=== PATIENT | female | born 1935 | race African-American/Black ===

== ENCOUNTER 2016-08-01 13:03 | Inpatient (IN) | payer OTHER, MEDICARE ==
[2016-08-01 13:21] VITALS: BMI 28.0
[2016-08-01 14:04] LABS: BASOPHIL 0.9 % (0-2.0); EOSINOPHIL 2.6 % (0-4.5); MCH 29.6 pg (25.7-33.7); MCHC 33.2 g/dl (32.0-36.0); MEAN CELL VOLUME 89.1 fl (80-96); MEAN PLT VOLUME 10.4 fl (7.5-11.1); NEUTROPHILS 59.6 % (42.8-82.8); PLATELET COUNT 161 K/MM3 (134-434); RDW 16.2 % (11.6-15.6); WHITE BLOOD COUNT 4.5 K/mm3 (4.0-10.0)
[2016-08-01 14:08] LABS: URINE APPEARANCE CLOUDY; URINE BILIRUBIN NEGATIVE (NEGATIVE); URINE COLOR AMBER; URINE GLUCOSE (UA) NEGATIVE (NEGATIVE); URINE KETONE NEGATIVE (NEGATIVE); URINE NITRITE NEGATIVE (NEGATIVE); URINE UROBILINOGEN NEGATIVE E.U./dl (0.2-1.0)
[2016-08-01 14:13] LABS: URINE BLOOD 3+ (NEGATIVE); URINE LEUK ESTERASE 2+ (NEGATIVE); URINE PROTEIN 1+ (NEGATIVE)
[2016-08-01 14:15] LABS: INR 2.46 (0.82-1.09); PROTHROMBIN TIME (PATIENT) 27.6 SEC (9.98-11.88)
[2016-08-01 14:22] LABS: URINE BACTERIA FEW /hpf (NONE SEEN); URINE MUCUS FEW; URINE RBC 14 /hpf (0-3); URINE WBC 277 /hpf (3-5); YEAST MANY
[2016-08-01 14:24] LABS: ALBUMIN 3.9 g/dl (3.4-5.0); BILIRUBIN,TOTAL 0.5 mg/dL (0.2-1.0); CALCIUM 9.4 mg/dL (8.5-10.1); CREATININE 1.2 mg/dL (0.55-1.02); TOT PROT 7.6 g/dl (6.4-8.2)
--- NOTE | 2016-08-01 14:25 | EKG ---
Test Reason : Blood Pressure : / mmHG Vent. Rate : 080 BPM Atrial Rate : 080 BPM P-R Int : 184 ms QRS Dur : 072 ms QT Int : 368 ms P-R-T Axes : 029 -40 004 degrees QTc Int : 424 ms SINUS RHYTHM WITH PREMATURE ATRIAL COMPLEXES LEFT AXIS DEVIATION MINIMAL VOLTAGE CRITERIA FOR LVH, MAY BE NORMAL VARIANT INFERIOR INFARCT (CITED ON OR BEFORE 22-MAY-2011) ANTERIOR INFARCT (CITED ON OR BEFORE 22-MAY-2011) ABNORMAL ECG WHEN COMPARED WITH ECG OF 09-JUN-2016 18:53, NO SIGNIFICANT CHANGE WAS FOUND Confirmed by JOE NEFF MD ([id number]) on 08/01/2016 2:24:34 PM Referred By: Confirmed By:JOE NEFF MD
--- NOTE | 2016-08-01 15:16 | PDOC ---
History of Present Illness <Bon Brennan - Last Filed: 08/01/16 16:29> - General History Source: Patient Exam Limitations: No Limitations - History of Present Illness Initial Comments: 08/01/16 15:28 Patient is an 80 year old female with significant medical hx of HTN, HLD, CVA, anemia, left lower extremity DVT (lifelong Coumadin), gait instability (chronic lower extremity weakness), osteoarthritis, colorectal CA s/p colectomy with subsequent reversal, and chemotherapy who presents to the ED with son from home with generalized weakness. [facility] s/p recent fall in 06/2016 for balance and was discharged 2 weeks ago. As per patients health aid she noticed that the patient was dragging her right foot while ambulating with a walker. As per son the patient has had increased urinary output/frequency. Pt has no acute complaints beside mild weakness. She denies chest pain, SOB, nausea, vomiting, diarrhea, abdominal pain or constipation. No vision changes or blurry vision. PCP - Dr. Sosa Vera <Nita Chavez - Last Filed: 08/01/16 16:44> - General Chief Complaint: Weakness Stated Complaint: Weakness Time Seen by Provider: 08/01/16 13:11 Past History - Past Medical History Anemia: Yes Asthma: No Cancer: Yes (COLON) Cardiac Disorders: Yes CVA: No COPD: No CHF: No Dementia: No Diabetes: No GI Disorders: Yes Disorders: No HTN: Yes Hypercholesterolemia: Yes Liver Disease: No Suicide Attempt (Hx): No Seizures: No Thyroid Disease: Yes (HYPERTHYROID DISEASE) - Surgical History Abdominal Surgery: Yes (COLON RESECTION/COLOSTOMY; S/O AAA REPAIR) Appendectomy: No Cardiac Surgery: No Cholecystectomy: No Lung Surgery: No Neurologic Surgery: No Orthopedic Surgery: No - Immunization History Immunization Up to Date: Yes - Psycho/Social/Smoking Cessation Hx Anxiety: No Suicidal Ideation: No Smoking Status: No Smoking History: Never smoked Have you smoked in the past 12 months: No Number of Cigarettes Smoked Daily: 0 If you are a former smoker, when did you quit?: over 10 years Information on smoking cessation initiated: No Hx Alcohol Use: No Drug/Substance Use Hx: No Substance Use Type: None Hx Substance Use Treatment: No <Bon Brennan - Last Filed: 08/01/16 16:29> <Nita Chavez - Last Filed: 08/01/16 16:44> - Past Medical History Allergies/Adverse Reactions: Allergies Allergy/AdvReac Type Severity Reaction Status Date / Time iodine [Iodine] Allergy Mild Hives Verified 08/01/16 13:10 SHELLFISH Allergy Uncoded 08/01/16 13:10 Home Medications: Ambulatory Orders Docusate Sodium [Colace -] 100 mg PO DAILY 11/10/13 Atorvastatin Calcium 20 mg PO DAILY #30 01/31/15 Calcium Carbonate/Vitamin D3 [Calcium 600-Vit D3 800 Tablet] 1 each PO DAILY 07/21 Cyanocobalamin [Vitamin B12 -] 1,000 mcg PO DAILY 04/06/15 Methimazole [Tapazole -] 5 mg PO DAILY 04/06/15 Metoprolol Succinate [Toprol XL -] 50 mg PO DAILY 04/06/15 Apixaban [Eliquis -] 2.5 mg PO BID #0 tablet 06/12/16 Ascorbic Acid [Vitamin C -] 500 mg PO DAILY 08/01/16 Ferrous Sulfate [Feosol] 325 mg PO DAILY 08/01/16 Folic Acid 1 mg PO DAILY 08/01/16 Megestrol Acetate Oral Susp [Megace Liquid -] 400 mg PO DAILY 08/01/16 Multivitamins [Tab-A-Vit -] 1 tab PO DAILY 08/01/16 Review of Systems - Review of Systems Able to Perform ROS?: Yes Comments:: 08/01/16 15:29 CONSTITUTIONAL: Reported: generalized weakness No reported: Fever, Chills, Diaphoresis, Malaise, Loss of Appetite HEENT: No reported: Rhinorrhea, Nasal Congestion, Throat Pain, Throat Swelling, Difficulty Swallowing, Mouth Swelling, Ear Pain, Eye Pain, Visual Changes CARDIOVASCULAR: No reported: Chest Pain, Syncope, Palpitations, Irregular Heart Rate, Lightheadedness, Peripheral Edema RESPIRATORY: No reported: Cough, Shortness of Breath, SOB with Exertion, Orthopnea, Wheezing , Stridor, Hemoptysis GASTROINTESTINAL: No reported: Abdominal pain, Abdominal Distension, Nausea, Vomiting, Diarrhea, Constipation, Melena, Hematochezia GENITOURINARY: No reported: Dysuria, Frequency, Urgency, Hesitancy, Flank Pain, Genital Pain MUSCULOSKELETAL: Reported: lower extremity weakness No reported: Myalgia, Arthralgia, Joint Swelling, Back pain, Neck Pain SKIN: No reported: Rash, Itching, Pallor HEMATOLOGIC/IMMUNOLOGIC: No reported: Easy Bleeding, Easy Bruising, Lymphadenopathy, Frequent infections ENDOCRINE: No reported: Unexplained Weight Gain, Unexplained Weight Loss, Heat Intolerance , Cold Intolerance NEUROLOGIC: No reported: Headache, Focal Weakness, Paresthesias, Vertigo, Lightheadedness, Unsteady Gait, Seizure, Mental Status Changes, Incontinence PSYCHIATRIC: No reported: Anxiety, Depression <Nita Chavez - Last Filed: 08/01/16 16:44> *Physical Exam - Vital Signs Last Vital Signs Temp Pulse Resp BP Pulse Ox 98.8 F 76 18 138/98 100 08/01/16 13:03 08/01/16 13:55 08/01/16 13:03 08/01/16 13:03 08/01/16 13:55 <Bon Brennan - Last Filed: 08/01/16 16:29> - Vital Signs Last Vital Signs Temp Pulse Resp BP Pulse Ox 98.8 F 76 18 138/98 100 08/01/16 13:03 08/01/16 13:55 08/01/16 13:03 08/01/16 13:03 08/01/16 13:55 - Physical Exam Comments: 08/01/16 15:29 GENERAL: The patient is awake, alert, oriented x 1, Nontoxic - in no acute distress. HEAD: Normocephalic, atraumatic. EYES: extraocular movements intact, sclera anicteric, conjunctiva clear. ENT: Normal voice, Moist mucous membranes. NECK: Normal range of motion, supple LUNGS: Breath sounds equal, clear to auscultation bilaterally. No wheezes, no rhonchi, no rales. HEART: Regular rate and rhythm, normal S1 and S2 without murmur, rub or gallop. ABDOMEN: Soft, nontender, normoactive bowel sounds. No guarding, no rebound. . No CVA tenderness EXTREMITIES: Normal range of motion, no edema. No clubbing or cyanosis. No cords, erythema, or tenderness. PSYCH: Normal mood, normal affect. SKIN: Warm, Dry, normal turgor, NEURO: Mental status: The patient is oriented x1. Cranial nerves: Cranial nerves II through XII are intact Motor: The upper extremities are 5 over 5 in all muscle groups. mild drift of RLE, dorsi/plantar function 5/5. Sensation: Sensation is intact to light touch throughout. Cerebellar: Ikdalh-awezty-ihsj is normal in both upper extremities. Gait: deferred <BelkysenzoNita - Last Filed: 08/01/16 16:44> ED Treatment Course - LABORATORY CBC & Chemistry Diagram: 08/01/16 13:48 08/01/16 13:48 - ADDITIONAL ORDERS Additional order review: Laboratory Results 08/01/16 08/01/16 08/01/16 13:48 13:48 13:48 INR 2.46 H D Sodium 142 Potassium 3.7 Chloride 106 Carbon Dioxide 27 D Anion Gap 9 BUN 25 H D Creatinine 1.2 H Creat Clearance w eGFR 43.01 Random Glucose 84 D Calcium 9.4 Total Bilirubin 0.5 D AST 10 L D ALT 13 Alkaline Phosphatase 44 L Total Protein 7.6 Albumin 3.9 Urine Color Tess Urine Appearance Cloudy Urine pH 5.0 Ur Specific [place] 1.020 Urine Protein 1+ H Urine Glucose (UA) Negative Urine Ketones Negative Urine Blood 3+ H Urine Nitrite Negative Urine Bilirubin Negative Urine Urobilinogen Negative Ur Leukocyte Esterase 2+ H Urine RBC 14 Urine WBC 277 Ur Epithelial Cells Moderate Urine Bacteria Few Urine Mucus Few Urine Yeast Many 08/01/16 13:48 RBC 3.83 MCV 89.1 MCHC 33.2 RDW 16.2 H MPV 10.4 D Neutrophils % 59.6 D Lymphocytes % 28.0 D Monocytes % 8.9 Eosinophils % 2.6 D Basophils % 0.9 - RADIOLOGY Radiology Studies Ordered: Category Date Time Status HEAD CT WITHOUT CONTRAST [CT] Stat CT Scan 08/01/16 14:08 Ordered CHEST X-RAY PORTABLE* [RAD] Stat Radiology 08/01/16 13:21 Taken <Bon Brennan - Last Filed: 08/01/16 16:29> - LABORATORY CBC & Chemistry Diagram: 08/01/16 13:48 08/01/16 13:48 - ADDITIONAL ORDERS Additional order review: Laboratory Results 08/01/16 08/01/16 08/01/16 13:48 13:48 13:48 INR 2.46 H D Sodium 142 Potassium 3.7 Chloride 106 Carbon Dioxide 27 D Anion Gap 9 BUN 25 H D Creatinine 1.2 H Creat Clearance w eGFR 43.01 Random Glucose 84 D Calcium 9.4 Total Bilirubin 0.5 D AST 10 L D ALT 13 Alkaline Phosphatase 44 L Total Protein 7.6 Albumin 3.9 Urine Color Tess Urine Appearance Cloudy Urine pH 5.0 Ur Specific [place] 1.020 Urine Protein 1+ H Urine Glucose (UA) Negative Urine Ketones Negative Urine Blood 3+ H Urine Nitrite Negative Urine Bilirubin Negative Urine Urobilinogen Negative Ur Leukocyte Esterase 2+ H Urine RBC 14 Urine WBC 277 Ur Epithelial Cells Moderate Urine Bacteria Few Urine Mucus Few Urine Yeast Many 08/01/16 13:48 RBC 3.83 MCV 89.1 MCHC 33.2 RDW 16.2 H MPV 10.4 D Neutrophils % 59.6 D Lymphocytes % 28.0 D Monocytes % 8.9 Eosinophils % 2.6 D Basophils % 0.9 <Nita Chavez - Last Filed: 08/01/16 16:44> Medical Decision Making - Medical Decision Making 08/01/16 15:15 suspect possible UTI but will r/o cva with ct head likely admission vs obs 08/01/16 16:29 labs notable for mild deydration ct head negative ua c/w uti will treat with abx case d/w dr. vera will admit to observation stable for med/surg Case discussed in detail with admitting physician including history, physical exam and ancillary studies. Admitting physician has assumed care for the patient, will follow all pending diagnostics and will complete the evaluation and treatment. <Bon Brennan - Last Filed: 08/01/16 16:29> - Medical Decision Making 08/01/16 16:30 A call was placed to Dr. Vera at her office and case was discussed. <Nita Chavez - Last Filed: 08/01/16 16:44> *DC/Admit/Observation/Transfer - Discharge Dispostion Admit: Yes <Bon Brennan - Last Filed: 08/01/16 16:29> - Attestations Scribe Attestion: 08/01/16 15:29 Documentation prepared by GUILLERMO Vasquez, acting as emergency medical technician for Bon Brennan MD. <Nita Chavez - Last Filed: 08/01/16 16:44> Diagnosis at time of Disposition: Weakness, Dehydration UTI (urinary tract infection) Qualifiers: Urinary tract infection type: site unspecified Hematuria presence: without hematuria Qualified Code(s): N39.0 - Urinary tract infection, site not specified - Discharge Dispostion Condition at time of disposition: Stable - Referrals Referrals: Sosa Vera MD [Primary Care Provider] -
[2016-08-01 15:30] LABS: THYROID STIMULATING HORMONE 2.59 uIU/ml (0.358-3.74)
[2016-08-01] MEDS ORDERED: SODIUM CHLORIDE 500 ML IV STA (16:29)
[2016-08-01] MEDS ORDERED: CEFTRIAXONE 1 GM in DEXTROSE 5%-WATER - 50 ML IVPB ONE (16:34)
[2016-08-01] MEDS ORDERED: CEFTRIAXONE 50 ML ONE (16:37)
[2016-08-01] MEDS ORDERED: PT OWN MED DRAWER 7, Y5N ONE ×2 (21:09)
[2016-08-01] MEDS: POTASSIUM CHLORIDE 10 MEQ in SODIUM CHLORIDE 0.45% 1,000 ML IVPB SCH (21:42)
[2016-08-01] MEDS: APIXABAN 2.5 MG TABLET PO SCH (21:42)
--- NOTE | 2016-08-02 09:56 | HP ---
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 No: Parkinson's (parkinsonian sx but hx of Basal ganglia infarcts, her neurologist is evaluating her for PD) Cardiovascular: Yes: HTN, Hyperlipdemia Gastrointestinal: Yes: Cancer (colono CA s/p colectomy, chemotherapy, s/p colostomy with subsequent reversal.) Renal/: Yes: Other (Urethral diverticuli) ...: No Heme/Onc: Yes: Anemia, Other (h/o left leg DVT on lifelong Coumadin) Endocrine: Yes: Hyperthyroidism - Past Surgical History Past Surgical History: Yes: AAA Repair, Colectomy, Colostomy - Smoking History Smoking history: Former smoker Have you smoked in the past 12 months: No Aproximately how many cigarettes per day: 0 If you are a former smoker, when did you quit?: over 10 years - Alcohol/Substance Use Hx Alcohol Use: No - Social History ADL: Independent History of Recent Travel: No <Yue Ayala - Last Filed: 08/02/16 09:56> - Primary Care Physician PCP: Yue Ayala - Admission History of Present Illness: Patient is an 80 year old female with significant medical hx of HTN, HLD, CVA, anemia, left lower extremity DVT (lifelong Coumadin), gait instability (chronic lower extremity weakness), osteoarthritis, colorectal CA s/p colectomy with subsequent reversal, and chemotherapy who presents to the ED with son from home with generalized weakness. [facility] s/p recent fall in 06/2016 for balance and was discharged 2 weeks ago. As per patients health aid she noticed that the patient was dragging her right foot while ambulating with a walker. As per son the patient has had increased urinary output/frequency. Pt has no acute complaints beside mild weakness. She denies chest pain, SOB, nausea, vomiting, diarrhea, abdominal pain or constipation. No vision changes or blurry vision. Patient admitted to hospital for UTI ct of head was unremarkable as well as cxr pt seen today by me feels weak but no distress denies chest pain or SOB denies urinary burning no headache or dizziness denies abdominal pain History Source: Patient Limitations to Obtaining History: No Limitations <Nita Chavez - Last Filed: 08/02/16 10:16> Home Medications <Yue Ayala - Last Filed: 08/02/16 09:56> <Nita Chavez - Last Filed: 08/02/16 10:16> - Allergies Allergies/Adverse Reactions: Allergies Allergy/AdvReac Type Severity Reaction Status Date / Time iodine [Iodine] Allergy Mild Hives Verified 08/01/16 13:10 SHELLFISH Allergy Uncoded 08/01/16 13:10 - Home Medications Home Medications: Ambulatory Orders Docusate Sodium [Colace -] 100 mg PO DAILY 11/10/13 Atorvastatin Calcium 20 mg PO DAILY #30 01/31/15 Calcium Carbonate/Vitamin D3 [Calcium 600-Vit D3 800 Tablet] 1 each PO DAILY 07/21 Cyanocobalamin [Vitamin B12 -] 1,000 mcg PO DAILY 04/06/15 Methimazole [Tapazole -] 5 mg PO DAILY 04/06/15 Metoprolol Succinate [Toprol XL -] 50 mg PO DAILY 04/06/15 Apixaban [Eliquis -] 2.5 mg PO BID #0 tablet 06/12/16 Ascorbic Acid [Vitamin C -] 500 mg PO DAILY 08/01/16 Ferrous Sulfate [Feosol] 325 mg PO DAILY 08/01/16 Folic Acid 1 mg PO DAILY 08/01/16 Megestrol Acetate Oral Susp [Megace Liquid -] 400 mg PO DAILY 08/01/16 Multivitamins [Tab-A-Vit -] 1 tab PO DAILY 08/01/16 Review of Systems Unable to obtain ROS, reason: see HPI <Nita Chavez - Last Filed: 08/02/16 10:16> Physical Examination Vital Signs: Vital Signs Temperature 98.1 F 08/02/16 08:00 Pulse Rate 77 08/02/16 08:00 Respiratory Rate 18 08/02/16 08:00 Blood Pressure 158/87 08/02/16 08:00 O2 Sat by Pulse Oximetry (%) 100 08/01/16 21:00 <Yue Ayala - Last Filed: 08/02/16 09:56> Vital Signs: Vital Signs Temperature 98.1 F 08/02/16 08:00 Pulse Rate 77 08/02/16 08:00 Respiratory Rate 18 08/02/16 08:00 Blood Pressure 158/87 08/02/16 08:00 O2 Sat by Pulse Oximetry (%) 100 08/01/16 21:00 Constitutional: Yes: No Distress, Calm, Other (looks weak) Eyes: Yes: Conjunctiva Clear HENT: Yes: WNL Neck: Yes: Supple Cardiovascular: Yes: Regular Rate and Rhythm Respiratory: Yes: CTA Bilaterally Gastrointestinal: Yes: Soft Edema: No Neurological: Yes: Alert, Oriented <Nita Chavez - Last Filed: 08/02/16 10:16> Imaging - Results Chest X-ray: Image Reviewed Cat Scan: Image Reviewed <Nita Chavez - Last Filed: 08/02/16 10:16> Problem List - Problems (1) UTI (urinary tract infection) Code(s): N39.0 - URINARY TRACT INFECTION, SITE NOT SPECIFIED Qualifiers: Urinary tract infection type: site unspecified Hematuria presence: without hematuria Qualified Code(s): N39.0 - Urinary tract infection, site not specified (2) Dehydration Code(s): E86.0 - DEHYDRATION (3) Weakness Code(s): R53.1 - WEAKNESS (4) DVT (deep venous thrombosis) Code(s): I82.409 - ACUTE EMBOLISM AND THOMBOS UNSP DEEP VN UNSP LOWER EXTREMITY <Nita Chavez - Last Filed: 08/02/16 10:16> Assessment/Plan Mild hydration Abx Follow up urine cultures Medications reviewed PT Will follow Documentation prepared by Nita Chavez, acting as a medical instrument cable fabricator for Yue Ayala MD. <Nita Chavez - Last Filed: 08/02/16 10:16>
[2016-08-02] MEDS ORDERED: PT OWN MED DRAWER 7, Y5N ONE ×2 (10:49→22:40)
[2016-08-02] MEDS: POTASSIUM CHLORIDE 10 MEQ in SODIUM CHLORIDE 0.45% 1,000 ML IVPB SCH (10:51)
[2016-08-02] MEDS: METOPROLOL SUCCINATE 50 MG TAB.SR.24H (FP) PO SCH (10:52)
[2016-08-02] MEDS: DOCUSATE SODIUM 100 MG CAPSULE (FP) PO SCH (10:52)
[2016-08-02] MEDS: METHIMAZOLE 5 MG TABLET (FP) PO SCH (10:52)
[2016-08-02] MEDS: CEFTRIAXONE 50 ML IVPB SCH (10:52)
[2016-08-02] MEDS: APIXABAN 2.5 MG TABLET PO SCH ×2 (10:52→22:55)
[2016-08-02] MEDS: CALCIUM 500MG/VIT-D 200 UNITS COMBO TABLET (FP) PO SCH (10:52)
[2016-08-02] MEDS: MULTIVITAMINS (DAILY MVI) TABLET (FP) PO SCH (10:52)
[2016-08-02] MEDS: ATORVASTATIN CA 20 MG TABLET (FP) PO SCH (10:52)
[2016-08-02] MEDS ORDERED: ACETAMINOPHEN 325 MG TABLET (FP) PO PRN (17:08)
[2016-08-03] MEDS ORDERED: PT OWN MED DRAWER 7, Y5N ONE ×2 (11:04→18:50)
[2016-08-03] MEDS: METHIMAZOLE 5 MG TABLET (FP) PO SCH (11:08)
[2016-08-03] MEDS: APIXABAN 2.5 MG TABLET PO SCH ×2 (11:08→21:13)
[2016-08-03] MEDS: CALCIUM 500MG/VIT-D 200 UNITS COMBO TABLET (FP) PO SCH (11:09)
[2016-08-03] MEDS: METOPROLOL SUCCINATE 50 MG TAB.SR.24H (FP) PO SCH (11:09)
[2016-08-03] MEDS: MULTIVITAMINS (DAILY MVI) TABLET (FP) PO SCH (11:09)
[2016-08-03] MEDS: DOCUSATE SODIUM 100 MG CAPSULE (FP) PO SCH (11:09)
[2016-08-03] MEDS: ATORVASTATIN CA 20 MG TABLET (FP) PO SCH (11:09)
[2016-08-03] MEDS: POTASSIUM CHLORIDE 10 MEQ in SODIUM CHLORIDE 0.45% 1,000 ML IVPB SCH ×2 (11:42→21:16)
--- NOTE | 2016-08-03 12:10 | PN ---
Progress Note, Physician Chief Complaint: daughter at bedside pt has staring spells Daughter concerned about weakness which is progressing - Current Medication List Current Medications: Active Medications Acetaminophen (Tylenol -) 650 mg PO Q4H PRN PRN Reason: FEVER OR PAIN Apixaban (Eliquis -) 2.5 mg PO BID [facility] Last Admin: 08/03/16 11:08 Dose: 2.5 mg Atorvastatin Calcium (Lipitor -) 20 mg PO DAILY [facility] Last Admin: 08/03/16 11:09 Dose: 20 mg Calcium Carbonate/Cholecalciferol (Os-Vladislav 500+D -) 1 tab PO DAILY [facility] Last Admin: 08/03/16 11:09 Dose: 1 tab Docusate Sodium (Colace -) 100 mg PO DAILY [facility] Last Admin: 08/03/16 11:09 Dose: 100 mg Ceftriaxone Sodium (Rocephin 1gm Ivpb (Pre-Docked)) 50 mls @ 100 mls/hr IVPB DAILY [facility] Last Admin: 08/02/16 10:52 Dose: 100 mls/hr Potassium Chloride 10 meq/ (Sodium Chloride) 1,005 mls @ 83 mls/hr IVPB Q12H [facility] Last Admin: 08/03/16 11:42 Dose: 83 mls/hr Methimazole (Tapazole -) 5 mg PO DAILY [facility] Last Admin: 08/03/16 11:08 Dose: 5 mg Metoprolol Succinate (Toprol Xl -) 50 mg PO DAILY [facility] Last Admin: 08/03/16 11:09 Dose: 50 mg Multivitamins/Minerals/Vitamin C (Tab-A-Vit -) 1 tab PO DAILY [facility] Last Admin: 08/03/16 11:09 Dose: 1 tab - Objective Vital Signs: Vital Signs Temperature 98.1 F 08/03/16 08:01 Pulse Rate 68 08/03/16 08:01 Respiratory Rate 18 08/03/16 08:01 Blood Pressure 151/89 08/03/16 08:01 O2 Sat by Pulse Oximetry (%) 97 08/03/16 02:00 Constitutional: Yes: No Distress Cardiovascular: Yes: Regular Rate and Rhythm Respiratory: Yes: CTA Bilaterally Gastrointestinal: Yes: Normal Bowel Sounds, Soft. No: Distention, Tenderness Edema: No Neurological: Yes: Lethargy, Weakness Labs: INR, PTT INR 2.46 (0.82-1.09) H D 08/01/16 13:48 Problem List - Problems (1) Dehydration Code(s): E86.0 - DEHYDRATION (2) UTI (urinary tract infection) Code(s): N39.0 - URINARY TRACT INFECTION, SITE NOT SPECIFIED Qualifiers: Urinary tract infection type: site unspecified Hematuria presence: without hematuria Qualified Code(s): N39.0 - Urinary tract infection, site not specified (3) Weakness Code(s): R53.1 - WEAKNESS (4) Altered mental status Code(s): R41.82 - ALTERED MENTAL STATUS, UNSPECIFIED Qualifiers: Altered mental status type: disorientation Qualified Code(s): R41.0 - Disorientation, unspecified Assessment/Plan PLAN --Neurology evaluation -- IV antibiotics -- PT eval -- Physiatry evaluation -- may need EEG as pt's daughter notices she has staring spells -- continue with meds -- DVT prophylaxis-- Sudheer
[2016-08-03] MEDS: CEFTRIAXONE 50 ML IVPB SCH (12:16)
--- NOTE | 2016-08-03 12:39 | CONSULT ---
Consult Consult Specialty:: Neurology Reason for Consultation:: Weakness, right foot drag - History of Present Illness History of Present Illness: 80 year old woman with history of stroke, left leg DVT on anticoagulation, chronic gait instability, arthritis, colorectal cancer status post chemotherapy , presents with generalized weakness. [facility] into [facility] status post recent fall in 06/2016 for balance and was discharged two weeks ago. Health aid she noticed that the patient was dragging her right foot while ambulating with a walker. As per son the patient has had increased urinary output and frequency. 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 No: Parkinson's (parkinsonian sx but hx of Basal ganglia infarcts, her neurologist is evaluating her for PD) Cardio/Vascular: Yes: HTN, Hyperlipdemia Gastrointestinal: Yes: Cancer (colono CA s/p colectomy, chemotherapy, s/p colostomy with subsequent reversal.) Renal/: Yes: Other (Urethral diverticuli) ...: No Endocrine: Yes: Hyperthyroidism - Past Surgical History Past Surgical History: Yes: AAA Repair, Colectomy, Colostomy - Alcohol/Substance Use Hx Alcohol Use: No - Smoking History Smoking history: Former smoker Have you smoked in the past 12 months: No Aproximately how many cigarettes per day: 0 If you are a former smoker, when did you quit?: over 10 years - Social History ADL: Independent History of Recent Travel: No Home Medications - Allergies Allergies/Adverse Reactions: Allergies Allergy/AdvReac Type Severity Reaction Status Date / Time iodine [Iodine] Allergy Mild Hives Verified 08/01/16 13:10 SHELLFISH Allergy Uncoded 08/01/16 13:10 - Home Medications Home Medications: Ambulatory Orders Docusate Sodium [Colace -] 100 mg PO DAILY 11/10/13 Atorvastatin Calcium 20 mg PO DAILY #30 01/31/15 Calcium Carbonate/Vitamin D3 [Calcium 600-Vit D3 800 Tablet] 1 each PO DAILY 07/21 Cyanocobalamin [Vitamin B12 -] 1,000 mcg PO DAILY 04/06/15 Methimazole [Tapazole -] 5 mg PO DAILY 04/06/15 Metoprolol Succinate [Toprol XL -] 50 mg PO DAILY 04/06/15 Apixaban [Eliquis -] 2.5 mg PO BID #0 tablet 12/07/16 Ascorbic Acid [Vitamin C -] 500 mg PO DAILY 08/01/16 Ferrous Sulfate [Feosol] 325 mg PO DAILY 08/01/16 Folic Acid 1 mg PO DAILY 08/01/16 Megestrol Acetate Oral Susp [Megace Liquid -] 400 mg PO DAILY 08/01/16 Multivitamins [Tab-A-Vit -] 1 tab PO DAILY 08/01/16 Physical Exam Vital Signs: Vital Signs Temperature 98.1 F 08/03/16 08:01 Pulse Rate 68 08/03/16 08:01 Respiratory Rate 18 08/03/16 08:01 Blood Pressure 151/89 08/03/16 08:01 O2 Sat by Pulse Oximetry (%) 97 08/03/16 02:00 Constitutional: Yes: No Distress Eyes: Yes: Conjunctiva Clear, EOM Intact HENT: Yes: Atraumatic, Normocephalic Cardiovascular: Yes: S1, S2 Respiratory: Yes: Regular Neurological: Yes: Alert, Cran Nerves II-XII Intact (knows name, does not state age or month Motor moves all extremities spontanously, when asking to lift up right leg, lifts up left leg instead) Problem List - Problems (1) Dehydration Code(s): E86.0 - DEHYDRATION (2) UTI (urinary tract infection) Code(s): N39.0 - URINARY TRACT INFECTION, SITE NOT SPECIFIED Qualifiers: Urinary tract infection type: site unspecified Hematuria presence: without hematuria Qualified Code(s): N39.0 - Urinary tract infection, site not specified (3) Altered mental status Code(s): R41.82 - ALTERED MENTAL STATUS, UNSPECIFIED Qualifiers: Altered mental status type: disorientation Qualified Code(s): R41.0 - Disorientation, unspecified Assessment/Plan 80 year old woman with history of stroke, left leg DVT on anticoagulation, chronic gait instability, arthritis, colorectal cancer status post chemotherapy , presents with generalized weakness. Health aid she noticed that the patient was dragging her right foot while ambulating with a walker. As per son the patient has had increased urinary output and frequency. CT head no acute changes Exam is limited but patient appears to prefer moving left leg over right leg Recommend MRI brain without contrast to rule out stroke Infectious workup Physical therapy
--- NOTE | 2016-08-03 16:39 | RAPID ---
Physical Examination Vital Signs: Vital Signs Temperature 98.6 F 08/03/16 14:33 Pulse Rate 71 08/03/16 14:33 Respiratory Rate 18 08/03/16 08:01 Blood Pressure 133/86 08/03/16 14:33 O2 Sat by Pulse Oximetry (%) 96 08/03/16 10:00 Findings/Remarks: rapid response was called as pt was found unresponsive . staring in the space not responding to commands at the time of arrival to the room, pt was awake, minimally responsive to commands, but quickly she became responsive , answered questions and followed commands. PE : BP 130 /70 , HR 70s , SAt O2 90s finger stick 114 . Awake , knows her age , location and knows she fell at home . CV: RRR, no MRG ' Lungs : CTAB Neuro: limited exam : no facial droop, no gaze preference , round equal pupils , reactive to light. Tongue at mid line. shoulder shrug NL , strength 5/5 in upper extremities biceps , triceps , 4/5 final cigar and box examiner b/l . strength at hip 4/5 b/l , knee flexion and extention 4/5 . not able to assess strength at ankles . reflexes 2 + biceps b/l ... 1+ kn ee jerk . unable to assess sensation A/P 80 y/o lady with h/o stroke , DVT , being admitted with UTI and possible R LE weakness. Rapid response called due to unresponsiveness. Now improved , awake , but still not at her base line . no evidence of hypotension or hypoglycemia . There is suspicion for a stroke in her case. Code lloyd called. Obtain stat Ct scan of head. I see an order of MRI brain as well . will transfer pt to tele obtain EKG Dr. Sosa Rubio was paged will inform Neuro who saw her this am . Spoke to family at bed side , they are aware of situation Primary team to resume care . will try to reach Dr. Rubio again
[2016-08-03 18:00] LABS: TROPONIN I < 0.02 ng/ml (0.00-0.05)
[2016-08-04] MEDS: POTASSIUM CHLORIDE 10 MEQ in SODIUM CHLORIDE 0.45% 1,000 ML IVPB SCH ×3 (02:12→12:48)
[2016-08-04] MEDS ORDERED: PT OWN MED DRAWER 7, Y5N ONE (03:07)
[2016-08-04 07:07] LABS: BASOPHIL 0.7 % (0-2.0); EOSINOPHIL 3.5 % (0-4.5); MCH 29.9 pg (25.7-33.7); MCHC 33.4 g/dl (32.0-36.0); MEAN CELL VOLUME 89.3 fl (80-96); MEAN PLT VOLUME 9.5 fl (7.5-11.1); NEUTROPHILS 56.2 % (42.8-82.8); PLATELET COUNT 126 K/MM3 (134-434); RDW 15.6 % (11.6-15.6); WHITE BLOOD COUNT 4.6 K/mm3 (4.0-10.0)
[2016-08-04 07:40] LABS: ALBUMIN 3.1 g/dl (3.4-5.0); ANION GAP 10 (8-16); BILIRUBIN,TOTAL 0.5 mg/dL (0.2-1.0); CALCIUM 8.3 mg/dL (8.5-10.1); CO2 23 mmol/L (21-32); CREATININE 0.8 mg/dL (0.55-1.02); GLUCOSE,RANDOM 76 mg/dL (74-106); SGOT/AST 12 U/L (15-37); SGPT/ALT 10 U/L (12-78); TOT PROT 6.3 g/dl (6.4-8.2)
[2016-08-04 08:04] LABS: ALK PHOS 38 U/L (45-117)
--- NOTE | 2016-08-04 09:27 | PN ---
Progress Note, Physician Chief Complaint: s/p rapid response- pt was unresponsive and her mouth was "twisted" when I asked pt if she remembered the events- she said " i was not responding" She is more awake and alert today Denies any discomfort - Current Medication List Current Medications: Active Medications Acetaminophen (Tylenol -) 650 mg PO Q4H PRN PRN Reason: FEVER OR PAIN Apixaban (Eliquis -) 2.5 mg PO BID [facility] Last Admin: 08/03/16 21:13 Dose: 2.5 mg Atorvastatin Calcium (Lipitor -) 20 mg PO DAILY [facility] Last Admin: 08/03/16 11:09 Dose: 20 mg Calcium Carbonate/Cholecalciferol (Os-Vladislav 500+D -) 1 tab PO DAILY [facility] Last Admin: 08/03/16 11:09 Dose: 1 tab Docusate Sodium (Colace -) 100 mg PO DAILY [facility] Last Admin: 08/03/16 11:09 Dose: 100 mg Ceftriaxone Sodium (Rocephin 1gm Ivpb (Pre-Docked)) 50 mls @ 100 mls/hr IVPB DAILY [facility] Last Admin: 08/03/16 12:16 Dose: 100 mls/hr Potassium Chloride 10 meq/ (Sodium Chloride) 1,005 mls @ 83 mls/hr IVPB Q12H [facility] Last Admin: 08/04/16 07:01 Dose: Not Given Methimazole (Tapazole -) 5 mg PO DAILY [facility] Last Admin: 08/03/16 11:08 Dose: 5 mg Metoprolol Succinate (Toprol Xl -) 50 mg PO DAILY [facility] Last Admin: 08/03/16 11:09 Dose: 50 mg Multivitamins/Minerals/Vitamin C (Tab-A-Vit -) 1 tab PO DAILY [facility] Last Admin: 08/03/16 11:09 Dose: 1 tab - Objective Vital Signs: Vital Signs Temperature 98 F 08/04/16 07:02 Pulse Rate 69 08/04/16 07:02 Respiratory Rate 20 08/04/16 07:02 Blood Pressure 113/65 08/04/16 07:02 O2 Sat by Pulse Oximetry (%) 100 08/04/16 05:58 Constitutional: Yes: No Distress, Calm Cardiovascular: Yes: Pulse Irregular, Murmur Respiratory: Yes: CTA Bilaterally Gastrointestinal: Yes: Normal Bowel Sounds, Soft. No: Distention, Tenderness Edema: No Neurological: Yes: Alert, Oriented, Other (generalized weakness both sides upper and lower extremities) Labs: CBC, BMP 08/04/16 06:00 08/04/16 06:00 INR, PTT INR 2.46 (0.82-1.09) H D 08/01/16 13:48 Problem List - Problems (1) Dehydration Code(s): E86.0 - DEHYDRATION (2) UTI (urinary tract infection) Code(s): N39.0 - URINARY TRACT INFECTION, SITE NOT SPECIFIED Qualifiers: Urinary tract infection type: site unspecified Hematuria presence: without hematuria Qualified Code(s): N39.0 - Urinary tract infection, site not specified (3) Weakness Code(s): R53.1 - WEAKNESS (4) Altered mental status Code(s): R41.82 - ALTERED MENTAL STATUS, UNSPECIFIED Qualifiers: Altered mental status type: disorientation Qualified Code(s): R41.0 - Disorientation, unspecified Assessment/Plan PLAN -- MRI brain and repeat CT head noted -- no evidence of acute CVA -- ? TIA vs toxic metabolic due to UTI -- blood cultures not done yet to complete septic work up -- she has h/o Rt ICA stenosis- but no interventions per Vascular surgeon ( last admission) -- order EEG -- cardiology eval-- pt in tele, she has multiple PVC -- check Magnesium levels -- labs look unremarkable -- PT eval -- continue with Sudheer
[2016-08-04 10:10] LABS: MAGNESIUM 2.2 mg/dL (1.8-2.4)
--- NOTE | 2016-08-04 10:15 | CON.CARD ---
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 Past few days at home as felt weak/fatigue. No cp, sob, palps, dizzy, loc, pnd, orthopnea, le edema. No hx hrt dz. Admitted here with uti and dehydration. Then last night had episode of unresponsiveness and abdiel barraza called. Pt returned to baseline MS on her own, bp/glucose were stable. She does not recall event, aside from "feeling off". Stat imaging revealed no acute cva. This AM feeling better. Main complaint is weakness/fatigue. pmh: per hpi psh: per hpi social: no tob fam: no premature cad, scd ros: per hpi; no nvd, fever, sandra, vision changes, muscle pain, gib, hematuria, rash meds: Medication Instructions Recorded Docusate Sodium [Colace -] 100 mg PO DAILY 11/10/13 Atorvastatin Calcium 20 mg PO DAILY #30 01/31/15 Calcium Carbonate/Vitamin D3 1 each PO DAILY 04/06/15 [Calcium 600-Vit D3 800 Tablet] Cyanocobalamin [Vitamin B12 -] 1,000 mcg PO DAILY 04/06/15 Methimazole [Tapazole -] 5 mg PO DAILY 04/06/15 Metoprolol Succinate [Toprol XL -] 50 mg PO DAILY 04/06/15 Apixaban [Eliquis -] 2.5 mg PO BID #0 tablet 06/12/16 Ascorbic Acid [Vitamin C -] 500 mg PO DAILY 08/01/16 Ferrous Sulfate [Feosol] 325 mg PO DAILY 08/01/16 Folic Acid 1 mg PO DAILY 08/01/16 Megestrol Acetate Oral Susp 400 mg PO DAILY 08/01/16 [Megace Liquid -] Multivitamins [Tab-A-Vit -] 1 tab PO DAILY 08/01/16 pe: Vital Signs Period Temp Pulse Resp BP Sys/Francis Pulse Ox Last 24 Hr 97.9 F-98.6 F 66-74 16-20 113-157/65-101 100-100 nad, no jvd rrr s1s2 no mrg cta bl nl eff aaox3 no le e/c/c abd nt nd pos bs no jaundice diaphoresis pos dp pt no carotid bruit Laboratory Last Values WBC 4.6 K/mm3 (4.0-10.0) 08/04/16 06:00 RBC 3.65 M/mm3 (3.60-5.2) 08/04/16 06:00 Hgb 10.9 GM/dL (10.7-15.3) 08/04/16 06:00 Hct 32.6 % (32.4-45.2) 08/04/16 06:00 MCV 89.3 fl (80-96) 08/04/16 06:00 MCHC 33.4 g/dl (32.0-36.0) 08/04/16 06:00 RDW 15.6 % (11.6-15.6) 08/04/16 06:00 Plt Count 126 K/MM3 (134-434) L D 08/04/16 06:00 MPV 9.5 fl (7.5-11.1) 08/04/16 06:00 Neutrophils % 56.2 % (42.8-82.8) 08/04/16 06:00 Lymphocytes % 31.1 % (8-40) 08/04/16 06:00 Monocytes % 8.5 % (3.8-10.2) 08/04/16 06:00 Eosinophils % 3.5 % (0-4.5) 08/04/16 06:00 Basophils % 0.7 % (0-2.0) 08/04/16 06:00 INR 2.46 (0.82-1.09) H D 08/01/16 13:48 Sodium 141 mmol/L (136-145) 08/04/16 06:00 Potassium 3.6 mmol/L (3.5-5.1) 08/04/16 06:00 Chloride 108 mmol/L (98-107) H 08/04/16 06:00 Carbon Dioxide 23 mmol/L (21-32) 08/04/16 06:00 Anion Gap 10 (8-16) 08/04/16 06:00 BUN 10 mg/dL (7-18) D 08/04/16 06:00 Creatinine 0.8 mg/dL (0.55-1.02) D 08/04/16 06:00 Creat Clearance w eGFR > 60 (>60) 08/04/16 06:00 POC Glucometer 114 UNITS (()) 08/03/16 15:59 Random Glucose 76 mg/dL (74-106) 08/04/16 06:00 Calcium 8.3 mg/dL (8.5-10.1) L 08/04/16 06:00 Magnesium Cancelled 08/04/16 09:45 Total Bilirubin 0.5 mg/dL (0.2-1.0) 08/04/16 06:00 AST 12 U/L (15-37) L 08/04/16 06:00 ALT 10 U/L (12-78) L D 08/04/16 06:00 Alkaline Phosphatase 38 U/L (45-117) L 08/04/16 06:00 Creatine Kinase 45 IU/L (26-192) 08/03/16 17:11 Troponin I < 0.02 ng/ml (0.00-0.05) 08/03/16 17:11 Total Protein 6.3 g/dl (6.4-8.2) L 08/04/16 06:00 Albumin 3.1 g/dl (3.4-5.0) L D 08/04/16 06:00 Vitamin B12 1484 pg/ml (180-914) H 08/04/16 06:00 TSH 2.59 uIU/ml (0.358-3.74) D 08/01/16 13:48 Urine Color Tess 08/01/16 13:48 Urine Appearance Cloudy 08/01/16 13:48 Urine pH 5.0 (5.0-8.0) 08/01/16 13:48 Ur Specific [place] 1.020 (1.001-1.035) 08/01/16 13:48 Urine Protein 1+ (NEGATIVE) H 08/01/16 13:48 Urine Glucose (UA) Negative (NEGATIVE) 08/01/16 13:48 Urine Ketones Negative (NEGATIVE) 08/01/16 13:48 Urine Blood 3+ (NEGATIVE) H 08/01/16 13:48 Urine Nitrite Negative (NEGATIVE) 08/01/16 13:48 Urine Bilirubin Negative (NEGATIVE) 08/01/16 13:48 Urine Urobilinogen Negative E.U./dl (0.2-1.0) 08/01/16 13:48 Ur Leukocyte Esterase 2+ (NEGATIVE) H 08/01/16 13:48 Urine RBC 14 /hpf (0-3) 08/01/16 13:48 Urine WBC 277 /hpf (3-5) 08/01/16 13:48 Ur Epithelial Cells Moderate /hpf (FEW) 08/01/16 13:48 Urine Bacteria Few /hpf (NONE SEEN) 08/01/16 13:48 Urine Mucus Few 08/01/16 13:48 Urine Yeast Many 08/01/16 13:48 ecg 08/01/16: sr, pacs, nl intervals, LVH, no ischemic changes cxr: clear lungs carotid us 06/2016: 50-70% davy, left w/o sig stenosis tele: sr, occ pvcs, one pvc triplet a/p: 80 f hx htn, hld, cva, 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 abnormal ecg/pvcs: -tele with occasional pvcs, no significant runs -check mg (pending) -pt has hx hyperthyroid but tsh wnl here -cont bb for now -monitor on tele -check echo tomorrow to evaluate lvef ams, weakness, hx cva: -no obvious cardiac etiology at present -continue tele -check echo -recent carotid US with 50-70% DAVY stenosis, seen by Vascular then, no further work up needed per consult -ct's, mri brain unremarkable so far -possibly related to UTI -neuro following as well luis: -prerenal, ?from uti -cr improved after ivfs, monitor cr uti: -on abx htn: -stable, cont bb hld: -cont statin hx of dvt: -on eliquis s/p AAA repair: -cont bb, bp control, statin -pt follows with dr erazo, reports having recent abd us that was stable per pt
[2016-08-04] MEDS: METHIMAZOLE 5 MG TABLET (FP) PO SCH (10:23)
[2016-08-04] MEDS: ATORVASTATIN CA 20 MG TABLET (FP) PO SCH (10:23)
[2016-08-04] MEDS: CALCIUM 500MG/VIT-D 200 UNITS COMBO TABLET (FP) PO SCH (10:23)
[2016-08-04] MEDS: CEFTRIAXONE 50 ML IVPB SCH (10:23)
[2016-08-04] MEDS: DOCUSATE SODIUM 100 MG CAPSULE (FP) PO SCH (10:23)
[2016-08-04] MEDS: METOPROLOL SUCCINATE 50 MG TAB.SR.24H (FP) PO SCH ×2 (10:23→10:31)
[2016-08-04] MEDS: MULTIVITAMINS (DAILY MVI) TABLET (FP) PO SCH (10:23)
[2016-08-04] MEDS: APIXABAN 2.5 MG TABLET PO SCH ×2 (10:23→21:31)
[2016-08-04] MEDS ORDERED: METOPROLOL SUCCINATE 25 MG TAB.SR.24H (FP) PO SCH (11:00)
--- NOTE | 2016-08-04 12:02 | PN ---
Progress Note (short form) - Note Progress Note: History of Present Illness: 08/04 Overnight called for episode of unresponsiveness. Patient spontaneously regained consciousness. CT head no acute findings. Vitals were stable at the time. Patient appears improved today, no focal weakness on exam. Alert and knows name MRI brain reviewed- no acute stroke, poss opthalmic lca aneurysm 80 year old woman with history of stroke, left leg DVT on anticoagulation, chronic gait instability, arthritis, colorectal cancer status post chemotherapy , presents with generalized weakness. Patient was placed into a long term for rehab status post recent fall in 06/2016 for balance and was discharged two weeks ago. Health aid she noticed that the patient was dragging her right foot while ambulating with a walker. As per son the patient has had increased urinary output and frequency. CT head no acute changes - Past Medical History [employer]: Yes: Dementia. No: Parkinson's (parkinsonian sx but hx of Basal ganglia infarcts, her neurologist is evaluating her for PD) Cardio/Vascular: Yes: HTN, Hyperlipdemia Gastrointestinal: Yes: Cancer (colono CA s/p colectomy, chemotherapy, s/p colostomy with subsequent reversal.) Renal/: Yes: Other (Urethral diverticuli) ...: No Endocrine: Yes: Hyperthyroidism - Past Surgical History Past Surgical History: Yes: AAA Repair, Colectomy, Colostomy - Alcohol/Substance Use Hx Alcohol Use: No - Smoking History Smoking history: Former smoker Have you smoked in the past 12 months: No Aproximately how many cigarettes per day: 0 If you are a former smoker, when did you quit?: over 10 years - Social History ADL: Independent History of Recent Travel: No Home Medications - Allergies Allergies/Adverse Reactions: Allergies Allergy/AdvReac Type Severity Reaction Status Date / Time iodine [Iodine] Allergy Mild Hives Verified 08/01/16 13:10 SHELLFISH Allergy Uncoded 08/01/16 13:10 - Home Medications Home Medications: Ambulatory Orders Docusate Sodium [Colace -] 100 mg PO DAILY 11/10/13 Atorvastatin Calcium 20 mg PO DAILY #30 01/31/15 Calcium Carbonate/Vitamin D3 [Calcium 600-Vit D3 800 Tablet] 1 each PO DAILY 07/21 Cyanocobalamin [Vitamin B12 -] 1,000 mcg PO DAILY 04/06/15 Methimazole [Tapazole -] 5 mg PO DAILY 04/06/15 Metoprolol Succinate [Toprol XL -] 50 mg PO DAILY 04/06/15 Apixaban [Eliquis -] 2.5 mg PO BID #0 tablet 06/12/16 Ascorbic Acid [Vitamin C -] 500 mg PO DAILY 08/01/16 Ferrous Sulfate [Feosol] 325 mg PO DAILY 08/01/16 Folic Acid 1 mg PO DAILY 08/01/16 Megestrol Acetate Oral Susp [Megace Liquid -] 400 mg PO DAILY 08/01/16 Multivitamins [Tab-A-Vit -] 1 tab PO DAILY 08/01/16 Physical Exam Constitutional: Yes: No Distress Eyes: Yes: Conjunctiva Clear, EOM Intact HENT: Yes: Atraumatic, Normocephalic Cardiovascular: Yes: S1, S2 Respiratory: Yes: Regular Neurological: Yes: Alert, Cran Nerves II-XII Intact (knows name, does not state age or month Motor moves all extremities spontanously, strength appears equal and symmetric) Problem List - Problems (1) Dehydration Code(s): E86.0 - DEHYDRATION (2) UTI (urinary tract infection) Code(s): N39.0 - URINARY TRACT INFECTION, SITE NOT SPECIFIED Qualifiers: Urinary tract infection type: site unspecified Hematuria presence: without hematuria Qualified Code(s): N39.0 - Urinary tract infection, site not specified (3) Altered mental status Code(s): R41.82 - ALTERED MENTAL STATUS, UNSPECIFIED Qualifiers: Altered mental status type: disorientation Qualified Code(s): R41.0 - Disorientation, unspecified Assessment/Plan 80 year old woman with history of stroke, left leg DVT on anticoagulation, chronic gait instability, arthritis, colorectal cancer status post chemotherapy , presents with generalized weakness. Health aid she noticed that the patient was dragging her right foot while ambulating with a walker. As per son the patient has had increased urinary output and frequency. CT head no acute changes Awake, alert, moving all ext without focal weakness, right lower ext improved MRI brain reviewed- no acute stroke, poss opthalmic lca aneurysm Recommend MRA brain without contrast to assess aneurysm Previously seen by vascular for R ICA stenosis as per note, no intervention EEG for unresponsiveness Continue supportive care Problem List - Problems (1) Dehydration Code(s): E86.0 - DEHYDRATION (2) UTI (urinary tract infection) Code(s): N39.0 - URINARY TRACT INFECTION, SITE NOT SPECIFIED Qualifiers: Urinary tract infection type: site unspecified Hematuria presence: without hematuria Qualified Code(s): N39.0 - Urinary tract infection, site not specified (3) Altered mental status Code(s): R41.82 - ALTERED MENTAL STATUS, UNSPECIFIED Qualifiers: Altered mental status type: disorientation Qualified Code(s): R41.0 - Disorientation, unspecified
[2016-08-04] MEDS: POTASSIUM CHLORIDE 10 MEQ in SODIUM CHLORIDE 1,000 ML IVPB SCH (13:18)
[2016-08-05] MEDS: POTASSIUM CHLORIDE 10 MEQ in SODIUM CHLORIDE 1,000 ML IVPB SCH ×3 (00:08→12:04)
--- NOTE | 2016-08-05 08:21 | PN ---
Progress Note, Physician Chief Complaint: syncope History of Present Illness: awake/alert; denies palpitations, cp, sob, dizzy - Current Medication List Current Medications: Active Medications Acetaminophen (Tylenol -) 650 mg PO Q4H PRN PRN Reason: FEVER OR PAIN Apixaban (Eliquis -) 2.5 mg PO BID [facility] Last Admin: 08/04/16 21:31 Dose: 2.5 mg Atorvastatin Calcium (Lipitor -) 20 mg PO DAILY [facility] Last Admin: 08/04/16 10:23 Dose: 20 mg Calcium Carbonate/Cholecalciferol (Os-Vladislav 500+D -) 1 tab PO DAILY [facility] Last Admin: 08/04/16 10:23 Dose: 1 tab Docusate Sodium (Colace -) 100 mg PO DAILY [facility] Last Admin: 08/04/16 10:23 Dose: 100 mg Ceftriaxone Sodium (Rocephin 1gm Ivpb (Pre-Docked)) 50 mls @ 100 mls/hr IVPB DAILY [facility] Last Admin: 08/04/16 10:23 Dose: 100 mls/hr Potassium Chloride 10 meq/ (Sodium Chloride) 1,005 mls @ 83 mls/hr IVPB Q12H [facility] Last Admin: 08/05/16 01:06 Dose: 83 mls/hr Methimazole (Tapazole -) 5 mg PO DAILY [facility] Last Admin: 08/04/16 10:23 Dose: 5 mg Metoprolol Succinate (Toprol Xl -) 25 mg PO DAILY [facility] Multivitamins/Minerals/Vitamin C (Tab-A-Vit -) 1 tab PO DAILY [facility] Last Admin: 08/04/16 10:23 Dose: 1 tab - Objective Vital Signs: Vital Signs Temperature 97.0 F L 08/05/16 06:00 Pulse Rate 70 08/05/16 06:00 Respiratory Rate 18 08/05/16 06:00 Blood Pressure 150/90 08/05/16 06:00 O2 Sat by Pulse Oximetry (%) 100 08/04/16 22:00 Constitutional: Yes: Well Nourished, No Distress, Calm Cardiovascular: Yes: Regular Rate and Rhythm, S1, S2. No: Gallop, Murmur Respiratory: Yes: Regular, CTA Bilaterally. No: Accessory Muscle Use Extremities: No: Cold Edema: No Neurological: Yes: Alert. 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 abnormal ecg/pvcs: -tele with occasional pvcs, no significant runs -K and Mg ok -cont bb for now -check echo ams, weakness, hx cva, transient unresponsiveness in hospital: -no obvious cardiac etiology -recent carotid US with 50-70% CHEL[place] stenosis, seen by Vascular then, no further work up needed per consult -ct's, mri brain unremarkable so far--neuro following -possibly related to UTI -cont tele (monitor for bradyarrhythmia)--thus far unremarkable (? d/c tele tomorrow if remains benign) uti, ? urosepsis: -on abx htn, hypotension: -sbp to 70s on 08/04 -? sepsis -now stable -hold BB while observe bp trend hld: -cont statin hx of dvt: -on eliquis s/p AAA repair: -cont bb, bp control, statin -pt follows with dr erazo, reports having recent abd us that was stable per pt
--- NOTE | 2016-08-05 10:39 | PN ---
Progress Note (short form) - Note Progress Note: SUBJECTIVE: Patient seen and examined. Feels better. Denies chest pain, shortness of breath or abdominal pain. All follow ups noted. Looks weak but better than before. OBJECTIVE: Vital Signs 08/05/16 06:00 Temperature 97.0 F L Pulse Rate 70 Respiratory 18 Rate Blood Pressure 150/90 Intake & Output 08/04/16 08/05/16 08/05/16 23:59 07:59 15:59 Intake Total 1063 996 Balance 1063 996 Intake: IV 913 996 #22 08/04/16 RFA 913 996 Oral 150 Other: Voiding Method Diaper Bowel Movement Yes Yes: diarrhea Active Medications Acetaminophen (Tylenol -) 650 mg PO Q4H PRN PRN Reason: FEVER OR PAIN Apixaban (Eliquis -) 2.5 mg PO BID [facility] Last Admin: 08/04/16 21:31 Dose: 2.5 mg Atorvastatin Calcium (Lipitor -) 20 mg PO DAILY [facility] Last Admin: 08/04/16 10:23 Dose: 20 mg Calcium Carbonate/Cholecalciferol (Os-Vladislav 500+D -) 1 tab PO DAILY [facility] Last Admin: 08/04/16 10:23 Dose: 1 tab Docusate Sodium (Colace -) 100 mg PO DAILY [facility] Last Admin: 08/04/16 10:23 Dose: 100 mg Ceftriaxone Sodium (Rocephin 1gm Ivpb (Pre-Docked)) 50 mls @ 100 mls/hr IVPB DAILY [facility] Last Admin: 08/04/16 10:23 Dose: 100 mls/hr Potassium Chloride 10 meq/ (Sodium Chloride) 1,005 mls @ 83 mls/hr IVPB Q12H [facility] Last Admin: 08/05/16 01:06 Dose: 83 mls/hr Methimazole (Tapazole -) 5 mg PO DAILY [facility] Last Admin: 08/04/16 10:23 Dose: 5 mg Multivitamins/Minerals/Vitamin C (Tab-A-Vit -) 1 tab PO DAILY [facility] Last Admin: 08/04/16 10:23 Dose: 1 tab CBC, BMP 08/04/16 06:00 08/04/16 06:00 PHYSICAL EXAMINATION: Constitutional: Yes: No Distress, Calm Cardiovascular: Yes: Pulse Irregular, Murmur Respiratory: Yes: CTA Bilaterally Gastrointestinal: Yes: Normal Bowel Sounds, Soft. No: Distention, Tenderness Edema: No Neurological: Yes: Alert, Oriented, Other (generalized weakness both sides upper and lower extremities) ASSESSMENT & PLAN: - Clinically better. - Medications reviewed. - Continue present care. - Daily out of bed to chair. - Cardiology follow up noted. - Echocardiogram ordered. - Will follow. - May need short term rehabilitation. - Anticipate discharge tomorrow, if she is stable. - Physical Therapy. Problem List - Problems (1) Dehydration Code(s): E86.0 - DEHYDRATION (2) UTI (urinary tract infection) Code(s): N39.0 - URINARY TRACT INFECTION, SITE NOT SPECIFIED Qualifiers: Urinary tract infection type: site unspecified Hematuria presence: without hematuria Qualified Code(s): N39.0 - Urinary tract infection, site not specified (3) Weakness Code(s): R53.1 - WEAKNESS (4) Altered mental status Code(s): R41.82 - ALTERED MENTAL STATUS, UNSPECIFIED Qualifiers: Altered mental status type: disorientation Qualified Code(s): R41.0 - Disorientation, unspecified Documentation prepared by Casie Dorado, acting as a medical assistant cardiology for Yue Ayala MD.
[2016-08-05] MEDS: DOCUSATE SODIUM 100 MG CAPSULE (FP) PO SCH (11:17)
[2016-08-05] MEDS: ATORVASTATIN CA 20 MG TABLET (FP) PO SCH (11:18)
[2016-08-05] MEDS: CALCIUM 500MG/VIT-D 200 UNITS COMBO TABLET (FP) PO SCH (11:18)
[2016-08-05] MEDS: APIXABAN 2.5 MG TABLET PO SCH ×2 (11:18→21:06)
[2016-08-05] MEDS: CEFTRIAXONE 50 ML IVPB SCH (11:19)
[2016-08-05] MEDS: MULTIVITAMINS (DAILY MVI) TABLET (FP) PO SCH (11:29)
[2016-08-05] MEDS: METHIMAZOLE 5 MG TABLET (FP) PO SCH (12:05)
[2016-08-05] MEDS ORDERED: hydrALAZINE HCL 10 MG TABLET PO PRN (12:18)
[2016-08-05] MEDS: METOPROLOL TARTRATE 25 MG TABLET (FP) PO SCH ×2 (13:26→21:06)
--- NOTE | 2016-08-05 15:48 | EKG ---
Test Reason : Blood Pressure : / mmHG Vent. Rate : 067 BPM Atrial Rate : 067 BPM P-R Int : 176 ms QRS Dur : 074 ms QT Int : 410 ms P-R-T Axes : 012 -34 013 degrees QTc Int : 433 ms SINUS RHYTHM WITH PREMATURE ATRIAL COMPLEXES LEFT AXIS DEVIATION INFERIOR INFARCT (CITED ON OR BEFORE 22-MAY-2011) ANTERIOR INFARCT (CITED ON OR BEFORE 22-MAY-2011) ABNORMAL ECG WHEN COMPARED WITH ECG OF 01-AUG-2016 13:34, NO SIGNIFICANT CHANGE WAS FOUND Confirmed by CAPRI BAKER MD ([id number]) on 08/05/2016 3:47:49 PM Referred By: Confirmed By:CAPRI BAKER MD
[2016-08-06] MEDS ORDERED: PT OWN MED DRAWER 7, Y5N ONE ×2 (09:33→21:47)
[2016-08-06] MEDS: DOCUSATE SODIUM 100 MG CAPSULE (FP) PO SCH (09:35)
[2016-08-06] MEDS: CALCIUM 500MG/VIT-D 200 UNITS COMBO TABLET (FP) PO SCH (09:35)
[2016-08-06] MEDS: METOPROLOL TARTRATE 25 MG TABLET (FP) PO SCH ×2 (09:35→21:55)
[2016-08-06] MEDS: CEFTRIAXONE 50 ML IVPB SCH (09:35)
[2016-08-06] MEDS: APIXABAN 2.5 MG TABLET PO SCH ×2 (09:35→21:55)
[2016-08-06] MEDS: MULTIVITAMINS (DAILY MVI) TABLET (FP) PO SCH (09:36)
[2016-08-06] MEDS: METHIMAZOLE 5 MG TABLET (FP) PO SCH (09:36)
[2016-08-06] MEDS: ATORVASTATIN CA 20 MG TABLET (FP) PO SCH (09:39)
--- NOTE | 2016-08-06 10:31 | PN ---
Progress Note, Physician Chief Complaint: feels ok denies any complaints no distress - Current Medication List Current Medications: Active Medications Acetaminophen (Tylenol -) 650 mg PO Q4H PRN PRN Reason: FEVER OR PAIN Apixaban (Eliquis -) 2.5 mg PO BID [facility] Last Admin: 08/06/16 09:35 Dose: 2.5 mg Atorvastatin Calcium (Lipitor -) 20 mg PO DAILY [facility] Last Admin: 08/06/16 09:39 Dose: 20 mg Calcium Carbonate/Cholecalciferol (Os-Vladislav 500+D -) 1 tab PO DAILY [facility] Last Admin: 08/06/16 09:35 Dose: 1 tab Docusate Sodium (Colace -) 100 mg PO DAILY [facility] Last Admin: 08/06/16 09:35 Dose: 100 mg Hydralazine HCl (Apresoline -) 20 mg PO Q1H PRN PRN Reason: HYPERTENSION Ceftriaxone Sodium (Rocephin 1gm Ivpb (Pre-Docked)) 50 mls @ 100 mls/hr IVPB DAILY [facility] Last Admin: 08/06/16 09:35 Dose: 100 mls/hr Methimazole (Tapazole -) 5 mg PO DAILY [facility] Last Admin: 08/06/16 09:36 Dose: 5 mg Metoprolol Tartrate (Lopressor -) 25 mg PO BID [facility] Last Admin: 08/06/16 09:35 Dose: 25 mg Multivitamins/Minerals/Vitamin C (Tab-A-Vit -) 1 tab PO DAILY [facility] Last Admin: 08/06/16 09:36 Dose: 1 tab - Objective Vital Signs: Vital Signs Temperature 97.3 F L 08/06/16 05:00 Pulse Rate 66 08/06/16 05:00 Respiratory Rate 18 08/06/16 05:00 Blood Pressure 169/89 08/06/16 05:00 O2 Sat by Pulse Oximetry (%) 98 08/05/16 20:44 Constitutional: Yes: No Distress Cardiovascular: Yes: Regular Rate and Rhythm Respiratory: Yes: CTA Bilaterally Gastrointestinal: Yes: Normal Bowel Sounds, Soft. No: Distention, Tenderness Edema: No Labs: INR, PTT INR 2.46 (0.82-1.09) H D 08/01/16 13:48 Problem List - Problems (1) Dehydration Code(s): E86.0 - DEHYDRATION (2) UTI (urinary tract infection) Code(s): N39.0 - URINARY TRACT INFECTION, SITE NOT SPECIFIED Qualifiers: Urinary tract infection type: site unspecified Hematuria presence: without hematuria Qualified Code(s): N39.0 - Urinary tract infection, site not specified (3) Weakness Code(s): R53.1 - WEAKNESS (4) Altered mental status Code(s): R41.82 - ALTERED MENTAL STATUS, UNSPECIFIED Qualifiers: Altered mental status type: disorientation Qualified Code(s): R41.0 - Disorientation, unspecified Assessment/Plan PLAN -- MRI brain and repeat CT head noted -- MRA noted -- 4 mm aneurysm -- no evidence of acute CVA -- ? TIA vs toxic metabolic due to UTI vs parkinsons?? -- she has h/o Rt ICA stenosis- but no interventions per Vascular surgeon ( last admission) -- EEG--noted- no seizure activities -- labs pending -- PT eval -- continue with Sudheer
[2016-08-06 10:40] LABS: BASOPHIL 1.1 % (0-2.0); EOSINOPHIL 3.5 % (0-4.5); MCH 29.8 pg (25.7-33.7); MCHC 33.7 g/dl (32.0-36.0); MEAN CELL VOLUME 88.4 fl (80-96); MEAN PLT VOLUME 10.3 fl (7.5-11.1); NEUTROPHILS 59.5 % (42.8-82.8); PLATELET COUNT 167 K/MM3 (134-434); RDW 15.9 % (11.6-15.6); WHITE BLOOD COUNT 3.8 K/mm3 (4.0-10.0)
[2016-08-06 10:56] LABS: INR 2.14 (0.82-1.09); PROTHROMBIN TIME (PATIENT) 23.9 SEC (9.98-11.88)
[2016-08-06 11:16] LABS: ALBUMIN 3.3 g/dl (3.4-5.0); ALK PHOS 41 U/L (45-117); ANION GAP 9 (8-16); BILIRUBIN,TOTAL 0.4 mg/dL (0.2-1.0); CALCIUM 8.8 mg/dL (8.5-10.1); CO2 25 mmol/L (21-32); CREATININE 0.9 mg/dL (0.55-1.02); GLUCOSE,RANDOM 129 mg/dL (74-106); SGPT/ALT 12 U/L (12-78); TOT PROT 6.8 g/dl (6.4-8.2)
--- NOTE | 2016-08-06 11:47 | PN ---
Progress Note (short form) - Note Progress Note: Chief Complaint: syncope History of Present Illness: awake/alert; denies palpitations, cp, sob, dizzy. Ambulated with PT this morning without dizziness. Current Medications Acetaminophen (Tylenol -) 650 mg PO Q4H PRN PRN Reason: FEVER OR PAIN Apixaban (Eliquis -) 2.5 mg PO BID [facility] Last Admin: 08/06/16 09:35 Dose: 2.5 mg Atorvastatin Calcium (Lipitor -) 20 mg PO DAILY [facility] Last Admin: 08/06/16 09:39 Dose: 20 mg Calcium Carbonate/Cholecalciferol (Os-Vladislav 500+D -) 1 tab PO DAILY [facility] Last Admin: 08/06/16 09:35 Dose: 1 tab Carbidopa/Levodopa (Sinemet 25/100 -) 1 each PO TID [facility] Docusate Sodium (Colace -) 100 mg PO DAILY [facility] Last Admin: 08/06/16 09:35 Dose: 100 mg Hydralazine HCl (Apresoline -) 20 mg PO Q1H PRN PRN Reason: HYPERTENSION Ceftriaxone Sodium (Rocephin 1gm Ivpb (Pre-Docked)) 50 mls @ 100 mls/hr IVPB DAILY [facility] Last Admin: 08/06/16 09:35 Dose: 100 mls/hr Methimazole (Tapazole -) 5 mg PO DAILY [facility] Last Admin: 08/06/16 09:36 Dose: 5 mg Metoprolol Tartrate (Lopressor -) 25 mg PO BID [facility] Last Admin: 08/06/16 09:35 Dose: 25 mg Multivitamins/Minerals/Vitamin C (Tab-A-Vit -) 1 tab PO DAILY [facility] Last Admin: 08/06/16 09:36 Dose: 1 tab Vital Signs - 24 hr 08/05/16 08/05/16 08/05/16 14:05 18:00 20:44 Temperature 98.3 F 98.3 F Pulse Rate 80 70 Respiratory 20 20 20 Rate Blood Pressure 102/54 160/98 O2 Sat by Pulse 98 Oximetry (%) 08/05/16 08/06/16 08/06/16 21:00 01:00 05:00 Temperature 97.3 F L 97.4 F L 97.3 F L Pulse Rate 72 63 66 Respiratory 18 18 18 Rate Blood Pressure 146/88 169/87 169/89 O2 Sat by Pulse Oximetry (%) Intake & Output 08/04/16 08/05/16 08/06/16 08/07/16 07:59 07:59 07:59 07:59 Intake Total 1761 2259 1480 300 Balance 1761 2259 1480 300 Constitutional: Yes: Well Nourished, No Distress, Calm Cardiovascular: Yes: Regular Rate and Rhythm, S1, S2. No: Gallop, Murmur Respiratory: Yes: Dec BS at left base. No: Accessory Muscle Use Extremities: No: Cold Edema: No Neurological: Yes: Alert. No: Seizure Psychiatric: No: Agitated Labs: CBC, BMP 08/06/16 10:25 08/06/16 10:25 - ....Imaging EKG: Other (tele: NSR with APCs, vpc's. intermittent wandering atrial pacmeaker vs. pac's. 1 brief episode of SVT) echo: nl lv/rv. impaired relaxation. mild-mod MR/TR. 1+ AR. 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 abnormal ecg/pvcs: -tele with occasional pvcs, pac's, 1 run of SVT. -K and Mg ok -cont bb for now ams, weakness, hx cva, transient unresponsiveness and syncope in hospital: -intermittent episodes of hypotension here. -recent carotid US with 50-70% CHELSEA stenosis, seen by Vascular then, no further work up needed per consult -ct's, mri brain unremarkable so far--neuro following -possibly related to UTI -cont tele uti, ? urosepsis: -on abx htn, hypotension: -sbp to 70s on 08/04 -? sepsis -now stable, but still sometimes labile -metoprolol tartrate resumed. hld: -cont statin hx of dvt: -on eliquis (outpatient dose was 2.5 mg bid) s/p AAA repair: -cont bb, bp control, statin -pt follows with dr erazo, reports having recent abd us that was stable per pt
[2016-08-06 12:09] LABS: BILIRUBIN,DIRECT < 0.1 mg/dL (0.0-0.2); SGOT/AST 31 U/L (15-37)
[2016-08-06] MEDS: CARBIDOPA/LEVODOPA 25/100 TABLET (FP) PO SCH ×2 (13:52→21:55)
[2016-08-07] MEDS ORDERED: PT OWN MED DRAWER 7, Y5N ONE ×4 (05:41→17:06)
[2016-08-07] MEDS: CARBIDOPA/LEVODOPA 25/100 TABLET (FP) PO SCH ×2 (05:43→15:20)
[2016-08-07] MEDS: DOCUSATE SODIUM 100 MG CAPSULE (FP) PO SCH (09:14)
[2016-08-07] MEDS: APIXABAN 2.5 MG TABLET PO SCH (09:14)
[2016-08-07] MEDS: MULTIVITAMINS (DAILY MVI) TABLET (FP) PO SCH (09:14)
[2016-08-07] MEDS: ATORVASTATIN CA 20 MG TABLET (FP) PO SCH (09:14)
[2016-08-07] MEDS: CALCIUM 500MG/VIT-D 200 UNITS COMBO TABLET (FP) PO SCH (09:14)
[2016-08-07] MEDS: CEFTRIAXONE 50 ML IVPB SCH (09:14)
[2016-08-07] MEDS: METOPROLOL TARTRATE 25 MG TABLET (FP) PO SCH (09:14)
[2016-08-07] MEDS: METHIMAZOLE 5 MG TABLET (FP) PO SCH (09:14)
--- NOTE | 2016-08-07 10:25 | DS ---
Physical Examination Vital Signs: Vital Signs Temperature 98 F 08/07/16 06:00 Pulse Rate 70 08/07/16 06:00 Respiratory Rate 16 08/07/16 06:00 Blood Pressure 146/101 08/07/16 06:00 O2 Sat by Pulse Oximetry (%) 97 08/06/16 20:16 Constitutional: Yes: No Distress, Calm Cardiovascular: Yes: Regular Rate and Rhythm Respiratory: Yes: CTA Bilaterally Gastrointestinal: Yes: Normal Bowel Sounds, Soft, Abdomen, Obese. No: Distention, Tenderness Edema: No Labs: CBC, BMP 08/06/16 10:25 08/06/16 10:25 Discharge Summary Reason For Visit: URINARY TRACT INFECTION Current Active Problems Dehydration (Acute) UTI (urinary tract infection) (Acute) Weakness (Acute) Hospital Course: ADMISSION HISTORY Admission History of Present Illness: Patient is an 80 year old female with significant medical hx of HTN, HLD, CVA, anemia, left lower extremity DVT (lifelong anticoagulation), gait instability ( chronic lower extremity weakness), osteoarthritis, colorectal CA s/p colectomy with subsequent reversal, and chemotherapy who presents to the ED with son from home with generalized weakness. Patient was placed into a retirement for rehab s/p recent fall in 06/2016 for balance and was discharged 2 weeks ago. As per patients health aid she noticed that the patient was dragging her right foot while ambulating with a walker. As per son the patient has had increased urinary output/frequency. Pt has no acute complaints beside mild weakness. She denies chest pain, SOB, nausea, vomiting, diarrhea, abdominal pain or constipation. No vision changes or blurry vision. Patient admitted to hospital for UTI ct of head was unremarkable as well as cxr pt seen today by me feels weak but no distress denies chest pain or SOB denies urinary burning no headache or dizziness denies abdominal pain HOSPITALIZATION COURSE Pt was started on antibiotics for UTI seen by Neurology for weakness- Ct head normal Rapid response called for the pt when she had a brief episode of unresponsiveness- EEG- negative for seizures She has h/o carotid stenosis and no further interventions per recent admission vascular note She was started on Sinemet for possible parkinsons as she has rigidity She is doing better Seen by Neurology and cardiology Generalized weakness probably due to UTI, Parkinsons She will need STR for ambulation continue with Eliquis-- but if pt is not ambulating well and has fall risk-- we may need to reconsider stopping Eliquis-- family made aware about this stable for dc to rehab Condition: Improved - Instructions Referrals: Sosa Rubio MD [Primary Care Provider] - Disposition: LONG TERM FACILITY - Home Medications Comprehensive Discharge Medication List: Ambulatory Orders Docusate Sodium [Colace -] 100 mg PO DAILY 11/10/13 Atorvastatin Calcium 20 mg PO DAILY #30 01/31/15 Calcium Carbonate/Vitamin D3 [Calcium 600-Vit D3 800 Tablet] 1 each PO DAILY 07/21 Cyanocobalamin [Vitamin B12 -] 1,000 mcg PO DAILY 04/06/15 Methimazole [Tapazole -] 5 mg PO DAILY 04/06/15 Apixaban [Eliquis -] 2.5 mg PO BID #0 tablet 06/12/16 Ascorbic Acid [Vitamin C -] 500 mg PO DAILY 08/01/16 Ferrous Sulfate [Feosol] 325 mg PO DAILY 08/01/16 Folic Acid 1 mg PO DAILY 08/01/16 Megestrol Acetate Oral Susp [Megace Oral Suspension -] 400 mg PO DAILY 08/01/16 Multivitamins [Multivit ([facility] Formulary)] 1 tab PO DAILY 08/01/16 Carbidopa/Levodopa 25/100 [Sinemet 25/100 -] 1 each PO TID #90 tablet 08/07/16 Cefuroxime Axetil [Ceftin -] 500 mg PO Q12H #10 tablet 08/07/16 Metoprolol Tartrate [Lopressor -] 25 mg PO BID #60 tablet 08/07/16
--- NOTE | 2016-08-07 11:06 | PN ---
Progress Note (short form) - Note Progress Note: s: feeling well, wants to go home; no cp sob palps dizzy o: Vital Signs Period Temp Pulse Resp BP Sys/Francis Pulse Ox Last 24 Hr 98 F-98.6 F 64-75 16-18 116-154/66-101 97 Constitutional: Yes: Well Nourished, No Distress, Calm Cardiovascular: Yes: Regular Rate and Rhythm, S1, S2. No: Gallop, Murmur Respiratory: Yes: Dec BS at left base. No: Accessory Muscle Use Extremities: No: Cold Edema: No Neurological: Yes: Alert. No: Seizure Psychiatric: No: Agitated no jaundice diaphoresis Current Medications Generic Name Dose Route Start Last Admin Trade Name Freq PRN Reason Stop Dose Admin Acetaminophen 650 mg 08/02/16 17:08 Tylenol - PO Q4H PRN FEVER OR PAIN Apixaban 2.5 mg 08/01/16 22:00 08/07/16 09:14 Eliquis - PO 2.5 mg BID AMY Administration Atorvastatin Calcium 20 mg 08/02/16 10:00 08/07/16 09:14 Lipitor - PO 20 mg DAILY AMY Administration Calcium Carbonate/Cholecalciferol 1 tab 08/02/16 10:00 08/07/16 09:14 Os-Vladislav 500+D - PO 1 tab DAILY AMY Administration Carbidopa/Levodopa 1 each 08/06/16 14:00 08/07/16 05:43 Sinemet 25/100 - PO 1 each TID AMY Administration Docusate Sodium 100 mg 08/02/16 10:00 08/07/16 09:14 Colace - PO 100 mg DAILY AMY Administration Hydralazine HCl 20 mg 08/05/16 12:18 Apresoline - PO Q1H PRN HYPERTENSION Ceftriaxone Sodium 50 mls @ 100 mls/hr 08/02/16 10:00 08/07/16 09:14 Rocephin 1gm Ivpb (Pre-Docked) IVPB 100 mls/hr DAILY AYM Administration Methimazole 5 mg 08/02/16 10:00 08/07/16 09:14 Tapazole - PO 5 mg DAILY AMY Administration Metoprolol Tartrate 25 mg 08/05/16 12:30 08/07/16 09:14 Lopressor - PO 25 mg BID AMY Administration Multivitamins/Minerals/Vitamin C 1 tab 08/02/16 10:00 08/07/16 09:14 Tab-A-Vit - PO 1 tab DAILY AMY Administration CBC, BMP 08/06/16 10:25 08/06/16 10:25 echo 07/2016: nl lv/rv. impaired relaxation. mild-mod MR/TR. 1+ AR. 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 abnormal ecg/pvcs: -tele with occasional pvcs, pac's, 1 run of SVT. -K and Mg ok -echo with nl lvef -cont bb for now ams, weakness, hx cva, transient unresponsiveness and syncope in hospital: -recent carotid US with 50-70% CHELSEA stenosis, seen by Vascular then, no further work up needed per consult -tele, echo unremarkable -ct's, mri brain unremarkable so far--neuro following -possibly was related to UTI uti -on abx htn: -stable on current meds hld: -cont statin hx of dvt: -on eliquis (outpatient dose was 2.5 mg bid) s/p AAA repair: -cont bb, bp control, statin -pt follows with dr erazo, reports having recent abd us that was stable per pt cardiac mendieta stable for dc
[2016-08-07 11:13] VITALS: TEMP 98.4
[2016-08-07 15:10] VITALS: BP 104/62; PULSE 70
--- NOTE | 2016-08-07 17:06 | PN ---
Progress Note, Physician Chief Complaint: gait difficulties, rigidity, History of Present Illness: 80 year old woman with history of stroke, left leg DVT on anticoagulation, chronic gait instability, arthritis, colorectal cancer status post chemotherapy , presents with generalized weakness. Health aid she noticed that the patient was dragging her right foot while ambulating with a walker. As per son the patient has had increased urinary output and frequency. - Current Medication List Current Medications: Active Medications Acetaminophen (Tylenol -) 650 mg PO Q4H PRN PRN Reason: FEVER OR PAIN Apixaban (Eliquis -) 2.5 mg PO BID [facility] Last Admin: 08/07/16 09:14 Dose: 2.5 mg Atorvastatin Calcium (Lipitor -) 20 mg PO DAILY [facility] Last Admin: 08/07/16 09:14 Dose: 20 mg Calcium Carbonate/Cholecalciferol (Os-Vladislav 500+D -) 1 tab PO DAILY [facility] Last Admin: 08/07/16 09:14 Dose: 1 tab Carbidopa/Levodopa (Sinemet 25/100 -) 1 each PO TID [facility] Last Admin: 08/07/16 15:20 Dose: 1 each Docusate Sodium (Colace -) 100 mg PO DAILY [facility] Last Admin: 08/07/16 09:14 Dose: 100 mg Hydralazine HCl (Apresoline -) 20 mg PO Q1H PRN PRN Reason: HYPERTENSION Ceftriaxone Sodium (Rocephin 1gm Ivpb (Pre-Docked)) 50 mls @ 100 mls/hr IVPB DAILY [facility] Last Admin: 08/07/16 09:14 Dose: 100 mls/hr Methimazole (Tapazole -) 5 mg PO DAILY [facility] Last Admin: 08/07/16 09:14 Dose: 5 mg Metoprolol Tartrate (Lopressor -) 25 mg PO BID [facility] Last Admin: 08/07/16 09:14 Dose: 25 mg Multivitamins/Minerals/Vitamin C (Tab-A-Vit -) 1 tab PO DAILY [facility] Last Admin: 08/07/16 09:14 Dose: 1 tab - Objective Vital Signs: Vital Signs Temperature 98.4 F 08/07/16 14:10 Pulse Rate 70 08/07/16 14:10 Respiratory Rate 16 08/07/16 14:10 Blood Pressure 104/62 08/07/16 14:10 O2 Sat by Pulse Oximetry (%) 97 08/07/16 09:00 Constitutional: Yes: Mild Distress Eyes: Yes: Conjunctiva Clear, EOM Intact, PERRL HENT: Yes: Atraumatic, Normocephalic Neck: Yes: Supple, Trachea Midline Cardiovascular: Yes: Regular Rate and Rhythm, S1, S2 Respiratory: Yes: Regular, CTA Bilaterally Gastrointestinal: Yes: Normal Bowel Sounds, Soft Genitourinary: Yes: WNL Breast(s): Yes: WNL Musculoskeletal: Yes: Back Pain, Muscle Weakness Edema: Yes Edema: LUE: 1+, RUE: 1+, LLE: 2+, RLE: 2+ Peripheral Pulses WNL: Yes Peripheral Pulses: Left Radial: 1+, Right Radial: 1+ ...Motor Strength: WNL (generalized weakness 4/5. slowing moving equally all four limbs.), LUE Psychiatric: Yes: Alert, Oriented Labs: CBC, BMP 08/06/16 10:25 08/06/16 10:25 INR, PTT INR 2.14 (0.82-1.09) H 08/06/16 10:25 - ....Imaging Cat Scan: Report Reviewed, Image Reviewed MRI: Report Reviewed, Image Reviewed EKG: Report Reviewed, Image Reviewed Problem List - Problems (1) Altered mental status Code(s): R41.82 - ALTERED MENTAL STATUS, UNSPECIFIED Qualifiers: Altered mental status type: disorientation Qualified Code(s): R41.0 - Disorientation, unspecified (2) DVT (deep venous thrombosis) Code(s): I82.409 - ACUTE EMBOLISM AND THOMBOS UNSP DEEP VN UNSP LOWER EXTREMITY (3) Cerebral aneurysm without rupture Code(s): I67.1 - CEREBRAL ANEURYSM, NONRUPTURED (4) Parkinsonism Code(s): G20 - PARKINSON'S DISEASE Assessment/Plan 80 year old woman with history of stroke, left leg DVT on anticoagulation, chronic gait instability, arthritis, colorectal cancer status post chemotherapy , presents with generalized weakness. Health aid she noticed that the patient was dragging her right foot while ambulating with a walker. As per son the patient has had increased urinary output and frequency. In the hospital she was found to have UTI. MRI brain is negative for acute stroke MRA brain shows equivocal small 4mm. aneurysm. LICA. Doppler carotids 50-70% CHELSEA stenosis. Patient couldn't get contrast due to creatinine high. Mood seemes flat. Impression: TIA , small equivocal cerebral aneurysm LICA. UTI, generalized weakness. possible depressed mood. Plan: - on Eliquis for her DVT,prevention embolism - start trial Sinemet 25/100 tid for possible parkinsonism. - follow up MRA brain for cerebral aneurysm in 3-6 months - follow up as outpatient in the Neurology office for her gait problem, parkinsonism, follow up the size of cerebral aneurysm - PT/OT - going to Rehab. for her gait training. Thank you for this consult.
== END 2016-08-07 16:55 | DRG 690 ==
LOC: JER 13:03 → JERBED 17:17 → J6S 19:05 → J4S 08-03 20:05 → OBSVTOIN 08-04 09:47
PROVIDERS: ADMIT Internal Medicine; ATTEND Internal Medicine
PROC: 4A00X4Z Measurement of Central Nervous Electrical Activity, External Approach (ICD-10-PCS; principal; 2016-08-05)
DX: N39.0 Urinary tract infection, site not specified (principal); G45.9 Transient cerebral ischemic attack, unspecified; B95.4 Other streptococcus as the cause of diseases classified elsewhere; I10 Essential (primary) hypertension; E78.5 Hyperlipidemia, unspecified; R26.81 Unsteadiness on feet; Z86.73 Personal history of transient ischemic attack (TIA), and cerebral infarction without residual deficits; Z86.718 Personal history of other venous thrombosis and embolism; Z85.038 Personal history of other malignant neoplasm of large intestine; Z79.01 Long term (current) use of anticoagulants; E05.90 Thyrotoxicosis, unspecified without thyrotoxic crisis or storm; E86.0 Dehydration; I65.21 Occlusion and stenosis of right carotid artery; I49.3 Ventricular premature depolarization; Z87.891 Personal history of nicotine dependence; I67.1 Cerebral aneurysm, nonruptured
CPT/HCPCS: 36415; 70450-TC; 70544-TC; 70551-TC; 71010-TC; 80048; 80053; 80076; 81003; 81015; 82550; 82607; 83735; 84443; 84484; 85025; 85610; 87077; 87086; 93005; 93010; 93306-TC; 95816; 97116-GP; 97162-PG; 99284-25; G0378

== ENCOUNTER 2017-03-20 13:07 | Observation (INO) | payer OTHER, MEDICARE ==
--- NOTE | 2017-03-20 14:53 | PDOC ---
History of Present Illness - General Chief Complaint: Injury Stated Complaint: SEIZURE Time Seen by Provider: 03/20/17 14:52 Past History - Past Medical History Allergies/Adverse Reactions: Allergies Allergy/AdvReac Type Severity Reaction Status Date / Time iodine [Iodine] Allergy Mild Hives Verified 03/20/17 13:09 SHELLFISH Allergy Uncoded 03/20/17 13:09 Home Medications: Ambulatory Orders Docusate Sodium [Colace -] 100 mg PO DAILY 11/10/13 Atorvastatin Calcium 20 mg PO DAILY #30 01/31/15 Calcium Carbonate/Vitamin D3 [Calcium 600-Vit D3 800 [place]] 1 each PO DAILY 07/21 Cyanocobalamin [Vitamin B12 -] 1,000 mcg PO DAILY 04/06/15 Methimazole [Tapazole -] 5 mg PO DAILY 04/06/15 Apixaban [Eliquis -] 2.5 mg PO BID #0 tablet 06/12/16 Ascorbic Acid [Vitamin C -] 500 mg PO DAILY 08/01/16 Ferrous Sulfate [Feosol] 325 mg PO DAILY 08/01/16 Folic Acid 1 mg PO DAILY 08/01/16 Megestrol Acetate Oral Susp [Megace Oral Suspension -] 400 mg PO DAILY 08/01/16 Multivitamins [Multivit ([facility] Formulary)] 1 tab PO DAILY 08/01/16 Carbidopa/Levodopa 25/100 [Sinemet 25/100 -] 1 each PO TID #90 tablet 08/07/16 Cefuroxime Axetil [Ceftin -] 500 mg PO Q12H #10 tablet 08/07/16 Metoprolol Tartrate [Lopressor -] 25 mg PO BID #60 tablet 08/07/16 Anemia: Yes Asthma: No Cancer: Yes (COLON) Cardiac Disorders: Yes CVA: Yes (tia) COPD: No CHF: No Dementia: No Diabetes: No GI Disorders: Yes Disorders: No HTN: Yes Hypercholesterolemia: Yes Liver Disease: No Suicide Attempt (Hx): No Seizures: No Thyroid Disease: Yes (HYPERTHYROID DISEASE) - Surgical History Abdominal Surgery: Yes (COLON RESECTION/COLOSTOMY; S/O AAA REPAIR) Appendectomy: No Cardiac Surgery: No Cholecystectomy: No Lung Surgery: No Neurologic Surgery: No Orthopedic Surgery: No - Immunization History Immunization Up to Date: Yes - Psycho/Social/Smoking Cessation Hx Anxiety: No Suicidal Ideation: No Smoking Status: No Smoking History: Former smoker Have you smoked in the past 12 months: No Number of Cigarettes Smoked Daily: 0 If you are a former smoker, when did you quit?: over 10 years Information on smoking cessation initiated: No Hx Alcohol Use: No Drug/Substance Use Hx: No Substance Use Type: None Hx Substance Use Treatment: No *Physical Exam - Vital Signs Last Vital Signs Temp Pulse Resp BP Pulse Ox 98.2 F 75 16 117/79 99 03/20/17 13:03/20/17 13:03/20/17 13:09 03/20/17 13:03/20/17 13:09
--- NOTE | 2017-03-20 15:57 | PDOC ---
History of Present Illness - General Chief Complaint: Injury Stated Complaint: SEIZURE Time Seen by Provider: 03/20/17 14:52 History Source: Patient Exam Limitations: No Limitations - History of Present Illness Initial Comments: 03/20/17 15:57 Patient is an 81F with history of Parkinson's, HTN, HLD, CVA, anemia, left lower extremity DVT (on eloquis), colorectal CA s/p colectomy with subsequent reversal here today complaining of syncope. The patient was walking in a lobby today when she says her legs gave out and she syncopized. She was with family who caught her and kept her from any trauma. She was unconscious for a few seconds, then returned and was back to normal. She denies any chest pain or shortness of breath. She complains of having a cold for the past 3 days with associated dry cough. She denies nausea, vomiting, fevers and chills. Past History - Past Medical History Allergies/Adverse Reactions: Allergies Allergy/AdvReac Type Severity Reaction Status Date / Time iodine [Iodine] Allergy Mild Hives Verified 03/20/17 13:09 SHELLFISH Allergy Uncoded 03/20/17 13:09 Home Medications: Ambulatory Orders Docusate Sodium [Colace -] 100 mg PO DAILY 11/10/13 Atorvastatin Calcium 20 mg PO DAILY #30 01/31/15 Calcium Carbonate/Vitamin D3 [Calcium 600-Vit D3 800 Caplet] 1 each PO DAILY 07/21 Cyanocobalamin [Vitamin B12 -] 1,000 mcg PO DAILY 04/06/15 Methimazole [Tapazole -] 5 mg PO DAILY 04/06/15 Apixaban [Eliquis -] 2.5 mg PO BID #0 tablet 06/12/16 Ascorbic Acid [Vitamin C -] 500 mg PO DAILY 08/01/16 Ferrous Sulfate [Feosol] 325 mg PO DAILY 08/01/16 Folic Acid 1 mg PO DAILY 08/01/16 Megestrol Acetate Oral Susp [Megace Oral Suspension -] 400 mg PO DAILY 08/01/16 Multivitamins [Multivit ([facility] Formulary)] 1 tab PO DAILY 08/01/16 Carbidopa/Levodopa 25/100 [Sinemet 25/100 -] 1 each PO TID #90 tablet 08/07/16 Cefuroxime Axetil [Ceftin -] 500 mg PO Q12H #10 tablet 08/07/16 Metoprolol Tartrate [Lopressor -] 25 mg PO BID #60 tablet 08/07/16 Anemia: Yes Asthma: No Cancer: Yes (COLON) Cardiac Disorders: Yes CVA: Yes (tia) COPD: No CHF: No Dementia: No Diabetes: No GI Disorders: Yes Disorders: No HTN: Yes Hypercholesterolemia: Yes Liver Disease: No Suicide Attempt (Hx): No Seizures: No Thyroid Disease: Yes (HYPERTHYROID DISEASE) - Surgical History Abdominal Surgery: Yes (COLON RESECTION/COLOSTOMY; S/O AAA REPAIR) Appendectomy: No Cardiac Surgery: No Cholecystectomy: No Lung Surgery: No Neurologic Surgery: No Orthopedic Surgery: No - Immunization History Immunization Up to Date: Yes - Psycho/Social/Smoking Cessation Hx Anxiety: No Suicidal Ideation: No Smoking Status: No Smoking History: Former smoker Have you smoked in the past 12 months: No Number of Cigarettes Smoked Daily: 0 If you are a former smoker, when did you quit?: over 10 years Information on smoking cessation initiated: No Hx Alcohol Use: No Drug/Substance Use Hx: No Substance Use Type: None Hx Substance Use Treatment: No Review of Systems - Review of Systems Comments:: 03/20/17 16:01 GENERAL/CONSTITUTIONAL: No fever or chills. HEAD, EYES, EARS, NOSE AND THROAT: Positive for light sensitivity, recently had glaucoma surgery. No sore throat. CARDIOVASCULAR: No chest pain or shortness of breath RESPIRATORY: No cough, wheezing, or hemoptysis. GASTROINTESTINAL: No nausea, vomiting, diarrhea or constipation. GENITOURINARY: No dysuria, frequency, or change in urination. SKIN: No rash NEUROLOGIC: No headache, loss of consciousness, or change in strength/sensation. HEMATOLOGIC/LYMPHATIC: No anemia, easy bleeding. Positive for history of blood clots ALLERGIC/IMMUNOLOGIC: No hives or skin allergy. *Physical Exam - Vital Signs Last Vital Signs Temp Pulse Resp BP Pulse Ox 98.2 F 75 16 117/79 99 03/20/17 13:09 03/20/17 13:09 03/20/17 13:09 03/20/17 13:03/20/17 13:09 - Physical Exam Comments: 03/20/17 16:02 GENERAL: Awake, alert, and fully oriented, in no acute distress HEAD: No signs of trauma, normocephalic, atraumatic EYES: PERRLA, EOMI, sclera anicteric, conjunctiva clear ENT: Auricles normal inspection, hearing grossly normal, nares patent, oropharynx clear without exudates. Moist mucosa LUNGS: No distress, speaks full sentences, rales in lower right lung HEART: Regular rate and rhythm, normal S1 and S2, no murmurs, rubs or gallops, peripheral pulses normal and equal bilaterally. ABDOMEN: Soft, nontender, normoactive bowel sounds. No guarding, no rebound. No masses EXTREMITIES: Normal inspection, Normal range of motion, no edema. No clubbing or cyanosis. NEUROLOGICAL: Cranial nerves II through XII grossly intact. Normal speech, normal gait, no focal sensorimotor deficits SKIN: Warm, Dry, normal turgor, no rashes or lesions noted. Heart Score/ECG Review - History History: Highly suspicious - Electrocardiogram EKG: Normal - Age Age: >/= 65 - Risk Factors Risk Factors Heart Score: Yes Hx Hypercholesterolemia, Yes Hx Hypertension Based on the list above the patient has:: 1-2 risk factors - Troponin Troponin: </= normal limit - Score Heart Score - Total: 5 ED Treatment Course - LABORATORY CBC & Chemistry Diagram: 03/20/17 15:50 03/20/17 17:44 - RADIOLOGY Radiology Studies Ordered: Category Date Time Status CHEST X-RAY PORTABLE* [RAD] Stat Radiology 03/20/17 15:16 Completed Medical Decision Making - Medical Decision Making 03/20/17 16:23 Patient is a 81F with history of Parkinson's, HTN, HLD, CVA, anemia, left lower extremity DVT (on eloquis), colorectal CA s/p colectomy with subsequent reversal here today complaining of syncope. Vital signs stable and normal. Story very consistent with syncope. Will evaluate with labs, cxr, and ecg. ECG shows normal sinus rhythm, left axis deviation, normal rate, no st elevation , t wave inversion in III, t wave flattening in aVF. 03/20/17 16:58 CXR shows mild atelectasis in right base. 03/20/17 16:59 Laboratory Tests 03/20/17 03/20/17 15:50 15:50 WBC 4.4 Hgb 10.9 Hct 32.5 Plt Count 189 D PT with INR 23.90 H INR 2.14 H CBC shows no white count. Coags elevated, on eloquis. 03/20/17 18:30 BMP negative. Trop pending. 03/20/17 18:45 Laboratory Tests 03/20/17 17:57 Troponin I 0.02 Trop negative, will admit to obs. 03/20/17 19:17 Spoke with Sosa Rubio, admitted to tele obs. *DC/Admit/Observation/Transfer Diagnosis at time of Disposition: Syncope Qualifiers: Syncope type: unspecified Qualified Code(s): R55 - Syncope and collapse - Discharge Dispostion Condition at time of disposition: Stable Admit: Yes - Referrals Referrals: Sosa Rubio MD [Primary Care Provider] - - Transfer to Acute Care Facility Accepting Physician:: Sosa Rubio
[2017-03-20 16:20] LABS: BASOPHIL 0.4 % (0-2.0); MCH 30.4 pg (25.7-33.7); MCHC 33.5 g/dl (32.0-36.0); MEAN CELL VOLUME 90.7 fl (80-96); MEAN PLT VOLUME 10.8 fl (7.5-11.1); NEUTROPHILS 70.6 % (42.8-82.8); PLATELET COUNT 189 K/MM3 (134-434); WHITE BLOOD COUNT 4.4 K/mm3 (4.0-10.0)
[2017-03-20 16:34] LABS: INR 2.14 (0.82-1.09); PROTHROMBIN TIME (PATIENT) 23.9 SEC (9.98-11.88)
[2017-03-20 18:15] LABS: ANION GAP 12 (8-16); CALCIUM 9.4 mg/dL (8.5-10.1); CO2 21 mmol/L (21-32); GLUCOSE,RANDOM 83 mg/dL (74-106)
[2017-03-20 18:43] LABS: TROPONIN I 0.02 ng/ml (0.00-0.05)
--- NOTE | 2017-03-20 18:55 | PDOC ---
Attending Attestation - Resident Resident Name: JesusAnshu - HPI HPI: 03/20/17 18:48 Pt presents to the ED complaining of syncope. Now has no complaints except for non productive cough. 03/20/17 18:55 - Physicial Exam PE: 03/20/17 18:57 Agree with resident exam. patient in no acute distress. - Medical Decision Making 03/20/17 18:57 EKG shows no evidence of ischemia. Diffferential includes arrythmia, ACS, less likely PNA. Will check labs and CXR, reassess. Will likely admit for syncope.
[2017-03-20] MEDS: METOPROLOL TARTRATE 25 MG TABLET (FP) PO SCH (21:55)
[2017-03-20] MEDS: SODIUM CHLORIDE 0.45% 1,000 ML IV SCH (21:55)
[2017-03-20] MEDS: APIXABAN 2.5 MG TABLET PO SCH (21:55)
[2017-03-20] MEDS: CARBIDOPA/LEVODOPA 25/100 TABLET (FP) PO SCH (23:08)
[2017-03-21] MEDS: CARBIDOPA/LEVODOPA 25/100 TABLET (FP) PO SCH ×3 (06:58→22:13)
[2017-03-21 08:08] LABS: BASOPHIL 0.7 % (0-2.0); EOSINOPHIL 1.8 % (0-4.5); MCH 30.4 pg (25.7-33.7); MCHC 33.7 g/dl (32.0-36.0); MEAN PLT VOLUME 10.1 fl (7.5-11.1); NEUTROPHILS 55.8 % (42.8-82.8); PLATELET COUNT 152 K/MM3 (134-434); RDW 15.5 % (11.6-15.6); WHITE BLOOD COUNT 3.7 K/mm3 (4.0-10.0)
[2017-03-21 09:05] LABS: ALBUMIN 3.2 g/dl (3.4-5.0); ALK PHOS 39 U/L (45-117); ANION GAP 9 (8-16); BILIRUBIN,TOTAL 0.5 mg/dL (0.2-1.0); CO2 22 mmol/L (21-32); CPK 49 IU/L (26-192); CREATININE 0.8 mg/dL (0.55-1.02); GLUCOSE,RANDOM 78 mg/dL (74-106); SGOT/AST 14 U/L (15-37); SGPT/ALT 7 U/L (12-78); THYROID STIMULATING HORMONE 2.11 uIU/ml (0.358-3.74); TOT PROT 6.3 g/dl (6.4-8.2); TROPONIN I 0.02 ng/ml (0.00-0.05)
[2017-03-21] MEDS: APIXABAN 2.5 MG TABLET PO SCH ×2 (09:14→22:13)
[2017-03-21] MEDS: FERROUS SO4 325 MG TABLET (FP) PO SCH (09:14)
[2017-03-21] MEDS: METHIMAZOLE 5 MG TABLET (FP) PO SCH (09:14)
[2017-03-21] MEDS: FOLIC ACID 1 MG TABLET (FP) PO SCH (09:14)
[2017-03-21] MEDS: DOCUSATE SODIUM 100 MG CAPSULE (FP) PO SCH (09:14)
[2017-03-21] MEDS: ASCORBIC ACID 500 MG TABLET (FP) PO SCH (09:14)
[2017-03-21] MEDS: METOPROLOL TARTRATE 25 MG TABLET (FP) PO SCH ×2 (09:14→22:13)
--- NOTE | 2017-03-21 09:47 | EKG ---
Test Reason : Blood Pressure : / mmHG Vent. Rate : 075 BPM Atrial Rate : 075 BPM P-R Int : 180 ms QRS Dur : 074 ms QT Int : 386 ms P-R-T Axes : -08 -32 006 degrees QTc Int : 431 ms NORMAL SINUS RHYTHM LEFT AXIS DEVIATION INFERIOR INFARCT (CITED ON OR BEFORE 22-MAY-2011) ANTERIOR INFARCT (CITED ON OR BEFORE 22-MAY-2011) ABNORMAL ECG Confirmed by JONO LEONG MD ([id number]) on 03/21/2017 9:47:20 AM Referred By: Confirmed By:JONO LEONG MD
--- NOTE | 2017-03-21 10:37 | CON.CARD ---
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 Past few days at home as had cold/congestion/cough. Yesterday was at eye doctor in lobby and legs felt weak and she collapsed. DATABASE MANAGER caught her so she did not fall. Had loc for few seconds. Awoke and felt well. No cp, sob, palps, dizzy, pnd, orthopnea , le edema. No hx hrt dz. Feeling well today. pmh: per hpi psh: per hpi social: no tob fam: no premature cad, scd ros: per hpi; no nvd, fever, sandra, muscle pain, gib, hematuria, rash, dysuria meds: Home Medications Medication Instructions Recorded Docusate Sodium [Colace -] 100 mg PO DAILY 11/10/13 Atorvastatin Calcium 20 mg PO DAILY #30 01/31/15 Calcium Carbonate/Vitamin D3 1 each PO DAILY 04/06/15 [Calcium 600-Vit D3 800 Caplet] Cyanocobalamin [Vitamin B12 -] 1,000 mcg PO DAILY 04/06/15 Methimazole [Tapazole -] 5 mg PO DAILY 04/06/15 Apixaban [Eliquis -] 2.5 mg PO BID #0 tablet 06/12/16 Ascorbic Acid [Vitamin C -] 500 mg PO DAILY 08/01/16 Ferrous Sulfate [Feosol] 325 mg PO DAILY 08/01/16 Folic Acid 1 mg PO DAILY 08/01/16 Megestrol Acetate Oral Susp 400 mg PO DAILY 08/01/16 [Megace Oral Suspension -] Multivitamins [Multivit ([facility] 1 tab PO DAILY 08/01/16 Formulary)] Carbidopa/Levodopa 25/100 [Sinemet 1 each PO TID #90 tablet 08/07/16 -] Cefuroxime Axetil [Ceftin -] 500 mg PO Q12H #10 tablet 08/07/16 Metoprolol Tartrate [Lopressor -] 25 mg PO BID #60 tablet 08/07/16 pe: Vital Signs Period Temp Pulse Resp BP Sys/Francis Pulse Ox Last 24 Hr 97.8 F-98.7 F 66-75 16-24 114-166/61-84 99-99 nad, no jvd rrr s1s2 no mrg cta bl nl eff aaox3 no le e/c/c abd nt nd pos bs no jaundice diaphoresis pos dp pt no carotid bruit Laboratory Last Values WBC 3.7 K/mm3 (4.0-10.0) L 03/21/17 06:00 RBC 3.07 M/mm3 (3.60-5.2) L 03/21/17 06:00 Hgb 9.3 GM/dL (10.7-15.3) L D 03/21/17 06:00 Hct 27.6 % (32.4-45.2) L D 03/21/17 06:00 MCV 90.0 fl (80-96) 03/21/17 06:00 MCH 30.4 pg (25.7-33.7) 03/21/17 06:00 MCHC 33.7 g/dl (32.0-36.0) 03/21/17 06:00 RDW 15.5 % (11.6-15.6) 03/21/17 06:00 Plt Count 152 K/MM3 (134-434) 03/21/17 06:00 MPV 10.1 fl (7.5-11.1) 03/21/17 06:00 Neutrophils % 55.8 % (42.8-82.8) D 03/21/17 06:00 Lymphocytes % 32.5 % (8-40) D 03/21/17 06:00 Monocytes % 9.2 % (3.8-10.2) 03/21/17 06:00 Eosinophils % 1.8 % (0-4.5) 03/21/17 06:00 Basophils % 0.7 % (0-2.0) 03/21/17 06:00 PT with INR 23.90 SEC (9.98-11.88) H 03/20/17 15:50 INR 2.14 (0.82-1.09) H 03/20/17 15:50 Sodium 139 mmol/L (136-145) 03/21/17 06:00 Potassium 3.8 mmol/L (3.5-5.1) 03/21/17 06:00 Chloride 108 mmol/L (98-107) H 03/21/17 06:00 Carbon Dioxide 22 mmol/L (21-32) 03/21/17 06:00 Anion Gap 9 (8-16) 03/21/17 06:00 BUN 18 mg/dL (7-18) 03/21/17 06:00 Creatinine 0.8 mg/dL (0.55-1.02) 03/21/17 06:00 Creat Clearance w eGFR > 60 (>60) 03/21/17 06:00 Random Glucose 78 mg/dL (74-106) 03/21/17 06:00 Calcium 9.0 mg/dL (8.5-10.1) 03/21/17 06:00 Magnesium Cancelled 03/20/17 15:50 Total Bilirubin 0.5 mg/dL (0.2-1.0) D 03/21/17 06:00 AST 14 U/L (15-37) L 03/21/17 06:00 ALT 7 U/L (12-78) L 03/21/17 06:00 Alkaline Phosphatase 39 U/L (45-117) L D 03/21/17 06:00 Creatine Kinase 49 IU/L (26-192) 03/21/17 06:00 Troponin I 0.02 ng/ml (0.00-0.05) 03/21/17 06:00 Total Protein 6.3 g/dl (6.4-8.2) L 03/21/17 06:00 Albumin 3.2 g/dl (3.4-5.0) L D 03/21/17 06:00 TSH 2.11 uIU/ml (0.358-3.74) D 03/21/17 06:00 Free T4 1.30 ng/dl (0.76-1.46) D 03/21/17 06:00 echo 07/2016: nl lv/rv. impaired relaxation. mild-mod MR/TR. 1+ AR. 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 syncope: -similar episode when here earlier this year. Echo and tele unremarkable then. 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 Also seen by neuro then and had unremarkable ct's, mri brain -possibly was related to UTI at that time -current episode again w/o obvious cardiac etiology, possibly related to URI -no signs acs, tele benign. -can check orthostatics, consider PT eval htn: -stable on current meds hld: -cont statin hx of dvt: -on eliquis (outpatient dose was 2.5 mg bid) s/p AAA repair: -cont bb, bp control, statin -pt follows with dr erazo, reports having recent abd us that was stable per pt
--- NOTE | 2017-03-21 13:41 | HP ---
Admitting History and Physical - Primary Care Physician PCP: Sosa Rubio - Admission Chief Complaint: fall/ syncope History of Present Illness: Patient is an 81F with history of Parkinson's, HTN, HLD, CVA, anemia, left lower extremity DVT (on eloquis), colorectal CA s/p colectomy with subsequent reversal here today complaining of syncope. The patient was walking in a lobby today when she says her legs gave out and she syncopized. She was with family who caught her and kept her from any trauma. She was unconscious for a few seconds, then returned and was back to normal. She denies any chest pain or shortness of breath. She complains of having a cold for the past 3 days with associated dry cough. She denies nausea, vomiting, fevers and chills. pt admitted to tele for observation. pt also recently has right eye cataract operation. pt seen / examined in tele chart reviewed feels better but looks weak. denies cp/sob/abd pain. 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) Endocrine: Yes: Hyperthyroidism - Past Surgical History Past Surgical History: Yes: AAA Repair, Colectomy, Colostomy - Smoking History Smoking history: Former smoker Have you smoked in the past 12 months: No Aproximately how many cigarettes per day: 0 If you are a former smoker, when did you quit?: over 10 years - Alcohol/Substance Use Hx Alcohol Use: No - Social History ADL: Independent History of Recent Travel: No Home Medications - Allergies Allergies/Adverse Reactions: Allergies Allergy/AdvReac Type Severity Reaction Status Date / Time iodine [Iodine] Allergy Mild Hives Verified 03/20/17 13:09 SHELLFISH Allergy Uncoded 03/20/17 13:09 - Home Medications Home Medications: Ambulatory Orders Docusate Sodium [Colace -] 100 mg PO DAILY 11/10/13 Atorvastatin Calcium 20 mg PO DAILY #30 01/31/15 Calcium Carbonate/Vitamin D3 [Calcium 600-Vit D3 800 Caplet] 1 each PO DAILY 07/21 Cyanocobalamin [Vitamin B12 -] 1,000 mcg PO DAILY 04/06/15 Methimazole [Tapazole -] 5 mg PO DAILY 04/06/15 Apixaban [Eliquis -] 2.5 mg PO BID #0 tablet 06/12/16 Ascorbic Acid [Vitamin C -] 500 mg PO DAILY 08/01/16 Ferrous Sulfate [Feosol] 325 mg PO DAILY 08/01/16 Folic Acid 1 mg PO DAILY 08/01/16 Megestrol Acetate Oral Susp [Megace Oral Suspension -] 400 mg PO DAILY 08/01/16 Multivitamins [Multivit ([facility] Formulary)] 1 tab PO DAILY 08/01/16 Carbidopa/Levodopa 25/100 [Sinemet 25/100 -] 1 each PO TID #90 tablet 08/07/16 Cefuroxime Axetil [Ceftin -] 500 mg PO Q12H #10 tablet 08/07/16 Metoprolol Tartrate [Lopressor -] 25 mg PO BID #60 tablet 08/07/16 Review of Systems Findings/Remarks: see jamul Physical Examination Vital Signs: Vital Signs Temperature 98.4 F 03/21/17 10:00 Pulse Rate 73 03/21/17 10:00 Respiratory Rate 24 03/21/17 10:00 Blood Pressure 114/61 03/21/17 10:00 O2 Sat by Pulse Oximetry (%) 99 03/20/17 22:00 Constitutional: Yes: No Distress, Calm Eyes: Yes: Conjunctiva Clear Neck: Yes: Supple Cardiovascular: Yes: Regular Rate and Rhythm Respiratory: Yes: CTA Bilaterally Gastrointestinal: Yes: Normal Bowel Sounds, Soft Edema: No Neurological: Yes: Alert, Other (non- focal.) Psychiatric: Yes: Alert Labs: CBC, BMP 03/21/17 06:00 03/21/17 06:00 Imaging - Results Chest X-ray: Report Reviewed Ultrasound: Report Reviewed EKG: Report Reviewed Problem List - Problems (1) Dehydration Code(s): E86.0 - DEHYDRATION (2) Parkinsonism Code(s): G20 - PARKINSON'S DISEASE (3) Syncope Code(s): R55 - SYNCOPE AND COLLAPSE Qualifiers: Syncope type: unspecified Qualified Code(s): R55 - Syncope and collapse (4) Weakness Code(s): R53.1 - WEAKNESS (5) Carotid stenosis, right Code(s): I65.21 - OCCLUSION AND STENOSIS OF RIGHT CAROTID ARTERY Assessment/Plan monitor today. mild hydration. u/s carotid noted. no intervention -- seen by vascular last visit. eye drops -pt has --discussed with nursing staff. if stable - will discharge home tomorrow. discussed with pts sister who is at bedside.
[2017-03-21] MEDS: OFLOXACIN 0.3% OPHTHALMIC SOLUTION 5 ML BOTTLE OD SCH ×2 (15:00→18:03)
[2017-03-21] MEDS: prednisoLONE ACETATE 1% OPHTH SUSP 5 ML BOTTLE OD SCH ×2 (15:00→18:03)
[2017-03-21] MEDS: KETOROLAC TROMETHAMINE 0.5% 5 ML BOTTLE OPTHALMIC OD SCH (18:03)
[2017-03-21] MEDS ORDERED: guaiFENesin 200 MG/10 ML 10 ML UNIT-DOSE CUPS PO PRN (19:23)
[2017-03-21] MEDS ORDERED: ATORVASTATIN CA 20 MG TABLET (FP) PO SCH (22:00)
[2017-03-21] MEDS: SODIUM CHLORIDE 0.45% 1,000 ML IV SCH (22:13)
[2017-03-22] MEDS: CARBIDOPA/LEVODOPA 25/100 TABLET (FP) PO SCH (06:40)
--- NOTE | 2017-03-22 08:45 | PN ---
Progress Note, Physician Chief Complaint: syncope History of Present Illness: no dizzy or syncope, including standing to go to BR. no cp, sob, palpit - Current Medication List Current Medications: Active Medications Apixaban (Eliquis -) 2.5 mg PO BID [facility] Last Admin: 03/21/17 22:13 Dose: 2.5 mg Ascorbic Acid (Vitamin C -) 500 mg PO DAILY [facility] Last Admin: 03/21/17 09:14 Dose: 500 mg Atorvastatin Calcium (Lipitor -) 20 mg PO HS [facility] Last Admin: 03/21/17 22:13 Dose: 20 mg Carbidopa/Levodopa (Sinemet 25/100 -) 1 each PO TID [facility] Last Admin: 03/22/17 06:40 Dose: 1 each Docusate Sodium (Colace -) 100 mg PO DAILY [facility] Last Admin: 03/21/17 09:14 Dose: 100 mg Ferrous Sulfate (Feosol -) 325 mg PO DAILY [facility] Last Admin: 03/21/17 09:14 Dose: 325 mg Folic Acid (Folic Acid -) 1 mg PO DAILY [facility] Last Admin: 03/21/17 09:14 Dose: 1 mg Guaifenesin (Robitussin -) 10 ml PO Q6H PRN PRN Reason: COUGH/CHEST CONGESTION Last Admin: 03/21/17 22:17 Dose: 10 ml Sodium Chloride (1/2 Normal Saline) 1,000 mls @ 83 mls/hr IV ASDIR [facility] Last Admin: 03/21/17 22:13 Dose: 83 mls/hr Ketorolac Tromethamine (Ketorolac Tromethamine) 1 drop OD 0900,1800 [facility] Last Admin: 03/21/17 18:03 Dose: 1 drop Methimazole (Tapazole -) 5 mg PO DAILY [facility] Last Admin: 03/21/17 09:14 Dose: 5 mg Metoprolol Tartrate (Lopressor -) 25 mg PO BID [facility] Last Admin: 03/21/17 22:13 Dose: 25 mg Ofloxacin (Ocuflox 0.3% Eye Drops -) 1 drop OD 0900,1200,1500,1800 [facility] Last Admin: 03/21/17 18:03 Dose: 1 drop Prednisolone Acetate (Pred Forte 1% -) 1 drop OD 0900,1200,1500,1800 [facility] Last Admin: 03/21/17 18:03 Dose: 1 drop - Objective Vital Signs: Vital Signs Temperature 98.7 F 03/22/17 06:00 Pulse Rate 66 03/22/17 06:00 Respiratory Rate 20 03/22/17 06:00 Blood Pressure 148/96 03/22/17 06:00 O2 Sat by Pulse Oximetry (%) 98 03/21/17 21:43 Constitutional: Yes: Well Nourished, No Distress, Calm Cardiovascular: Yes: Regular Rate and Rhythm, S1, S2. No: Gallop, Murmur Respiratory: Yes: Regular, CTA Bilaterally. No: Accessory Muscle Use, Rales, Wheezes Extremities: No: Cold Edema: No Neurological: Yes: Alert, Oriented Psychiatric: No: Agitated Labs: CBC, BMP 03/21/17 06:00 03/21/17 06:00 INR, PTT INR 2.14 (0.82-1.09) H 03/20/17 15:50 - ....Imaging EKG: Other (tele: NSR, no bradys or events) Assessment/Plan echo 07/2016: nl lv/rv. impaired relaxation. mild-mod MR/TR. 1+ AR. 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 syncope: -similar episode when here earlier this year. Echo and tele unremarkable then. 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 Also seen by neuro then and had unremarkable ct's, mri brain -possibly was related to UTI at that time -current episode again w/o obvious cardiac etiology, possibly related to URI -no signs acs -tele remains benign. -check orthostatics BP (not yet done) -rec prolonged rhythm monitoring as outpt (loop recorder or 30 day holter) htn: -stable on current meds -cont same hld: -cont statin hx of dvt: -on eliquis (outpatient dose was 2.5 mg bid) -hgb down here approx 1g today vs HD #1--observe trend s/p AAA repair: -cont bb, bp control, statin -pt follows with dr erazo, reports having recent abd us that was stable per pt
[2017-03-22] MEDS: KETOROLAC TROMETHAMINE 0.5% 5 ML BOTTLE OPTHALMIC OD SCH (09:10)
[2017-03-22] MEDS: prednisoLONE ACETATE 1% OPHTH SUSP 5 ML BOTTLE OD SCH ×2 (09:10→11:49)
[2017-03-22] MEDS: OFLOXACIN 0.3% OPHTHALMIC SOLUTION 5 ML BOTTLE OD SCH ×2 (09:10→11:49)
[2017-03-22] MEDS: DOCUSATE SODIUM 100 MG CAPSULE (FP) PO SCH (09:10)
[2017-03-22] MEDS: ASCORBIC ACID 500 MG TABLET (FP) PO SCH (09:10)
[2017-03-22] MEDS: APIXABAN 2.5 MG TABLET PO SCH (09:10)
[2017-03-22] MEDS: FERROUS SO4 325 MG TABLET (FP) PO SCH (09:11)
[2017-03-22] MEDS: METOPROLOL TARTRATE 25 MG TABLET (FP) PO SCH (09:11)
[2017-03-22] MEDS: FOLIC ACID 1 MG TABLET (FP) PO SCH (09:11)
[2017-03-22] MEDS: METHIMAZOLE 5 MG TABLET (FP) PO SCH (09:11)
[2017-03-22 12:08] VITALS: TEMP 97.9
[2017-03-22 12:15] VITALS: BP 179/98; PULSE 66
--- NOTE | 2017-03-22 12:43 | DS ---
Physical Examination Vital Signs: Vital Signs Temperature 97.9 F 03/22/17 10:00 Pulse Rate 66 03/22/17 11:44 Respiratory Rate 18 03/22/17 10:00 Blood Pressure 179/98 03/22/17 11:44 O2 Sat by Pulse Oximetry (%) 99 03/22/17 12:05 Findings/Remarks: feels well. no complains wants to go home. denies cp/sob/abd pain. no headche/ dizziness. dry cough much better afebrile. Constitutional: Yes: No Distress, Calm Eyes: Yes: Conjunctiva Clear Neck: Yes: Supple Cardiovascular: Yes: Regular Rate and Rhythm Respiratory: Yes: CTA Bilaterally Gastrointestinal: Yes: Normal Bowel Sounds, Soft Edema: No Neurological: Yes: Alert Psychiatric: Yes: Alert Labs: CBC, BMP 03/21/17 06:00 03/21/17 06:00 Discharge Summary Reason For Visit: SYNCOPE Current Active Problems Cerebral aneurysm without rupture (Acute) Dehydration (Acute) Parkinsonism (Acute) Syncope (Acute) UTI (urinary tract infection) (Acute) Weakness (Acute) Hospital Course: admitted for syncope. work up ok stable for discharge cardiology followed decrease of h/h today-- no sign of bleeding monitor as out pt pt advised to follow in office in one week. pt in agreement. meds reconcilled discussed with Dr. Hicks also. Condition: Stable - Instructions Diet, Activity, Other Instructions: f/u in one week f/u with her opthalmologist as advised. Referrals: Sosa Rubio MD [Primary Care Provider] - Disposition: HOME - Home Medications Comprehensive Discharge Medication List: Ambulatory Orders Docusate Sodium [Colace -] 100 mg PO DAILY 11/10/13 Atorvastatin Calcium 20 mg PO DAILY #30 01/31/15 Calcium Carbonate/Vitamin D3 [Calcium 600-Vit D3 800 Caplet] 1 each PO DAILY 07/21 Cyanocobalamin [Vitamin B12 -] 1,000 mcg PO DAILY 04/06/15 Methimazole [Tapazole -] 5 mg PO DAILY 04/06/15 Apixaban [Eliquis -] 2.5 mg PO BID #0 tablet 06/12/16 Ascorbic Acid [Vitamin C -] 500 mg PO DAILY 08/01/16 Ferrous Sulfate [Feosol] 325 mg PO DAILY 08/01/16 Folic Acid 1 mg PO DAILY 08/01/16 Megestrol Acetate Oral Susp [Megace Oral Suspension -] 400 mg PO DAILY 08/01/16 Multivitamins [Multivit ([facility] Formulary)] 1 tab PO DAILY 08/01/16 Carbidopa/Levodopa 25/100 [Sinemet 25/100 -] 1 each PO TID #90 tablet 08/07/16 Metoprolol Tartrate [Lopressor -] 25 mg PO BID #60 tablet 08/07/16 Guaifenesin [Robitussin -] 10 ml PO Q6H PRN #0 amp 03/22/17 Ketorolac Tromethamine 1 drop OD 0900,1800 #1 amp 03/22/17 Ofloxacin 0.3% Ophth Soln [Ocuflox -] 1 drop OD 0900,1200,1500,1800 #1 amp 03/22 Prednisolone 1% Ophthalmic [Pred Forte 1% -] 1 drop OD 0900,1200,1500,1800 #1 amp 03/22/17
== END 2017-03-22 13:20 | disposition home or self-care (01) ==
LOC: JER 13:07 → JERBED 19:11 → J4W 21:58
PROVIDERS: ADMIT Internal Medicine; ATTEND Internal Medicine
DX: R55 Syncope and collapse (principal); E86.0 Dehydration; N39.0 Urinary tract infection, site not specified; R53.1 Weakness; G20 Parkinson's disease; I65.21 Occlusion and stenosis of right carotid artery; E05.90 Thyrotoxicosis, unspecified without thyrotoxic crisis or storm; I10 Essential (primary) hypertension; D64.9 Anemia, unspecified; Z85.038 Personal history of other malignant neoplasm of large intestine; Z86.718 Personal history of other venous thrombosis and embolism; Z79.01 Long term (current) use of anticoagulants; Z86.79 Personal history of other diseases of the circulatory system
CPT/HCPCS: 36415; 71010-TC; 80048; 80053; 84439; 84443; 84484; 85025; 85610; 93005; 93010; 93880-TC; 99285-25; G0378

== ENCOUNTER 2017-06-23 10:59 | Emergency (ER) | payer OTHER, MEDICARE ==
[2017-06-23 11:13] VITALS: BP 126/68; PULSE 73; TEMP 97.8; BMI 21.6
--- NOTE | 2017-06-23 12:30 | PDOC ---
History of Present Illness - General Chief Complaint: Shortness of Breath Stated Complaint: RESPIRATORY Time Seen by Provider: 06/23/17 12:17 History Source: Patient Exam Limitations: No Limitations - History of Present Illness Initial Comments: 06/23/17 12:43 Patient came for evaluation of moist nonproductive cough. States started approximately 4 days ago did not feel feverish but states does not not fevers. Denies shortness of breath, chest pain or palpitations but feels is unable to shake this "cold" Timing/Duration: reports: constant, getting worse Severity: reports: moderate Associated Symptoms: reports: cough, dizziness, lightheadedness, nasal congestion. denies: fever/chills Past History - Travel Traveled outside of the country in the last 30 days: No Close contact w/someone who was outside of country & ill: No - Past Medical History Allergies/Adverse Reactions: Allergies Allergy/AdvReac Type Severity Reaction Status Date / Time iodine [Iodine] Allergy Mild Hives Verified 06/23/17 11:13 SHELLFISH Allergy Uncoded 06/23/17 11:13 Home Medications: Ambulatory Orders Docusate Sodium [Colace -] 100 mg PO DAILY 11/10/13 Atorvastatin Calcium 20 mg PO DAILY #30 01/31/15 Calcium Carbonate/Vitamin D3 [Calcium 600-Vit D3 800 Caplet] 1 each PO DAILY 07/21 Cyanocobalamin [Vitamin B12 -] 1,000 mcg PO DAILY 04/06/15 Methimazole [Tapazole -] 5 mg PO DAILY 04/06/15 Apixaban [Eliquis -] 2.5 mg PO BID #0 tablet 06/12/16 Ascorbic Acid [Vitamin C -] 500 mg PO DAILY 08/01/16 Ferrous Sulfate [Feosol] 325 mg PO DAILY 08/01/16 Folic Acid 1 mg PO DAILY 08/01/16 Megestrol Acetate Oral Susp [Megace Oral Suspension -] 400 mg PO DAILY 08/01/16 Multivitamins [Multivit ([facility] Formulary)] 1 tab PO DAILY 08/01/16 Carbidopa/Levodopa 25/100 [Sinemet 25/100 -] 1 each PO TID #90 tablet 08/07/16 Metoprolol Tartrate [Lopressor -] 25 mg PO BID #60 tablet 08/07/16 Guaifenesin [Robitussin -] 10 ml PO Q6H PRN #0 amp 03/22/17 Ketorolac Tromethamine 1 drop OD 0900,1800 #1 amp 03/22/17 Ofloxacin 0.3% Ophth Soln [Ocuflox -] 1 drop OD 0900,1200,1500,1800 #1 amp 03/22 Prednisolone 1% Ophthalmic [Pred Forte 1% -] 1 drop OD 0900,1200,1500,1800 #1 amp 03/22/17 Azithromycin [Zithromax -] 250 mg PO UTDICT #6 tab 06/23/17 Anemia: Yes Asthma: No Cancer: Yes (COLON) Cardiac Disorders: Yes CVA: Yes (tia) COPD: No CHF: No Dementia: No Diabetes: No GI Disorders: Yes Disorders: No HTN: Yes Hypercholesterolemia: Yes Liver Disease: No Seizures: No Thyroid Disease: Yes (HYPERTHYROID DISEASE) Other medical history: Parkinson's dis - Surgical History Abdominal Surgery: Yes (COLON RESECTION/COLOSTOMY; S/O AAA REPAIR) Appendectomy: No Cardiac Surgery: No Cholecystectomy: No Lung Surgery: No Neurologic Surgery: No Orthopedic Surgery: No - Immunization History Immunization Up to Date: Yes - Suicide/Smoking/Psychosocial Hx Smoking Status: No Smoking History: Former smoker Have you smoked in the past 12 months: No Number of Cigarettes Smoked Daily: 0 If you are a former smoker, when did you quit?: 1989 Information on smoking cessation initiated: No Hx Alcohol Use: No Drug/Substance Use Hx: No Substance Use Type: None Hx Substance Use Treatment: No Review of Systems - Review of Systems Able to Perform ROS?: Yes Is the patient limited Faroese proficient: Yes Constitutional: Yes: Symptoms Reported, See HPI, Loss of Appetite, Malaise. No : Fever HEENTM: Yes: See HPI. No: Symptoms Reported Respiratory: Yes: Symptoms reported, See HPI, Cough, Orthopnea Musculoskeletal: Yes: Symptoms Reported, See HPI, Muscle Weakness Integumentary: Yes: Symptoms Reported Neurological: Yes: See HPI. No: Symptoms reported, Headache, Numbness All Other Systems: Reviewed and Negative *Physical Exam - Vital Signs Last Vital Signs Temp Pulse Resp BP Pulse Ox 97.8 F 73 18 126/68 100 06/23/17 11:08 06/23/17 11:08 06/23/17 11:08 06/23/17 11:08 06/23/17 11:08 - Physical Exam General Appearance: Yes: Nourished, Appropriately Dressed, Apparent Distress, Mild Distress HEENT: positive: MARAL, Normal ENT Inspection, TMs Normal, Rhinorrhea, Sinus Tenderness Neck: positive: Supple. negative: Tender Respiratory/Chest: positive: Lungs Clear, Decreased Breath Sounds. negative: Respiratory Distress Gastrointestinal/Abdominal: positive: Normal Bowel Sounds, Soft. negative: Tender Musculoskeletal: positive: Normal Inspection Extremity: positive: Normal Capillary Refill, Normal Inspection, Normal Range of Motion. negative: Tender Integumentary: positive: Dry, Warm, Pale Neurologic: positive: tablet coater II-XII NML intact, Fully Oriented, Normal Response, Motor Strength / ED Treatment Course - RADIOLOGY Radiology Studies Ordered: Category Date Time Status CHEST PA & LAT [RAD] Stat Radiology 06/23/17 12:25 Ordered Progress Note - Progress Note Progress Note: Chest x-ray negative for infiltrates, unchanged from previous. Discussed case with Dr. Ayala who was covering for Dr. Callahan and agrees with plan for Zithromax to cover any bacterial pulmonology problem and will follow up in their office this week *DC/Admit/Observation/Transfer Diagnosis at time of Disposition: Upper respiratory infection, acute - Discharge Dispostion Disposition: HOME Condition at time of disposition: Stable Admit: No - Prescriptions Prescriptions: Azithromycin [Zithromax -] 250 mg PO UTDICT #6 tab - Referrals Referrals: Sosa Rubio MD [Primary Care Provider] - - Patient Instructions Printed Discharge Instructions: DI for Viral Upper Respiratory Infection -- Adult Additional Instructions: Rest, drink lots of fluids: Teas, water, soups, Pedialyte Saltwater gargles Steamy showers/seem to face break up mucus Avoid contact with others until fevers and cough resolved Lots of handwashing and good hygiene Continue [id number] medications for symptomatic relief Tylenol or Motrin for fever and pain Followup with private physician in one to 2 days as needed Return to emergency department for worsened symptoms, fevers, dehydration - Post Discharge Activity
== END 2017-06-23 13:19 | disposition home or self-care (01) ==
LOC: JERFT 10:59
DX: J06.9 Acute upper respiratory infection, unspecified (principal); D64.9 Anemia, unspecified; I10 Essential (primary) hypertension; E78.00 Pure hypercholesterolemia, unspecified; E05.80 Other thyrotoxicosis without thyrotoxic crisis or storm; G20 Parkinson's disease; Z85.038 Personal history of other malignant neoplasm of large intestine
CPT/HCPCS: 71020-TC; 99281-25

== ENCOUNTER 2017-12-20 07:39 | Observation (INO) | payer OTHER, MEDICARE ==
--- NOTE | 2017-12-20 08:18 | PDOC ---
History of Present Illness - General Chief Complaint: Urinary Problem Stated Complaint: URINATION PROBLEMS Time Seen by Provider: 12/20/17 07:56 History Source: Patient, Family Exam Limitations: No Limitations - History of Present Illness Initial Comments: 82 YOF with h/o Parkinson's with gait instability and dementia, UTI, HTN, HLD, CVA, anemia, LLE DVT,colorectal CA s/p chemo and colectomy with colostomy and subsequent reversal, who p/w urinary frequency since yesterday. She recalls having needed to stand up 8 times during the night to urinate. She takes a medication to help her urinate at baseline, and denies having changed her medications or taken too many or few lately. Her medications are managed by her family at home. The daughter additionally notes that the patient has been a bit more confused and disoriented than normal over the past couple of days. The patient denies fever, chills, nausea, vomiting, diarrhea, constipation, chest pain, SOB, abdominal pain, dysuria, strange colors/smells to her urine, back pain, headache, dizziness, or other new symptoms. She has baseline ankle swelling and noted both-sided ankle swelling this morning similar to her baseline. Past History - Past Medical History Allergies/Adverse Reactions: Allergies Allergy/AdvReac Type Severity Reaction Status Date / Time iodine [Iodine] Allergy Mild Hives Verified 12/20/17 07:44 SHELLFISH Allergy Uncoded 12/20/17 07:44 Home Medications: Ambulatory Orders Docusate Sodium [Colace -] 100 mg PO DAILY 11/10/13 Atorvastatin Calcium 20 mg PO DAILY #30 01/31/15 Calcium Carbonate/Vitamin D3 [Calcium 600-Vit D3 800 Caplet] 1 each PO DAILY 07/21 Cyanocobalamin [Vitamin B12 -] 1,000 mcg PO DAILY 04/06/15 Methimazole [Tapazole -] 5 mg PO DAILY 04/06/15 Apixaban [Eliquis -] 2.5 mg PO BID #0 tablet 06/12/16 Ascorbic Acid [Vitamin C -] 500 mg PO DAILY 08/01/16 Ferrous Sulfate [Feosol] 325 mg PO DAILY 08/01/16 Folic Acid 1 mg PO DAILY 08/01/16 Megestrol Acetate Oral Susp [Megace Oral Suspension -] 400 mg PO DAILY 01/26/17 Multivitamins [Multivit ([facility] Formulary)] 1 tab PO DAILY 08/01/16 Carbidopa/Levodopa 25/100 [Sinemet 25/100 -] 1 each PO TID #90 tablet 08/07/16 Metoprolol Tartrate [Lopressor -] 25 mg PO BID #60 tablet 08/07/16 Guaifenesin [Robitussin -] 10 ml PO Q6H PRN #0 amp 03/22/17 Ketorolac Tromethamine 1 drop OD 0900,1800 #1 amp 03/22/17 Ofloxacin 0.3% Ophth Soln [Ocuflox -] 1 drop OD 0900,1200,1500,1800 #1 amp 03/22 Prednisolone 1% Ophthalmic [Pred Forte 1% -] 1 drop OD 0900,1200,1500,1800 #1 amp 03/22/17 Azithromycin [Zithromax -] 250 mg PO UTDICT #6 tab 06/23/17 Anemia: Yes Asthma: No Cancer: Yes (COLON) Cardiac Disorders: Yes CVA: Yes (tia) COPD: No CHF: No Dementia: No Diabetes: No GI Disorders: Yes Disorders: No HTN: Yes Hypercholesterolemia: Yes Liver Disease: No Seizures: No Thyroid Disease: Yes (HYPERTHYROID DISEASE) Other medical history: parkinsons - Surgical History Abdominal Surgery: Yes (COLON RESECTION/COLOSTOMY; S/O AAA REPAIR) Appendectomy: No Cardiac Surgery: No Cholecystectomy: No Lung Surgery: No Neurologic Surgery: No Orthopedic Surgery: No - Immunization History Immunization Up to Date: Yes - Suicide/Smoking/Psychosocial Hx Smoking Status: No Smoking History: Former smoker Have you smoked in the past 12 months: No Number of Cigarettes Smoked Daily: 0 If you are a former smoker, when did you quit?: 1989 Information on smoking cessation initiated: No Hx Alcohol Use: No Drug/Substance Use Hx: No Substance Use Type: None Hx Substance Use Treatment: No Review of Systems - Review of Systems Able to Perform ROS?: Yes Constitutional: No: Chills, Fever, Unexplained wgt Loss HEENTM: No: Nose Congestion, Throat Pain Respiratory: No: Cough, Shortness of Breath Cardiac (ROS): Yes: Edema. No: Chest Pain, Palpitations ABD/GI: No: Constipated, Diarrhea, Nausea, Vomiting : Yes: Frequency. No: Burning, Dysuria Musculoskeletal: No: Back Pain, Neck Pain Integumentary: No: Bruising, Rash Neurological: No: Headache, Numbness, Tingling, Weakness, Dizziness Endocrine: No: Unexplained Weight Gain, Unexplained Weight Loss *Physical Exam - Vital Signs Last Vital Signs Temp Pulse Resp BP Pulse Ox 98 F 72 18 151/88 99 12/20/17 07:41 12/20/17 07:41 12/20/17 07:41 12/20/17 07:41 12/20/17 07:41 - Physical Exam General Appearance: Yes: Nourished, Appropriately Dressed, Other (well appearing elderly female who appears younger than stated age, accompanied by daughter, answers all questions appropriatley). No: Apparent Distress HEENT: positive: EOMI, MARAL, Normal ENT Inspection, Normal Voice, Hearing Grossly Normal. negative: Scleral Icterus (R), Scleral Icterus (L), Nasal Congestion Neck: positive: Trachea midline, Supple. negative: Tender, Rigid Respiratory/Chest: positive: Lungs Clear, Normal Breath Sounds. negative: Respiratory Distress, Crackles, Rhonchi, Stridor, Wheezing Cardiovascular: positive: S1, S2, Edema (1+ pitting bilateral ankles), Murmur (1 /6 systolic), Irregularly Irregular. negative: JVD, Bradycardia, Tachycardia Gastrointestinal/Abdominal: positive: Normal Bowel Sounds, Flat, Soft. negative : Tender, Organomegaly, Pulsatile Mass, Distended, Guarding Musculoskeletal: positive: Normal Inspection. negative: Decreased Range of Motion, Vertebral Tenderness Extremity: positive: Normal Capillary Refill, Normal Inspection, Normal Range of Motion. negative: Tender, Cyanosis Integumentary: positive: Normal Color, Dry, Warm. 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 negative: EOM Palsy, Facial Droop, Confused, Disoriented Heart Score/ECG Review #1 A-fib rate of 72, left axis deviation, normal QTc, no ischemic changes ED Treatment Course - LABORATORY CBC & Chemistry Diagram: 12/20/17 09:57 12/20/17 09:57 Medical Decision Making - Medical Decision Making Elderly female patient with Parkinsons, dementia, chronic urinary retention, p/ w urinary frequency and acute worsening of baseline confusion. Initial Vital Signs Temp Pulse Resp BP Pulse Ox 98 F 72 18 151/88 99 12/20/17 07:41 12/20/17 07:41 12/20/17 07:41 12/20/17 07:41 12/20/17 07:41 Exam: Well appearing, NAD, accompanied by daughter, 1/6 systolic murmur and irr irr rhythm, not tachycardic, normoactive bowel sounds, no abd ttp, 1+ pitting edema bilateral ankles DDX for AMS IBNLT: structural (e.g. epilepsy, brain tumor, CVA/TIA, NPH, CJD, ACS, PE, Jethro disease), infectious (e.g. UTI, PNA, bronchitis, cellulitis, meningitis, neurosyphilis, HIV-associated dementia), VS abnormalities (e.g. fever, hypertensive emergency), toxic-metabolic (e.g. medications, drugs e.g. serotonin syndrome/neuroleptic malignant syndrome or street drugs, electrolytes , hypothyroid, B12 deficiency), psychiatric (e.g. delirium, dementia, psychosis) , TTP (HUS with AMS, fever, poss seizure), etc. W/U ordered: CBCD CMP Mg Troponin CK CKMB UA UCx CXR HCT WO contrast TX ordered: IVF EKG: A-fib rate of 72, left axis deviation, normal QTc, no ischemic changes CXR: NADP Laboratory Tests 12/20/17 12/20/17 12/20/17 05:30 09:57 09:57 WBC 4.3 RBC 3.66 Hgb 11.1 Hct 33.5 MCV 91.5 MCH 30.4 MCHC 33.3 RDW 14.7 Plt Count 130 L MPV 11.2 H Absolute Neuts (auto) 2.7 Neutrophils % 62.4 Lymphocytes % 26.7 Monocytes % 8.5 Eosinophils % 1.2 Basophils % 1.2 Nucleated RBC % 0 PT with INR 20.60 H INR 1.82 H Sodium Potassium Chloride Carbon Dioxide Anion Gap BUN Creatinine Creat Clearance w eGFR Random Glucose Calcium Total Bilirubin AST ALT Alkaline Phosphatase Creatine Kinase Troponin I Total Protein Albumin Urine Color Dkyellow Urine Appearance Cloudy Urine pH 6.0 Ur Specific [place] 1.014 Urine Protein 1+ H Urine Glucose (UA) Negative Urine Ketones Negative Urine Blood 3+ H Urine Nitrite Negative Urine Bilirubin Negative Urine Urobilinogen Negative Ur Leukocyte Esterase 1+ H Urine WBC (Auto) 28 Urine RBC (Auto) 4 Ur Epithelial Cells Moderate Urine Bacteria Many Urine Mucus Rare 12/20/17 09:57 WBC RBC Hgb Hct MCV MCH MCHC RDW Plt Count MPV Absolute Neuts (auto) Neutrophils % Lymphocytes % Monocytes % Eosinophils % Basophils % Nucleated RBC % PT with INR INR Sodium 141 Potassium 4.3 Chloride 109 H Carbon Dioxide 25 Anion Gap 7 L BUN 19 H Creatinine 1.2 H Creat Clearance w eGFR 42.80 Random Glucose 83 Calcium 9.3 Total Bilirubin 0.6 D AST 17 ALT 17 Alkaline Phosphatase 48 Creatine Kinase 107 Troponin I < 0.02 Total Protein 7.8 Albumin 3.9 Urine Color Urine Appearance Urine pH Ur Specific [place] Urine Protein Urine Glucose (UA) Urine Ketones Urine Blood Urine Nitrite Urine Bilirubin Urine Urobilinogen Ur Leukocyte Esterase Urine WBC (Auto) Urine RBC (Auto) Ur Epithelial Cells Urine Bacteria Urine Mucus Repeat VS: Reassessment: 12/20/17 09:25 Pt has UTI and given ceftriaxone IVPB. Patient to be admitted given acute change in mental status. They are unsafe for discharge at this time. They require further hospital observation, workup, and treatment. Microblog sent to [facility] for admission. Spoke with Dr. Ayala, in agreement Pt to be placed in Med/Surg Obs. Decision to Admit order placed. *DC/Admit/Observation/Transfer Diagnosis at time of Disposition: Confusion, Gait disturbance UTI (urinary tract infection) Qualifiers: Urinary tract infection type: acute cystitis Hematuria presence: without hematuria Qualified Code(s): N30.00 - Acute cystitis without hematuria - Discharge Dispostion Condition at time of disposition: Guarded Decision to Admit order: Yes - Referrals Referrals: Sosa Rubio MD [Primary Care Provider] - - Patient Instructions Printed Discharge Instructions: DI for Urinary Tract Infection (UTI) Additional Instructions: You were seen in the ER for urinary symptoms. We did lab work on your blood and urine, and we did find a bladder infection and started you on antibiotics. We also did imaging studies, and on the results of these there were also no concerning findings that could explain your symptoms. We talked about the results of these studies with you. After our assessment, we do not believe you are having a medical emergency at this time, and we believe you are safe to go home. Please pick up man the prescription(s) we sent to your pharmacy electronically and take them as instructed on the label. Speak with the pharmacist when you pick them up to go over any side effects, medication reactions, and other concerns. Finish the whole course of antibiotics whether or not you feel better. Please follow up with your regular doctor in 1-3 days. Call their clinic [facility], tell them you were seen in the ER, and tell them you need an appointment. Please come back to the ER at any time, 24 hours a day, for any new or worsening symptoms. If you are having severe or life threatening symptoms, or symptoms that make it unsafe to drive or have someone drive you, please call 911. - Post Discharge Activity
[2017-12-20 08:45] LABS: URINE APPEARANCE CLOUDY; URINE BILIRUBIN NEGATIVE (<2.0 mg/dL); URINE COLOR DKYELLOW; URINE GLUCOSE (UA) NEGATIVE (NEGATIVE); URINE KETONE NEGATIVE (NEGATIVE); URINE NITRITE NEGATIVE (NEGATIVE); URINE UROBILINOGEN NEGATIVE mg/dL (0.2-1.0)
[2017-12-20 08:48] LABS: URINE LEUK ESTERASE 1+ (NEGATIVE); URINE PROTEIN 1+ (NEGATIVE)
[2017-12-20 08:50] LABS: EPI CELLS MODERATE /HPF (FEW); URINE BACTERIA MANY /hpf (NONE SEEN); URINE MUCUS RARE
[2017-12-20] MEDS ORDERED: SODIUM CHLORIDE 0.9% 500 ML INFUS.BAG IV ONE (08:58)
[2017-12-20] MEDS ORDERED: CEFTRIAXONE 1,000 MG in DEXTROSE 5%-WATER - 50 ML IVPB ONE (09:24)
[2017-12-20 10:31] LABS: BASO % 1.2 % (0-2.0); EOS % 1.2 % (0-4.5); HEMATOCRIT 33.5 % (32.4-45.2); HEMOGLOBIN 11.1 GM/dL (10.7-15.3); LYMPH % 26.7 % (8-40); MCH 30.4 pg (25.7-33.7); MCHC 33.3 g/dl (32.0-36.0); MEAN CELL VOLUME 91.5 fl (80-96); MEAN PLT VOLUME 11.2 fl (7.5-11.1); MONO % 8.5 % (3.8-10.2); NEUT % 62.4 % (42.8-82.8); PLATELET COUNT 130 K/MM3 (134-434); RBC 3.66 M/mm3 (3.60-5.2); RDW 14.7 % (11.6-15.6); WHITE BLOOD COUNT 4.3 K/mm3 (4.0-10.0)
[2017-12-20] MEDS ORDERED: CEFTRIAXONE 1 GM/50 ML BAG ONE (10:46)
[2017-12-20 10:49] LABS: INR 1.82 (0.82-1.09); PROTHROMBIN TIME (PATIENT) 20.6 SEC (9.7-13.0)
--- NOTE | 2017-12-20 10:56 | PDOC ---
Attending Attestation - Resident Resident Name: Nely Watson - ED Attending Attestation I have performed the following: I have examined & evaluated the patient, The case was reviewed & discussed with the resident, I agree w/resident's findings & plan, Exceptions are as noted - HPI HPI: 12/20/17 10:52 82 y.o F with h/o anemia, TIA, htn, hld, hyperthyroid, parkinsons, Dementia, presenting to ED with urinary frequency. Pt states that over the past few days, she has been urinating very frequently, though she denies any pain or burning with urination. Denies F/C. Pt otherwise feels well. Denies abdominal pain or flank pain. Has had UTIs in the past and states this feels similar. Allergies: iodine, shellfish derived Surgical History: Colon Resection/Colostomy: AAA repair" - Physicial Exam PE: 12/20/17 10:53 "GENERAL: Awake, alert, and fully oriented, in no acute distress. HEAD: No signs of trauma EYES: PERRLA, EOMI, sclera anicteric, conjunctiva clear ENT: Auricles normal inspection, hearing grossly normal, nares patent, oropharynx clear without exudates. Moist mucosa NECK: Nontender, no stepoffs, Normal ROM, supple, no lymphadenopathy, JVD, or masses LUNGS: Breath sounds equal, clear to auscultation bilaterally. No wheezes, and no crackles HEART: Regular rate and rhythm, normal S1 and S2, no murmurs, rubs or gallops ABDOMEN: Soft, nontender, normoactive bowel sounds. No guarding, no rebound. No masses EXTREMITIES: Normal range of motion, no edema. No clubbing or cyanosis. No cords, erythema, or tenderness NEUROLOGICAL: Cranial nerves II through XII intact. 5/5 strength and sensation in all extremities, Normal speech, normal gait, normal cerebellar function SKIN: Warm, Dry, normal turgor, no rashes or lesions noted. " - Medical Decision Making 12/20/17 10:55 82 F with urinary frequency. Likely UTI. - Labs, UA, UCx 12/20/17 11:30 UA consistent with UTI Labs otherwise unremarkable. Upon further discussion with family, pt has been exhibiting weakness and confusion recently. Will admit to hospital for complicated UTI
[2017-12-20 11:13] LABS: ALBUMIN 3.9 g/dl (3.4-5.0); ANION GAP 7 (8-16); BLOOD UREA NITROGEN 19 mg/dL (7-18); CALCIUM 9.3 mg/dL (8.5-10.1); CHLORIDE 109 mmol/L (98-107); CO2 25 mmol/L (21-32); CREATININE 1.2 mg/dL (0.55-1.02); GLUCOSE,RANDOM 83 mg/dL (74-106); POTASSIUM 4.3 mmol/L (3.5-5.1); SGOT/AST 17 U/L (15-37); SGPT/ALT 17 U/L (12-78); SODIUM 141 mmol/L (136-145)
[2017-12-20 11:15] LABS: BILIRUBIN,TOTAL 0.6 mg/dL (0.2-1.0); TOT PROT 7.8 g/dl (6.4-8.2)
[2017-12-20 11:18] LABS: ALK PHOS 48 U/L (45-117)
--- NOTE | 2017-12-20 13:12 | HP ---
Admitting History and Physical - Primary Care Physician PCP: Sosa Rubio - Admission History of Present Illness: pt seen/ examined by me in er. Discussed with er attending Per Er records-- 82 YOF with h/o Parkinson's with gait instability and dementia, UTI, HTN, HLD, CVA, anemia, LLE DVT,colorectal CA s/p chemo and colectomy with colostomy and subsequent reversal, who p/w urinary frequency since yesterday. She recalls having needed to stand up 8 times during the night to urinate. She takes a medication to help her urinate at baseline, and denies having changed her medications or taken too many or few lately. Her medications are managed by her family at home. The daughter additionally notes that the patient has been a bit more confused and disoriented than normal over the past couple of days. 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) Endocrine: Yes: Hyperthyroidism - Past Surgical History Past Surgical History: Yes: AAA Repair, Colectomy, Colostomy - Smoking History Smoking history: Former smoker Have you smoked in the past 12 months: No Aproximately how many cigarettes per day: 0 If you are a former smoker, when did you quit?: 1989 - Alcohol/Substance Use Hx Alcohol Use: No - Social History ADL: Independent History of Recent Travel: No Home Medications - Allergies Allergies/Adverse Reactions: Allergies Allergy/AdvReac Type Severity Reaction Status Date / Time iodine [Iodine] Allergy Mild Hives Verified 12/20/17 07:44 SHELLFISH Allergy Uncoded 12/20/17 07:44 - Home Medications Home Medications: Ambulatory Orders Docusate Sodium [Colace -] 100 mg PO DAILY 11/10/13 Atorvastatin Calcium 20 mg PO DAILY #30 01/31/15 Calcium Carbonate/Vitamin D3 [Calcium 600-Vit D3 800 Caplet] 1 each PO DAILY 07/21 Cyanocobalamin [Vitamin B12 -] 1,000 mcg PO DAILY 04/06/15 Methimazole [Tapazole -] 5 mg PO DAILY 04/06/15 Apixaban [Eliquis -] 2.5 mg PO BID #0 tablet 06/12/16 Ascorbic Acid [Vitamin C -] 500 mg PO DAILY 08/01/16 Ferrous Sulfate [Feosol] 325 mg PO DAILY 08/01/16 Folic Acid 1 mg PO DAILY 08/01/16 Megestrol Acetate Oral Susp [Megace Oral Suspension -] 400 mg PO DAILY 08/01/16 Multivitamins [Multivit ([facility] Formulary)] 1 tab PO DAILY 08/01/16 Carbidopa/Levodopa 25/100 [Sinemet 25/100 -] 1 each PO TID #90 tablet 08/07/16 Metoprolol Tartrate [Lopressor -] 25 mg PO BID #60 tablet 08/07/16 Guaifenesin [Robitussin -] 10 ml PO Q6H PRN #0 amp 03/22/17 Ketorolac Tromethamine 1 drop OD 0900,1800 #1 amp 03/22/17 Ofloxacin 0.3% Ophth Soln [Ocuflox -] 1 drop OD 0900,1200,1500,1800 #1 amp 03/22 Prednisolone 1% Ophthalmic [Pred Forte 1% -] 1 drop OD 0900,1200,1500,1800 #1 amp 03/22/17 Azithromycin [Zithromax -] 250 mg PO UTDICT #6 tab 06/23/17 Review of Systems - Review of Systems Constitutional: reports: Weakness Eyes: reports: No Symptoms Neck: reports: No Symptoms Cardiovascular: reports: No Symptoms Respiratory: reports: No Symptoms Gastrointestinal: reports: No Symptoms Genitourinary: reports: Frequency, Urgency Neurological: reports: No Symptoms Endocrine: reports: No Symptoms Psychiatric: reports: No Symptoms Physical Examination Vital Signs: Vital Signs Temperature 98.1 F 06/16/18 12:00 Pulse Rate 78 12/20/17 12:00 Respiratory Rate 16 12/20/17 12:00 Blood Pressure 142/83 12/20/17 12:00 O2 Sat by Pulse Oximetry (%) 99 12/20/17 12:00 Constitutional: Yes: No Distress, Calm Eyes: Yes: Conjunctiva Clear Neck: Yes: Supple Cardiovascular: Yes: Regular Rate and Rhythm Respiratory: Yes: CTA Bilaterally Gastrointestinal: Yes: Soft Edema: Yes Edema: LLE: Trace, RLE: Trace Neurological: Yes: Alert Psychiatric: Yes: Alert Labs: CBC, BMP 12/20/17 09:57 12/20/17 09:57 Imaging - Results Chest X-ray: Report Reviewed Problem List - Problems (1) UTI (urinary tract infection) Code(s): N39.0 - URINARY TRACT INFECTION, SITE NOT SPECIFIED Qualifiers: Urinary tract infection type: acute cystitis Hematuria presence: without hematuria Qualified Code(s): N30.00 - Acute cystitis without hematuria (2) Parkinsonism Code(s): G20 - PARKINSON'S DISEASE (3) Weakness Code(s): R53.1 - WEAKNESS Assessment/Plan Abx f/u cultures continue other meds orders written. physical therapy fall precautions discussed with pt/ daughter in detail except short stay will follow time spend in examining/ documenting and coordinating care - 40 min.
[2017-12-20 13:50] VITALS: BMI 21.9
[2017-12-20] MEDS: CARBIDOPA/LEVODOPA 25/100 TABLET (FP) PO SCH ×2 (15:23→21:14)
--- NOTE | 2017-12-20 17:48 | EKG ---
Test Reason : Blood Pressure : / mmHG Vent. Rate : 072 BPM Atrial Rate : 072 BPM P-R Int : 108 ms QRS Dur : 072 ms QT Int : 380 ms P-R-T Axes : 046 -37 007 degrees QTc Int : 416 ms POOR DATA QUALITY, INTERPRETATION MAY BE ADVERSELY AFFECTED SINUS RHYTHM WITH SHORT SD WITH PREMATURE SUPRAVENTRICULAR COMPLEXES LEFT AXIS DEVIATION INFERIOR INFARCT (CITED ON OR BEFORE 22-MAY-2011) ANTEROSEPTAL INFARCT (CITED ON OR BEFORE 22-MAY-2011) ABNORMAL ECG WHEN COMPARED WITH ECG OF 20-MAR-2017 14:52, PREMATURE SUPRAVENTRICULAR COMPLEXES ARE NOW PRESENT SD INTERVAL HAS DECREASED NONSPECIFIC T WAVE ABNORMALITY NO LONGER EVIDENT IN ANTERIOR LEADS Confirmed by JUSTIN PATTERSON, DOT ([id number] on 12/20/2017 5:47:55 PM Referred By: Confirmed By:DOT ANDERSON MD
[2017-12-20] MEDS: APIXABAN 2.5 MG TABLET PO SCH (21:14)
[2017-12-20] MEDS: METOPROLOL TARTRATE 25 MG TABLET (FP) PO SCH (21:14)
[2017-12-21] MEDS: CARBIDOPA/LEVODOPA 25/100 TABLET (FP) PO SCH ×3 (05:31→22:09)
[2017-12-21 08:40] LABS: EOS % 2.1 % (0-4.5); HEMATOCRIT 29.6 % (32.4-45.2); MCH 30.7 pg (25.7-33.7); MCHC 33.8 g/dl (32.0-36.0); MEAN CELL VOLUME 90.9 fl (80-96); MEAN PLT VOLUME 10.6 fl (7.5-11.1); MONO % 8.4 % (3.8-10.2); NEUT % 66.5 % (42.8-82.8); PLATELET COUNT 111 K/MM3 (134-434); RBC 3.26 M/mm3 (3.60-5.2); RDW 14.8 % (11.6-15.6); WHITE BLOOD COUNT 3.5 K/mm3 (4.0-10.0)
[2017-12-21 09:06] LABS: ALBUMIN 3.1 g/dl (3.4-5.0); ANION GAP 8 (8-16); BLOOD UREA NITROGEN 13 mg/dL (7-18); CALCIUM 8.3 mg/dL (8.5-10.1); CHLORIDE 110 mmol/L (98-107); CO2 23 mmol/L (21-32); CREATININE 1.1 mg/dL (0.55-1.02); GLUCOSE,RANDOM 83 mg/dL (74-106); POTASSIUM 3.7 mmol/L (3.5-5.1); SGOT/AST 13 U/L (15-37); SGPT/ALT 7 U/L (12-78); SODIUM 141 mmol/L (136-145)
[2017-12-21 09:12] LABS: ALK PHOS 41 U/L (45-117); BILIRUBIN,TOTAL 0.5 mg/dL (0.2-1.0); TOT PROT 6.4 g/dl (6.4-8.2)
[2017-12-21] MEDS ORDERED: cefTRIAXone SODIUM 1 GM VIAL ONE (09:58)
[2017-12-21] MEDS ORDERED: DEXTROSE 5%-WATER - 50 ML IVPB ONE (09:59)
[2017-12-21] MEDS: MULTIVITAMINS (DAILY MVI) TABLET (FP) PO SCH (10:02)
[2017-12-21] MEDS: ATORVASTATIN CA 20 MG TABLET (FP) PO SCH (10:02)
[2017-12-21] MEDS: DOCUSATE SODIUM 100 MG CAPSULE (FP) PO SCH (10:02)
[2017-12-21] MEDS: FOLIC ACID 1 MG TABLET (FP) PO SCH (10:02)
[2017-12-21] MEDS: METHIMAZOLE 5 MG TABLET (FP) PO SCH (10:02)
[2017-12-21] MEDS: CYANOCOBALAMIN 1,000 MCG TABLET (FP) PO SCH (10:02)
[2017-12-21] MEDS: FERROUS SO4 325 MG TABLET (FP) PO SCH (10:02)
[2017-12-21] MEDS: ASCORBIC ACID 500 MG TABLET (FP) PO SCH (10:02)
[2017-12-21] MEDS: METOPROLOL TARTRATE 25 MG TABLET (FP) PO SCH ×2 (10:02→22:09)
[2017-12-21] MEDS: CEFTRIAXONE 1 GM in DEXTROSE 5%-WATER - 50 ML IVPB SCH (10:03)
[2017-12-21] MEDS: CALCIUM 500MG/VIT-D 200 UNITS COMBO TABLET (FP) PO SCH (10:03)
[2017-12-21] MEDS: APIXABAN 2.5 MG TABLET PO SCH ×2 (10:12→22:09)
--- NOTE | 2017-12-21 12:26 | PN ---
Progress Note (short form) - Note Progress Note: feels better sitting in chair urination better afebrile decreased frequency Vital Signs Temp 97.8 F 12/21/17 09:52 Pulse 70 12/21/17 09:52 Resp 20 12/21/17 09:52 BP 150/85 12/21/17 09:52 Pulse Ox 98 12/20/17 21:16 Intake & Output 12/20/17 12/21/17 12/21/17 23:59 11:59 23:59 Intake Total 100 200 Output Total 100 Balance 0 200 Weight 132 lb 2 oz Intake: Oral 100 200 Output: Urine 100 Void 100 Other: Voiding Method Incontinent Incontinent # Unmeasured Voids Void 1 1 Bowel Movement No Height 5 ft 5 in Body Mass Index (BMI) 21.9 Weight Measurement Method [facility] Apixaban (Eliquis -) 2.5 mg PO BID [facility] Last Admin: 12/21/17 10:12 Dose: 2.5 mg Ascorbic Acid (Vitamin C -) 500 mg PO DAILY [facility] Last Admin: 12/21/17 10:02 Dose: 500 mg Atorvastatin Calcium (Lipitor -) 20 mg PO DAILY [facility] Last Admin: 12/21/17 10:02 Dose: 20 mg Calcium Carbonate/Cholecalciferol (Os-Vladislav 500+D -) 1 tab PO DAILY [facility] Last Admin: 12/21/17 10:03 Dose: 1 tab Carbidopa/Levodopa (Sinemet 25/100 -) 1 each PO TID [facility] Last Admin: 12/21/17 05:31 Dose: 1 each Cyanocobalamin (Vitamin B12 -) 1,000 mcg PO DAILY [facility] Last Admin: 12/21/17 10:02 Dose: 1,000 mcg Docusate Sodium (Colace -) 100 mg PO DAILY [facility] Last Admin: 12/21/17 10:02 Dose: 100 mg Ferrous Sulfate (Feosol -) 325 mg PO DAILY [facility] Last Admin: 12/21/17 10:02 Dose: 325 mg Folic Acid (Folic Acid -) 1 mg PO DAILY [facility] Last Admin: 12/21/17 10:02 Dose: 1 mg Ceftriaxone Sodium 1 gm/ (Dextrose) 50 mls @ 100 mls/hr IVPB DAILY [facility]; Protocol Last Admin: 12/21/17 10:03 Dose: 100 mls/hr Methimazole (Tapazole -) 5 mg PO DAILY [facility] Last Admin: 12/21/17 10:02 Dose: 5 mg Metoprolol Tartrate (Lopressor -) 25 mg PO BID [facility] Last Admin: 12/21/17 10:02 Dose: 25 mg Multivitamins/Minerals/Vitamin C (Tab-A-Vit -) 1 tab PO DAILY [facility] Last Admin: 12/21/17 10:02 Dose: 1 tab CBC, BMP 12/21/17 07:45 12/21/17 07:45 Microbiology 12/20/17 05:30 Urine Culture - Preliminary Urine - Urine - Catheterized Alpha Hemolytic Streptococcus Physical Examination Constitutional: Yes: No Distress, Comfortable Eyes: Yes: Conjunctiva Clear Neck: Yes: Supple/ no jvd Cardiovascular: Yes: Regular Rate and Rhythm Respiratory: Yes: CTA Bilaterally Gastrointestinal: Yes: Soft/ non tender Edema: Yes Edema: LLE: Trace, RLE: Trace Neurological: Yes: Alert Psychiatric: Yes: Alert Assessment/Plan Better Abx f/u cultures-- sensitivity continue other meds if better anticipate d/c tomorrow will follow Problem List - Problems (1) UTI (urinary tract infection) Code(s): N39.0 - URINARY TRACT INFECTION, SITE NOT SPECIFIED Qualifiers: Urinary tract infection type: acute cystitis Hematuria presence: without hematuria Qualified Code(s): N30.00 - Acute cystitis without hematuria (2) Parkinsonism Code(s): G20 - PARKINSON'S DISEASE (3) Weakness Code(s): R53.1 - WEAKNESS
[2017-12-22] MEDS: CARBIDOPA/LEVODOPA 25/100 TABLET (FP) PO SCH ×2 (05:45→14:54)
[2017-12-22] MEDS ORDERED: DEXTROSE 5%-WATER - 50 ML IVPB ONE (10:11)
[2017-12-22] MEDS ORDERED: cefTRIAXone SODIUM 1 GM VIAL ONE (10:11)
[2017-12-22] MEDS: ATORVASTATIN CA 20 MG TABLET (FP) PO SCH (10:16)
[2017-12-22] MEDS: MULTIVITAMINS (DAILY MVI) TABLET (FP) PO SCH (10:16)
[2017-12-22] MEDS: METHIMAZOLE 5 MG TABLET (FP) PO SCH (10:16)
[2017-12-22] MEDS: CYANOCOBALAMIN 1,000 MCG TABLET (FP) PO SCH (10:16)
[2017-12-22] MEDS: DOCUSATE SODIUM 100 MG CAPSULE (FP) PO SCH (10:16)
[2017-12-22] MEDS: FERROUS SO4 325 MG TABLET (FP) PO SCH (10:16)
[2017-12-22] MEDS: METOPROLOL TARTRATE 25 MG TABLET (FP) PO SCH (10:16)
[2017-12-22] MEDS: FOLIC ACID 1 MG TABLET (FP) PO SCH (10:16)
[2017-12-22] MEDS: ASCORBIC ACID 500 MG TABLET (FP) PO SCH (10:16)
[2017-12-22] MEDS: APIXABAN 2.5 MG TABLET PO SCH (10:16)
[2017-12-22] MEDS: CALCIUM 500MG/VIT-D 200 UNITS COMBO TABLET (FP) PO SCH (10:16)
[2017-12-22] MEDS: CEFTRIAXONE 1 GM in DEXTROSE 5%-WATER - 50 ML IVPB SCH (10:17)
[2017-12-22 12:25] VITALS: BP 152/94; PULSE 65; TEMP 98.4
--- NOTE | 2017-12-22 13:34 | DS ---
Physical Examination Vital Signs: Vital Signs Temperature 98.4 F 12/22/17 11:00 Pulse Rate 65 12/22/17 11:00 Respiratory Rate 20 12/22/17 12:22 Blood Pressure 152/94 12/22/17 11:00 O2 Sat by Pulse Oximetry (%) 98 12/22/17 12:22 Findings/Remarks: feels good no complains wants to go home alert and awake afebrile denies urinary burning or difficulty passing urine Constitutional: Yes: No Distress, Calm Neck: Yes: Supple Cardiovascular: Yes: Regular Rate and Rhythm Respiratory: Yes: CTA Bilaterally Gastrointestinal: Yes: Soft Edema: No Neurological: Yes: Alert Labs: CBC, BMP 12/21/17 07:45 12/21/17 07:45 Discharge Summary Reason For Visit: URINARY TRACT INFECTION; CONFUSION; ABNORMAL GAIT Current Active Problems Confusion (Acute) Gait disturbance (Acute) UTI (urinary tract infection) (Acute) Hospital Course: 82 YOF with h/o Parkinson's with gait instability and dementia, UTI, HTN, HLD, CVA, anemia, LLE DVT,colorectal CA s/p chemo and colectomy with colostomy and subsequent reversal, who p/w urinary frequency treated with abx u/c showed Gemella sensitivity pending pt did very well to 3 days of abx will d/c without abx f/u in office in one week pt in agreement meds reconcilled discussed with case repairer and nursing staff also Condition: Stable - Instructions Diet, Activity, Other Instructions: You were seen in the ER for urinary symptoms. We did lab work on your blood and urine, and we did find a bladder infection and started you on antibiotics. We also did imaging studies, and on the results of these there were also no concerning findings that could explain your symptoms. We talked about the results of these studies with you. After our assessment, we do not believe you are having a medical emergency at this time, and we believe you are safe to go home. 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 Speak with the pharmacist when you pick them up to go over any side effects, medication reactions, and other concerns. Finish the whole course of antibiotics whether or not you feel better. Please follow up with your regular doctor in 1-3 days. Call their clinic [facility], tell them you were seen in the ER, and tell them you need an appointment. Please come back to the ER at any time, 24 hours a day, for any new or worsening symptoms. If you are having severe or life threatening symptoms, or symptoms that make it unsafe to drive or have someone drive you, please call 911. Referrals: Sosa Rubio MD [Primary Care Provider] - Disposition: HOME - Home Medications Comprehensive Discharge Medication List: Ambulatory Orders Docusate Sodium [Colace -] 100 mg PO DAILY 11/10/13 Atorvastatin Calcium 20 mg PO DAILY #30 01/31/15 Calcium Carbonate/Vitamin D3 [Calcium 600-Vit D3 800 Caplet] 1 each PO DAILY 07/21 Cyanocobalamin [Vitamin B12 -] 1,000 mcg PO DAILY 04/06/15 Methimazole [Tapazole -] 5 mg PO DAILY 04/06/15 Apixaban [Eliquis -] 2.5 mg PO BID #0 tablet 06/12/16 Ascorbic Acid [Vitamin C -] 500 mg PO DAILY 08/01/16 Ferrous Sulfate [Feosol] 325 mg PO DAILY 08/01/16 Folic Acid 1 mg PO DAILY 08/01/16 Megestrol Acetate Oral Susp [Megace Oral Suspension -] 400 mg PO DAILY 08/01/16 Multivitamins [Multivit ([facility] Formulary)] 1 tab PO DAILY 08/01/16 Carbidopa/Levodopa 25/100 [Sinemet 25/100 -] 1 each PO TID #90 tablet 08/07/16 Metoprolol Tartrate [Lopressor -] 25 mg PO BID #60 tablet 08/07/16
== END 2017-12-22 16:47 | disposition home or self-care (01) ==
LOC: JER 07:39 → JERBED 12:11 → J8W 14:49
PROVIDERS: ADMIT Internal Medicine; ATTEND Internal Medicine
PROC: 3E03329 Introduction of Other Anti-infective into Peripheral Vein, Percutaneous Approach (ICD-10-PCS; principal; 2017-12-20)
PROC: 3E0337Z Introduction of Electrolytic and Water Balance Substance into Peripheral Vein, Percutaneous Approach (ICD-10-PCS; 2017-12-20)
PROC: 3E033GC Introduction of Other Therapeutic Substance into Peripheral Vein, Percutaneous Approach (ICD-10-PCS; 2017-12-20)
DX: N39.0 Urinary tract infection, site not specified (principal); R41.0 Disorientation, unspecified; R26.89 Other abnormalities of gait and mobility; R53.1 Weakness; G20 Parkinson's disease; F02.80 Dementia in other diseases classified elsewhere, unspecified severity, without behavioral disturbance, psychotic disturbance, mood disturbance, and anxiety; I10 Essential (primary) hypertension; E78.5 Hyperlipidemia, unspecified; D64.9 Anemia, unspecified; Z87.891 Personal history of nicotine dependence; Z93.3 Colostomy status; Z86.718 Personal history of other venous thrombosis and embolism; Z85.038 Personal history of other malignant neoplasm of large intestine; Z90.49 Acquired absence of other specified parts of digestive tract; Z87.440 Personal history of urinary (tract) infections; Z86.73 Personal history of transient ischemic attack (TIA), and cerebral infarction without residual deficits; Z92.21 Personal history of antineoplastic chemotherapy; Z91.013 Allergy to seafood
CPT/HCPCS: 36415; 71045-TC-FY; 80053; 81003; 81015; 82550; 82607; 84443; 84484; 85025; 85610; 87086; 87186; 93005; 93010; 96365; 96375; 99283-25; G0378

== ENCOUNTER 2018-07-04 11:10 | Observation (INO) | payer OTHER, MEDICARE ==
--- NOTE | 2018-07-04 12:40 | PDOC ---
History of Present Illness - General Chief Complaint: Syncope/Near Syncope Stated Complaint: SICK Time Seen by Provider: 07/04/18 11:50 History Source: Patient Exam Limitations: No Limitations - History of Present Illness Initial Comments: Kath is an 82 yo F with a pmh of Parkinson's with gait instability and dementia, UTI, HTN, HLD, CVA, anemia, LLE DVT,colorectal CA s/p chemo and colectomy with colostomy and subsequent reversal, who presents to the ER after an episode of weakness this morning. Her daughter is with her at bedside and her daughter states that as she was speaking with her the patient rolled her eyes back as if she passed out, then the patient experienced a transient episode right arm and generalized weakness. Now in the ED she is no longer experiencing and of her earlier symptoms and the patient has no current complaints. She admits that recently she has been experiencing dysuria and frequency. Her doctor placed a catherter inside of her to treat her urinary symptoms. She denies recent fevers or infections. Denies chest pain, SOB, back pain, headache, lightheadedness, blurry vision, abdominal pain, or leg pain. PCP: Sosa Rubio Allergies: iodine, shellfish Social Hx: Denies smoking, drinking, or other substance usage. Past History - Past Medical History Allergies/Adverse Reactions: Allergies Allergy/AdvReac Type Severity Reaction Status Date / Time iodine [Iodine] Allergy Mild Hives Verified 12/20/17 07:44 SHELLFISH Allergy Uncoded 12/20/17 07:44 Home Medications: Ambulatory Orders Docusate Sodium [Colace -] 100 mg PO DAILY 11/10/13 Atorvastatin Calcium 20 mg PO DAILY #30 01/31/15 Calcium Carbonate/Vitamin D3 [Calcium 600-Vit D3 800 Caplet] 1 each PO DAILY 07/21 Cyanocobalamin [Vitamin B12 -] 1,000 mcg PO DAILY 04/06/15 Methimazole [Tapazole -] 5 mg PO DAILY 04/06/15 Apixaban [Eliquis -] 2.5 mg PO BID #0 tablet 06/12/16 Ascorbic Acid [Vitamin C -] 500 mg PO DAILY 08/01/16 Ferrous Sulfate [Feosol] 325 mg PO DAILY 08/01/16 Folic Acid 1 mg PO DAILY 08/01/16 Megestrol Acetate Oral Susp [Megace Oral Suspension -] 400 mg PO DAILY 08/01/16 Multivitamins [Multivit ([facility] Formulary)] 1 tab PO DAILY 08/01/16 Carbidopa/Levodopa 25/100 [Sinemet 25/100 -] 1 each PO TID #90 tablet 08/07/16 Metoprolol Tartrate [Lopressor -] 25 mg PO BID #60 tablet 08/07/16 Anemia: Yes Asthma: No Cancer: Yes (COLON s/p Chemotherapy 5 yrs ago) Cardiac Disorders: Yes (Mini Strokes) CVA: Yes (TIA's) COPD: No CHF: No Dementia: No Diabetes: No GI Disorders: Yes Disorders: Yes (UTI's in the past, 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) HTN: Yes Hypercholesterolemia: Yes Liver Disease: No Seizures: No Thyroid Disease: Yes (HYPERTHYROID DISEASE) - Surgical History Abdominal Surgery: Yes (COLON RESECTION/COLOSTOMY; S/O AAA REPAIR) Appendectomy: No Cardiac Surgery: No Cholecystectomy: No Lung Surgery: No Neurologic Surgery: No Orthopedic Surgery: No - Immunization History Immunization Up to Date: Yes - Suicide/Smoking/Psychosocial Hx Smoking Status: No Smoking History: Never smoked Have you smoked in the past 12 months: No Number of Cigarettes Smoked Daily: 0 If you are a former smoker, when did you quit?: 1989 Information on smoking cessation initiated: No Hx Alcohol Use: No Drug/Substance Use Hx: No Substance Use Type: None Hx Substance Use Treatment: No Review of Systems - Review of Systems Constitutional: Yes: Chills, Weakness. No: Diaphoresis, Fever, Loss of Appetite , Malaise HEENTM: No: Blurred Vision, Double Vision, Tinnitus, Nose Bleeding, Hearing Loss Respiratory: No: Cough, Shortness of Breath, Wheezing Cardiac (ROS): Yes: Lightheadedness, Syncope. No: Chest Pain, Edema, Palpitations ABD/GI: Yes: Poor Fluid Intake. No: Abdominal Distended, Constipated, Diarrhea , Nausea, Poor Appetite, Vomiting : Yes: Burning, Dysuria, Frequency. No: Discharge, Flank Pain, Hematuria Musculoskeletal: Yes: Joint Pain. No: Back Pain, Muscle Pain, Neck Pain Integumentary: No: Bruising, Change in Color, Erythema, Flushing Neurological: Yes: Tingling, Weakness. No: Headache, Numbness, Paresthesia, Seizure Psychiatric: No: Anxiety, Depression Endocrine: No: Excessive Sweating, Flushing Hematologic/Lymphatic: Yes: Blood Clots *Physical Exam - Vital Signs Last Vital Signs Temp Pulse Resp BP Pulse Ox 98.4 F 77 18 121/71 100 07/04/18 11:31 07/04/18 11:31 07/04/18 11:31 07/04/18 11:31 07/04/18 11:31 - Physical Exam General Appearance: Yes: Nourished, Appropriately Dressed. No: Apparent Distress HEENT: positive: EOMI, MARAL, Normal ENT Inspection, Normal Voice, Pharynx Normal. negative: Rhinorrhea Neck: positive: Supple. negative: Rigid, Lymphadenopathy (R), Lymphadenopathy ( L) Respiratory/Chest: positive: Lungs Clear, Normal Breath Sounds. negative: Respiratory Distress, Accessory Muscle Use Cardiovascular: positive: Regular Rhythm, Regular Rate, S1, S2, Edema (1+ ). negative: JVD Vascular Pulses: Dorsalis-Pedis (R): 2+, Doralis-Pedis (L): 2+ Gastrointestinal/Abdominal: positive: Normal Bowel Sounds, Flat, Soft. negative : Guarding, Rebound Rectal Exam: positive: deferred Lymphatic: negative: Adenopathy Musculoskeletal: positive: Normal Inspection, Decreased Range of Motion. 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 printing inspector II-XII NML intact, Fully Oriented, Alert, Normal Mood/ Affect, Normal Response, Motor Strength 5/5 Moderate Sedation - Procedure Monitoring Vital Signs: Procedure Monitoring Vital Signs Temperature 98.4 F 07/04/18 11:31 Pulse Rate 77 07/04/18 11:31 Respiratory Rate 18 07/04/18 11:31 Blood Pressure 121/71 07/04/18 11:31 O2 Sat by Pulse Oximetry (%) 100 07/04/18 11:31 ED Treatment Course - LABORATORY CBC & Chemistry Diagram: 07/04/18 13:11 07/04/18 13:11 - RADIOLOGY Radiology Studies Ordered: Category Date Time Status HEAD CT WITHOUT CONTRAST [CT] Stat CT Scan 07/04/18 12:22 Ordered CHEST PA & LAT [RAD] Stat Radiology 07/04/18 12:22 Ordered Medical Decision Making - Medical Decision Making Kath is an 82 yo F with a pmh of Parkinson's with gait instability and dementia, UTI, HTN, HLD, CVA, anemia, LLE DVT,colorectal CA s/p chemo and colectomy with colostomy and subsequent reversal, who presents to the ER after an episode of weakness this morning. - Vitals WNL DDx IBNLT: CVA/TIA, orthostatic hypotension, Arrhythmia, PNA, UTI, other infection. Plan: Cbc, Cmp, trop, CXR, Ua/uc, ekg, Head CT, IV hydration, re-assess. EKG shows first degree heart block Will admit patient for syncope after ER workup is complete. *DC/Admit/Observation/Transfer Diagnosis at time of Disposition: Syncope, First degree AV block - Discharge Dispostion Condition at time of disposition: Guarded Decision to Admit order: Yes - Referrals Referrals: Sosa Rubio MD [Primary Care Provider] - - Patient Instructions - Post Discharge Activity
[2018-07-04] MEDS ORDERED: SODIUM CHLORIDE 0.9% 500 ML INFUS.BAG IV ONE (12:59)
[2018-07-04 13:35] LABS: HEMATOCRIT 31.2 % (32.4-45.2); HEMOGLOBIN 10.3 GM/dL (10.7-15.3); LYMPH % 20.9 % (8-40); MCH 30.4 pg (25.7-33.7); MCHC 32.9 g/dl (32.0-36.0); MEAN CELL VOLUME 92.4 fl (80-96); MEAN PLT VOLUME 11.1 fl (7.5-11.1); MONO % 11.3 % (3.8-10.2); NEUT % 65.8 % (42.8-82.8); PLATELET COUNT 142 K/MM3 (134-434); RBC 3.37 M/mm3 (3.60-5.2); RDW 15.5 % (11.6-15.6); WHITE BLOOD COUNT 3.8 K/mm3 (4.0-10.0)
--- NOTE | 2018-07-04 13:39 | PDOC ---
Attending Attestation - HPI HPI: 07/04/18 14:02 The patient is an 82-year-old female, with a past medical history of UTI, HTN, HLD, CVA, anemia, LLE DVT, Parkinson's with gait instability, dementia, colorectal CA s/p chemo and colectomy with colostomy and subsequent reversal, who presents to the ED s/p syncopal episode this morning. As per daughter, the patient was speaking to her when her eyes suddenly rolled back and she passed out. Episode lasted 3 minutes. Upon regaining consciousness, patient reports experiencing a brief period of right arm weakness. The patients symptoms have now resolved in ED. She does report recent burning and increased urination and a catheter was recently placed by her PCP to treat these symptoms. The patient denies any fevers, nausea, vomiting, diarrhea, or abdominal pain. Denies any chest pain or shortness of breath. Denies any headache, dizziness, or lightheadedness. PCP: Dr. Sosa Rubio - Physicial Exam PE: 07/04/18 14:04 GENERAL: The patient is in no acute distress. HEAD: Normal with no signs of trauma. EYES: PERRLA, EOMI, sclera anicteric, conjunctiva clear. ENT: Ears normal, nares patent, oropharynx clear without exudates. Moist mucous membranes. NECK: Normal range of motion, supple without lymphadenopathy, JVD, or masses. LUNGS: Breath sounds equal, clear to auscultation bilaterally. No wheezes, and no crackles. HEART:Regular rate and rhythm, normal S1 and S2 without murmur, rub or gallop. ABDOMEN: Soft, nontender, normoactive bowel sounds. No guarding, no rebound. No masses palpable. EXTREMITIES: Normal range of motion, no edema. No clubbing or cyanosis. No erythema, or tenderness. NEUROLOGICAL: Cranial nerves II through XII grossly intact. Normal speech. No focal neurological deficits. MUSCULOSKELETAL: Back non-tender to palpation, no CVA tenderness SKIN: Warm, Dry, normal turgor, no rashes or lesions noted. <Daniella Lorenz - Last Filed: 07/04/18 14:02> - Resident Resident Name: Mark Del Cid - ED Attending Attestation I have performed the following: I have examined & evaluated the patient, The case was reviewed & discussed with the resident, I agree w/resident's findings & plan, Exceptions are as noted - Physicial Exam PE: - Medical Decision Making 82 yo F multiple medical problems presenting to the ER s/p syncopal episode witnessed by daughter Pt at her baseline now Will do labs EKG CT head Admit 07/04/18 14:44 Laboratory Tests 07/04/18 07/04/18 07/04/18 13:11 13:11 13:11 WBC 3.8 L Hgb 10.3 L Hct 31.2 L Plt Count 142 BUN 19 H Creatinine 1.4 H Troponin I < 0.02 Urine Ketones Negative Urine Blood 3+ H Urine Nitrite Negative Urine WBC (Auto) 1 Urine RBC (Auto) 27 Ur Epithelial Cells Moderate Urine Bacteria Moderate 07/04/18 15:26 EKG - NSR rate of 71 bpm, left axis deviation, no st elevation or depression, flattened t waves <Suzanna Richard - Last Filed: 07/08/18 10:01> Attestations - Attestations 07/04/18 14:06 Documentation prepared by Daniella Lorenz, acting as pediatric medical assistant for Suzanna Richard MD. <Daniella Lorenz - Last Filed: 07/04/18 14:02>
[2018-07-04 13:41] LABS: URINE APPEARANCE SLCLOUDY; URINE BILIRUBIN NEGATIVE (<2.0 mg/dL); URINE COLOR LTYELLOW; URINE GLUCOSE (UA) NEGATIVE (NEGATIVE); URINE KETONE NEGATIVE (NEGATIVE); URINE LEUK ESTERASE NEGATIVE (NEGATIVE); URINE NITRITE NEGATIVE (NEGATIVE); URINE PROTEIN NEGATIVE (NEGATIVE); URINE UROBILINOGEN NEGATIVE mg/dL (0.2-1.0)
[2018-07-04 13:52] LABS: EPI CELLS MODERATE /HPF (FEW); URINE BACTERIA MODERATE /hpf (NONE SEEN); URINE MUCUS RARE; YEAST RARE
[2018-07-04 14:21] LABS: ALBUMIN 3.4 g/dl (3.4-5.0); ALK PHOS 45 U/L (45-117); ANION GAP 7 MMOL/L (8-16); BILIRUBIN,TOTAL 0.4 mg/dL (0.2-1); BLOOD UREA NITROGEN 19 mg/dL (7-18); CALCIUM 8.8 mg/dL (8.5-10.1); CHLORIDE 107 mmol/L (98-107); CO2 24 mmol/L (21-32); CREATININE 1.4 mg/dL (0.55-1.3); GLUCOSE,RANDOM 106 mg/dL (74-106); POTASSIUM 4.9 mmol/L (3.5-5.1); SGOT/AST 29 U/L (15-37); SGPT/ALT 14 U/L (13-61); SODIUM 139 mmol/L (136-145); TOT PROT 7.1 g/dl (6.4-8.2)
--- NOTE | 2018-07-05 08:20 | HP ---
Admitting History and Physical - Primary Care Physician PCP: Sosa Rubio - Admission Chief Complaint: syncope History of Present Illness: ER History-- - History of Present Illness Initial Comments: Kath is an 82 yo F with a pmh of Parkinson's with gait instability and dementia, UTI, HTN, HLD, CVA, anemia, LLE DVT,colorectal CA s/p chemo and colectomy with colostomy and subsequent reversal, who presents to the ER after an episode of weakness this morning. Her daughter is with her at bedside and her daughter states that as she was speaking with her the patient rolled her eyes back as if she passed out, then the patient experienced a transient episode right arm and generalized weakness. Now in the ED she is no longer experiencing and of her earlier symptoms and the patient has no current complaints. She admits that recently she has been experiencing dysuria and frequency. Her doctor placed a catheter to treat her urinary symptoms. She denies recent fevers or infections. Denies chest pain, SOB, back pain, headache, lightheadedness, blurry vision, abdominal pain, or leg pain. patient evaluated by me in the emergency room I spoke to her daughter as well as her partner Mr Martinez.she is currently seeing a neurologist at [facility] for Parkinson and was recently started on a new medication called Nuplacid , her partner claims that she is improving. Her daughter feels that she is confused. Baseline the patient is forgetful. She currently completed antibiotics for urinary tract infection and had a Davila catheter placed last week with Dr. Lobo her urologist. She is scheduled to have it removed this week. 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) Endocrine: Yes: Hyperthyroidism - Past Surgical History Past Surgical History: Yes: AAA Repair, Colectomy, Colostomy - Smoking History Smoking history: Never smoked Have you smoked in the past 12 months: No Aproximately how many cigarettes per day: 0 If you are a former smoker, when did you quit?: 1989 - Alcohol/Substance Use Hx Alcohol Use: No - Social History ADL: Independent History of Recent Travel: No Home Medications - Allergies Allergies/Adverse Reactions: Allergies Allergy/AdvReac Type Severity Reaction Status Date / Time iodine [Iodine] Allergy Mild Hives Verified 12/20/17 07:44 SHELLFISH Allergy Uncoded 12/20/17 07:44 - Home Medications Home Medications: Ambulatory Orders Docusate Sodium [Colace -] 100 mg PO DAILY 11/10/13 Atorvastatin Calcium 20 mg PO DAILY #30 01/31/15 Calcium Carbonate/Vitamin D3 [Calcium 600-Vit D3 800 Caplet] 1 each PO DAILY 07/21 Cyanocobalamin [Vitamin B12 -] 1,000 mcg PO DAILY 04/06/15 Methimazole [Tapazole -] 5 mg PO DAILY 04/06/15 Apixaban [Eliquis -] 2.5 mg PO BID #0 tablet 06/12/16 Ascorbic Acid [Vitamin C -] 500 mg PO DAILY 08/01/16 Ferrous Sulfate [Feosol] 325 mg PO DAILY 08/01/16 Folic Acid 1 mg PO DAILY 08/01/16 Megestrol Acetate Oral Susp [Megace Oral Suspension -] 400 mg PO DAILY 08/01/16 Multivitamins [Multivit ([facility] Formulary)] 1 tab PO DAILY 08/01/16 Carbidopa/Levodopa 25/100 [Sinemet 25/100 -] 1 each PO TID #90 tablet 08/07/16 Metoprolol Tartrate [Lopressor -] 25 mg PO BID #60 tablet 08/07/16 Review of Systems - Review of Systems Constitutional: denies: Fever, Loss of Appetite, Weakness Cardiovascular: denies: Chest Pain, Palpitations, Shortness of Breath Neurological: reports: Syncope. denies: Change in Speech, Confusion, Dizziness , Headache, Numbness, Seizure Physical Examination Vital Signs: Vital Signs Temperature 98.4 F 07/04/18 11:31 Pulse Rate 66 07/04/18 23:30 Respiratory Rate 18 07/05/18 00:04 Blood Pressure 189/71 H 07/04/18 23:30 O2 Sat by Pulse Oximetry (%) 100 07/05/18 00:04 Constitutional: Yes: No Distress, Calm Cardiovascular: Yes: Regular Rate and Rhythm Respiratory: Yes: CTA Bilaterally Gastrointestinal: Yes: Normal Bowel Sounds, Soft. No: Tenderness Edema: Yes Neurological: Yes: Alert Psychiatric: Yes: Alert Labs: CBC, BMP 07/04/18 13:11 07/04/18 13:11 Imaging - Results Chest X-ray: Image Reviewed Cat Scan: Report Reviewed Ultrasound: Report Reviewed EKG: Image Reviewed Problem List - Problems (1) First degree AV block Code(s): I44.0 - ATRIOVENTRICULAR BLOCK, FIRST DEGREE (2) Syncope Code(s): R55 - SYNCOPE AND COLLAPSE (3) Altered mental status Code(s): R41.82 - ALTERED MENTAL STATUS, UNSPECIFIED Qualifiers: Altered mental status type: disorientation Qualified Code(s): R41.0 - Disorientation, unspecified Assessment/Plan PLAN Check Othostasis Cardiology eval Telemetry Continue with meds she has follow up with Neurologist and Urologist [facility]
--- NOTE | 2018-07-05 11:16 | CON.CARD ---
Cardiology Consult (text) - Consultation Consultation Note: cc: syncope hpi: 82 f hx htn, hld, cva, le dvt on lifelong ac, aaa s/p repair, hyperthyroid , colon ca (s/p partial colectomy, chemo), here with syncope. Was speaking with daughter and eys rolled back and passed out for few mins. Does not recall event, did not have prodrome sxs. No cp, sob, palps, dizzy, pnd, orthopnea, le edema. Has had similar episodes in past, last was in 2017. Feeling well today. pmh: per hpi psh: per hpi social: no tob fam: no premature cad, scd ros: per hpi; no nvd, fever, sandra, muscle pain, gib, hematuria, rash, dysuria meds: Home Medications Medication Instructions Recorded Docusate Sodium [Colace -] 100 mg PO DAILY 11/10/13 Atorvastatin Calcium 20 mg PO DAILY #30 01/31/15 Calcium Carbonate/Vitamin D3 1 each PO DAILY 04/06/15 [Calcium 600-Vit D3 800 Caplet] Cyanocobalamin [Vitamin B12 -] 1,000 mcg PO DAILY 04/06/15 Methimazole [Tapazole -] 5 mg PO DAILY 04/06/15 Apixaban [Eliquis -] 2.5 mg PO BID #0 tablet 06/12/16 Ascorbic Acid [Vitamin C -] 500 mg PO DAILY 08/01/16 Ferrous Sulfate [Feosol] 325 mg PO DAILY 08/01/16 Folic Acid 1 mg PO DAILY 08/01/16 Megestrol Acetate Oral Susp 400 mg PO DAILY 08/01/16 [Megace Oral Suspension -] Multivitamins [Multivit ([facility] 1 tab PO DAILY 08/01/16 Formulary)] Carbidopa/Levodopa 25/100 [Sinemet 1 each PO TID #90 tablet 08/07/16 25/100 -] Metoprolol Tartrate [Lopressor -] 25 mg PO BID #60 tablet 08/07/16 pe: Vital Signs Period Temp Pulse Resp BP Sys/Francis Pulse Ox Last 24 Hr 98.4 F 56-77 17-18 121-189/67-71 100-100 nad, no jvd rrr s1s2 no mrg cta bl nl eff aaox3 no le e/c/c abd nt nd pos bs no jaundice diaphoresis pos dp pt no carotid bruit Laboratory Last Values WBC 3.8 K/mm3 (4.0-10.0) L 07/04/18 13:11 RBC 3.37 M/mm3 (3.60-5.2) L 07/04/18 13:11 Hgb 10.3 GM/dL (10.7-15.3) L 07/04/18 13:11 Hct 31.2 % (32.4-45.2) L 07/04/18 13:11 MCV 92.4 fl (80-96) 07/04/18 13:11 MCH 30.4 pg (25.7-33.7) 07/04/18 13:11 MCHC 32.9 g/dl (32.0-36.0) 07/04/18 13:11 RDW 15.5 % (11.6-15.6) 07/04/18 13:11 Plt Count 142 K/MM3 (134-434) 07/04/18 13:11 MPV 11.1 fl (7.5-11.1) 07/04/18 13:11 Absolute Neuts (auto) 2.5 K/mm3 (1.5-8.0) 07/04/18 13:11 Neutrophils % 65.8 % (42.8-82.8) 07/04/18 13:11 Lymphocytes % 20.9 % (8-40) D 07/04/18 13:11 Monocytes % 11.3 % (3.8-10.2) H 07/04/18 13:11 Eosinophils % 1.0 % (0-4.5) 07/04/18 13:11 Basophils % 1.0 % (0-2.0) 07/04/18 13:11 Nucleated RBC % 0 % (0-0) 07/04/18 13:11 Sodium 139 mmol/L (136-145) 07/04/18 13:11 Potassium 4.9 mmol/L (3.5-5.1) 07/04/18 13:11 Chloride 107 mmol/L (98-107) 07/04/18 13:11 Carbon Dioxide 24 mmol/L (21-32) 07/04/18 13:11 Anion Gap 7 MMOL/L (8-16) L 07/04/18 13:11 BUN 19 mg/dL (7-18) H 07/04/18 13:11 Creatinine 1.4 mg/dL (0.55-1.3) H 07/04/18 13:11 Creat Clearance w eGFR 35.82 (>60) 07/04/18 13:11 Random Glucose 106 mg/dL (74-106) 07/04/18 13:11 Calcium 8.8 mg/dL (8.5-10.1) 07/04/18 13:11 Total Bilirubin 0.4 mg/dL (0.2-1) 07/04/18 13:11 AST 29 U/L (15-37) 07/04/18 13:11 ALT 14 U/L (13-61) 07/04/18 13:11 Alkaline Phosphatase 45 U/L (45-117) 07/04/18 13:11 Troponin I < 0.02 ng/ml (0.00-0.05) 07/04/18 13:11 Total Protein 7.1 g/dl (6.4-8.2) 07/04/18 13:11 Albumin 3.4 g/dl (3.4-5.0) 07/04/18 13:11 Urine Color Ltyellow 07/04/18 13:11 Urine Appearance Slcloudy 07/04/18 13:11 Urine pH 7.0 (5.0-8.0) 07/04/18 13:11 Ur Specific Cartwright 1.006 (1.010-1.035) L 07/04/18 13:11 Urine Protein Negative (NEGATIVE) 07/04/18 13:11 Urine Glucose (UA) Negative (NEGATIVE) 07/04/18 13:11 Urine Ketones Negative (NEGATIVE) 07/04/18 13:11 Urine Blood 3+ (NEGATIVE) H 07/04/18 13:11 Urine Nitrite Negative (NEGATIVE) 07/04/18 13:11 Urine Bilirubin Negative (<2.0 mg/dL) 07/04/18 13:11 Urine Urobilinogen Negative mg/dL (0.2-1.0) 07/04/18 13:11 Ur Leukocyte Esterase Negative (NEGATIVE) 07/04/18 13:11 Urine WBC (Auto) 1 /hpf (3-5) 07/04/18 13:11 Urine RBC (Auto) 27 /hpf (0-3) 07/04/18 13:11 Ur Epithelial Cells Moderate /HPF (FEW) 07/04/18 13:11 Urine Bacteria Moderate /hpf (NONE SEEN) 07/04/18 13:11 Urine Mucus Rare 07/04/18 13:11 Urine Yeast Rare 07/04/18 13:11 echo 07/2016: nl lv/rv. impaired relaxation. mild-mod MR/TR. 1+ AR. carotids 06/2016: 50-70 chelsea stenosis ecg: sr, nl intervals, no ischemic changes cxr: no chf Assessment/Plan a/p: 82 f hx htn, hld, cva, le dvt on lifelong ac, aaa s/p repair, hyperthyroid , colon ca (s/p partial colectomy, chemo), here with syncope. syncope: -third episode since 2015. Admitted on both other times as well. Prior echo and tele unremarkable then. 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 Also seen by neuro then and had unremarkable ct's, mri brain -had outpt event monitor that was unremarkable as well -currently no cardiac etiology apparent -no signs acs, ecg unremarkable -given how far apart in time her episodes are, she would benefit from implanted loop recorder to try and identify a cardiac etiology of syncope. D/w pt and she is agreeable. Will arrange as outpt. htn: -stable on current meds hld: -cont statin hx of dvt: -on eliquis (outpatient dose was 2.5 mg bid) s/p AAA repair: -cont bb, bp control, statin -pt follows with dr erazo, reports having recent abd us that was stable per pt cardiac mendieta stable for dc
[2018-07-05] MEDS: APIXABAN 2.5 MG TABLET PO SCH ×2 (13:14→22:44)
[2018-07-05] MEDS: METHIMAZOLE 5 MG TABLET (FP) PO SCH (13:14)
[2018-07-05] MEDS: METOPROLOL TARTRATE 25 MG TABLET (FP) PO SCH ×2 (13:15→22:44)
[2018-07-05] MEDS: CARBIDOPA/LEVODOPA 25/100 TABLET (FP) PO SCH ×2 (14:00→22:44)
[2018-07-05 15:01] VITALS: BMI 22.4
[2018-07-05] MEDS ORDERED: amLODIPine BESYLATE 5 MG TABLET (FP) PO ONE (16:45)
[2018-07-05] MEDS ORDERED: ATORVASTATIN CA 20 MG TABLET (FP) PO SCH (22:00)
[2018-07-06] MEDS: CARBIDOPA/LEVODOPA 25/100 TABLET (FP) PO SCH ×2 (06:12→14:08)
--- NOTE | 2018-07-06 09:30 | PN ---
Progress Note, Physician Chief Complaint: syncope History of Present Illness: no dizzy/syncope. in her USOH. no cp, palpit, sob - Current Medication List Current Medications: Active Medications Apixaban (Eliquis -) 2.5 mg PO BID [facility] Last Admin: 07/05/18 22:44 Dose: 2.5 mg Atorvastatin Calcium (Lipitor -) 20 mg PO HS [facility] Last Admin: 07/05/18 22:44 Dose: 20 mg Carbidopa/Levodopa (Sinemet 25/100 -) 1 each PO TID [facility] Last Admin: 07/06/18 06:12 Dose: Not Given Methimazole (Tapazole -) 5 mg PO DAILY [facility] Last Admin: 07/05/18 13:14 Dose: 5 mg Metoprolol Tartrate (Lopressor -) 25 mg PO BID [facility] Last Admin: 07/05/18 22:44 Dose: 25 mg - Objective Vital Signs: Vital Signs Temperature 97.8 F 07/06/18 06:00 Pulse Rate 62 07/06/18 06:00 Respiratory Rate 20 07/06/18 06:00 Blood Pressure 175/92 H 07/06/18 06:00 O2 Sat by Pulse Oximetry (%) 97 07/05/18 20:30 Constitutional: Yes: Well Nourished, No Distress, Calm Cardiovascular: Yes: Regular Rate and Rhythm, S1, S2. No: Gallop, Murmur Respiratory: Yes: Regular, CTA Bilaterally. No: Accessory Muscle Use, Rales, Wheezes Extremities: No: Cold Edema: No Neurological: Yes: Alert, Oriented Psychiatric: No: Agitated Labs: CBC, BMP 07/04/18 13:11 07/04/18 13:11 Assessment/Plan echo 07/2016: nl lv/rv. impaired relaxation. mild-mod MR/TR. 1+ AR. 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 syncope: -third episode since 2015. Admitted on both other times as well. Prior echo and tele unremarkable then. 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 Also seen by neuro then and had unremarkable ct's, mri brain -had outpt event monitor that was unremarkable as well -currently no cardiac etiology apparent -no signs acs, ecg unremarkable -given how far apart in time her episodes are, she would benefit from implanted loop recorder to try and identify a cardiac etiology of syncope. D/w pt and she is agreeable. dr velasquez to arrange as outpt (sees pt in office) htn: -stable on current meds hld: -cont statin hx of dvt: -on eliquis (outpatient dose was 2.5 mg bid) s/p AAA repair: -cont bb, bp control, statin -pt follows with dr erazo, reports having recent abd us that was stable per pt OK FOR D/C FROM [facility] P.O.V.
[2018-07-06] MEDS: APIXABAN 2.5 MG TABLET PO SCH (09:48)
[2018-07-06] MEDS: METHIMAZOLE 5 MG TABLET (FP) PO SCH (09:48)
[2018-07-06] MEDS: METOPROLOL TARTRATE 25 MG TABLET (FP) PO SCH (09:48)
--- NOTE | 2018-07-06 10:33 | DS ---
Physical Examination Vital Signs: Vital Signs Temperature 97.8 F 07/06/18 06:00 Pulse Rate 62 07/06/18 06:00 Respiratory Rate 20 07/06/18 06:00 Blood Pressure 175/92 H 07/06/18 06:00 O2 Sat by Pulse Oximetry (%) 97 07/05/18 20:30 Findings/Remarks: pt seen/ examined chart reviewed awake/ comfortable no complains feels well wants to go home denies cp/sob/abd pain denies urinary burning Constitutional: Yes: No Distress, Calm Eyes: Yes: Conjunctiva Clear Neck: Yes: Supple Cardiovascular: Yes: Regular Rate and Rhythm Respiratory: Yes: CTA Bilaterally Gastrointestinal: Yes: Soft Edema: No Neurological: Yes: Alert Psychiatric: Yes: Alert Labs: CBC, BMP 07/04/18 13:11 07/04/18 13:11 Discharge Summary Reason For Visit: SYNCOPE, FIRST DEGREE ATRIOVE Current Active Problems First degree AV block (Acute) Syncope (Acute) Hospital Course: admitted for syncope monitored on tele work /up - ve cardiology followed Loop monitor to be considered as out pt +ve for uti - but pt asymptomatic Also +ve rbc in urine -- pt follows urology davila taken out this morning overall stable for d/c -- later today after pt passes urine meds reconcilled f/u in office in 2 weeks pt in agreement Condition: Stable - Instructions Referrals: Sosa Rubio MD [Primary Care Provider] - Disposition: HOME - Home Medications Comprehensive Discharge Medication List: Ambulatory Orders Docusate Sodium [Colace -] 100 mg PO DAILY 11/10/13 Atorvastatin Calcium 20 mg PO DAILY #30 01/31/15 Calcium Carbonate/Vitamin D3 [Calcium 600-Vit D3 800 Caplet] 1 each PO DAILY 07/21 Cyanocobalamin [Vitamin B12 -] 1,000 mcg PO DAILY 04/06/15 Methimazole [Tapazole -] 5 mg PO DAILY 04/06/15 Apixaban [Eliquis -] 2.5 mg PO BID #0 tablet 06/12/16 Ascorbic Acid [Vitamin C -] 500 mg PO DAILY 08/01/16 Ferrous Sulfate [Feosol] 325 mg PO DAILY 08/01/16 Folic Acid 1 mg PO DAILY 08/01/16 Megestrol Acetate Oral Susp [Megace Oral Suspension -] 400 mg PO DAILY 08/01/16 Multivitamins [Multivit ([facility] Formulary)] 1 tab PO DAILY 08/01/16 Carbidopa/Levodopa [Sinemet -] 1 each PO TID #90 tablet 08/07/16 Metoprolol Tartrate [Lopressor -] 25 mg PO BID #60 tablet 08/07/16
--- NOTE | 2018-07-06 12:21 | EKG ---
Test Reason : Blood Pressure : / mmHG Vent. Rate : 071 BPM Atrial Rate : 071 BPM P-R Int : 214 ms QRS Dur : 076 ms QT Int : 360 ms P-R-T Axes : -14 -40 026 degrees QTc Int : 391 ms SINUS RHYTHM WITH 1ST DEGREE A-V BLOCK LEFT AXIS DEVIATION INFERIOR INFARCT (CITED ON OR BEFORE 22-MAY-2011) ANTERIOR INFARCT (CITED ON OR BEFORE 22-MAY-2011) ABNORMAL ECG WHEN COMPARED WITH ECG OF 20-DEC-2017 09:50, PREMATURE SUPRAVENTRICULAR COMPLEXES ARE NO LONGER PRESENT T WAVE VARIATION Confirmed by CAPRI BAKER MD ([id number]) on 07/06/2018 12:20:59 PM Referred By: Confirmed By:CAPRI BAKER MD
[2018-07-06 14:18] VITALS: BP 142/64; PULSE 67; TEMP 98
== END 2018-07-06 14:57 | disposition home or self-care (01) ==
LOC: JER 11:10 → JERBED 15:45 → UNDOADMOB 16:35 → J4W 07-05 15:35
PROVIDERS: ADMIT Internal Medicine; ATTEND Internal Medicine
PROC: 3E0337Z Introduction of Electrolytic and Water Balance Substance into Peripheral Vein, Percutaneous Approach (ICD-10-PCS; principal; 2018-07-04)
DX: I44.0 Atrioventricular block, first degree (principal); R55 Syncope and collapse; R41.0 Disorientation, unspecified; I10 Essential (primary) hypertension; E78.5 Hyperlipidemia, unspecified; G20 Parkinson's disease; F02.80 Dementia in other diseases classified elsewhere, unspecified severity, without behavioral disturbance, psychotic disturbance, mood disturbance, and anxiety; R26.89 Other abnormalities of gait and mobility; D64.9 Anemia, unspecified; Z86.79 Personal history of other diseases of the circulatory system; Z91.013 Allergy to seafood; Z90.49 Acquired absence of other specified parts of digestive tract; Z85.038 Personal history of other malignant neoplasm of large intestine; Z86.718 Personal history of other venous thrombosis and embolism; Z86.73 Personal history of transient ischemic attack (TIA), and cerebral infarction without residual deficits; Z87.440 Personal history of urinary (tract) infections; Z92.21 Personal history of antineoplastic chemotherapy
CPT/HCPCS: 36415; 70450-TC; 71045-TC-FY; 80053; 81003; 81015; 82550; 84484; 85025; 87086; 87186; 93005; 93010; 93880-TC; 99285-25; G0378

== ENCOUNTER 2018-09-21 13:12 | Emergency (ER) | payer OTHER, MEDICARE ==
[2018-09-21 13:47] VITALS: BP 154/75; PULSE 72; TEMP 98.3; BMI 21.6
--- NOTE | 2018-09-21 13:47 | PDOC ---
Rapid Medical Evaluation Time Seen by Provider: 09/21/18 13:41 Medical Evaluation: Allergies Allergy/AdvReac Type Severity Reaction Status Date / Time iodine [Iodine] Allergy Mild Hives Verified 12/20/17 07:44 SHELLFISH Allergy Uncoded 12/20/17 07:44 09/21/18 13:42 I have performed a brief in-person evaluation of this patient. The patient presents with a chief compliant of s/p fall complaining of pain in both upper arms. Pain when tries to use walker, pressing on walker Pertinent physical exam findings NAD unlabored breathing heart s1s2 +pain with rom of upper arm I have ordered the following xray of both shoulders The patient will proceed to the ED for further evaluation. Discharge Disposition - Diagnosis Shoulder pain - Referrals Referrals: Sosa Rubio MD [Primary Care Provider] - - Patient Instructions - Post Discharge Activity
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
== END 2018-09-21 17:00 | disposition home or self-care (01) ==
LOC: SUPCPDRO 13:12 → JER 13:12
DX: M25.512 Pain in left shoulder (principal); M25.511 Pain in right shoulder; W18.39XA Other fall on same level, initial encounter; Y93.89 Activity, other specified; Y92.89 Other specified places as the place of occurrence of the external cause; Y99.8 Other external cause status; R26.89 Other abnormalities of gait and mobility; Z99.89 Dependence on other enabling machines and devices; I10 Essential (primary) hypertension; E05.90 Thyrotoxicosis, unspecified without thyrotoxic crisis or storm; E78.00 Pure hypercholesterolemia, unspecified; D64.9 Anemia, unspecified; Z86.73 Personal history of transient ischemic attack (TIA), and cerebral infarction without residual deficits; Z85.038 Personal history of other malignant neoplasm of large intestine; Z86.718 Personal history of other venous thrombosis and embolism; Z79.01 Long term (current) use of anticoagulants; Z87.440 Personal history of urinary (tract) infections; Z91.013 Allergy to seafood; Z91.041 Radiographic dye allergy status
CPT/HCPCS: 73030-TC-LT-FY; 73030-TC-RT-FY; 99282-25

== ENCOUNTER 2018-09-23 13:14 | Emergency (ER) | payer OTHER, MEDICARE ==
[2018-09-23 13:31] VITALS: BMI 21.6
--- NOTE | 2018-09-23 13:52 | PDOC ---
History of Present Illness - General Chief Complaint: Syncope/Near Syncope Stated Complaint: FALL Time Seen by Provider: 09/23/18 13:29 - History of Present Illness Initial Comments: Kath Lord is an 82yo woman with a PMH of Parkinson's w/ gait instability , dementia, HTN, HLD, AAA s/p repair, previous CVA, chronic LE weakness, anemia , h/o DVT on lifelong anticoagulation, hyperthyroidism, h/o colorectal CA s/p ostomy s/p reversal, h/o multiple episodes of syncope now s/p implantable loop recorder placement 2 weeks ago who presents with a witnessed syncope event today. Ms Lord was at the [facility] with family when she started to feel very weak and tired. She was able to tell her family, and she was helped into a chair. Per family, she was unresponsive for 5-6 seconds, but it is unclear whether she lost consciousness. Ms Lord did not fall and denies any injury. She denies any lightheadedness, chest pain, SOB, palpitations, vision changes, or other symptoms preceding the event. After waking, she had no subsequent symptoms either. Per chart review and family report, Ms Lord has had several nearly identical events in the past back to 06/2016, most recently in 06/2018. Workup over time has included carotid dopplers, MRI, holter monitor and most recently a loop recorder placed 2 weeks ago. Per cardiology notes, the holter monitor did not show any arrhythmia so the loop recorder was placed to determine if the syncopal events are caused by arrhythmia. Past History - Past Medical History Allergies/Adverse Reactions: Allergies Allergy/AdvReac Type Severity Reaction Status Date / Time iodine [Iodine] Allergy Mild Hives Verified 09/23/18 13:22 SHELLFISH Allergy Uncoded 09/23/18 13:22 Home Medications: Ambulatory Orders Docusate Sodium [Colace -] 100 mg PO DAILY 11/10/13 Atorvastatin Calcium 20 mg PO DAILY #30 01/31/15 Calcium Carbonate/Vitamin D3 [Calcium 600-Vit D3 800 Caplet] 1 each PO DAILY 07/21 Cyanocobalamin [Vitamin B12 -] 1,000 mcg PO DAILY 04/06/15 Methimazole [Tapazole -] 5 mg PO DAILY 04/06/15 Apixaban [Eliquis -] 2.5 mg PO BID #0 tablet 06/12/16 Ascorbic Acid [Vitamin C -] 500 mg PO DAILY 08/01/16 Ferrous Sulfate [Feosol] 325 mg PO DAILY 08/01/16 Folic Acid 1 mg PO DAILY 08/01/16 Megestrol Acetate Oral Susp [Megace Oral Suspension -] 400 mg PO DAILY 08/01/16 Multivitamins [Multivit ([facility] Formulary)] 1 tab PO DAILY 08/01/16 Carbidopa/Levodopa 25/100 [Sinemet 25/100 -] 1 each PO TID #90 tablet 08/07/16 Metoprolol Tartrate [Lopressor -] 25 mg PO BID #60 tablet 08/07/16 Anemia: Yes Asthma: No Cancer: Yes (COLON s/p Chemotherapy 5 yrs ago) Cardiac Disorders: Yes (Mini Strokes) CVA: Yes (TIA's) COPD: No CHF: No Dementia: No Diabetes: No GI Disorders: Yes Disorders: Yes (UTI's in the past, 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) HTN: Yes Hypercholesterolemia: Yes Liver Disease: No Seizures: No Thyroid Disease: Yes (HYPERTHYROID DISEASE) - Surgical History Abdominal Surgery: Yes (COLON RESECTION/COLOSTOMY; S/O AAA REPAIR) Appendectomy: No Cardiac Surgery: No Cholecystectomy: No Lung Surgery: No Neurologic Surgery: No Orthopedic Surgery: No - Immunization History Immunization Up to Date: Yes - Suicide/Smoking/Psychosocial Hx Smoking Status: No Smoking History: Former smoker Have you smoked in the past 12 months: No Number of Cigarettes Smoked Daily: 0 If you are a former smoker, when did you quit?: 1989 Information on smoking cessation initiated: No Hx Alcohol Use: No Drug/Substance Use Hx: No Substance Use Type: None Hx Substance Use Treatment: No Review of Systems - Review of Systems Comments:: General: No fevers, no chills, no weight or appetite change, no malaise HEENT: No changes in vision, no changes in hearing, no congestion, no sore throat CV: No chest pain, no palpitations, no LE edema Pulm: No SOB, no cough, no wheezing GI: No nausea or vomiting, no change in bowel habits, no melena : No frequency, no urgency, no dysuria Musc: No back pain, no joint swelling, +recent BUE injury w/ continued shoulder pain Skin: No rash, no lesions, no erythema Endo: No excessive thirst, no heat/cold intolerance. h/o hyperthyroid Heme: No unusual bruising or bleeding, no swollen glands. +fully anticoagulated Neuro: See HPI. No numbness/tingling, no focal weakness. h/o Parkinson's, h/o dementia Vasc: No claudication. h/o DVT Psych: No recent change in mood, no SI or HI *Physical Exam - Vital Signs Last Vital Signs Temp Pulse Resp BP Pulse Ox 98.2 F 66 18 171/92 H 100 09/23/18 13:29 09/23/18 13:29 09/23/18 13:29 09/23/18 13:29 09/23/18 13:29 - Physical Exam Comments: General: Comfortable, no acute distress HEENT: Atraumatic. PERRL, EOMI, MMM, voice normal, normal neck ROM Cards: RRR, no murmur appreciated Pulm: Comfortable on room air, clear to auscultation bilaterally Abd: Soft, nontender, nondistended Ext: Atraumatic. 1+ BLE edema (L>R). ROM intact. Strength equal bilaterally Vasc: Extremities WWP. Skin: Normal color, no rashes or lesions Neuro: A&Ox3, CN grossly intact, normal speech, motor/sensory grossly intact and symmetric Psych: Mood appropriate to situation Moderate Sedation - Procedure Monitoring Vital Signs: Procedure Monitoring Vital Signs Temperature 98.2 F 09/23/18 13:29 Pulse Rate 66 09/23/18 13:29 Respiratory Rate 18 09/23/18 13:29 Blood Pressure 171/92 H 09/23/18 13:29 O2 Sat by Pulse Oximetry (%) 100 09/23/18 13:29 ED Treatment Course - LABORATORY CBC & Chemistry Diagram: 09/23/18 16:29 09/23/18 15:00 Medical Decision Making - Medical Decision Making 09/23/18 13:50 Kath Lord is an 82yo woman with a PMH of Parkinson's w/ gait instability , dementia, HTN, HLD, AAA s/p repair, previous CVA, chronic LE weakness, anemia , h/o DVT on lifelong anticoagulation, hyperthyroidism, h/o colorectal CA s/p ostomy s/p reversal, h/o multiple episodes of syncope now s/p implantable loop recorder placement 2 weeks ago who presents with a witnessed syncope event today without preceding or subsequent symptoms. She has three recorded nearly identical episodes since 06/2016. - Lowered to a chair by friend and bystanders; no head trauma or other injury. Questionable LOC - No associated symptoms suggesting etiology. However, suspect arrhythmia given h/o loop recorder. - EKG, CBC, CMP, coags, trop, CXR, UA 09/23/18 14:22 - EKG completed. NSR, HR 68, left axis deviation. Compared to previous EKG from 06/2018, no significant changes appreciated 09/23/18 15:59 - Spoke to Dr Yu. Agrees with tentative plan to check labs then d/c home if no abnormalities as Ms Lord has had a complete workup following her previous syncopal events. Would like to see her for follow up within a few weeks. 09/23/18 16:43 - Chemistry unremarkable. Trop negative - INR 1.8, likely subtherapeutic. Will inform Ms Lord and her family - UA returned w/ 1690 bacteria but only 2 WBC, negative leuk esterase, neg nitrites. Called lab to verify, waiting to hear back. 09/23/18 17:22 - Verified UA results. Likely asymptomatic bacteriuria - Repeat trop pending. Will d/c home if negative to follow up with cardiology 09/23/18 18:13 - Repeat trop negative - D/c home with cardiology follow up Discussed with Dr Daneille. Rebeca Friedman PGY1 *DC/Admit/Observation/Transfer Diagnosis at time of Disposition: Syncope, Asymptomatic bacteriuria - Discharge Dispostion Disposition: HOME Condition at time of disposition: Stable Decision to Admit order: No - Referrals Referrals: Cy Yu MD [Staff Physician] - - Patient Instructions Printed Discharge Instructions: DI for Syncope in Adults (Fainting) Additional Instructions: Discharge Instructions: You were seen in the ER following a fainting (syncope) episode. You had blood tests, and EKG, and a chest xray for evaluation. There were no concerning results found. Home Care and Follow Up: - Continue to take all of your home medications as prescribed - Make sure that you use your walker and as for help when needed to prevent falls - You will need to make an appointment to see your batch unit treater, Dr Yu, within the next few weeks for follow up. He may be able to let you know if your heart loop recorder found any abnormal heartbeats. - Seek immediate medical care if you have any additional fainting episodes, injury, chest pain, difficulty breathing, or any other medical emergency,. - Post Discharge Activity
--- NOTE | 2018-09-23 14:00 | PDOC ---
Attending Attestation - Resident Resident Name: IdaliaRebeca - ED Attending Attestation I have performed the following: I have examined & evaluated the patient, The case was reviewed & discussed with the resident, I agree w/resident's findings & plan, Exceptions are as noted - Physicial Exam PE: 09/23/18 14:59 Patient is awake and alert, well-nourished, hypertensive initial evaluation Normocephalic and atraumatic PERRLA, EOMI No JVD No carotid bruits CTA RRR - Medical Decision Making 09/23/18 15:00 82-year-old female with history of recurrent syncope with a loop recorder implanted presents after a witnessed syncopal episode. Patient is alert and awake, hypertensive, nontoxic-appearing without focal neurological deficits. EKG shows no evidence of acute ischemia or dysrhythmia. We'll obtain CBC/CMP/ cardiac profile. Will discuss with cardiology. Will reassess. 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 Family member was with the patient when she began to feel weak and tired. Patient was helped to a chair. As per family, she was unresponsive for 5-6 seconds. It is unclear is if the patient lost consciousness. Family reports that the patient has had 3 identical episodes over the past 2 years and had a holter monitor placed that showed no arrhythmias. Patient just had a loop recorder placed 2 weeks ago. The patient denies any chest pain, shortness of breath, palpitations, or lightheadedness. Denies any fevers, chills, nausea, vomiting, diarrhea, constipation, or abdominal pain. Allergies: iodine, shellfish Social History: Former smoker. Surgical History: Colon resection, colostomy, AAA repair. PCP: Dr. Sosa Rubio <Daniella Lorenz - Last Filed: 09/23/18 15:39> Attestations - Attestations 03/20/19 15:39 Documentation prepared by Daniella Lorenz, acting as medical care administrator for Romain Danielle MD. <Daniella Lorenz - Last Filed: 09/23/18 15:39>
[2018-09-23 15:57] LABS: ALBUMIN 3.8 g/dl (3.4-5.0); ALK PHOS 48 U/L (45-117); ANION GAP 8 MMOL/L (8-16); BILIRUBIN,TOTAL 0.6 mg/dL (0.2-1); BLOOD UREA NITROGEN 23 mg/dL (7-18); CALCIUM 9.5 mg/dL (8.5-10.1); CHLORIDE 107 mmol/L (98-107); CO2 22 mmol/L (21-32); CREATININE 1.2 mg/dL (0.55-1.3); GLUCOSE,RANDOM 77 mg/dL (74-106); POTASSIUM 4.1 mmol/L (3.5-5.1); SGOT/AST 15 U/L (15-37); SGPT/ALT 8 U/L (13-61); SODIUM 137 mmol/L (136-145); TOT PROT 7.4 g/dl (6.4-8.2)
[2018-09-23 16:04] LABS: INR 1.82 (0.83-1.09); PROTHROMBIN TIME (PATIENT) 21.6 SEC (9.7-13.0)
[2018-09-23 16:34] LABS: EPI CELLS 6.4 /HPF (FEW); PH,URINE 8.5 (5.0-8.0); URINE APPEARANCE CLEAR; URINE BACTERIA 1694.448 /hpf (NEGATIVE); URINE BILIRUBIN NEGATIVE (<2.0 mg/dL); URINE CASTS 2 /hpf (NEGATIVE); URINE COLOR YELLOW; URINE GLUCOSE (UA) NEAGTIVE (NEGATIVE); URINE KETONE NEGATIVE (NEGATIVE); URINE LEUK ESTERASE NEGATIVE (NEGATIVE); URINE NITRITE NEGATIVE (NEGATIVE); URINE PROTEIN TRACE (NEGATIVE); URINE RBC 50 /hpf (0-3); URINE UROBILINOGEN 0.2 mg/dL (0.2-1.0); URINE WBC 2 /hpf (3-5)
[2018-09-23 17:06] LABS: BASO % 0.9 % (0-2.0); EOS % 0.7 % (0-4.5); HEMATOCRIT 29.8 % (32.4-45.2); HEMOGLOBIN 10.4 GM/dL (10.7-15.3); LYMPH % 14.9 % (8-40); MCH 32.1 pg (25.7-33.7); MCHC 35.1 g/dl (32.0-36.0); MEAN CELL VOLUME 91.6 fl (80-96); MEAN PLT VOLUME 9.8 fl (7.5-11.1); MONO % 7.2 % (3.8-10.2); NEUT % 76.3 % (42.8-82.8); PLATELET COUNT 142 K/MM3 (134-434); RBC 3.25 M/mm3 (3.60-5.2); RDW 15.4 % (11.6-15.6)
[2018-09-23 18:32] VITALS: BP 186/90; PULSE 75; TEMP 98.4
--- NOTE | 2018-09-24 11:01 | EKG ---
Test Reason : Blood Pressure : / mmHG Vent. Rate : 068 BPM Atrial Rate : 068 BPM P-R Int : 192 ms QRS Dur : 072 ms QT Int : 386 ms P-R-T Axes : 082 -39 010 degrees QTc Int : 410 ms NORMAL SINUS RHYTHM LEFT AXIS DEVIATION INFERIOR INFARCT (CITED ON OR BEFORE 22-MAY-2011) ANTEROSEPTAL INFARCT (CITED ON OR BEFORE 22-MAY-2011) ABNORMAL ECG WHEN COMPARED WITH ECG OF 04-JUL-2018 11:55, NONSPECIFIC T WAVE ABNORMALITY NO LONGER EVIDENT IN LATERAL LEADS Confirmed by JOE NEFF MD ([id number]) on 09/24/2018 11:01:32 AM Referred By: Confirmed By:JOE NEFF MD
== END 2018-09-23 18:29 | disposition home or self-care (01) ==
LOC: JER 13:14
DX: R55 Syncope and collapse (principal); R82.71 Bacteriuria; G20 Parkinson's disease; F02.80 Dementia in other diseases classified elsewhere, unspecified severity, without behavioral disturbance, psychotic disturbance, mood disturbance, and anxiety; I10 Essential (primary) hypertension; E78.5 Hyperlipidemia, unspecified; Z86.718 Personal history of other venous thrombosis and embolism; Z79.01 Long term (current) use of anticoagulants; E07.9 Disorder of thyroid, unspecified
CPT/HCPCS: 36415; 71045-TC-FY; 80053; 81003; 82550; 84484; 85025; 85610; 93005; 93010; 99283-25

== ENCOUNTER 2018-12-09 11:52 | Emergency (ER) | payer OTHER, MEDICARE | END 2018-12-09 18:00 | disposition home or self-care (01) | LOC: JER 11:52 ==

== ENCOUNTER 2018-12-09 19:25 | Inpatient (IN) | payer OTHER, MEDICARE ==
--- NOTE | 2018-12-09 20:16 | PDOC ---
History of Present Illness - General Chief Complaint: Syncope/Near Syncope Stated Complaint: SYNCOPE Time Seen by Provider: 12/09/18 19:33 History Source: Patient, Family, Significant Other Exam Limitations: No Limitations - History of Present Illness Initial Comments: 12/09/18 20:06 82 y/o F with PMHx of Parkinson's dementia w/ gait instability, HTN, HLD, AAA s/ p repair, previous CVA, h/o DVT on AC, hyperthyroidism, h/o colorectal CA s/p ostomy s/p reversal, h/o syncope s/p implantable loop recorder, presents to the ED after a syncopal episode. Patient recently seen in [facility] for dizziness found to have a UTI. Since being discharged from the ED, patient was in the car with her son when the episode occured. Patient does not recall the event, thus the HPI was provided by the son at bedside. During a 15 minute car ride home, patient became unresponsive. Initially the son believed the patient was asleep but shortly after, she was not responding to verbal stimuli. Shortly after, patient began to have white drooling and EMS were called. Police arrived initially and checked her BP which the son reports was low (does not recall a number). Patient woke up shortly after feeling lethargic. Son denies any associated tonic clonic movements of the extremities, loss of bowel or bladder control, or tongue biting. EMS upon arrival also found low BP and patient was transported to the ED. Of note, son mentions patient had alternating shallow and deep breaths without tachypnea during the event. Currently she denies any fevers, chills, chest pain, SOB, nausea, vomiting, diarrhea, constipation. PMHx: as above PSHx: Colon resection s/p colostomy and reversal, AAA repair Social: Denies tobacco, ETOH or drug use PMD: Dr. Rubio Cardio: Dr. Yu Presenting Symptoms: Syncope Timing/Duration: reports: resolved prior to arrival Past History - Travel Traveled outside of the country in the last 30 days: No Close contact w/someone who was outside of country & ill: No - Past Medical History Allergies/Adverse Reactions: Allergies Allergy/AdvReac Type Severity Reaction Status Date / Time iodine [Iodine] Allergy Mild Hives Verified 12/09/18 12:22 SHELLFISH Allergy Uncoded 12/09/18 12:22 Home Medications: Ambulatory Orders Docusate Sodium [Colace -] 100 mg PO DAILY 11/10/13 Atorvastatin Calcium 20 mg PO DAILY #30 01/31/15 Calcium Carbonate/Vitamin D3 [Calcium 600-Vit D3 800 Caplet] 1 each PO DAILY 07/21 Methimazole [Tapazole -] 10 mg PO DAILY 04/06/15 Apixaban [Eliquis -] 2.5 mg PO BID #0 tablet 06/12/16 Folic Acid 1 mg PO DAILY 08/01/16 Megestrol Acetate Oral Susp [Megace Oral Suspension -] 40 mg PO DAILY 08/01/16 Carbidopa/Levodopa 25/100 [Sinemet 25/100 -] 1 each PO TID #90 tablet 08/07/16 Amlodipine Besylate [Norvasc -] 5 mg PO ASDIR 12/09/18 Bethanechol Chloride [Urecholine] 50 mg PO TID 12/09/18 Cephalexin Monohydrate [Keflex -] 500 mg PO BID #14 capsule 12/09/18 Meclizine HCl [Antivert -] 25 mg PO TID PRN #15 tablet 12/09/18 Metoprolol Tartrate 50 mg PO ASDIR 12/09/18 Metoprolol Tartrate [Lopressor -] 25 mg PO ASDIR 12/09/18 Multivitamin/Iron/Folic Acid [Centrum Women Tablet] 1 each PO DAILY 12/09/18 Pimavanserin Tartrate [Nuplazid] 34 mg PO DAILY 12/09/18 Potassium Citrate 1,620 gm MC DAILY 12/09/18 Tamsulosin HCl 0.4 mg PO DAILY 12/09/18 Anemia: Yes Asthma: No Cancer: Yes (COLON s/p Chemotherapy 5 yrs ago) Cardiac Disorders: Yes (Mini Strokes) CVA: Yes (TIA's) COPD: No CHF: No Dementia: No Diabetes: No GI Disorders: Yes Disorders: Yes (UTI's in the past, 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) HTN: Yes Hypercholesterolemia: Yes Liver Disease: No Seizures: No Thyroid Disease: Yes (HYPERTHYROID DISEASE) - Surgical History Abdominal Surgery: Yes (COLON RESECTION/COLOSTOMY; S/O AAA REPAIR) Appendectomy: No Cardiac Surgery: No Cholecystectomy: No Lung Surgery: No Neurologic Surgery: No Orthopedic Surgery: No - Immunization History Immunization Up to Date: Yes - Suicide/Smoking/Psychosocial Hx Smoking Status: No Smoking History: Never smoked Have you smoked in the past 12 months: No Number of Cigarettes Smoked Daily: 0 If you are a former smoker, when did you quit?: 1989 Information on smoking cessation initiated: No Hx Alcohol Use: No Drug/Substance Use Hx: No Substance Use Type: None Hx Substance Use Treatment: No Cardiac Specific PMH - Complaint Specific PMHX Abdominal Aortic Aneurysm: Yes (s/p repair) Cardiac Stent: No GERD: No Myocardial Infarction: No Pacemaker: No Pulmonary Embolus: No Review of Systems - Review of Systems Able to Perform ROS?: Yes Is the patient limited Telugu proficient: No Constitutional: No: Chills, Fever, Weakness HEENTM: No: Blurred Vision, Double Vision Respiratory: No: Cough, Shortness of Breath, Wheezing Cardiac (ROS): Yes: Syncope. No: Chest Pain, Edema ABD/GI: No: Constipated, Diarrhea, Nausea, Poor Fluid Intake, Vomiting : No: Dysuria, Hematuria Neurological: Yes: Numbness (Chronic, Not new), Weakness (Chronic in lower extremities). No: Tingling *Physical Exam - Vital Signs Last Vital Signs Temp Pulse Resp BP Pulse Ox 98.6 F 67 18 160/83 100 12/09/18 23:32 12/09/18 23:32 12/09/18 23:32 12/09/18 23:32 12/09/18 23:32 - Physical Exam General Appearance: Yes: Nourished, Appropriately Dressed. No: Disheveled HEENT: positive: EOMI, MARAL Neck: positive: Supple. negative: Lymphadenopathy (L) Respiratory/Chest: positive: Normal Breath Sounds. negative: Crackles, Rhonchi , Wheezing Cardiovascular: positive: Regular Rhythm, Regular Rate, S1, S2. negative: Edema , JVD, Murmur Vascular Pulses: Dorsalis-Pedis (R): 2+, Doralis-Pedis (L): 2+ Gastrointestinal/Abdominal: positive: Normal Bowel Sounds, Soft. 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5 RDW 16.0 H MPV 9.5 Neutrophils % 65.6 Lymphocytes % 21.8 D Monocytes % 10.6 H Eosinophils % 1.1 Basophils % 0.9 - Medications Given in the ED: ED Medications Discontinued Medications Generic Name Dose Route Start Last Admin Trade Name Freq PRN Reason Stop Dose Admin Acetaminophen 1,000 mg 12/09/18 21:04 12/09/18 21:12 Ofirmev Injection - IVPB 12/09/18 21:05 1,000 mg ONCE ONE Administration Amlodipine Besylate 5 mg 12/09/18 23:30 12/09/18 23:42 Norvasc - PO 5 mg ASDIR AMY Administration Ceftriaxone Sodium 1 gm/ 100 mls @ 200 mls/hr 12/09/18 22:03 12/09/18 22:19 Dextrose IVPB 12/09/18 22:32 200 mls/hr ONCE ONE Administration Protocol Metoprolol Tartrate 25 mg 12/09/18 23:30 12/09/18 23:41 Lopressor - PO 25 mg ASDIR AMY Administration Sodium Chloride 500 ml 12/09/18 21:04 12/09/18 21:12 Normal Saline - IV 12/09/18 21:05 500 ml ONCE ONE Administration Medical Decision Making - Medical Decision Making 12/09/18 20:29 82 y/o F with PMHx of Parkinson's dementia w/ gait instability, HTN, previous CVA, h/o DVT on AC, h/o syncope s/p implantable loop recorder, who was recently discharged from [facility] with UTI, presents to the ED after a syncopal episode. Concern for Metabolic derangements, Infectious source, Arrhythmia. Check CBC, CMP, Mag, Phos. 1/2L NS Bolus, IV Acetaminophen 1gm EKG reveals Sinus rhythm with PAC's, LAD, VR 78, QTc 421 Will likely need to be observed on Tele. 12/09/18 21:43 Temp 100.0, WBC 3.9, Cr 1.4. Concern for UTI that has failed outpatient tx--Will Give 1gm Ceftriaxone--Urine cx sent earlier today Start NS @ 75 mls/hr Microblogged symphony for admission for Syncope and UTI that has failed outpatient tx 12/09/18 23:14 Dr. Lopez at bedside for evaluation of patient. *DC/Admit/Observation/Transfer Diagnosis at time of Disposition: Syncope Qualifiers: Syncope type: unspecified Qualified Code(s): R55 - Syncope and collapse UTI (urinary tract infection) Qualifiers: Urinary tract infection type: site unspecified Hematuria presence: without hematuria Qualified Code(s): N39.0 - Urinary tract infection, site not specified - Discharge Dispostion Condition at time of disposition: Fair Decision to Admit order: Yes - Referrals - Patient Instructions - Post Discharge Activity
[2018-12-09 20:50] LABS: BASO % 0.9 % (0-2.0); EOS % 1.1 % (0-4.5); HEMATOCRIT 32.1 % (32.4-45.2); HEMOGLOBIN 10.4 GM/dL (10.7-15.3); LYMPH % 21.8 % (8-40); MCH 29.6 pg (25.7-33.7); MCHC 32.5 g/dl (32.0-36.0); MEAN CELL VOLUME 91.1 fl (80-96); MEAN PLT VOLUME 9.5 fl (7.5-11.1); MONO % 10.6 % (3.8-10.2); NEUT % 65.6 % (42.8-82.8); PLATELET COUNT 148 K/MM3 (134-434); RBC 3.53 M/mm3 (3.60-5.2); WHITE BLOOD COUNT 3.9 K/mm3 (4.0-10.0)
--- NOTE | 2018-12-09 21:00 | PDOC ---
Documentation entered by Sofie Vasquez SCRIBE, acting as scribe for Ainsley Bustillo DO. Ainsley Bustillo DO: This documentation has been prepared by the Pedro rehman Adrianna, SCRIBE, under my direction and personally reviewed by me in its entirety. I confirm that the documentation accurately reflects all work, treatment, procedures, and medical decision making performed by me. Attending Attestation - Resident Resident Name: Dina Ayala - ED Attending Attestation I have performed the following: I have examined & evaluated the patient, The case was reviewed & discussed with the resident, I agree w/resident's findings & plan, Exceptions are as noted - HPI HPI: 82 year old female, with a significant PMH of Parkinson's w/ gait instability, dementia, HTN, HLD, AAA s/p repair, previous CVA, chronic LE weakness, anemia, h /o DVT on lifelong anticoagulation, hyperthyroidism, h/o colorectal CA s/p ostomy s/p reversal, h/o multiple episodes of syncope now s/p implantable loop recorder that has since been removed, Chronic weakness and chronic paresthesia in hands, presents to the ED BIBA for syncopal episode prior to arrival. Patient was discharged from the ED less than 10 hours ago for the same complaint , where she was found to have an UTI. Patient does not recall the event, but her son notes she became unresponsive, drooling, and tachypnic in the car for 15 minutes. He notes her blood pressure was low and she was lethargic following the episode. The patient denies chest pain, shortness of breath, headache and dizziness. Denies fever, chills, nausea, vomit, diarrhea and constipation. Denies dysuria, frequency, urgency and hematuria. Denies bladder incontinence or tongue biting, Allergies: Iodine and shellfish Past surgical history: Colon resection, colostomy, AAA repair. Social history: No reported PCP: Dr. Sosa Rubio 12/09/18 20:35 - Physicial Exam PE: GENERAL: +Poor historian. +No recollection of events. Awake, alert. HEAD: No signs of trauma EYES: PERRLA, EOMI, sclera anicteric, conjunctiva clear ENT: Auricles normal inspection, hearing grossly normal, nares patent, oropharynx clear without exudates. Moist mucosa NECK: Normal ROM, supple, no lymphadenopathy, JVD, or masses LUNGS: Breath sounds equal, clear to auscultation bilaterally. No wheezes, and no crackles HEART: Regular rate and rhythm, normal S1 and S2, no murmurs, rubs or gallops ABDOMEN: Soft, nontender, normoactive bowel sounds. No guarding, no rebound. No masses EXTREMITIES: Normal range of motion, no edema. No clubbing or cyanosis. No cords, erythema, or tenderness NEUROLOGICAL: +No focal deficits. Cranial nerves II through XII grossly intact. Normal speech. SKIN: Warm, Dry, normal turgor, no rashes or lesions noted. 12/09/18 20:39 - Medical Decision Making 12/09/18 20:48 I, Dr. Ainsley Bustillo, DO, attest that this document has been prepared under my direction and personally reviewed by me in its entirety. I further attest, that it accurately reflects all work, treatment, procedures and medical decision -making performed by me. 12/09/18 20:48 a/p: 83yo female presents via ambulance after having a syncopal episode on the way home from the ED -dx with a uti, changed from macrobid to keflex today -labs drawn earlier did not show an elevated wbc, but pt had a low grade temp -witness syncope by the family in the car on the way home -no shaking or seizure activity -will repeat labs, pts cards dr. velasquez, has a loop recorder in place -will need tele obs for syncope work up -discussed with the family who agrees with the plan -PMD Dr. Sosa Rubio 12/09/18 22:04 pt with low grade temp uti that failed outpt therapy will give rocephin mildly low wbc mildly increasing cr will admit for failed outpt therapy and syncope microblog sent to [facility] covering Sosa Rubio 12/09/18 23:06 Dr hansen at the bedside to eval the patient Heart Score/ECG Review - ECG Intrepretation Comment:: 12/09/18 20:46 sinus at 78, q waves inferior leads/anterior leads which are age indeterminate, no acute st/t wave findings
[2018-12-09] MEDS ORDERED: SODIUM CHLORIDE 0.9% 1000 ML INFUS.BAG IV ONE (21:04)
[2018-12-09] MEDS ORDERED: ACETAMINOPHEN 1000 MG/100 ML VIAL (NON FORMULARY) IVPB ONE (21:04)
[2018-12-09] MEDS ORDERED: ACETAMINOPHEN INJECTION 100 ML IVPB ONE (21:07)
[2018-12-09 21:16] LABS: ALBUMIN 3.9 g/dl (3.4-5.0); BILIRUBIN,TOTAL 0.5 mg/dL (0.2-1); CALCIUM 9.5 mg/dL (8.5-10.1); CREATININE 1.4 mg/dL (0.55-1.3); MAGNESIUM 2.6 mg/dL (1.8-2.4); PHOSPHOROUS 2.7 mg/dL (2.5-4.9); POTASSIUM 3.9 mmol/L (3.5-5.1); TOT PROT 7.5 g/dl (6.4-8.2)
[2018-12-09] MEDS ORDERED: CEFTRIAXONE 1 GM in DEXTROSE 5%-WATER - 100 ML IVPB ONE (22:03)
[2018-12-09] MEDS ORDERED: cefTRIAXone SODIUM 1 GM VIAL ONE (22:12)
[2018-12-09] MEDS: SODIUM CHLORIDE 1,000 ML IV SCH ×2 (22:19→23:42)
--- NOTE | 2018-12-09 23:28 | HP ---
Admitting History and Physical - Primary Care Physician PCP: Sosa Rubio - Admission Chief Complaint: syncope History of Present Illness: 83 year old female with extensive PMHx presented to ED this morning with vertigo , found to have UTI and sent home on keflex. She was previously being treated with macrobid. Patient was on her way home when she had a syncopal episode, witnessed by son, lasted about 15 minutes, ambulance was called and she was brought back to ED. Patient does not remember the episode. Son states her BP was low and she was lethargic when she woke up. No seizure like activity. She does have vaginal pruritis and dyuria. No fevers. She has an implantable loop recorder. She denies chest pain, shortness of breath, abdominal pain, n/v/d. PMHx: Parkinson's w/ gait instability, dementia, HTN, HLD, AAA s/p repair, previous CVA, chronic LE weakness, anemia, h/o DVT on lifelong anticoagulation, hyperthyroidism, h/o colorectal CA s/p ostomy s/p reversal, h/o multiple episodes of syncope PSHx: Colon resection colostomy AAA repair PCP: Dr. Sosa Rubio - Past Medical History [employer]: Yes: Dementia. 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) Endocrine: Yes: Hyperthyroidism - Past Surgical History Past Surgical History: Yes: AAA Repair, Colectomy, Colostomy - Smoking History Smoking history: Never smoked Have you smoked in the past 12 months: No Aproximately how many cigarettes per day: 0 If you are a former smoker, when did you quit?: 1989 - Alcohol/Substance Use Hx Alcohol Use: No - Social History ADL: Independent History of Recent Travel: No Home Medications - Allergies Allergies/Adverse Reactions: Allergies Allergy/AdvReac Type Severity Reaction Status Date / Time iodine [Iodine] Allergy Mild Hives Verified 12/09/18 12:22 SHELLFISH Allergy Uncoded 12/09/18 12:22 - Home Medications Home Medications: Ambulatory Orders Docusate Sodium [Colace -] 100 mg PO DAILY 11/10/13 Atorvastatin Calcium 20 mg PO DAILY #30 01/31/15 Calcium Carbonate/Vitamin D3 [Calcium 600-Vit D3 800 Caplet] 1 each PO DAILY 07/21 Methimazole [Tapazole -] 10 mg PO DAILY 04/06/15 Apixaban [Eliquis -] 2.5 mg PO BID #0 tablet 06/12/16 Folic Acid 1 mg PO DAILY 08/01/16 Megestrol Acetate Oral Susp [Megace Oral Suspension -] 40 mg PO DAILY 08/01/16 Carbidopa/Levodopa 25/100 [Sinemet 25/100 -] 1 each PO TID #90 tablet 08/07/16 Amlodipine Besylate [Norvasc -] 5 mg PO ASDIR 12/09/18 Bethanechol Chloride [Urecholine] 50 mg PO TID 12/09/18 Cephalexin Monohydrate [Keflex -] 500 mg PO BID #14 capsule 12/09/18 Meclizine HCl [Antivert -] 25 mg PO TID PRN #15 tablet 12/09/18 Metoprolol Tartrate 50 mg PO ASDIR 12/09/18 Metoprolol Tartrate [Lopressor -] 25 mg PO ASDIR 12/09/18 Multivitamin/Iron/Folic Acid [Centrum Women Tablet] 1 each PO DAILY 12/09/18 Pimavanserin Tartrate [Nuplazid] 34 mg PO DAILY 12/09/18 Potassium Citrate 1,620 gm MC DAILY 12/09/18 Tamsulosin HCl 0.4 mg PO DAILY 12/09/18 Family Disease History - Family Disease History Family History: Unable to Obtain Review of Systems - Review of Systems Constitutional: reports: Lethargy Eyes: reports: No Symptoms HENT: reports: No Symptoms Neck: reports: No Symptoms Cardiovascular: reports: No Symptoms Respiratory: reports: No Symptoms Gastrointestinal: reports: No Symptoms Genitourinary: reports: Dysuria Breasts: reports: No Symptoms Reported Musculoskeletal: reports: No Symptoms Integumentary: reports: No Symptoms Neurological: reports: Syncope Endocrine: reports: No Symptoms Hematology/Lymphatic: reports: No Symptoms Psychiatric: reports: No Symptoms Physical Examination Vital Signs: Vital Signs Temperature 100.0 F H 12/09/18 20:59 Pulse Rate 76 12/09/18 20:59 Respiratory Rate 20 12/09/18 20:59 Blood Pressure 123/76 12/09/18 20:59 O2 Sat by Pulse Oximetry (%) 98 12/09/18 20:59 Constitutional: Yes: Well Nourished, No Distress, Calm Eyes: Yes: WNL, Conjunctiva Clear, EOM Intact HENT: Yes: WNL, Atraumatic, Normocephalic Neck: Yes: WNL, Supple, Trachea Midline Cardiovascular: Yes: WNL, Regular Rate and Rhythm, S1, S2. No: Murmur Respiratory: Yes: WNL, Regular, CTA Bilaterally. No: Accessory Muscle Use Gastrointestinal: Yes: WNL, Normal Bowel Sounds, Soft Musculoskeletal: Yes: WNL Extremities: Yes: WNL Edema: No Peripheral Pulses WNL: Yes Neurological: Yes: WNL, Alert, Oriented ...Motor Strength: WNL Psychiatric: Yes: WNL, Alert, Oriented Labs: CBC, BMP 12/09/18 20:27 12/09/18 20:40 Imaging - Results Cat Scan: Report Reviewed EKG: Report Reviewed, Image Reviewed Problem List - Problems (1) Syncope Code(s): R55 - SYNCOPE AND COLLAPSE Qualifiers: Syncope type: unspecified Qualified Code(s): R55 - Syncope and collapse (2) UTI (urinary tract infection) Code(s): N39.0 - URINARY TRACT INFECTION, SITE NOT SPECIFIED Qualifiers: Urinary tract infection type: site unspecified Hematuria presence: without hematuria Qualified Code(s): N39.0 - Urinary tract infection, site not specified Assessment/Plan Assessment: 83 year old female presents after having a syncopal episode on the way home from the ED -UTI -Syncope -Parkinson's w/ gait instability -HTN -HLD -AAA s/p repair -previous CVA -chronic LE weakness -anemia -h/o DVT on lifelong anticoagulation, -hyperthyroidism -h/o colorectal CA s/p ostomy s/p reversal Plan: -urine cx sent from this morning, follow -started on rocephin, continue -gentle IVF -patient with multiple episodes of syncope in past, has loop recorder, cardio to evaluate in AM, place on telemetry -resume home meds, holding sinemet and bethenachol -CT head no acute changes, EKG NSR with PVCs, no st-t wave changes -Dr. Sosa Rubio to evaluate in AM
[2018-12-09] MEDS ORDERED: amLODIPine BESYLATE 5 MG TABLET (FP) PO SCH (23:30)
[2018-12-09] MEDS ORDERED: METOPROLOL TARTRATE 25 MG TABLET (FP) PO SCH (23:30)
[2018-12-10 04:11] VITALS: BMI 20.7
[2018-12-10 06:41] LABS: CALCIUM 8.8 mg/dL (8.5-10.1); HEMATOCRIT 26.2 % (32.4-45.2); HEMOGLOBIN 8.6 GM/dL (10.7-15.3); MCHC 33.1 g/dl (32.0-36.0); MEAN CELL VOLUME 90.9 fl (80-96); MEAN PLT VOLUME 9.4 fl (7.5-11.1); PLATELET COUNT 120 K/MM3 (134-434); POTASSIUM 3.7 mmol/L (3.5-5.1); RBC 2.88 M/mm3 (3.60-5.2); RDW 16.3 % (11.6-15.6); WHITE BLOOD COUNT 3.1 K/mm3 (4.0-10.0)
[2018-12-10] MEDS ORDERED: DEXTROSE 5%-WATER - 50 ML IVPB ONE (08:05)
[2018-12-10] MEDS ORDERED: cefTRIAXone SODIUM 1 GM VIAL ONE (08:05)
[2018-12-10] MEDS: TAMSULOSIN HCL 0.4 MG CAP PO SCH (08:16)
[2018-12-10] MEDS ORDERED: POTASSIUM CITRATE MC SCH (10:00)
[2018-12-10] MEDS ORDERED: MEGESTROL ACETATE 400 MG/10 ML UNIT DOSE CUP PO SCH (10:00)
[2018-12-10] MEDS ORDERED: [UNRECOGNIZED DRUG - OTHER] MC SCH (10:00)
--- NOTE | 2018-12-10 10:09 | PN ---
Progress Note (short form) - Note Progress Note: No distress Pt remembers events no distress sitting up in chair Vital Signs - 24 hr 12/09/18 12/09/18 12/09/18 19:25 19:51 20:59 Temperature 97.3 F L 99.2 F 100.0 F H Pulse Rate 76 79 76 Pulse Rate [ Right] Respiratory 17 20 20 Rate Blood Pressure 133/79 121/72 123/76 Blood Pressure [Left Arm] O2 Sat by Pulse 100 99 98 Oximetry (%) 12/09/18 12/09/18 12/10/18 22:07 23:32 01:28 Temperature 98.4 F 98.6 F 99.0 F Pulse Rate 64 Pulse Rate [ 67 71 Right] Respiratory 15 18 16 Rate Blood Pressure 169/89 Blood Pressure 160/83 143/100 [Left Arm] O2 Sat by Pulse 100 100 Oximetry (%) 12/10/18 04:50 Temperature 98.4 F Pulse Rate 64 Pulse Rate [ Right] Respiratory 16 Rate Blood Pressure 161/68 Blood Pressure [Left Arm] O2 Sat by Pulse Oximetry (%) Current Medications Generic Name Dose Route Start Last Admin Trade Name Freq PRN Reason Stop Dose Admin Amlodipine Besylate 5 mg 12/09/18 23:57 Norvasc - PO DAILY AMY Apixaban 2.5 mg 12/10/18 10:00 Eliquis - PO BID AMY Atorvastatin Calcium 20 mg 12/10/18 22:00 Lipitor - PO HS AMY Calcium Carbonate/Cholecalciferol 1 tab 12/10/18 10:00 Os-Vladislav 500+D - PO DAILY AMY Docusate Sodium 100 mg 12/10/18 10:00 Colace - PO DAILY AMY Folic Acid 1 mg 12/10/18 10:00 Folic Acid - PO DAILY AMY Sodium Chloride 1,000 mls @ 75 mls/hr 12/09/18 22:15 12/09/18 22:19 Normal Saline - IV 75 mls/hr ASDIR AMY Administration Sodium Chloride 1,000 mls @ 75 mls/hr 12/09/18 23:30 12/09/18 23:42 Normal Saline - IV 75 mls/hr ASDIR AMY Administration Ceftriaxone Sodium 1 gm/ 50 mls @ 100 mls/hr 12/10/18 10:00 Dextrose IVPB DAILY [facility] Protocol Methimazole 10 mg 12/10/18 10:00 Tapazole - PO DAILY [facility] Metoprolol Tartrate 25 mg 12/09/18 23:58 Lopressor - PO BID [facility] Multivitamins/Minerals 1 each 12/10/18 10:00 Theragran-M PO DAILY [facility] Non-Formulary Medication 34 mg 12/10/18 10:00 Pimavanserin Tartrate [Nuplazid] PO DAILY [facility] Tamsulosin HCl 0.4 mg 12/10/18 08:30 12/10/18 08:16 Flomax - PO 0.4 mg DAILY@0830 [facility] Administration Laboratory Results - last 24 hr 12/09/18 12/09/18 12/10/18 20:27 20:40 05:31 WBC 3.9 L 3.1 L RBC 3.53 L 2.88 L Hgb 10.4 L 8.6 L Hct 32.1 L 26.2 L D MCV 91.1 90.9 MCH 29.6 30.0 MCHC 32.5 33.1 RDW 16.0 H 16.3 H Plt Count 148 120 L MPV 9.5 9.4 Absolute Neuts (auto) 2.5 Neutrophils % 65.6 Lymphocytes % 21.8 D Monocytes % 10.6 H Eosinophils % 1.1 Basophils % 0.9 Nucleated RBC % 0 Sodium 139 Potassium 3.9 Chloride 107 Carbon Dioxide 25 Anion Gap 7 L BUN 20 H Creatinine 1.4 H Est GFR (CKD-EPI)AfAm 39.61 Est GFR (CKD-EPI)NonAf 34.18 Random Glucose 113 H Calcium 9.5 Phosphorus 2.7 Magnesium 2.6 H Total Bilirubin 0.5 AST 13 L ALT 10 L Alkaline Phosphatase 54 Total Protein 7.5 Albumin 3.9 12/10/18 05:31 WBC RBC Hgb Hct MCV MCH MCHC RDW Plt Count MPV Absolute Neuts (auto) Neutrophils % Lymphocytes % Monocytes % Eosinophils % Basophils % Nucleated RBC % Sodium 142 Potassium 3.7 Chloride 113 H Carbon Dioxide 23 Anion Gap 6 L BUN 18 Creatinine 1.0 Est GFR (CKD-EPI)AfAm 59.49 Est GFR (CKD-EPI)NonAf 51.33 Random Glucose 82 Calcium 8.8 Phosphorus Magnesium Total Bilirubin AST ALT Alkaline Phosphatase Total Protein Albumin S1 S2 RRR Lungs clear Abd- soft, NT edema+ -- chronic PLAN UTI-- on antibiotics-- 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 noted pancytopenia-- repeat labs cardiology eval ,ID, PT OOB pt has a Neurologist at [facility] CT head negative EKG-- noted check orthostasis Problem List - Problems (1) Syncope Code(s): R55 - SYNCOPE AND COLLAPSE Qualifiers: Syncope type: unspecified Qualified Code(s): R55 - Syncope and collapse (2) UTI (urinary tract infection) Code(s): N39.0 - URINARY TRACT INFECTION, SITE NOT SPECIFIED Qualifiers: Urinary tract infection type: site unspecified Hematuria presence: without hematuria Qualified Code(s): N39.0 - Urinary tract infection, site not specified (3) Altered mental status Code(s): R41.82 - ALTERED MENTAL STATUS, UNSPECIFIED Qualifiers: Altered mental status type: disorientation Qualified Code(s): R41.0 - Disorientation, unspecified (4) Dehydration Code(s): E86.0 - DEHYDRATION
[2018-12-10] MEDS: CALCIUM 500MG/VIT-D 200 UNITS COMBO TABLET (FP) PO SCH (10:34)
[2018-12-10] MEDS: APIXABAN 2.5 MG TABLET PO SCH ×2 (10:34→22:04)
[2018-12-10] MEDS: amLODIPine BESYLATE 5 MG TABLET (FP) PO SCH (10:34)
[2018-12-10] MEDS: FOLIC ACID 1 MG TABLET (FP) PO SCH (10:34)
[2018-12-10] MEDS: DOCUSATE SODIUM 100 MG CAPSULE (FP) PO SCH (10:34)
[2018-12-10] MEDS: MULTIVITAMINS THER W-MINERALS COMBO TABLET (FP) PO SCH (10:34)
[2018-12-10] MEDS: METHIMAZOLE 10 MG TABLET (FP) PO SCH (10:34)
[2018-12-10] MEDS: METOPROLOL TARTRATE 25 MG TABLET (FP) PO SCH ×2 (10:34→22:04)
[2018-12-10] MEDS: CEFTRIAXONE 1 GM in DEXTROSE 5%-WATER - 50 ML IVPB SCH (10:35)
--- NOTE | 2018-12-10 11:55 | CON.CARD ---
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 Pt has recurrent syncopal episodes and has loop recorder placed for this. Yesterday was in er for dizzy/uti, sent home on abx. While sitting in passenger seat of car she had another syncopal episode so brought back to ER. Pt does not recall event, no prodrome sxs. Feels fine now. No cp sob palps pnd orthopnea le edema. pmh: per hpi psh: per hpi, loop recorder social: no tob fam: no premature cad, scd ros: per hpi; +dysuria; all others normal meds: Home Medications Medication Instructions Recorded Docusate Sodium [Colace -] 100 mg PO DAILY 11/10/13 Atorvastatin Calcium 20 mg PO DAILY #30 01/31/15 Calcium Carbonate/Vitamin D3 1 each PO DAILY 04/06/15 [Calcium 600-Vit D3 800 Caplet] Methimazole [Tapazole -] 10 mg PO DAILY 04/06/15 Apixaban [Eliquis -] 2.5 mg PO BID #0 tablet 06/12/16 Folic Acid 1 mg PO DAILY 08/01/16 Megestrol Acetate Oral Susp 40 mg PO DAILY 08/01/16 [Megace Oral Suspension -] Carbidopa/Levodopa 25/100 [Sinemet 1 each PO TID #90 tablet 08/07/16 25/100 -] Amlodipine Besylate [Norvasc -] 5 mg PO ASDIR 12/09/18 Bethanechol Chloride [Urecholine] 50 mg PO TID 12/09/18 Cephalexin Monohydrate [Keflex -] 500 mg PO BID #14 capsule 12/09/18 Meclizine HCl [Antivert -] 25 mg PO TID PRN #15 tablet 12/09/18 Metoprolol Tartrate 50 mg PO ASDIR 12/09/18 Metoprolol Tartrate [Lopressor -] 25 mg PO ASDIR 12/09/18 Multivitamin/Iron/Folic Acid 1 each PO DAILY 12/09/18 [Centrum Women Tablet] Pimavanserin Tartrate [Nuplazid] 34 mg PO DAILY 12/09/18 Potassium Citrate 1,620 gm MC DAILY 12/09/18 Tamsulosin HCl 0.4 mg PO DAILY 12/09/18 pe: Vital Signs Period Temp Pulse Resp BP Sys/Francis Pulse Ox Last 24 Hr 97.3 F-100.0 F 64-79 15-20 121-169/68-100 98-100 nad, no jvd rrr s1s2 no mrg cta bl nl eff aaox3 no le e/c/c abd nt nd pos bs no jaundice diaphoresis pos dp pt no carotid bruit Laboratory Last Values WBC 3.1 K/mm3 (4.0-10.0) L 12/10/18 05:31 RBC 2.88 M/mm3 (3.60-5.2) L 12/10/18 05:31 Hgb 8.6 GM/dL (10.7-15.3) L 12/10/18 05:31 Hct 26.2 % (32.4-45.2) L D 12/10/18 05:31 MCV 90.9 fl (80-96) 12/10/18 05:31 MCH 30.0 pg (25.7-33.7) 12/10/18 05:31 MCHC 33.1 g/dl (32.0-36.0) 12/10/18 05:31 RDW 16.3 % (11.6-15.6) H 12/10/18 05:31 Plt Count 120 K/MM3 (134-434) L 12/10/18 05:31 MPV 9.4 fl (7.5-11.1) 12/10/18 05:31 Absolute Neuts (auto) 2.5 K/mm3 (1.5-8.0) 12/09/18 20:27 Neutrophils % 65.6 % (42.8-82.8) 12/09/18 20:27 Lymphocytes % 21.8 % (8-40) D 12/09/18 20:27 Monocytes % 10.6 % (3.8-10.2) H 12/09/18 20:27 Eosinophils % 1.1 % (0-4.5) 12/09/18 20:27 Basophils % 0.9 % (0-2.0) 12/09/18 20:27 Nucleated RBC % 0 % (0-0) 12/09/18 20:27 Sodium 142 mmol/L (136-145) 12/10/18 05:31 Potassium 3.7 mmol/L (3.5-5.1) 12/10/18 05:31 Chloride 113 mmol/L (98-107) H 12/10/18 05:31 Carbon Dioxide 23 mmol/L (21-32) 12/10/18 05:31 Anion Gap 6 MMOL/L (8-16) L 12/10/18 05:31 BUN 18 mg/dL (7-18) 12/10/18 05:31 Creatinine 1.0 mg/dL (0.55-1.3) 12/10/18 05:31 Est GFR (CKD-EPI)AfAm 59.49 12/10/18 05:31 Est GFR (CKD-EPI)NonAf 51.33 12/10/18 05:31 Random Glucose 82 mg/dL (74-106) 12/10/18 05:31 Calcium 8.8 mg/dL (8.5-10.1) 12/10/18 05:31 Phosphorus 2.7 mg/dL (2.5-4.9) 12/09/18 20:40 Magnesium 2.6 mg/dL (1.8-2.4) H 12/09/18 20:40 Total Bilirubin 0.5 mg/dL (0.2-1) 12/09/18 20:40 AST 13 U/L (15-37) L 12/09/18 20:40 ALT 10 U/L (13-61) L 12/09/18 20:40 Alkaline Phosphatase 54 U/L (45-117) 12/09/18 20:40 Total Protein 7.5 g/dl (6.4-8.2) 12/09/18 20:40 Albumin 3.9 g/dl (3.4-5.0) 12/09/18 20:40 echo 07/2016: nl lv/rv. impaired relaxation. mild-mod MR/TR. 1+ AR. 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 syncope: -several unexplained episodes months apart over past few years. Echo unremarkable. 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 Also seen by neuro in past and had unremarkable ct 's, mri brain. Ortho vitals have been normal. Hence she had loop recorder placed (Access Closure). In 09/2018 had syncope and loop recorder showed no events. Today loop recorder evaluated and showed no events as well. Thus it does not appear that her syncope is cardiac in etiology. Possibly related to Parkinsons , dehydration, UTI. htn: -stable on current meds hld: -cont statin hx of dvt: -on eliquis s/p AAA repair: -cont bb, bp control, statin -pt follows with dr erazo cardiac mendieta stable for dc
--- NOTE | 2018-12-10 12:53 | EKG ---
Test Reason : Blood Pressure : / mmHG Vent. Rate : 078 BPM Atrial Rate : 078 BPM P-R Int : 190 ms QRS Dur : 068 ms QT Int : 370 ms P-R-T Axes : -26 -40 042 degrees QTc Int : 421 ms POOR DATA QUALITY, INTERPRETATION MAY BE ADVERSELY AFFECTED SINUS RHYTHM WITH PREMATURE ATRIAL COMPLEXES LEFT AXIS DEVIATION MINIMAL VOLTAGE CRITERIA FOR LVH, MAY BE NORMAL VARIANT INFERIOR INFARCT (CITED ON OR BEFORE 22-MAY-2011) ANTERIOR INFARCT (CITED ON OR BEFORE 22-MAY-2011) ABNORMAL ECG WHEN COMPARED WITH ECG OF 09-DEC-2018 12:39, NO SIGNIFICANT CHANGE WAS FOUND Confirmed by AISHWARYA PATTERSON, JOE ([id number]) on 12/10/2018 12:53:13 PM Referred By: Confirmed By:JOE NEFF MD
--- NOTE | 2018-12-10 14:46 | CON.ID ---
Consult - Past Medical History [employer]: Yes: Dementia. No: Parkinson's (parkinsonian sx but hx of Basal ganglia infarcts, her neurologist is evaluating her for PD) Cardio/Vascular: Yes: HTN, Hyperlipdemia Gastrointestinal: Yes: Cancer (colono CA s/p colectomy, chemotherapy, s/p colostomy with subsequent reversal.) Renal/: Yes: Other (Urethral diverticuli) Endocrine: Yes: Hyperthyroidism - Past Surgical History Past Surgical History: Yes: AAA Repair, Colectomy, Colostomy - Alcohol/Substance Use Hx Alcohol Use: No - Smoking History Smoking history: Never smoked Have you smoked in the past 12 months: No Aproximately how many cigarettes per day: 0 If you are a former smoker, when did you quit?: 1989 - Social History ADL: Independent History of Recent Travel: No Home Medications - Allergies Allergies/Adverse Reactions: Allergies Allergy/AdvReac Type Severity Reaction Status Date / Time iodine [Iodine] Allergy Mild Hives Verified 12/09/18 12:22 SHELLFISH Allergy Uncoded 12/09/18 12:22 - Home Medications Home Medications: Ambulatory Orders Docusate Sodium [Colace -] 100 mg PO DAILY 11/10/13 Atorvastatin Calcium 20 mg PO DAILY #30 01/31/15 Calcium Carbonate/Vitamin D3 [Calcium 600-Vit D3 800 Caplet] 1 each PO DAILY 07/21 Methimazole [Tapazole -] 10 mg PO DAILY 04/06/15 Apixaban [Eliquis -] 2.5 mg PO BID #0 tablet 06/12/16 Folic Acid 1 mg PO DAILY 08/01/16 Megestrol Acetate Oral Susp [Megace Oral Suspension -] 40 mg PO DAILY 08/01/16 Carbidopa/Levodopa 25/100 [Sinemet 25/100 -] 1 each PO TID #90 tablet 08/07/16 Amlodipine Besylate [Norvasc -] 5 mg PO ASDIR 12/09/18 Bethanechol Chloride [Urecholine] 50 mg PO TID 12/09/18 Cephalexin Monohydrate [Keflex -] 500 mg PO BID #14 capsule 12/09/18 Meclizine HCl [Antivert -] 25 mg PO TID PRN #15 tablet 12/09/18 Metoprolol Tartrate 50 mg PO ASDIR 12/09/18 Metoprolol Tartrate [Lopressor -] 25 mg PO ASDIR 12/09/18 Multivitamin/Iron/Folic Acid [Centrum Women Tablet] 1 each PO DAILY 12/09/18 Pimavanserin Tartrate [Nuplazid] 34 mg PO DAILY 12/09/18 Potassium Citrate 1,620 gm MC DAILY 12/09/18 Tamsulosin HCl 0.4 mg PO DAILY 12/09/18 Physical Exam Vital Signs: Vital Signs Temperature 98.9 F 12/10/18 14:00 Pulse Rate 64 12/10/18 14:00 Respiratory Rate 16 12/10/18 14:00 Blood Pressure 98/62 12/10/18 14:00 O2 Sat by Pulse Oximetry (%) 100 12/10/18 01:28 Labs: CBC, BMP 12/10/18 05:31 12/10/18 05:31
[2018-12-10] MEDS: ATORVASTATIN CA 20 MG TABLET (FP) PO SCH (22:04)
[2018-12-10] MEDS: SODIUM CHLORIDE 1,000 ML IV SCH (22:07)
[2018-12-11] MEDS ORDERED: DEXTROSE 5%-WATER - 50 ML IVPB ONE (08:35)
[2018-12-11] MEDS ORDERED: cefTRIAXone SODIUM 1 GM VIAL ONE (08:35)
[2018-12-11] MEDS: TAMSULOSIN HCL 0.4 MG CAP PO SCH (09:00)
--- NOTE | 2018-12-11 09:19 | PN ---
Progress Note (short form) - Note Progress Note: pt seen/ examined chart reviewed Vital Signs Temp 98.7 F 12/11/18 06:00 Pulse 68 12/11/18 06:00 Resp 23 H 12/11/18 06:00 BP 175/81 H 12/11/18 06:00 Pulse Ox 100 12/10/18 01:28 Intake & Output 12/10/18 12/10/18 12/11/18 11:59 23:59 11:59 Intake Total 300 1400 1100 Balance 300 1400 1100 Intake: IV 300 900 900 Normal Saline - 1,000 ml 300 900 900 @ 75 mls/hr IV ASDIR [facility] Rx#:[id number] IVPB 100 Oral 400 200 Other: Voiding Method Diaper Bedpan # Unmeasured Voids Void 2 3 Bowel Movement No No No Active Medications Amlodipine Besylate (Norvasc -) 5 mg PO DAILY [facility] Last Admin: 12/10/18 10:34 Dose: 5 mg Apixaban (Eliquis -) 2.5 mg PO BID [facility] Last Admin: 12/10/18 22:04 Dose: 2.5 mg Atorvastatin Calcium (Lipitor -) 20 mg PO [facility] Last Admin: 12/10/18 22:04 Dose: 20 mg Calcium Carbonate/Cholecalciferol (Os-Vladislav 500+D -) 1 tab PO DAILY [facility] Last Admin: 12/10/18 10:34 Dose: 1 tab Docusate Sodium (Colace -) 100 mg PO DAILY [facility] Last Admin: 12/10/18 10:34 Dose: 100 mg Folic Acid (Folic Acid -) 1 mg PO DAILY [facility] Last Admin: 12/10/18 10:34 Dose: 1 mg Ceftriaxone Sodium 1 gm/ (Dextrose) 50 mls @ 100 mls/hr IVPB DAILY [facility]; Protocol Last Admin: 12/10/18 10:35 Dose: 100 mls/hr Methimazole (Tapazole -) 10 mg PO DAILY [facility] Last Admin: 12/10/18 10:34 Dose: 10 mg Metoprolol Tartrate (Lopressor -) 25 mg PO BID [facility] Last Admin: 12/10/18 22:04 Dose: 25 mg Multivitamins/Minerals (Theragran-M) 1 each PO DAILY [facility] Last Admin: 12/10/18 10:34 Dose: 1 each Non-Formulary Medication (Pimavanserin Tartrate [Nuplazid]) 34 mg PO DAILY [facility] Tamsulosin HCl (Flomax -) 0.4 mg PO DAILY@0830 [facility] Last Admin: 12/10/18 08:16 Dose: 0.4 mg CBC, BMP 12/10/18 05:31 12/10/18 05:31 todays- Labs Pending Physical Exam S1 S2 RRR Lungs clear Abd- soft, NT edema+ -- chronic PLAN UTI-- on antibiotics-- 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 noted pancytopenia-- repeat labs cardiology eval ,ID, PT OOB pt has a Neurologist at [facility] CT head negative EKG-- noted check orthostasis overall better monitor today Problem List - Problems (1) Syncope Code(s): R55 - SYNCOPE AND COLLAPSE Qualifiers: Syncope type: unspecified Qualified Code(s): R55 - Syncope and collapse (2) UTI (urinary tract infection) Code(s): N39.0 - URINARY TRACT INFECTION, SITE NOT SPECIFIED Qualifiers: Urinary tract infection type: site unspecified Hematuria presence: without hematuria Qualified Code(s): N39.0 - Urinary tract infection, site not specified (3) Altered mental status Code(s): R41.82 - ALTERED MENTAL STATUS, UNSPECIFIED Qualifiers: Altered mental status type: disorientation Qualified Code(s): R41.0 - Disorientation, unspecified (4) Dehydration Code(s): E86.0 - DEHYDRATION better d/c fluids f/u labs oob- chair Physical therapy will follow
[2018-12-11] MEDS: CALCIUM 500MG/VIT-D 200 UNITS COMBO TABLET (FP) PO SCH (09:33)
[2018-12-11] MEDS: MULTIVITAMINS THER W-MINERALS COMBO TABLET (FP) PO SCH (09:33)
[2018-12-11] MEDS: DOCUSATE SODIUM 100 MG CAPSULE (FP) PO SCH (09:33)
[2018-12-11] MEDS: APIXABAN 2.5 MG TABLET PO SCH ×2 (09:33→22:48)
[2018-12-11] MEDS: amLODIPine BESYLATE 5 MG TABLET (FP) PO SCH (09:34)
[2018-12-11] MEDS: FOLIC ACID 1 MG TABLET (FP) PO SCH (09:34)
[2018-12-11] MEDS: METOPROLOL TARTRATE 25 MG TABLET (FP) PO SCH ×2 (09:34→22:48)
[2018-12-11] MEDS: METHIMAZOLE 10 MG TABLET (FP) PO SCH (09:34)
--- NOTE | 2018-12-11 09:38 | PN ---
Progress Note, Physician Chief Complaint: seen and examined on tele denies CP, sob, palps TELE: SR, APCs - Current Medication List Current Medications: Active Medications Amlodipine Besylate (Norvasc -) 5 mg PO DAILY [facility] Last Admin: 12/11/18 09:34 Dose: 5 mg Apixaban (Eliquis -) 2.5 mg PO BID [facility] Last Admin: 12/11/18 09:33 Dose: 2.5 mg Atorvastatin Calcium (Lipitor -) 20 mg PO HS [facility] Last Admin: 12/10/18 22:04 Dose: 20 mg Calcium Carbonate/Cholecalciferol (Os-Vladislav 500+D -) 1 tab PO DAILY [facility] Last Admin: 12/11/18 09:33 Dose: 1 tab Docusate Sodium (Colace -) 100 mg PO DAILY [facility] Last Admin: 12/11/18 09:33 Dose: 100 mg Folic Acid (Folic Acid -) 1 mg PO DAILY [facility] Last Admin: 12/11/18 09:34 Dose: 1 mg Ceftriaxone Sodium 1 gm/ (Dextrose) 50 mls @ 100 mls/hr IVPB DAILY [facility]; Protocol Last Admin: 12/10/18 10:35 Dose: 100 mls/hr Methimazole (Tapazole -) 10 mg PO DAILY [facility] Last Admin: 12/11/18 09:34 Dose: 10 mg Metoprolol Tartrate (Lopressor -) 25 mg PO BID [facility] Last Admin: 12/11/18 09:34 Dose: 25 mg Multivitamins/Minerals (Theragran-M) 1 each PO DAILY [facility] Last Admin: 12/11/18 09:33 Dose: 1 each Non-Formulary Medication (Pimavanserin Tartrate [Nuplazid]) 34 mg PO DAILY [facility] Tamsulosin HCl (Flomax -) 0.4 mg PO DAILY@0830 [facility] Last Admin: 12/11/18 09:00 Dose: 0.4 mg - Objective Vital Signs: Vital Signs Temperature 98.7 F 12/11/18 06:00 Pulse Rate 68 12/11/18 06:00 Respiratory Rate 23 H 12/11/18 06:00 Blood Pressure 175/81 H 12/11/18 06:00 O2 Sat by Pulse Oximetry (%) 100 12/10/18 01:28 Constitutional: Yes: No Distress Cardiovascular: Yes: Regular Rate and Rhythm Respiratory: Yes: CTA Bilaterally Gastrointestinal: Yes: Soft Edema: No Labs: CBC, BMP 12/10/18 05:31 12/10/18 05:31 - ....Imaging EKG: Image Reviewed Assessment/Plan Assessment/Plan 83 f hx parkinsons, htn, hld, cva, 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 Syncope: -several unexplained episodes months apart over past few years. Echo unremarkable. 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 Also seen by neuro in past and had unremarkable ct 's, mri brain. Ortho vitals have been normal. Hence she had loop recorder placed ([employer]). In 09/2018 had syncope and loop recorder showed no events. Today loop recorder evaluated and showed no events as well. Thus it does not appear that her syncope is cardiac in etiology. Possibly related to Parkinsons , dehydration, UTI. 2. HTN: -stable on current meds, goal 150/90 3. Hld: -cont statin 4. Hx of dvt: -on eliquis 5. s/p AAA repair: -cont bb, bp control, statin -pt follows with dr erazo cardiac mendieta stable for dc
[2018-12-11] MEDS: CEFTRIAXONE 1 GM in DEXTROSE 5%-WATER - 50 ML IVPB SCH (09:43)
--- NOTE | 2018-12-11 12:52 | PN ---
Progress Note, Physician - Current Medication List Current Medications: Active Medications Amlodipine Besylate (Norvasc -) 5 mg PO DAILY [facility] Last Admin: 12/11/18 09:34 Dose: 5 mg Apixaban (Eliquis -) 2.5 mg PO BID [facility] Last Admin: 12/11/18 09:33 Dose: 2.5 mg Atorvastatin Calcium (Lipitor -) 20 mg PO HS [facility] Last Admin: 12/10/18 22:04 Dose: 20 mg Calcium Carbonate/Cholecalciferol (Os-Vladislav 500+D -) 1 tab PO DAILY [facility] Last Admin: 12/11/18 09:33 Dose: 1 tab Docusate Sodium (Colace -) 100 mg PO DAILY [facility] Last Admin: 12/11/18 09:33 Dose: 100 mg Folic Acid (Folic Acid -) 1 mg PO DAILY [facility] Last Admin: 12/11/18 09:34 Dose: 1 mg Ceftriaxone Sodium 1 gm/ (Dextrose) 50 mls @ 100 mls/hr IVPB DAILY [facility]; Protocol Last Admin: 12/11/18 09:43 Dose: 100 mls/hr Methimazole (Tapazole -) 10 mg PO DAILY [facility] Last Admin: 12/11/18 09:34 Dose: 10 mg Metoprolol Tartrate (Lopressor -) 25 mg PO BID [facility] Last Admin: 12/11/18 09:34 Dose: 25 mg Multivitamins/Minerals (Theragran-M) 1 each PO DAILY [facility] Last Admin: 12/11/18 09:33 Dose: 1 each Non-Formulary Medication (Pimavanserin Tartrate [Nuplazid]) 34 mg PO DAILY [facility] Tamsulosin HCl (Flomax -) 0.4 mg PO DAILY@0830 [facility] Last Admin: 12/11/18 09:00 Dose: 0.4 mg - Objective Vital Signs: Vital Signs Temperature 98.7 F 12/11/18 06:00 Pulse Rate 78 12/11/18 10:00 Respiratory Rate 21 H 12/11/18 10:00 Blood Pressure 121/101 H 12/11/18 10:00 O2 Sat by Pulse Oximetry (%) 100 12/10/18 01:28 Labs: CBC, BMP 12/10/18 05:31 12/10/18 05:31
[2018-12-11] MEDS: SODIUM CHLORIDE 1,000 ML IV SCH (19:45)
[2018-12-11] MEDS: ATORVASTATIN CA 20 MG TABLET (FP) PO SCH (22:48)
[2018-12-11] MEDS: CARBIDOPA/LEVODOPA 25/100 TABLET (FP) PO SCH (22:48)
[2018-12-11] MEDS: PATIENT'S OWN MEDICATION (NON-FORMULARY) (Pimavanserin Tartrate [Nuplazid] 34 MG) PO SCH (22:48)
[2018-12-12] MEDS: CARBIDOPA/LEVODOPA 25/100 TABLET (FP) PO SCH (05:41)
[2018-12-12 06:40] LABS: BASO % 0.8 % (0-2.0); EOS % 2.1 % (0-4.5); HEMATOCRIT 27.3 % (32.4-45.2); HEMOGLOBIN 9.2 GM/dL (10.7-15.3); LYMPH % 25.4 % (8-40); MCH 30.5 pg (25.7-33.7); MCHC 33.6 g/dl (32.0-36.0); MEAN CELL VOLUME 90.5 fl (80-96); MEAN PLT VOLUME 9.1 fl (7.5-11.1); MONO % 10.5 % (3.8-10.2); NEUT % 61.2 % (42.8-82.8); RBC 3.02 M/mm3 (3.60-5.2); RDW 15.2 % (11.6-15.6); WHITE BLOOD COUNT 3.6 K/mm3 (4.0-10.0)
[2018-12-12 07:03] LABS: ALBUMIN 3.3 g/dl (3.4-5.0); BILIRUBIN,TOTAL 0.4 mg/dL (0.2-1); BLOOD UREA NITROGEN 16.2 mg/dL (7-18); CALCIUM 8.9 mg/dL (8.5-10.1); POTASSIUM 3.7 mmol/L (3.5-5.1); TOT PROT 6.4 g/dl (6.4-8.2)
[2018-12-12] MEDS ORDERED: DEXTROSE 5%-WATER - 50 ML IVPB ONE (09:59)
[2018-12-12] MEDS ORDERED: PT OWN MED DRAWER 7, Y5N ONE (09:59)
[2018-12-12] MEDS ORDERED: cefTRIAXone SODIUM 1 GM VIAL ONE (09:59)
--- NOTE | 2018-12-12 09:59 | DS ---
Physical Examination Vital Signs: Vital Signs Temperature 98.3 F 12/12/18 06:00 Pulse Rate 77 12/12/18 08:00 Respiratory Rate 18 12/12/18 08:00 Blood Pressure 160/100 12/12/18 08:00 O2 Sat by Pulse Oximetry (%) 100 12/10/18 01:28 Findings/Remarks: feels good no complains Constitutional: Yes: No Distress Eyes: Yes: Conjunctiva Clear Neck: Yes: Supple Cardiovascular: Yes: Regular Rate and Rhythm Respiratory: Yes: CTA Bilaterally Gastrointestinal: Yes: Soft Edema: LLE: Trace, RLE: Trace Neurological: Yes: Alert Psychiatric: Yes: Alert Labs: CBC, BMP 12/12/18 05:45 12/12/18 05:45 Discharge Summary Reason For Visit: URINARY TRACT INFECTION,SYNCOPE Current Active Problems Syncope (Acute) UTI (urinary tract infection) (Acute) Hospital Course: much better stable for d/c on po abx gets dizzy--d/c flomax meds reconcilled discussed with pt-- in agreement discussed with nursing staff also f/u in office - one week Condition: Stable - Instructions Disposition: HOME - Home Medications Comprehensive Discharge Medication List: Ambulatory Orders Docusate Sodium [Colace -] 100 mg PO DAILY 11/10/13 Atorvastatin Calcium 20 mg PO DAILY #30 01/31/15 Calcium Carbonate/Vitamin D3 [Calcium 600-Vit D3 800 Caplet] 1 each PO DAILY 07/21 Methimazole [Tapazole -] 10 mg PO DAILY 04/06/15 Apixaban [Eliquis -] 2.5 mg PO BID #0 tablet 06/12/16 Folic Acid 1 mg PO DAILY 08/01/16 Megestrol Acetate Oral Susp [Megace Oral Suspension -] 40 mg PO DAILY 08/01/16 Carbidopa/Levodopa 25/100 [Sinemet 25/100 -] 1 each PO TID #90 tablet 08/07/16 Amlodipine Besylate [Norvasc -] 5 mg PO ASDIR 12/09/18 Bethanechol Chloride [Urecholine] 50 mg PO TID 12/09/18 Meclizine HCl [Antivert -] 25 mg PO TID PRN #15 tablet 12/09/18 Metoprolol Tartrate [Lopressor -] 25 mg PO ASDIR 12/09/18 Multivitamin/Iron/Folic Acid [Centrum Women Tablet] 1 each PO DAILY 12/09/18 Pimavanserin Tartrate [Nuplazid] 34 mg PO DAILY 12/09/18 Potassium Citrate 1,620 gm MC DAILY 12/09/18 Cephalexin Monohydrate [Keflex -] 500 mg PO BID #14 capsule 12/12/18
[2018-12-12 10:07] LABS: PLATELET COUNT 160 K/MM3 (134-434)
[2018-12-12] MEDS: CEFTRIAXONE 1 GM in DEXTROSE 5%-WATER - 50 ML IVPB SCH (10:09)
[2018-12-12] MEDS: TAMSULOSIN HCL 0.4 MG CAP PO SCH (10:13)
[2018-12-12] MEDS: DOCUSATE SODIUM 100 MG CAPSULE (FP) PO SCH (10:13)
[2018-12-12] MEDS: amLODIPine BESYLATE 5 MG TABLET (FP) PO SCH (10:13)
[2018-12-12] MEDS: APIXABAN 2.5 MG TABLET PO SCH (10:13)
[2018-12-12] MEDS: FOLIC ACID 1 MG TABLET (FP) PO SCH (10:13)
[2018-12-12] MEDS: CALCIUM 500MG/VIT-D 200 UNITS COMBO TABLET (FP) PO SCH (10:14)
[2018-12-12] MEDS: PATIENT'S OWN MEDICATION (NON-FORMULARY) (Pimavanserin Tartrate [Nuplazid] 34 MG) PO SCH (10:14)
[2018-12-12] MEDS: METHIMAZOLE 10 MG TABLET (FP) PO SCH (10:15)
[2018-12-12] MEDS: MULTIVITAMINS THER W-MINERALS COMBO TABLET (FP) PO SCH (10:16)
[2018-12-12] MEDS: METOPROLOL TARTRATE 25 MG TABLET (FP) PO SCH (10:16)
--- NOTE | 2018-12-12 11:07 | PN ---
Progress Note (short form) - Note Progress Note: s: no cp sob palps dizzy TELE: SR - Current Medication List Current Medications Generic Name Dose Route Start Last Admin Trade Name Pasquale PRN Reason Stop Dose Admin Amlodipine Besylate 5 mg 12/09/18 23:57 12/12/18 10:13 Norvasc - PO 5 mg DAILY [facility] Administration Apixaban 2.5 mg 12/10/18 10:00 12/12/18 10:13 Eliquis - PO 2.5 mg BID [facility] Administration Atorvastatin Calcium 20 mg 12/10/18 22:00 12/11/18 22:48 Lipitor - PO 20 mg HS [facility] Administration Calcium Carbonate/Cholecalciferol 1 tab 12/10/18 10:00 12/12/18 10:14 Os-Vladislav 500+D - PO 1 tab DAILY [facility] Administration Carbidopa/Levodopa 1 each 12/11/18 22:00 12/12/18 05:41 Sinemet 25/100 - PO 1 each TID [facility] Administration Docusate Sodium 100 mg 12/10/18 10:00 12/12/18 10:13 Colace - PO 100 mg DAILY [facility] Administration Folic Acid 1 mg 12/10/18 10:00 12/12/18 10:13 Folic Acid - PO 1 mg DAILY [facility] Administration Ceftriaxone Sodium 1 gm/ 50 mls @ 100 mls/hr 12/10/18 10:00 12/12/18 10:09 Dextrose IVPB 100 mls/hr DAILY [facility] Administration Protocol Methimazole 10 mg 12/10/18 10:00 12/12/18 10:15 Tapazole - PO 10 mg DAILY [facility] Administration Metoprolol Tartrate 25 mg 12/09/18 23:58 12/12/18 10:16 Lopressor - PO 25 mg BID [facility] Administration Multivitamins/Minerals 1 each 12/10/18 10:00 12/12/18 10:16 Theragran-M PO 1 each DAILY [facility] Administration Non-Formulary Medication 34 mg 12/11/18 20:30 12/12/18 10:14 Pimavanserin Tartrate [Nuplazid] PO 34 mg DAILY [facility] Administration Tamsulosin HCl 0.4 mg 12/10/18 08:30 12/12/18 10:13 Flomax - PO 0.4 mg DAILY@0830 [facility] Administration - Objective Vital Signs: Vital Signs Period Temp Pulse Resp BP Sys/Francis Pulse Ox Last 24 Hr 98.3 F-98.7 F 62-77 14-23 119-160/66-100 Constitutional: Yes: No Distress no jvd Cardiovascular: Yes: Regular Rate and Rhythm Respiratory: Yes: CTA Bilaterally, nl eff Gastrointestinal: Yes: Soft nt nd pos bs no jaundice diaphoresis aao3 Edema: No Labs: CBC, BMP 12/12/18 05:45 12/12/18 05:45 carotids 12/2018: no sig stenosis Assessment/Plan 83 f hx parkinsons, htn, hld, cva, 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 Syncope: -several unexplained episodes months apart over past few years. Echo unremarkable. 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 Also seen by neuro in past and had unremarkable ct 's, mri brain. Ortho vitals have been normal. Hence she had loop recorder placed ([employer]). In 09/2018 had syncope and loop recorder showed no events. Today loop recorder evaluated and showed no events as well. Thus it does not appear that her syncope is cardiac in etiology. Possibly related to Parkinsons , dehydration, UTI. 2. HTN: -stable on current meds 3. Hld: -cont statin 4. Hx of dvt: -on eliquis 5. s/p AAA repair: -cont bb, bp control, statin -pt follows with dr erazo cardiac mendieta stable for dc, dc tele
[2018-12-12 12:00] VITALS: BP 148/79; PULSE 78; TEMP 98.5
== END 2018-12-12 13:20 | disposition home or self-care (01) | DRG 690 ==
LOC: JER 19:25 → JERBED 22:07 → J2W 12-10 03:40
PROVIDERS: ADMIT Internal Medicine; ATTEND Internal Medicine
DX: N39.0 Urinary tract infection, site not specified (principal); R55 Syncope and collapse; G20 Parkinson's disease; F03.90 Unspecified dementia, unspecified severity, without behavioral disturbance, psychotic disturbance, mood disturbance, and anxiety; I10 Essential (primary) hypertension; Z85.038 Personal history of other malignant neoplasm of large intestine; E05.90 Thyrotoxicosis, unspecified without thyrotoxic crisis or storm; R26.9 Unspecified abnormalities of gait and mobility; E86.0 Dehydration; E78.5 Hyperlipidemia, unspecified
CPT/HCPCS: 36415; 70450-TC; 80048; 80053; 81003; 83735; 84100; 84484; 85025; 85027; 85610; 85730; 87086; 93005; 93010; 93880-TC; 97116-GP; 97161-GP; 99283-25; 99285-25; J0131; J7030

== ENCOUNTER 2018-12-19 14:56 | Inpatient (IN) | payer OTHER, MEDICARE ==
--- NOTE | 2018-12-19 16:14 | PDOC ---
History of Present Illness - History of Present Illness Initial Comments: Kath Lord is an 83yo woman with a PMH of Parkinson's w/ gait instability , dementia, HTN, HLD, AAA s/p repair, previous CVA, chronic LE weakness, anemia , h/o DVT on lifelong anticoagulation, hyperthyroidism, h/o colorectal CA s/p ostomy s/p reversal, h/o multiple episodes of syncope s/p implantable loop recorder placement in September (no events on interrogation) who presents with LE weakness today. She says that she has been feeling well since leaving the hospital last week, and this morning she felt fine. She says that she ate well, was walking around the house normally, and did not have any issue until this afternoon. In the early afternoon she tried to get up to go to the bathroom, and she felt that her "legs wound not support her." Her daughter states that Ms Lord was also leaning forward in her chair more than normal today. She denies any headache, chest pain, SOB, abdominal pain, nausea/vomiting, change in bowel habits, continued urinary symptoms, fever/chills, or other recent symptoms. She denies any fall or injury due to the episode of weakness today. She is unable to say whether her legs feel weak on arrival to the ED. <Rebeca Friedman - Last Filed: 12/19/18 19:26> <Radha Gillis - Last Filed: 12/21/18 10:19> - General Chief Complaint: Weakness Stated Complaint: DIFFICULTY OF BREATHINGS Time Seen by Provider: 12/19/18 15:07 Past History - Past Medical History Anemia: Yes Asthma: No Cancer: Yes (COLON s/p Chemotherapy 5 yrs ago) Cardiac Disorders: Yes (Mini Strokes) CVA: Yes (TIA's) COPD: No CHF: No Dementia: No Diabetes: No GI Disorders: Yes Disorders: Yes (UTI's in the past, 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) HTN: Yes Hypercholesterolemia: Yes Liver Disease: No Seizures: No Thyroid Disease: Yes (HYPERTHYROID DISEASE) - Surgical History Abdominal Surgery: Yes (COLON RESECTION/COLOSTOMY; S/O AAA REPAIR) Appendectomy: No Cardiac Surgery: No Cholecystectomy: No Lung Surgery: No Neurologic Surgery: No Orthopedic Surgery: No - Immunization History Immunization Up to Date: Yes - Suicide/Smoking/Psychosocial Hx Smoking Status: No Smoking History: Never smoked Have you smoked in the past 12 months: No Number of Cigarettes Smoked Daily: 0 If you are a former smoker, when did you quit?: 1989 Hx Alcohol Use: No Drug/Substance Use Hx: No Substance Use Type: None Hx Substance Use Treatment: No <Rebeca Friedman - Last Filed: 12/19/18 19:26> <Radha Gillis - Last Filed: 12/21/18 10:19> - Past Medical History Allergies/Adverse Reactions: Allergies Allergy/AdvReac Type Severity Reaction Status Date / Time iodine [Iodine] Allergy Mild Hives Verified 12/19/18 15:31 SHELLFISH Allergy Uncoded 12/19/18 15:31 Home Medications: Ambulatory Orders Docusate Sodium [Colace -] 100 mg PO DAILY 11/10/13 Atorvastatin Calcium 20 mg PO DAILY #30 01/31/15 Calcium Carbonate/Vitamin D3 [Calcium 600-Vit D3 800 Caplet] 1 each PO DAILY 07/21 Methimazole [Tapazole -] 10 mg PO DAILY 04/06/15 Apixaban [Eliquis -] 2.5 mg PO BID #0 tablet 06/12/16 Folic Acid 1 mg PO DAILY 08/01/16 Megestrol Acetate Oral Susp [Megace Oral Suspension -] 40 mg PO DAILY 08/01/16 Carbidopa/Levodopa 25/100 [Sinemet 25/100 -] 1 each PO TID #90 tablet 08/07/16 Amlodipine Besylate [Norvasc -] 5 mg PO ASDIR 12/09/18 Bethanechol Chloride [Urecholine] 50 mg PO TID 12/09/18 Metoprolol Tartrate [Lopressor -] 25 mg PO ASDIR 12/09/18 Multivitamin/Iron/Folic Acid [Centrum Women Tablet] 1 each PO DAILY 12/09/18 Pimavanserin Tartrate [Nuplazid] 34 mg PO DAILY 12/09/18 Potassium Citrate 1,620 gm MC DAILY 12/09/18 Review of Systems - Review of Systems Comments:: General: No fevers, no chills, no weight or appetite change, no malaise HEENT: No changes in vision, no changes in hearing, no congestion, no sore throat CV: No chest pain, no palpitations, no LE edema Pulm: No SOB, no cough, no wheezing GI: No nausea or vomiting, no change in bowel habits, no melena : No frequency, no urgency, no dysuria Musc: No back pain, no joint swelling, no recent injury Skin: No rash, no lesions, no erythema Endo: No excessive thirst, no heat/cold intolerance Heme: No unusual bruising or bleeding, no swollen glands Neuro: No syncope, no numbness/tingling, no focal weakness Vasc: No claudication Psych: No recent change in mood, no SI or HI <Rebeca Friedman - Last Filed: 12/19/18 19:26> *Physical Exam - Vital Signs Last Vital Signs Temp Pulse Resp BP Pulse Ox 98.1 F 79 20 180/91 H 98 12/19/18 15:31 12/19/18 15:31 12/19/18 15:31 12/19/18 15:31 12/19/18 15:31 <Rebeca Friedman - Last Filed: 12/19/18 19:26> - Vital Signs Last Vital Signs Temp Pulse Resp BP Pulse Ox 98.4 F 65 18 154/84 99 12/21/18 06:00 12/21/18 06:00 12/21/18 06:00 12/21/18 06:00 12/20/18 21:00 <Radha Gillis - Last Filed: 12/21/18 10:19> ED Treatment Course - LABORATORY CBC & Chemistry Diagram: 12/19/18 15:34 12/19/18 15:34 - RADIOLOGY Radiology Studies Ordered: Category Date Time Status CHEST X-RAY PORTABLE* [RAD] Stat Radiology 12/19/18 15:30 Ordered <Rebeca Friedman - Last Filed: 12/19/18 19:26> - LABORATORY CBC & Chemistry Diagram: 12/20/18 05:56 12/20/18 05:56 - ADDITIONAL ORDERS Additional order review: 12/19/18 17:30 Blood Culture - Preliminary Blood - Peripheral Venous NO GROWTH OBTAINED AFTER 24 HOURS, INCUBATION TO CONTINUE FOR 4 DAYS. 12/19/18 17:30 Blood Culture - Preliminary Blood - Peripheral Venous NO GROWTH OBTAINED AFTER 24 HOURS, INCUBATION TO CONTINUE FOR 4 DAYS. 12/19/18 15:34 RBC 3.13 L MCV 90.3 MCHC 33.5 RDW 15.9 H MPV 10.4 D Neutrophils % 72.2 Lymphocytes % 18.2 D Monocytes % 7.6 Eosinophils % 0.9 Basophils % 1.1 - Medications Given in the ED: ED Medications Discontinued Medications Generic Name Dose Route Start Last Admin Trade Name Pasquale PRN Reason Stop Dose Admin Acetaminophen 650 mg 12/19/18 16:33 12/19/18 17:46 Tylenol - PO 12/19/18 16:34 650 mg ONCE ONE Administration Ceftriaxone Sodium 1 gm/ 50 mls @ 100 mls/hr 12/19/18 21:45 12/19/18 22:01 Dextrose IVPB 100 mls/hr DAILY [facility] Administration Megestrol Acetate 40 mg 12/20/18 10:00 12/20/18 12:58 Megace Oral Suspension - PO Not Given DAILY [facility] Metoprolol Tartrate 25 mg 12/19/18 19:02 12/19/18 19:46 Lopressor - PO 12/19/18 19:03 25 mg ONCE ONE Administration Sodium Chloride 1,000 ml 12/19/18 16:33 12/19/18 18:12 Normal Saline - IV 12/19/18 16:34 1,000 ml ONCE ONE Administration <Radha Gillis - Last Filed: 12/21/18 10:19> Medical Decision Making - Medical Decision Making 12/19/18 15:42 Kath Lord is an 83yo woman with a PMH of Parkinson's w/ gait instability , dementia, HTN, HLD, AAA s/p repair, previous CVA, chronic LE weakness, anemia , h/o DVT on lifelong anticoagulation, hyperthyroidism, h/o colorectal CA s/p ostomy s/p reversal, h/o multiple episodes of syncope s/p implantable loop recorder placement in September (no events on interrogation) who presents acute worsening of her chronic LE weakness today. She was unable to bear weight, and her daughter said she was too weak to continue sitting in a chair. - Rectal temp slightly elevated at 100.1. May represent infection as she may not have the same inflammatory response as younger patients. - CBC, CMP, UA, lactate, cultures - IVF for possible infection - Difficulty placing IV, will attempt EJ 12/19/18 18:41 - BLood drawn from EJ but IV could not be advanced. Attempts by me and Dr Gillis without success. IV placed by nursing staff. - Labs completed. CBC w/o concerning abnormalities. Slight increase in Cr but no BOO - UA w/ 4300 bacteria, 1+ leuk esterase, 2 WBC. Questionably positive, will wait for cultures - Spoke to Dr Cain regarding admission to med/surg. Will come to evaluate. Discussed with Dr Gillis. Rebeca Friedman PGY1 <Rebeca Friedman - Last Filed: 12/19/18 19:26> *DC/Admit/Observation/Transfer - Discharge Dispostion Decision to Admit order: Yes <Rebeca Friedman - Last Filed: 12/19/18 19:26> - Discharge Dispostion Decision to Admit order: Yes <Radha Gillis - Last Filed: 12/21/18 10:19> Diagnosis at time of Disposition: Unable to ambulate, Weakness, Low grade fever
[2018-12-19 16:21] LABS: MCHC 33.5 g/dl (32.0-36.0)
[2018-12-19 16:27] LABS: BASO % 1.1 % (0-2.0); EOS % 0.9 % (0-4.5); HEMATOCRIT 28.3 % (32.4-45.2); HEMOGLOBIN 9.5 GM/dL (10.7-15.3); LYMPH % 18.2 % (8-40); MCH 30.3 pg (25.7-33.7); MEAN CELL VOLUME 90.3 fl (80-96); MEAN PLT VOLUME 10.4 fl (7.5-11.1); MONO % 7.6 % (3.8-10.2); NEUT % 72.2 % (42.8-82.8); PLATELET COUNT 203 K/MM3 (134-434); RBC 3.13 M/mm3 (3.60-5.2); RDW 15.9 % (11.6-15.6); WHITE BLOOD COUNT 4.1 K/mm3 (4.0-10.0)
[2018-12-19] MEDS ORDERED: ACETAMINOPHEN 325 MG TABLET (FP) PO ONE (16:33)
[2018-12-19] MEDS ORDERED: SODIUM CHLORIDE 0.9% 500 ML INFUS.BAG IV ONE (16:33)
[2018-12-19 17:03] LABS: ALBUMIN 3.6 g/dl (3.4-5.0); ALK PHOS 50 U/L (45-117); ANION GAP 7 MMOL/L (8-16); BILIRUBIN,TOTAL 0.6 mg/dL (0.2-1); BLOOD UREA NITROGEN 22.2 mg/dL (7-18); CALCIUM 8.9 mg/dL (8.5-10.1); CHLORIDE 108 mmol/L (98-107); CO2 25 mmol/L (21-32); CREATININE 1.1 mg/dL (0.55-1.3); GLUCOSE,RANDOM 83 mg/dL (74-106); POTASSIUM 4.7 mmol/L (3.5-5.1); SGOT/AST 31 U/L (15-37); SGPT/ALT 13 U/L (13-61); SODIUM 139 mmol/L (136-145); TOT PROT 7.2 g/dl (6.4-8.2)
--- NOTE | 2018-12-19 17:12 | PDOC ---
Attending Attestation - Resident Resident Name: Rebeca Friedman - ED Attending Attestation I have performed the following: I have examined & evaluated the patient, The case was reviewed & discussed with the resident, I agree w/resident's findings & plan - HPI HPI: 12/19/18 17:32 83 YOF PMH of Parkinson's w/ gait instability, dementia, HTN, HLD, AAA s/p repair, previous CVA, chronic LE weakness, anemia, h/o DVT on lifelong anticoagulation, hyperthyroidism, h/o colorectal CA s/p ostomy s/p reversal, h/ o multiple episodes of syncope now s/p implantable loop recorder Presents with generalized weakness Last admitted 1 week ago for syncope, with several unexplained episodes, with unremarkable echo and carotid stenosis of 50-70% in [place], unremarkable brain imaging. Ortho vitals have been normal. Hence she had loop recorder placed ( [employer]). In 09/2018 had syncope and loop recorder showed no events. Today loop recorder evaluated and showed no events as well. Thus it does not appear that her syncope is cardiac in etiology. Possibly related to Parkinsons, dehydration, UTI. - Physicial Exam PE: 12/19/18 17:34 Agree with the resident's HPI and PE as documented in the electronic medical record. NAD, EOMI, PERRL, nl conjunctiva, anicteric; neck supple. lungs clear, irregular, +holosystolic murmur, anterior chest wall palp loop recorder, abdomen soft nontender. Back nontender. STOVER x4, no focal neuro deficits. No peripheral edema. normal color for ethnicity, WWP. 12/19/18 19:00 - Medical Decision Making 12/19/18 17:34 Vital Signs Temp Pulse Resp BP Pulse Ox 100.1 F H 77 20 189/98 H 99 12/19/18 16:23 12/19/18 18:18 12/19/18 18:18 12/19/18 18:18 12/19/18 18:18 See HPI for details. Prior notes reviewed, including admissions, discharges and consultations. Vital signs reviewed, +hypertensive, LGF laboratory results and imaging reviewed, basic labs and lytes wnl, stable anemia. UA +bacteria, WBC only 2, leuk esterase 1+; recent abx regimen, f/u cultures. CXR_no acute changes, cardiomegaly with loop recorder Cardiac panel_neg, reassuring. EKG normal sinus rhythm at 77 bpm, no interval abnormalities, narrow QRS, ST and T wave segments and morphology normal. Nonspecific T wave abnormalities no prior events on loop recorder per consultations, possible re-interrogation. ED course -interventions: IVF, tylenol for LGF; pending blood and urine cultures. - FUO, ?UTI, currently on OP abx - repeat urine culture as prior was hemolytic strep speciies, no sensitivities. - hypertensive, poorly controlled; took am meds, will give additional metoprolol (on metoprolol 25mg and amlodipine 5mg). admit for weakness, unable to ambulate, declining condition per family and fever workup unsafe for discharge, consideration for PT/placement given declining condition. 12/21/18 10:19
[2018-12-19] MEDS ORDERED: ACETAMINOPHEN 325 MG TABLET (FP) ONE (17:37)
[2018-12-19 17:53] LABS: EPI CELLS 19.4 /HPF (0-5/HPF); HYALINE CASTS 1 /lpf (0-8); PH,URINE 8.5 (5.0-8.0); URINE APPEARANCE CLOUDY; URINE BILIRUBIN NEGATIVE (NEGATIVE); URINE COLOR YELLOW; URINE GLUCOSE (UA) NEGATIVE (NEGATIVE); URINE KETONE NEGATIVE (NEGATIVE); URINE LEUK ESTERASE 1+ (NEGATIVE); URINE NITRITE NEGATIVE (NEGATIVE); URINE PROTEIN TRACE (NEGATIVE); URINE RBC 109 /hpf (0-4); URINE WBC 2 /hpf (0-5)
[2018-12-19] MEDS ORDERED: METOPROLOL TARTRATE 25 MG TABLET (FP) PO ONE (19:02)
[2018-12-19] MEDS ORDERED: METOPROLOL TARTRATE 25 MG TABLET (FP) ONE (19:46)
[2018-12-19] MEDS ORDERED: ACETAMINOPHEN 325 MG TABLET (FP) PO PRN (20:33)
--- NOTE | 2018-12-19 20:48 | HP ---
CHIEF COMPLAINT: Weakness PCP: Dr. Callahan HISTORY OF PRESENT ILLNESS: Thank you Dr. Callahan/Dr. Ayala for allowing us to take part in the ongoing care of your patient. estrella Quesada is an 83 y/o female who was recently DCd from [facility] who presents back with 1 day of noted weakness. Her weakness has been progressing since she was discharged but was notably severe this morning limiting ambulation. She had no focal neurologic symptoms and had 5/5 strength in b/l LE on exam; did not check gait due to percieved weakness. She has no syncope or LOC. No associated dizziness.She normally ambulates with a cane or walker but hasn't been able to do so lately. States that she has been compliant with her medical treatment at home. She lives with her partner. She has limited functional capacity and needs help with all IADLs but can complete most ADLs. She was discharged from here on 12/12 on PO abx for UTI and had tamsulosin discontinued at that time; she was seen for syncope and her loop recorder had no events at that time thus it was felt by Dr. Yu that her syncope was non-cardiac on said admit. 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 Family History: Asked and noncontributory Allergies iodine [Iodine] Allergy (Mild, Verified 12/19/18 15:31) Hives SHELLFISH Allergy (Uncoded 12/19/18 15:31) HOME MEDICATIONS: Home Medications Medication Instructions Recorded Docusate Sodium [Colace -] 100 mg PO DAILY 11/10/13 Atorvastatin Calcium 20 mg PO DAILY #30 01/31/15 Calcium Carbonate/Vitamin D3 1 each PO DAILY 04/06/15 [Calcium 600-Vit D3 800 Caplet] Methimazole [Tapazole -] 10 mg PO DAILY 04/06/15 Apixaban [Eliquis -] 2.5 mg PO BID #0 tablet 06/12/16 Folic Acid 1 mg PO DAILY 08/01/16 Megestrol Acetate Oral Susp 40 mg PO DAILY 08/01/16 [Megace Oral Suspension -] Carbidopa/Levodopa 25/ [Sinemet 1 each PO TID #90 tablet 08/07/16/ -] Amlodipine Besylate [Norvasc -] 5 mg PO ASDIR 12/09/18 Bethanechol Chloride [Urecholine] 50 mg PO TID 12/09/18 Metoprolol Tartrate [Lopressor -] 25 mg PO ASDIR 12/09/18 Multivitamin/Iron/Folic Acid 1 each PO DAILY 12/09/18 [Centrum Women Tablet] Pimavanserin Tartrate [Nuplazid] 34 mg PO DAILY 12/09/18 Potassium Citrate 1,620 gm MC DAILY 12/09/18 REVIEW OF SYSTEMS 10 sys ROS done and negative aside from HPI PHYSICAL EXAMINATION Vital Signs - 24 hr 12/19/18 12/19/18 12/19/18 15:31 16:23 18:18 Temperature 98.1 F 100.1 F H Pulse Rate 79 Pulse Rate [ 77 Radial] Respiratory 20 20 Rate Blood Pressure 180/91 H Blood Pressure 189/98 H [Right Arm] O2 Sat by Pulse 98 99 Oximetry (%) 12/19/18 19:04 Temperature Pulse Rate Pulse Rate [ Radial] Respiratory Rate Blood Pressure Blood Pressure [Right Arm] O2 Sat by Pulse 98 Oximetry (%) GENERAL: Awake, alert, and oriented x3, in no acute distress. HEAD: Normal with no signs of trauma. EYES: Pupils equal, round and reactive to light, extraocular movements intact, sclera anicteric, conjunctiva clear. No lid lag. EARS, NOSE, THROAT: Ears normal, nares patent, oropharynx clear without exudates. Moist mucous membranes. NECK: Normal range of motion, supple without lymphadenopathy, JVD, or masses. LUNGS: Breath sounds equal, clear to auscultation bilaterally. No wheezes, and no crackles. No accessory muscle use. HEART: Regular rate and rhythm, normal S1 and S2 without murmur, rub or gallop. ABDOMEN: Soft, nontender, not distended, normoactive bowel sounds, no guarding, no rebound, no masses. No hepatomegaly or splenomegaly. MUSCULOSKELETAL: Normal range of motion at all joints. No bony deformities or tenderness. No CVA tenderness. UPPER EXTREMITIES: 2+ pulses, warm, well-perfused. No cyanosis. No clubbing. No peripheral edema. LOWER EXTREMITIES: 2+ pulses, warm, well-perfused. No calf tenderness. No peripheral edema. NEUROLOGICAL: Cranial nerves II-XII intact. Normal speech. Normal gait. PSYCHIATRIC: Cooperative. Good eye contact. Appropriate mood and affect. SKIN: Warm, dry, normal turgor, no rashes or lesions noted, normal capillary refill. Laboratory Results - last 24 hr 12/19/18 12/19/18 12/19/18 15:34 15:34 17:15 WBC 4.1 RBC 3.13 L Hgb 9.5 L Hct 28.3 L MCV 90.3 MCH 30.3 MCHC 33.5 RDW 15.9 H Plt Count 203 D MPV 10.4 D Absolute Neuts (auto) 3.0 Neutrophils % 72.2 Lymphocytes % 18.2 D Monocytes % 7.6 Eosinophils % 0.9 Basophils % 1.1 Nucleated RBC % 0 Sodium 139 Potassium 4.7 Chloride 108 H Carbon Dioxide 25 Anion Gap 7 L BUN 22.2 H Creatinine 1.1 Est GFR (CKD-EPI)AfAm 53.02 Est GFR (CKD-EPI)NonAf 45.74 Random Glucose 83 Lactic Acid 1.0 Calcium 8.9 Total Bilirubin 0.6 AST 31 ALT 13 Alkaline Phosphatase 50 Creatine Kinase 124 Troponin I < 0.02 Total Protein 7.2 Albumin 3.6 Urine Color Urine Appearance Urine pH Ur Specific Lafferty Urine Protein Urine Glucose (UA) Urine Ketones Urine Blood Urine Nitrite Urine Bilirubin Urine Urobilinogen Ur Leukocyte Esterase Urine WBC (Auto) Urine RBC (Auto) Urine Casts (Auto) U Epithel Cells (Auto) Urine Bacteria (Auto) 12/19/18 17:30 WBC RBC Hgb Hct MCV MCH MCHC RDW Plt Count MPV Absolute Neuts (auto) Neutrophils % Lymphocytes % Monocytes % Eosinophils % Basophils % Nucleated RBC % Sodium Potassium Chloride Carbon Dioxide Anion Gap BUN Creatinine Est GFR (CKD-EPI)AfAm Est GFR (CKD-EPI)NonAf Random Glucose Lactic Acid Calcium Total Bilirubin AST ALT Alkaline Phosphatase Creatine Kinase Troponin I Total Protein Albumin Urine Color Yellow Urine Appearance Cloudy Urine pH 8.5 H Ur Specific Lafferty 1.016 Urine Protein Trace Urine Glucose (UA) Negative Urine Ketones Negative Urine Blood 3+ H Urine Nitrite Negative Urine Bilirubin Negative Urine Urobilinogen 1.0 Ur Leukocyte Esterase 1+ H Urine WBC (Auto) 2 Urine RBC (Auto) 109 Urine Casts (Auto) 1 U Epithel Cells (Auto) 19.4 Urine Bacteria (Auto) 4309.0 Recent dopplers reviewed; no significant stenosis ASSESSMENT/PLAN: Patient presents to the hospital with weakness; may require placement. Found to have low grade fever and she is finishing up abx for UTI. 1) Weakness/Deconditioning -LE weakness today but 5/5 on exam, some difficulty ambulating reported. Prior history noted. No focal neuro symptoms, etc. She is at her neurological baseline when I saw her in the ER. Family agrees she may need placed or at least a rehab eval. -Check B12, TSH. PT consult. CM consult. Appreciate expert help. -Neuro checks overnight; should any focal symptoms become evident check neuroimaging but this does not appear to be the issue -She is compliant with her Parkinson's medications; would recommend close followup with neurology to titrate if needed. No dysphagia, etc. 2) Low-grade fever with recent UTI -Sent home on PO abx; cx from last admit grew alpha hemolytic strep and gemella ; no sensitivities given. Checking blood and urine cultures and will change back to IV ceftriaxone. Trend CBC. No pneumonia on CXR. If no further fevers can likely change back to PO regimine in the AM 3) Parkinson's Disease -Continue home medications. Close followup with neuro 4) Recent Syncope -Had tamsulosin DCd and loop reviewed on last admit; no syncope this time. Monitor. Reviewed prior studies (dopplers, etc.) 5) DVT -Continue lifelong AC with eliquis; SCDs for DVT px 6) Hx HTN -Continue home meds; elevated in ER but didnt get PM BB. Reassess after medication. If remains elevated can try IV hydralazine and investigate further 7) S/P AAA repair -Continue with BP control 8) Dementia -Daughter is HCP but she has 3 children who will make decisions.
[2018-12-19] MEDS ORDERED: CARBIDOPA/LEVODOPA 25/100 TABLET (FP) ONE (21:13)
[2018-12-19] MEDS ORDERED: APIXABAN 5 MG TABLET PO ONE (21:13)
[2018-12-19] MEDS ORDERED: ATORVASTATIN CA 20 MG TABLET (FP) ONE (21:13)
[2018-12-19] MEDS ORDERED: CEFTRIAXONE 1 GM/50 ML BAG ONE (21:34)
[2018-12-19] MEDS ORDERED: CEFTRIAXONE 1 GM in DEXTROSE 5%-WATER - 50 ML IVPB SCH (21:45)
[2018-12-19] MEDS: ATORVASTATIN CA 20 MG TABLET (FP) PO SCH (22:01)
[2018-12-19] MEDS: APIXABAN 2.5 MG TABLET PO SCH (22:01)
[2018-12-19] MEDS: METOPROLOL TARTRATE 25 MG TABLET (FP) PO SCH (22:02)
[2018-12-19] MEDS: BETHANECHOL CHLORIDE 25 MG TABLET PO SCH (22:02)
[2018-12-19] MEDS: CARBIDOPA/LEVODOPA 25/100 TABLET (FP) PO SCH (22:02)
[2018-12-20] MEDS ORDERED: PT OWN MED DRAWER 7, Y5N ONE ×5 (05:50→14:14)
[2018-12-20 06:14] VITALS: BMI 22.4
[2018-12-20] MEDS: BETHANECHOL CHLORIDE 25 MG TABLET PO SCH ×3 (06:14→22:12)
[2018-12-20] MEDS: CARBIDOPA/LEVODOPA 25/100 TABLET (FP) PO SCH ×3 (06:15→22:11)
[2018-12-20 07:42] LABS: BASO % 1.3 % (0-2.0); EOS % 1.9 % (0-4.5); HEMATOCRIT 27.2 % (32.4-45.2); LYMPH % 24.5 % (8-40); MCH 30.1 pg (25.7-33.7); MCHC 33.1 g/dl (32.0-36.0); MEAN CELL VOLUME 90.7 fl (80-96); MEAN PLT VOLUME 9.2 fl (7.5-11.1); MONO % 12.5 % (3.8-10.2); NEUT % 59.8 % (42.8-82.8); RDW 15.4 % (11.6-15.6); WHITE BLOOD COUNT 3.2 K/mm3 (4.0-10.0)
[2018-12-20 08:27] LABS: ALBUMIN 3.2 g/dl (3.4-5.0); ALK PHOS 43 U/L (45-117); ANION GAP 7 MMOL/L (8-16); BILIRUBIN,TOTAL 0.6 mg/dL (0.2-1); BLOOD UREA NITROGEN 18.3 mg/dL (7-18); CALCIUM 8.8 mg/dL (8.5-10.1); CHLORIDE 110 mmol/L (98-107); CO2 23 mmol/L (21-32); GLUCOSE,RANDOM 74 mg/dL (74-106); MAGNESIUM 2.4 mg/dL (1.8-2.4); PHOSPHOROUS 3.1 mg/dL (2.5-4.9); POTASSIUM 3.9 mmol/L (3.5-5.1); SGOT/AST 21 U/L (15-37); SGPT/ALT < 6 U/L (13-61); SODIUM 140 mmol/L (136-145); TOT PROT 6.2 g/dl (6.4-8.2)
[2018-12-20 08:42] LABS: PLATELET COUNT 135 K/MM3 (134-434)
[2018-12-20] MEDS ORDERED: MEGESTROL ACETATE 400 MG/10 ML UNIT DOSE CUP PO SCH (10:00)
[2018-12-20] MEDS ORDERED: cefTRIAXone SODIUM 1 GM VIAL ONE (10:33)
[2018-12-20] MEDS ORDERED: DEXTROSE 5%-WATER - 50 ML IVPB ONE (10:34)
[2018-12-20] MEDS: CEFTRIAXONE 1 GM in DEXTROSE 5%-WATER - 50 ML IVPB SCH (10:42)
[2018-12-20] MEDS: MULTIVITAMINS THER W-MINERALS COMBO TABLET (FP) PO SCH (10:43)
[2018-12-20] MEDS: FOLIC ACID 1 MG TABLET (FP) PO SCH (10:43)
[2018-12-20] MEDS: CALCIUM 500MG/VIT-D 200 UNITS COMBO TABLET (FP) PO SCH (10:43)
[2018-12-20] MEDS: DOCUSATE SODIUM 100 MG CAPSULE (FP) PO SCH (10:43)
[2018-12-20] MEDS: amLODIPine BESYLATE 5 MG TABLET (FP) PO SCH (10:43)
[2018-12-20] MEDS: APIXABAN 2.5 MG TABLET PO SCH ×2 (10:44→22:08)
[2018-12-20] MEDS: METOPROLOL TARTRATE 25 MG TABLET (FP) PO SCH ×2 (10:44→22:12)
[2018-12-20] MEDS: METHIMAZOLE 10 MG TABLET (FP) PO SCH (11:08)
--- NOTE | 2018-12-20 12:00 | PN ---
Progress Note, Physician History of Present Illness: pt seen/ examined chart reviewed awake/ comfortable daughter at bedside no specific complains except weakness denies cp/sob/ abd pain/ urinary burning - Current Medication List Current Medications: Active Medications Acetaminophen (Tylenol -) 650 mg PO Q6H PRN PRN Reason: pain Amlodipine Besylate (Norvasc -) 5 mg PO DAILY [facility] Last Admin: 12/20/18 10:43 Dose: 5 mg Apixaban (Eliquis -) 2.5 mg PO BID [facility] Last Admin: 12/20/18 10:44 Dose: 2.5 mg Atorvastatin Calcium (Lipitor -) 20 mg PO HS [facility] Last Admin: 12/19/18 22:01 Dose: 20 mg Bethanechol Chloride (Urecholine -) 50 mg PO TID [facility] Last Admin: 12/20/18 06:14 Dose: 50 mg Calcium Carbonate/Cholecalciferol (Os-Vladislav 500+D -) 1 tab PO DAILY [facility] Last Admin: 12/20/18 10:43 Dose: 1 tab Carbidopa/Levodopa (Sinemet 25/100 -) 1 each PO TID [facility] Last Admin: 12/20/18 06:15 Dose: 1 each Docusate Sodium (Colace -) 100 mg PO DAILY [facility] Last Admin: 12/20/18 10:43 Dose: 100 mg Folic Acid (Folic Acid -) 1 mg PO DAILY [facility] Last Admin: 12/20/18 10:43 Dose: 1 mg Ceftriaxone Sodium 1 gm/ (Dextrose) 50 mls @ 100 mls/hr IVPB DAILY [facility] Last Admin: 12/20/18 10:42 Dose: 100 mls/hr Megestrol Acetate (Megace Oral Suspension -) 40 mg PO DAILY [facility] Methimazole (Tapazole -) 10 mg PO DAILY [facility] Last Admin: 12/20/18 11:08 Dose: 10 mg Metoprolol Tartrate (Lopressor -) 25 mg PO BID [facility] Last Admin: 12/20/18 10:44 Dose: 25 mg Multivitamins/Minerals (Theragran-M) 1 each PO DAILY [facility] Last Admin: 12/20/18 10:43 Dose: 1 each Non-Formulary Medication (Pimavanserin Tartrate [Nuplazid]) 34 mg PO DAILY [facility] - Objective Vital Signs: Vital Signs Temperature 98.2 F 12/20/18 06:00 Pulse Rate 67 12/20/18 06:00 Respiratory Rate 18 12/20/18 06:00 Blood Pressure 150/80 12/20/18 06:00 O2 Sat by Pulse Oximetry (%) 98 12/19/18 22:03 Eyes: Yes: Conjunctiva Clear Neck: Yes: Supple Cardiovascular: Yes: Regular Rate and Rhythm Respiratory: Yes: CTA Bilaterally Gastrointestinal: Yes: Soft Edema: No Neurological: Yes: Alert Psychiatric: Yes: Alert Labs: CBC, BMP 12/20/18 05:56 12/20/18 05:56 - ....Imaging Chest X-ray: Report Reviewed Problem List - Problems (1) Unable to ambulate Code(s): R26.2 - DIFFICULTY IN WALKING, NOT ELSEWHERE CLASSIFIED (2) Gait disturbance Code(s): R26.9 - UNSPECIFIED ABNORMALITIES OF GAIT AND MOBILITY (3) Parkinsonism Code(s): G20 - PARKINSON'S DISEASE (4) Hyperthyroidism Code(s): E05.90 - THYROTOXICOSIS, UNSP WITHOUT THYROTOXIC CRISIS OR STORM Assessment/Plan Clinically stable Deconditioning physical therapy should benefit with str discussed with pt / daiughter in agreement doubt uti f/u cultures will d/c abx in am oob - chair will follow
[2018-12-20] MEDS: PATIENT'S OWN MEDICATION (NON-FORMULARY) (Pimavanserin Tartrate [Nuplazid] 34 MG) PO SCH (14:32)
--- NOTE | 2018-12-20 17:02 | EKG ---
Test Reason : Blood Pressure : / mmHG Vent. 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
[2018-12-20] MEDS: ATORVASTATIN CA 20 MG TABLET (FP) PO SCH (22:09)
[2018-12-21] MEDS: CARBIDOPA/LEVODOPA 25/100 TABLET (FP) PO SCH ×3 (06:57→22:09)
[2018-12-21] MEDS: BETHANECHOL CHLORIDE 25 MG TABLET PO SCH ×3 (06:58→22:08)
[2018-12-21] MEDS ORDERED: DEXTROSE 5%-WATER - 50 ML IVPB ONE (09:31)
[2018-12-21] MEDS ORDERED: cefTRIAXone SODIUM 1 GM VIAL ONE (09:31)
[2018-12-21] MEDS ORDERED: PT OWN MED DRAWER 7, Y5N ONE ×4 (09:31→22:05)
[2018-12-21] MEDS: CEFTRIAXONE 1 GM in DEXTROSE 5%-WATER - 50 ML IVPB SCH (09:40)
[2018-12-21] MEDS: PATIENT'S OWN MEDICATION (NON-FORMULARY) (Pimavanserin Tartrate [Nuplazid] 34 MG) PO SCH (09:40)
[2018-12-21] MEDS: FOLIC ACID 1 MG TABLET (FP) PO SCH (09:41)
[2018-12-21] MEDS: APIXABAN 2.5 MG TABLET PO SCH ×2 (09:41→22:09)
[2018-12-21] MEDS: amLODIPine BESYLATE 5 MG TABLET (FP) PO SCH (09:41)
[2018-12-21] MEDS: METOPROLOL TARTRATE 25 MG TABLET (FP) PO SCH ×2 (09:41→22:09)
[2018-12-21] MEDS: CALCIUM 500MG/VIT-D 200 UNITS COMBO TABLET (FP) PO SCH (09:41)
[2018-12-21] MEDS: DOCUSATE SODIUM 100 MG CAPSULE (FP) PO SCH (09:41)
[2018-12-21] MEDS: METHIMAZOLE 10 MG TABLET (FP) PO SCH (09:42)
[2018-12-21] MEDS: MULTIVITAMINS THER W-MINERALS COMBO TABLET (FP) PO SCH (09:42)
--- NOTE | 2018-12-21 10:14 | PN ---
Progress Note (short form) - Note Progress Note: pt seen/ examined awake/comfortable feels well. No complains denies n/v/abd pain denies u/b trouble Vital Signs Temp 98.4 F 12/21/18 06:00 Pulse 65 12/21/18 06:00 Resp 18 12/21/18 06:00 BP 154/84 12/21/18 06:00 Pulse Ox 99 12/20/18 21:00 Intake & Output 12/20/18 12/20/18 12/21/18 11:59 23:59 11:59 Intake Total 612 475 Balance 612 475 Weight 126 lb 8 oz 125 lb Intake: IV 0 NS 0 IVPB 50 Oral 425 Oral Supplement 612 Other: Voiding Method Bedpan Bedpan Diaper # Unmeasured Voids Void 1 2 Bowel Movement Yes No No Weight Measurement Method Patient Lift Scale Patient Lift Scale Active Medications Acetaminophen (Tylenol -) 650 mg PO Q6H PRN PRN Reason: pain Amlodipine Besylate (Norvasc -) 5 mg PO DAILY ON [facility] Last Admin: 12/21/18 09:41 Dose: 5 mg Apixaban (Eliquis -) 2.5 mg PO BID ON [facility] Last Admin: 12/21/18 09:41 Dose: 2.5 mg Atorvastatin Calcium (Lipitor -) 20 mg PO HS ON [facility] Last Admin: 12/20/18 22:09 Dose: 20 mg Bethanechol Chloride (Urecholine -) 50 mg PO TID ON [facility] Last Admin: 12/21/18 06:58 Dose: 50 mg Calcium Carbonate/Cholecalciferol (Os-Vladislav 500+D -) 1 tab PO DAILY ON [facility] Last Admin: 12/21/18 09:41 Dose: 1 tab Carbidopa/Levodopa (Sinemet 25/100 -) 1 each PO TID ON [facility] Last Admin: 12/21/18 06:57 Dose: 1 each Docusate Sodium (Colace -) 100 mg PO DAILY ON [facility] Last Admin: 12/21/18 09:41 Dose: 100 mg Folic Acid (Folic Acid -) 1 mg PO DAILY ON [facility] Last Admin: 12/21/18 09:41 Dose: 1 mg Ceftriaxone Sodium 1 gm/ (Dextrose) 50 mls @ 100 mls/hr IVPB DAILY [facility] Last Admin: 12/21/18 09:40 Dose: 100 mls/hr Methimazole (Tapazole -) 10 mg PO DAILY [facility] Last Admin: 12/21/18 09:42 Dose: 10 mg Metoprolol Tartrate (Lopressor -) 25 mg PO BID ON [facility] Last Admin: 12/21/18 09:41 Dose: 25 mg Multivitamins/Minerals (Theragran-M) 1 each PO DAILY [facility] Last Admin: 12/21/18 09:42 Dose: 1 each Non-Formulary Medication (Pimavanserin Tartrate [Nuplazid]) 34 mg PO DAILY ON [facility] Last Admin: 12/21/18 09:40 Dose: 34 mg CBC, BMP 12/20/18 05:56 12/20/18 05:56 Microbiology 12/19/18 17:30 Blood Culture - Preliminary Blood - Peripheral Venous NO GROWTH OBTAINED AFTER 24 HOURS, INCUBATION TO CONTINUE FOR 4 DAYS. 12/19/18 17:30 Blood Culture - Preliminary Blood - Peripheral Venous NO GROWTH OBTAINED AFTER 24 HOURS, INCUBATION TO CONTINUE FOR 4 DAYS. Physical Eyes: Yes: Conjunctiva Clear Neck: Yes: Supple Cardiovascular: Yes: Regular Rate and Rhythm Respiratory: Yes: CTA Bilaterally Gastrointestinal: Yes: Soft, non tender . BS + Edema: No Neurological: Yes: Alert Psychiatric: Yes: Alert - ....Imaging Chest X-ray: Report Reviewed Problem List - Problems (1) Unable to ambulate Code(s): R26.2 - DIFFICULTY IN WALKING, NOT ELSEWHERE CLASSIFIED (2) Gait disturbance Code(s): R26.9 - UNSPECIFIED ABNORMALITIES OF GAIT AND MOBILITY (3) Parkinsonism Code(s): G20 - PARKINSON'S DISEASE (4) Hyperthyroidism Code(s): E05.90 - THYROTOXICOSIS, UNSP WITHOUT THYROTOXIC CRISIS OR STORM Assessment/Plan Clinically stable Deconditioning physical therapy should benefit with str discussed with pt / daughter in agreement doubt uti d/c abx oob - chair str discussed with employment case manager also stable for d/c tp str will follow Problem List - Problems (1) Unable to ambulate Code(s): R26.2 - DIFFICULTY IN WALKING, NOT ELSEWHERE CLASSIFIED (2) Gait disturbance Code(s): R26.9 - UNSPECIFIED ABNORMALITIES OF GAIT AND MOBILITY (3) Parkinsonism Code(s): G20 - PARKINSON'S DISEASE (4) Hyperthyroidism Code(s): E05.90 - THYROTOXICOSIS, UNSP WITHOUT THYROTOXIC CRISIS OR STORM
--- NOTE | 2018-12-21 10:45 | DS ---
Physical Examination Vital Signs: Vital Signs Temperature 98.3 F 12/21/18 10:00 Pulse Rate 64 12/21/18 10:00 Respiratory Rate 18 12/21/18 10:00 Blood Pressure 143/84 12/21/18 10:00 O2 Sat by Pulse Oximetry (%) 99 12/20/18 21:00 Findings/Remarks: see today progress note. Labs: CBC, BMP 12/20/18 05:56 12/20/18 05:56 Discharge Summary Reason For Visit: UNABLE TO WALK Current Active Problems Hyperthyroidism (Acute) Low grade fever (Acute) Unable to ambulate (Acute) Weakness (Acute) Hospital Course: Admitted due to weakness Deconditioned Stable for d/c to str Condition: Stable - Instructions [facility]position[facility] - Home Medications Comprehensive Discharge Medication List: Ambulatory Orders Docusate Sodium [Colace -] 100 mg PO DAILY 11/10/13 Atorvastatin Calcium 20 mg PO DAILY #30 01/31/15 Calcium Carbonate/Vitamin D3 [Calcium 600-Vit D3 800 Caplet] 1 each PO DAILY 07/21 Methimazole [Tapazole -] 10 mg PO DAILY 04/06/15 Apixaban [Eliquis -] 2.5 mg PO BID #0 tablet 06/12/16 Folic Acid 1 mg PO DAILY 08/01/16 Carbidopa/Levodopa 25/100 [Sinemet 25/100 -] 1 each PO TID #90 tablet 08/07/16 Amlodipine Besylate [Norvasc -] 5 mg PO ASDIR 12/09/18 Bethanechol Chloride [Urecholine] 50 mg PO TID 12/09/18 Metoprolol Tartrate [Lopressor -] 25 mg PO ASDIR 12/09/18 Multivitamin/Iron/Folic Acid [Centrum Women Tablet] 1 each PO DAILY 12/09/18 Pimavanserin Tartrate [Nuplazid] 34 mg PO DAILY 12/09/18 Acetaminophen [Tylenol .Regular Strength -] 650 mg PO Q6H PRN tablet 12/21/18
[2018-12-21] MEDS: ATORVASTATIN CA 20 MG TABLET (FP) PO SCH (22:09)
[2018-12-22] MEDS: BETHANECHOL CHLORIDE 25 MG TABLET PO SCH ×2 (05:09→13:35)
[2018-12-22] MEDS: CARBIDOPA/LEVODOPA 25/100 TABLET (FP) PO SCH ×2 (05:09→13:35)
[2018-12-22] MEDS ORDERED: PT OWN MED DRAWER 7, Y5N ONE ×3 (06:38→13:31)
[2018-12-22] MEDS ORDERED: INSULIN (NOVOLOG) ASPART 100 UNITS/ML 10ML VIAL ONE (06:38)
[2018-12-22] MEDS: FOLIC ACID 1 MG TABLET (FP) PO SCH (09:33)
[2018-12-22] MEDS: CALCIUM 500MG/VIT-D 200 UNITS COMBO TABLET (FP) PO SCH (09:33)
[2018-12-22] MEDS: APIXABAN 2.5 MG TABLET PO SCH (09:33)
[2018-12-22] MEDS: METOPROLOL TARTRATE 25 MG TABLET (FP) PO SCH (09:33)
[2018-12-22] MEDS: DOCUSATE SODIUM 100 MG CAPSULE (FP) PO SCH (09:33)
[2018-12-22] MEDS: amLODIPine BESYLATE 5 MG TABLET (FP) PO SCH (09:33)
[2018-12-22] MEDS: MULTIVITAMINS THER W-MINERALS COMBO TABLET (FP) PO SCH (09:33)
[2018-12-22] MEDS: PATIENT'S OWN MEDICATION (NON-FORMULARY) (Pimavanserin Tartrate [Nuplazid] 34 MG) PO SCH (09:34)
[2018-12-22] MEDS: METHIMAZOLE 10 MG TABLET (FP) PO SCH (11:16)
[2018-12-22] MEDS ORDERED: POLYETHYLENE GLYCOL 3350 119 GM BTL PO SCH (15:45)
[2018-12-22 16:14] VITALS: BP 114/68; PULSE 75; TEMP 98.4
== END 2018-12-22 16:57 | DRG 57 ==
LOC: JER 14:56 → JERBED 18:48 → J5S 22:55
PROVIDERS: ADMIT Internal Medicine; ATTEND Internal Medicine
DX: G20 Parkinson's disease (principal); F02.80 Dementia in other diseases classified elsewhere, unspecified severity, without behavioral disturbance, psychotic disturbance, mood disturbance, and anxiety; R26.89 Other abnormalities of gait and mobility; I10 Essential (primary) hypertension; R53.1 Weakness; E78.5 Hyperlipidemia, unspecified; D64.9 Anemia, unspecified; R50.9 Fever, unspecified; E05.90 Thyrotoxicosis, unspecified without thyrotoxic crisis or storm; R55 Syncope and collapse; R26.2 Difficulty in walking, not elsewhere classified; Z85.038 Personal history of other malignant neoplasm of large intestine; Z86.718 Personal history of other venous thrombosis and embolism; Z86.73 Personal history of transient ischemic attack (TIA), and cerebral infarction without residual deficits
CPT/HCPCS: 36415; 71045-TC-FY; 80053; 81003; 82550; 82962; 83605; 83735; 84100; 84436; 84443; 84484; 85025; 87040; 87086; 87186; 93005; 93010; 97116-GP; 97161-GP; 99285-25

== ENCOUNTER 2019-03-11 12:17 | Emergency (ER) | payer OTHER, MEDICARE ==
[2019-03-11 12:24] VITALS: TEMP 98.1; BMI 20.9
--- NOTE | 2019-03-11 14:16 | PDOC ---
History of Present Illness - General Chief Complaint: Shortness of Breath Stated Complaint: SHORTNESS OF BREATH Time Seen by Provider: 03/11/19 13:35 - History of Present Illness Initial Comments: 03/11/19 14:14 83F with pmh of Parkinson's w/ gait instability, dementia, HTN, HLD, AAA s/p repair, previous CVA, chronic LE weakness, anemia, h/o DVT eliquis hyperthyroidism, h/o colorectal CA s/p ostomy s/p reversal, h/o multiple episodes of syncope now s/p implantable loop recorder, coming in today since qwaking up short of breath this morning. States that her symptoms of sob now resolved once she got in our ER. Has no current complaints. 03/11/19 14:55 Has had run out of metoprolol for possibly month as she didn't have a refill. Has taken all her other medication this morning. Past History - Past Medical History Allergies/Adverse Reactions: Allergies Allergy/AdvReac Type Severity Reaction Status Date / Time iodine [Iodine] Allergy Mild Hives Verified 03/11/19 12:25 SHELLFISH Allergy Uncoded 03/11/19 12:25 Home Medications: Ambulatory Orders Docusate Sodium [Colace -] 100 mg PO DAILY 11/10/13 Atorvastatin Calcium 20 mg PO DAILY #30 01/31/15 Calcium Carbonate/Vitamin D3 [Calcium 600-Vit D3 800 Caplet] 1 each PO DAILY 07/21 Methimazole [Tapazole -] 40 mg PO DAILY 04/06/15 Apixaban [Eliquis -] 2.5 mg PO BID #0 tablet 06/12/16 Folic Acid 1 mg PO DAILY 08/01/16 Carbidopa/Levodopa 25/100 [Sinemet 25/100 -] 1 each PO TID #90 tablet 08/07/16 Bethanechol Chloride [Urecholine] 50 mg PO TID 12/09/18 Metoprolol Tartrate [Lopressor -] 25 mg PO ASDIR 12/09/18 Multivitamin/Iron/Folic Acid [Centrum Women Tablet] 1 each PO DAILY 12/09/18 Pimavanserin Tartrate [Nuplazid] 34 mg PO DAILY 12/09/18 Anemia: Yes Asthma: No Cancer: Yes (COLON s/p Chemotherapy 5 yrs ago) Cardiac Disorders: Yes (Mini Strokes, hx passing out) CVA: Yes (TIA's) COPD: No CHF: No Dementia: No Diabetes: No GI Disorders: Yes Disorders: Yes (UTI's in the past, 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) HTN: Yes Hypercholesterolemia: Yes Liver Disease: No Seizures: No Thyroid Disease: Yes (HYPERTHYROID DISEASE) - Surgical History Abdominal Surgery: Yes (COLON RESECTION/COLOSTOMY; S/O AAA REPAIR) Appendectomy: No Cardiac Surgery: No Cholecystectomy: No Lung Surgery: No Neurologic Surgery: No Orthopedic Surgery: No - Immunization History Immunization Up to Date: Yes - Suicide/Smoking/Psychosocial Hx Smoking Status: No Smoking History: Never smoked Have you smoked in the past 12 months: No Number of Cigarettes Smoked Daily: 0 If you are a former smoker, when did you quit?: 1989 Information on smoking cessation initiated: No Hx Alcohol Use: No Drug/Substance Use Hx: No Substance Use Type: None Hx Substance Use Treatment: No Respiratory Specific PMHX - Complaint Specific PMHX Pulmonary Embolus: No Review of Systems - Review of Systems Able to Perform ROS?: Yes Constitutional: Yes: Symptoms Reported HEENTM: No: Symptoms Reported Respiratory: No: Symptoms reported ABD/GI: No: Symptoms Reported : No: Symptoms Reported Musculoskeletal: No: Symptoms Reported Integumentary: No: Symptoms Reported Neurological: No: Symptoms reported All Other Systems: Reviewed and Negative *Physical Exam - Vital Signs Last Vital Signs Temp Pulse Resp BP Pulse Ox 98.1 F 101 H 19 173/110 H 100 03/11/19 12:20 03/11/19 12:20 03/11/19 12:20 03/11/19 12:20 03/11/19 12:20 - Physical Exam General Appearance: Yes: Nourished, Appropriately Dressed. No: Apparent Distress HEENT: positive: EOMI, Normal ENT Inspection Respiratory/Chest: positive: Lungs Clear, Normal Breath Sounds. negative: Chest Tender, Respiratory Distress Cardiovascular: positive: Regular Rhythm, Regular Rate, S1, S2 Gastrointestinal/Abdominal: positive: Normal Bowel Sounds, Flat, Soft. negative : Tender Musculoskeletal: positive: Normal Inspection Extremity: positive: Normal Capillary Refill, Normal Inspection, Normal Range of Motion ED Treatment Course - LABORATORY CBC & Chemistry Diagram: 03/11/19 14:25 03/11/19 14:25 - RADIOLOGY Radiology Studies Ordered: Category Date Time Status CXRPORT [CHEST X-RAY PORTABLE*] [RAD] Stat Radiology 03/11/19 13:27 Ordered Medical Decision Making - Medical Decision Making 03/11/19 14:56 83F with pmh of Parkinson's w/ gait instability, dementia, HTN, HLD, AAA s/p repair, previous CVA, chronic LE weakness, anemia, h/o DVT eliquis hyperthyroidism, h/o colorectal CA s/p ostomy s/p reversal, h/o multiple episodes of syncope now s/p implantable loop recorder, coming in today since qwaking up short of breath this morning. Even though the patient is now asymptomatic we have to r/o PE as she is tachycardic on presentation. Wells score of 3 due to tachycardia and previous history of DVT. Other etiology pneumonia, CHF, asthma, allergies 03/11/19 17:39 D dimer elevated at 18,000, obtaining immediate Chest CTA to r/o PE 03/11/19 17:39 03/11/19 19:[address] evidence of pulmonary embolism or other acute intrathoracic pathology. Centrilobular emphysema is noted which is probably mild. Correlate clinically. Mild cardiomegaly. The main pulmonary artery appears dilated with a 3.5 cm diameter which may be on the basis of increased pulmonary arterial pressure. Follow-up evaluation is suggested. Stable fusiform aneurysmal dilatation of the ascending aorta is noted with a 4.6 cm diameter. Thyromegaly. 03/11/19 20:30 No PE, patient still asymptomatic. Ok to dc with follow up. *DC/Admit/Observation/Transfer Diagnosis at time of Disposition: Shortness of breath - Discharge Dispostion Disposition: HOME Condition at time of disposition: Improved Decision to Admit order: No - Referrals Referrals: Sosa Rubio MD [Primary Care Provider] - - Patient Instructions Printed Discharge Instructions: How to Manage Shortness of Breath, DI for Shortness of Breath Additional Instructions: Follow up with your [facility] physician Dr. Urbano. Come back to the emergency department for any new, worsening or concerning symptom. - Post Discharge Activity
[2019-03-11 15:44] LABS: BASO % 0.6 % (0-2.0); EOS % 0.9 % (0-4.5); HEMATOCRIT 31.2 % (32.4-45.2); HEMOGLOBIN 10.2 GM/dL (10.7-15.3); LYMPH % 32.3 % (8-40); MCH 29.5 pg (25.7-33.7); MCHC 32.8 g/dl (32.0-36.0); MEAN CELL VOLUME 89.9 fl (80-96); MEAN PLT VOLUME 9.3 fl (7.5-11.1); NEUT % 56.2 % (42.8-82.8); PLATELET COUNT 180 K/MM3 (134-434); RBC 3.47 M/mm3 (3.60-5.2); RDW 16.7 % (11.6-15.6); WHITE BLOOD COUNT 4.1 K/mm3 (4.0-10.0)
[2019-03-11 15:49] LABS: ALBUMIN 3.7 g/dl (3.4-5.0); BILIRUBIN,TOTAL 0.5 mg/dL (0.2-1); BLOOD UREA NITROGEN 20.2 mg/dL (7-18); CALCIUM 10.3 mg/dL (8.5-10.1); CREATININE 1.2 mg/dL (0.55-1.3); POTASSIUM 4.3 mmol/L (3.5-5.1); TOT PROT 7.5 g/dl (6.4-8.2)
--- NOTE | 2019-03-11 20:49 | PDOC ---
*Physical Exam - Vital Signs Last Vital Signs Temp Pulse Resp BP Pulse Ox 98.1 F 101 H 19 173/110 H 100 03/11/19 12:20 03/11/19 12:20 03/11/19 12:20 03/11/19 12:20 03/11/19 12:20 ED Treatment Course - LABORATORY CBC & Chemistry Diagram: 03/11/19 14:25 03/11/19 14:25 - ADDITIONAL ORDERS Additional order review: Laboratory Results 03/11/19 03/11/19 03/11/19 14:25 14:25 14:25 D-Dimer 47412 H Sodium Potassium Chloride Carbon Dioxide Anion Gap BUN Creatinine Est GFR (CKD-EPI)AfAm Est GFR (CKD-EPI)NonAf Random Glucose Calcium Total Bilirubin AST ALT Alkaline Phosphatase Troponin I < 0.02 B-Natriuretic Peptide 4999.9 H Total Protein Albumin 03/11/19 14:25 D-Dimer Sodium 139 Potassium 4.3 Chloride 107 Carbon Dioxide 24 Anion Gap 8 BUN 20.2 H Creatinine 1.2 Est GFR (CKD-EPI)AfAm 47.72 Est GFR (CKD-EPI)NonAf 41.18 Random Glucose 80 Calcium 10.3 H Total Bilirubin 0.5 AST 17 ALT 8 L Alkaline Phosphatase 56 Troponin I B-Natriuretic Peptide Total Protein 7.5 Albumin 3.7 03/11/19 14:25 RBC 3.47 L MCV 89.9 MCHC 32.8 RDW 16.7 H MPV 9.3 Neutrophils % 56.2 Lymphocytes % 32.3 Monocytes % 10.0 Eosinophils % 0.9 Basophils % 0.6 Medical Decision Making - Medical Decision Making 03/11/19 20:43 83F pmh of parkinson's dx, demetian, HTN, HLD, AAA s/p repair, CVA, DVT, Hyperthyroid, colorectal CA, recurrent episodes of syncope with implanted loop recorder had a self limited episode of SOB w/o chest pain or any other associated symptoms. Has not been taking her anti-hypertensive medication for the past month 2/2 Rx running out. Patient was asymptomatic at time of interview. No headache, CP, SOB. Patient denies any abnormal bleeding, no GI bleeding, no vaginal bleeding, no hematuria Lungs CTAB, no crackles, normal WOB Denies any abdominal pain, no masses palpated Bilateral LE no swelling, +symmetric 1+ pitting edema, up to ankles CTA PE negative for PE or acute intrathoracic pathology DC patient home, has follow up appointment with PCP on 03/15/19, will send Rx for her anti-hypertensive to pharmacy of choice Strict return instructions for any acute decompensation or recurrence of symptoms *DC/Admit/Observation/Transfer Diagnosis at time of Disposition: Shortness of breath - Discharge Dispostion Disposition: HOME Condition at time of disposition: Improved - Referrals Referrals: Sosa Rubio MD [Primary Care Provider] - - Patient Instructions Printed Discharge Instructions: DI for Shortness of Breath, How to Manage Shortness of Breath Additional Instructions: Follow up with your [facility] physician Dr. Urbano. Come back to the emergency department for any new, worsening or concerning symptom. - Post Discharge Activity
[2019-03-11 21:43] VITALS: BP 147/93; PULSE 95
--- NOTE | 2019-03-11 22:51 | PDOC ---
Documentation entered by Shanelle Mariscal SCRIBE, acting as scribe for Jaspreet Melissa MD. Jaspreet Melissa MD: This documentation has been prepared by the Davey rehman Sammi, SCRIBE, under my direction and personally reviewed by me in its entirety. I confirm that the documentation accurately reflects all work, treatment, procedures, and medical decision making performed by me. Attending Attestation - Resident Resident Name: CalzadaMitch - ED Attending Attestation I have performed the following: I have examined & evaluated the patient, The case was reviewed & discussed with the resident, I agree w/resident's findings & plan, Exceptions are as noted - HPI HPI: 03/11/19 16:13 The patient is an 83 year old who presents to the emergency department for evaluation of an episode of SOB from 9am-12pm which has subsided while waiting to be evaluated in the ED. The patient described increased work to breath during the episode, states it started while she was getting ready for physical therapy. She is currently asymptomatic. The patient notes she had ran out of her metoprolol as she did not have an rx refill for the last month. Denies chest pain, cough, lower extremity edema, fevers, chills. Denies headche , dizziness, focal weakness/numbness, abd pain, N/V/D. Past medical history: parkinson's, dementia, HTN, HLD, AAA s/p repair, previous CVA, chronic LE weakness, anemia, h/o DVT eliquis hyperthyroidism, h/o colorectal CA s/p ostomy s/p reversal, h/o multiple episodes of syncope now s/p implantable loop recorder PCP: Sosa Rubio - Physicial Exam PE: 03/11/19 22:36 GENERAL: Awake, alert, and fully oriented, in no acute distress. Appears comfortable. EYES: PERRLA, EOMI, sclera anicteric, conjunctiva clear ENT: Oropharynx clear without exudates. Moist mucosa NECK: Normal ROM, supple, no lymphadenopathy, JVD, or masses LUNGS: Breath sounds equal, clear to auscultation bilaterally. No wheezes, and no crackles HEART: Regular rate and rhythm, normal S1 and S2, no murmurs, rubs or gallops ABDOMEN: Soft, nontender, normoactive bowel sounds. No guarding, no rebound. No masses EXTREMITIES: Normal range of motion, no edema. No cords, erythema, or tenderness BACK: No midline spinal tenderness in cervical/thoracic/lumbar region NEUROLOGICAL: Normal speech, cranial nerves intact, equal strength and sensation b/l SKIN: Warm, Dry, normal turgor, no rashes or lesions noted. - Medical Decision Making 03/11/19 19:00 83yo F with hx HTN, HL, DVT on eliquis, AAA s/p repair presents to the ED with transient episode of SOB while getting ready for PT, resolved on arrival to ED w /o intervention. BP elevated on arrival, pt has missed doses of metoprolol for 1 month after running out Exam unremarkable, EKG non ischemic Labs remarkable for elevated BNP to 5000, and dimer of 18K DDx includes CHF vs PE vs ACS CTA pending. Plan for admission once CTA completed given advanced age, multiple risk factors for cardiac disease Case signed out to overnight attending Dr. Gray for f/u on CTA and admission Heart Score/ECG Review #1 03/11/19 22:38 EKG read and int by me: Sinus rhythm, rate 85. LAD. No RAUL
--- NOTE | 2019-03-12 14:12 | EKG ---
Test Reason : Blood Pressure : / mmHG Vent. Rate : 085 BPM Atrial Rate : 085 BPM P-R Int : 192 ms QRS Dur : 072 ms QT Int : 372 ms P-R-T Axes : 088 -39 024 degrees QTc Int : 442 ms SINUS RHYTHM WITH PREMATURE ATRIAL COMPLEXES LEFT AXIS DEVIATION INFERIOR INFARCT (CITED ON OR BEFORE 22-MAY-2011) ANTEROSEPTAL INFARCT (CITED ON OR BEFORE 22-MAY-2011) ABNORMAL ECG WHEN COMPARED WITH ECG OF 19-DEC-2018 15:30, PREMATURE ATRIAL COMPLEXES ARE NOW PRESENT Confirmed by JONO LEONG MD ([id number]) on 03/12/2019 2:12:16 PM Referred By: Confirmed By:JONO LEONG MD
== END 2019-03-11 21:40 | disposition home or self-care (01) ==
LOC: JER 12:17
DX: R06.02 Shortness of breath (principal); I10 Essential (primary) hypertension; E78.5 Hyperlipidemia, unspecified; G20 Parkinson's disease; R26.89 Other abnormalities of gait and mobility; E05.90 Thyrotoxicosis, unspecified without thyrotoxic crisis or storm; D64.9 Anemia, unspecified; I69.849 Monoplegia of lower limb following other cerebrovascular disease affecting unspecified side; Z86.79 Personal history of other diseases of the circulatory system; Z95.818 Presence of other cardiac implants and grafts; Z85.038 Personal history of other malignant neoplasm of large intestine
CPT/HCPCS: 36415; 71045-TC-FY; 71275-TC; 80053; 83880; 84484; 85025; 85379; 93005; 93010; 99284-25

== ENCOUNTER 2020-05-29 14:33 | Inpatient (IN) | payer OTHER, MEDICARE ==
[2020-05-29] MEDS ORDERED: LIDOCAINE 2.5%/PRILOCAINE 2.5% 30 GRAM TUBE TP ONE (17:04)
[2020-05-29] MEDS ORDERED: LIDOCAINE 2.5%/PRILOCAINE 2.5% (5 Gram/TUBE) TP ONE (17:05)
[2020-05-29 20:59] LABS: BASO % 1.2 % (0-2.0); EOS % 1.4 % (0-4.5); HEMATOCRIT 34.5 % (32.4-45.2); HEMOGLOBIN 11.6 GM/dL (10.7-15.3); LYMPH % 26.2 % (8-40); MCH 31.7 pg (25.7-33.7); MCHC 33.5 g/dl (32.0-36.0); MEAN CELL VOLUME 94.9 fl (80-96); MEAN PLT VOLUME 9.9 fl (7.5-11.1); MONO % 6.4 % (3.8-10.2); NEUT % 64.8 % (42.8-82.8); PLATELET COUNT 110 K/MM3 (134-434); RBC 3.64 M/mm3 (3.60-5.2); RDW 15.3 % (11.6-15.6); WHITE BLOOD COUNT 3.8 K/mm3 (4.0-10.0)
[2020-05-29 21:18] LABS: CHLORIDE 113 mmol/L (98-107); POTASSIUM 3.8 mmol/L (3.5-5.1); SODIUM 142 mmol/L (136-145)
[2020-05-29 21:20] LABS: ANION GAP 8 MMOL/L (8-16); CALCIUM 9.2 mg/dL (8.5-10.1); CO2 21 mmol/L (21-32); GLUCOSE,RANDOM 109 mg/dL (74-106)
[2020-05-29 21:20] LABS: EPI CELLS >36 /uL (0-25.1); HYALINE CASTS 114 /uL (0-3.1); PH,URINE >= 9.0 (5.0-8.0); URINE APPEARANCE TURBID; URINE BACTERIA >9,000 /uL (0-1359); URINE BILIRUBIN NEGATIVE (NEGATIVE); URINE COLOR YELLOW; URINE GLUCOSE (UA) NEGATIVE (NEGATIVE); URINE KETONE NEGATIVE (NEGATIVE); URINE LEUK ESTERASE 2+ (NEGATIVE); URINE NITRITE NEGATIVE (NEGATIVE); URINE PROTEIN 3+ (NEGATIVE); URINE WBC 50 /uL (0-25.8); YEAST REVIEW (NEGATIVE)
[2020-05-29 21:21] LABS: INR 2.14 (0.83-1.09); PROTHROMBIN TIME (PATIENT) 25.7 SEC (9.7-13.0)
[2020-05-29 21:23] LABS: CREATININE 1.3 mg/dL (0.55-1.3); SGOT/AST 12 U/L (15-37); SGPT/ALT 10 U/L (13-61)
[2020-05-29 21:25] LABS: BILIRUBIN,TOTAL 0.8 mg/dL (0.2-1); TOT PROT 7.7 g/dl (6.4-8.2)
[2020-05-29 21:26] LABS: ALK PHOS 45 U/L (45-117)
[2020-05-29] MEDS ORDERED: CEFTRIAXONE 1 GM in DEXTROSE 5%-WATER - 50 ML IVPB ONE (22:03)
[2020-05-29] MEDS ORDERED: CEFTRIAXONE 1 GM/50 ML BAG ONE (22:14)
[2020-05-29] MEDS ORDERED: APIXABAN 2.5 MG TABLET ONE (23:25)
[2020-05-29] MEDS ORDERED: ATORVASTATIN CA 20 MG TABLET (FP) ONE (23:25)
[2020-05-29] MEDS: APIXABAN 2.5 MG TABLET PO SCH (23:30)
[2020-05-29] MEDS: ATORVASTATIN CA 20 MG TABLET (FP) PO SCH (23:30)
[2020-05-30 01:21] LABS: URINE RBC 250 /uL (0-23.9)
[2020-05-30] MEDS: CARBIDOPA/LEVODOPA 25/100 TABLET (FP) PO SCH ×3 (05:37→22:00)
[2020-05-30] MEDS ORDERED: PNEUMOC 13-VAL CONJ-DIP CRM/PF 0.5 ML DISP.SYRIN IM ONE (10:00)
[2020-05-30] MEDS ORDERED: cefTRIAXone SODIUM 1 GM VIAL ONE (10:51)
[2020-05-30] MEDS ORDERED: PT OWN MED DRAWER 7, Y5N ONE (10:51)
[2020-05-30] MEDS ORDERED: DEXTROSE 5%-WATER - 50 ML IVPB ONE (10:52)
[2020-05-30] MEDS: APIXABAN 2.5 MG TABLET PO SCH ×2 (10:57→22:00)
[2020-05-30] MEDS: CEFTRIAXONE 1 GM in DEXTROSE 5%-WATER - 50 ML IVPB SCH (10:57)
[2020-05-30] MEDS: METOPROLOL TARTRATE 25 MG TABLET (FP) PO SCH ×2 (10:57→22:01)
[2020-05-30 11:03] LABS: BASO % 1.4 % (0-2.0); EOS % 1.4 % (0-4.5); HEMATOCRIT 30.4 % (32.4-45.2); HEMOGLOBIN 10.3 GM/dL (10.7-15.3); LYMPH % 23.7 % (8-40); MCH 32.1 pg (25.7-33.7); MCHC 33.9 g/dl (32.0-36.0); MEAN CELL VOLUME 94.6 fl (80-96); MEAN PLT VOLUME 9.8 fl (7.5-11.1); MONO % 7.4 % (3.8-10.2); NEUT % 66.1 % (42.8-82.8); PLATELET COUNT 98 K/MM3 (134-434); RBC 3.21 M/mm3 (3.60-5.2); RDW 15.3 % (11.6-15.6); WHITE BLOOD COUNT 3.6 K/mm3 (4.0-10.0)
[2020-05-30 11:20] LABS: CHLORIDE 117 mmol/L (98-107); SODIUM 143 mmol/L (136-145)
[2020-05-30 11:22] LABS: ALBUMIN 3.5 g/dl (3.4-5.0); ANION GAP 6 MMOL/L (8-16); BLOOD UREA NITROGEN 18.3 mg/dL (7-18); CALCIUM 8.7 mg/dL (8.5-10.1); CO2 20 mmol/L (21-32)
[2020-05-30 11:23] LABS: GLUCOSE,RANDOM 84 mg/dL (74-106)
[2020-05-30 11:26] LABS: CREATININE 1.1 mg/dL (0.55-1.3); SGOT/AST 13 U/L (15-37)
[2020-05-30 11:27] LABS: BILIRUBIN,TOTAL 0.8 mg/dL (0.2-1); TOT PROT 6.8 g/dl (6.4-8.2)
[2020-05-30 11:28] LABS: ALK PHOS 45 U/L (45-117)
[2020-05-30 11:29] LABS: SGPT/ALT < 6 U/L (13-61)
[2020-05-30] MEDS: ATORVASTATIN CA 20 MG TABLET (FP) PO SCH (22:00)
[2020-05-31] MEDS: CARBIDOPA/LEVODOPA 25/100 TABLET (FP) PO SCH ×3 (05:10→22:06)
[2020-05-31] MEDS: METOPROLOL TARTRATE 25 MG TABLET (FP) PO SCH ×3 (05:41→22:06)
[2020-05-31 07:48] LABS: BASO % 1.1 % (0-2.0); EOS % 2.2 % (0-4.5); HEMATOCRIT 29.9 % (32.4-45.2); HEMOGLOBIN 9.9 GM/dL (10.7-15.3); LYMPH % 23.9 % (8-40); MCH 31.1 pg (25.7-33.7); MCHC 33.1 g/dl (32.0-36.0); MEAN PLT VOLUME 10.5 fl (7.5-11.1); MONO % 7.7 % (3.8-10.2); NEUT % 65.1 % (42.8-82.8); PLATELET COUNT 104 K/MM3 (134-434); RBC 3.18 M/mm3 (3.60-5.2); RDW 15.3 % (11.6-15.6); WHITE BLOOD COUNT 3.1 K/mm3 (4.0-10.0)
[2020-05-31 08:02] LABS: CHLORIDE 116 mmol/L (98-107); POTASSIUM 3.6 mmol/L (3.5-5.1); SODIUM 143 mmol/L (136-145)
[2020-05-31 08:03] LABS: CALCIUM 8.6 mg/dL (8.5-10.1)
[2020-05-31 08:04] LABS: ANION GAP 7 MMOL/L (8-16); CO2 20 mmol/L (21-32); GLUCOSE,RANDOM 91 mg/dL (74-106)
[2020-05-31 08:05] LABS: ALBUMIN 3.3 g/dl (3.4-5.0)
[2020-05-31 08:09] LABS: BILIRUBIN,TOTAL 0.7 mg/dL (0.2-1); CREATININE 0.9 mg/dL (0.55-1.3); SGOT/AST 14 U/L (15-37)
[2020-05-31 08:10] LABS: TOT PROT 6.5 g/dl (6.4-8.2)
[2020-05-31 08:11] LABS: ALK PHOS 41 U/L (45-117); SGPT/ALT < 6 U/L (13-61)
[2020-05-31] MEDS ORDERED: cefTRIAXone SODIUM 1 GM VIAL ONE (09:03)
[2020-05-31] MEDS ORDERED: DEXTROSE 5%-WATER - 50 ML IVPB ONE (09:03)
[2020-05-31] MEDS: APIXABAN 2.5 MG TABLET PO SCH ×2 (09:21→22:06)
[2020-05-31] MEDS: CEFTRIAXONE 1 GM in DEXTROSE 5%-WATER - 50 ML IVPB SCH (09:22)
[2020-05-31] MEDS: amLODIPine BESYLATE 5 MG TABLET (FP) PO SCH (13:03)
[2020-05-31] MEDS: ATORVASTATIN CA 20 MG TABLET (FP) PO SCH (22:06)
[2020-05-31 22:15] VITALS: BMI 18.8
[2020-06-01] MEDS: CARBIDOPA/LEVODOPA 25/100 TABLET (FP) PO SCH ×3 (05:18→21:46)
[2020-06-01] MEDS ORDERED: DEXTROSE 5%-WATER - 50 ML IVPB ONE (10:17)
[2020-06-01] MEDS ORDERED: cefTRIAXone SODIUM 1 GM VIAL ONE (10:17)
[2020-06-01] MEDS: APIXABAN 2.5 MG TABLET PO SCH ×2 (10:52→21:46)
[2020-06-01] MEDS: amLODIPine BESYLATE 5 MG TABLET (FP) PO SCH (10:53)
[2020-06-01] MEDS: CEFTRIAXONE 1 GM in DEXTROSE 5%-WATER - 50 ML IVPB SCH (10:53)
[2020-06-01] MEDS: METOPROLOL TARTRATE 25 MG TABLET (FP) PO SCH ×2 (10:53→21:46)
[2020-06-01] MEDS: ATORVASTATIN CA 20 MG TABLET (FP) PO SCH (21:46)
[2020-06-02] MEDS: CARBIDOPA/LEVODOPA 25/100 TABLET (FP) PO SCH ×3 (05:34→21:27)
[2020-06-02] MEDS ORDERED: DEXTROSE 5%-WATER - 50 ML IVPB ONE (08:18)
[2020-06-02] MEDS ORDERED: cefTRIAXone SODIUM 1 GM VIAL ONE (08:18)
[2020-06-02] MEDS: amLODIPine BESYLATE 10 MG TABLET (FP) PO SCH (09:10)
[2020-06-02] MEDS: CEFTRIAXONE 1 GM in DEXTROSE 5%-WATER - 50 ML IVPB SCH (09:10)
[2020-06-02] MEDS: METOPROLOL TARTRATE 25 MG TABLET (FP) PO SCH ×2 (09:10→21:26)
[2020-06-02] MEDS: APIXABAN 2.5 MG TABLET PO SCH ×2 (09:10→21:26)
[2020-06-02] MEDS: ATORVASTATIN CA 20 MG TABLET (FP) PO SCH (21:26)
[2020-06-03] MEDS: CARBIDOPA/LEVODOPA 25/100 TABLET (FP) PO SCH ×2 (05:07→14:06)
[2020-06-03] MEDS ORDERED: DEXTROSE 5%-WATER - 50 ML IVPB ONE (09:35)
[2020-06-03] MEDS ORDERED: cefTRIAXone SODIUM 1 GM VIAL ONE (09:35)
[2020-06-03] MEDS: CEFTRIAXONE 1 GM in DEXTROSE 5%-WATER - 50 ML IVPB SCH (09:36)
[2020-06-03] MEDS: amLODIPine BESYLATE 10 MG TABLET (FP) PO SCH (09:37)
[2020-06-03] MEDS: METOPROLOL TARTRATE 25 MG TABLET (FP) PO SCH (09:37)
[2020-06-03] MEDS: APIXABAN 2.5 MG TABLET PO SCH (09:37)
[2020-06-03 15:03] VITALS: BP 119/70; PULSE 86; TEMP 98.3
== END 2020-06-03 18:13 | DRG 689 ==
LOC: JER 14:33 → JERBED 19:10 → J7W 05-30 01:24
PROVIDERS: ADMIT Internal Medicine; ATTEND Internal Medicine
DX: N39.0 Urinary tract infection, site not specified (principal); G93.41 Metabolic encephalopathy; E43 Unspecified severe protein-calorie malnutrition; Z68.1 Body mass index [BMI] 19.9 or less, adult; G20 Parkinson's disease; F02.80 Dementia in other diseases classified elsewhere, unspecified severity, without behavioral disturbance, psychotic disturbance, mood disturbance, and anxiety; I11.0 Hypertensive heart disease with heart failure; I50.9 Heart failure, unspecified; E78.5 Hyperlipidemia, unspecified; E05.90 Thyrotoxicosis, unspecified without thyrotoxic crisis or storm; R41.82 Altered mental status, unspecified; D64.9 Anemia, unspecified; R29.6 Repeated falls; R53.1 Weakness; Z86.718 Personal history of other venous thrombosis and embolism; Z85.038 Personal history of other malignant neoplasm of large intestine; Z86.73 Personal history of transient ischemic attack (TIA), and cerebral infarction without residual deficits; Z20.828 Contact with and (suspected) exposure to other viral communicable diseases
CPT/HCPCS: 36415; 70450-TC; 71045-TC-FY; 72125-TC; 73523-TC-FY; 73560-TC-LT-FY; 73560-TC-RT-FY; 80053; 80307; 81003; 82140; 82550; 83605; 83880; 84439; 84443; 84484; 85025; 85610; 87086; 93005; 93010; 97116-GP; 97162-GP; 99285-25; C9803; U0003

== ENCOUNTER 2020-06-22 01:32 | Observation (INO) | payer OTHER, MEDICARE ==
[2020-06-22 07:56] LABS: BASO % 0.8 % (0-2.0); EOS % 0.8 % (0-4.5); HEMATOCRIT 33.6 % (32.4-45.2); HEMOGLOBIN 11.2 GM/dL (10.7-15.3); MCH 31.6 pg (25.7-33.7); MCHC 33.5 g/dl (32.0-36.0); MEAN CELL VOLUME 94.4 fl (80-96); MEAN PLT VOLUME 10.1 fl (7.5-11.1); MONO % 6.8 % (3.8-10.2); NEUT % 74.6 % (42.8-82.8); PLATELET COUNT 150 K/MM3 (134-434); RBC 3.56 M/mm3 (3.60-5.2); WHITE BLOOD COUNT 3.7 K/mm3 (4.0-10.0)
[2020-06-22 07:59] LABS: INR 1.97 (0.83-1.09); PROTHROMBIN TIME (PATIENT) 23.4 SEC (9.7-13.0)
[2020-06-22 08:06] LABS: CHLORIDE 107 mmol/L (98-107); POTASSIUM 3.8 mmol/L (3.5-5.1); SODIUM 139 mmol/L (136-145)
[2020-06-22 08:08] LABS: ALBUMIN 4.3 g/dl (3.4-5.0); ANION GAP 10 MMOL/L (8-16); CALCIUM 9.7 mg/dL (8.5-10.1); CO2 23 mmol/L (21-32)
[2020-06-22 08:09] LABS: BLOOD UREA NITROGEN 24.1 mg/dL (7-18); GLUCOSE,RANDOM 81 mg/dL (74-106)
[2020-06-22 08:11] LABS: SGPT/ALT 15 U/L (13-61)
[2020-06-22 08:12] LABS: CREATININE 1.1 mg/dL (0.55-1.3); SGOT/AST 19 U/L (15-37)
[2020-06-22 08:13] LABS: BILIRUBIN,TOTAL 0.7 mg/dL (0.2-1); TOT PROT 8.2 g/dl (6.4-8.2)
[2020-06-22 08:14] LABS: ALK PHOS 58 U/L (45-117)
[2020-06-22 08:17] LABS: N-TERMINAL BNP 2568.3 pg/ml (5-450)
[2020-06-22] MEDS ORDERED: ACETAMINOPHEN 1000 MG/100 ML VIAL (NON FORMULARY) IVPB ONE (09:59)
[2020-06-22] MEDS ORDERED: ACETAMINOPHEN INJECTION 100 ML IVPB ONE (10:28)
[2020-06-22] MEDS ORDERED: CARBIDOPA/LEVODOPA 25/100 TABLET (FP) ONE ×2 (14:06→20:29)
[2020-06-22] MEDS: CARBIDOPA/LEVODOPA 25/100 TABLET (FP) PO SCH ×2 (14:11→21:33)
[2020-06-22] MEDS ORDERED: PT OWN MED DRAWER 7, Y5N ONE (14:11)
[2020-06-22] MEDS: BETHANECHOL CHLORIDE 25 MG TABLET PO SCH ×2 (14:32→21:33)
[2020-06-22 16:50] LABS: EPI CELLS >36 /uL (0-25.1); HYALINE CASTS 46 /uL (0-3.1); PH,URINE 8.5 (5.0-8.0); URINE APPEARANCE TURBID; URINE BACTERIA >9,000 /uL (0-1359); URINE BILIRUBIN NEGATIVE (NEGATIVE); URINE COLOR YELLOW; URINE GLUCOSE (UA) NEGATIVE (NEGATIVE); URINE KETONE NEGATIVE (NEGATIVE); URINE LEUK ESTERASE 2+ (NEGATIVE); URINE NITRITE NEGATIVE (NEGATIVE); URINE PROTEIN 2+ (NEGATIVE); URINE RBC 430 /uL (0-23.9); URINE WBC 719 /uL (0-25.8)
[2020-06-22] MEDS ORDERED: METOPROLOL TARTRATE 25 MG TABLET (FP) ONE (20:29)
[2020-06-22] MEDS ORDERED: ATORVASTATIN CA 20 MG TABLET (FP) ONE (20:29)
[2020-06-22] MEDS: METOPROLOL TARTRATE 25 MG TABLET (FP) PO SCH (21:33)
[2020-06-22] MEDS ORDERED: ATORVASTATIN CA 20 MG TABLET (FP) PO SCH (22:00)
[2020-06-23] MEDS ORDERED: ACETAMINOPHEN 1000 MG/100 ML VIAL (NON FORMULARY) IVPB ONE (03:15)
[2020-06-23] MEDS ORDERED: ACETAMINOPHEN 325 MG TABLET (FP) PO PRN (03:15)
[2020-06-23 04:38] VITALS: BMI 271.1
[2020-06-23] MEDS ORDERED: CARBIDOPA/LEVODOPA 25/100 TABLET (FP) ONE ×2 (06:02→10:04)
[2020-06-23] MEDS: CARBIDOPA/LEVODOPA 25/100 TABLET (FP) PO SCH ×2 (06:20→10:00)
[2020-06-23] MEDS: BETHANECHOL CHLORIDE 25 MG TABLET PO SCH ×2 (06:20→10:00)
[2020-06-23 06:23] VITALS: TEMP 98.1
[2020-06-23] MEDS ORDERED: DOCUSATE SODIUM 100 MG CAPSULE (FP) PO SCH (10:00)
[2020-06-23] MEDS ORDERED: METHIMAZOLE 10 MG TABLET (FP) PO SCH (10:00)
[2020-06-23] MEDS ORDERED: FOLIC ACID 1 MG TABLET (FP) PO SCH (10:00)
[2020-06-23] MEDS ORDERED: amLODIPine BESYLATE 10 MG TABLET (FP) PO SCH (10:00)
[2020-06-23] MEDS ORDERED: CALCIUM 500MG/VIT-D 200 UNITS COMBO TABLET (FP) PO SCH (10:00)
[2020-06-23] MEDS ORDERED: PATIENT'S OWN MEDICATION (NON-FORMULARY) (Pimavanserin Tartrate [Nuplazid] 34 MG Capsule) PO SCH (10:00)
[2020-06-23] MEDS ORDERED: METOPROLOL TARTRATE 25 MG TABLET (FP) ONE (10:03)
[2020-06-23] MEDS ORDERED: DOCUSATE SODIUM 100 MG CAPSULE (FP) PO ONE (10:04)
[2020-06-23] MEDS ORDERED: FOLIC ACID 1 MG TABLET (FP) ONE (10:04)
[2020-06-23] MEDS ORDERED: amLODIPine BESYLATE 5 MG TABLET (FP) ONE (10:04)
[2020-06-23] MEDS: METOPROLOL TARTRATE 25 MG TABLET (FP) PO SCH (10:12)
[2020-06-23 10:36] LABS: HEMOGLOBIN 10.5 GM/dL (10.7-15.3); MCH 31.4 pg (25.7-33.7); MCHC 32.7 g/dl (32.0-36.0); MEAN CELL VOLUME 96.2 fl (80-96); MEAN PLT VOLUME 10.5 fl (7.5-11.1); PLATELET COUNT 137 K/MM3 (134-434); RBC 3.33 M/mm3 (3.60-5.2); RDW 15.4 % (11.6-15.6); WHITE BLOOD COUNT 3.6 K/mm3 (4.0-10.0)
[2020-06-23 10:55] LABS: POTASSIUM 3.8 mmol/L (3.5-5.1)
[2020-06-23 10:57] LABS: CALCIUM 9.3 mg/dL (8.5-10.1)
[2020-06-23 10:58] LABS: ALBUMIN 3.7 g/dl (3.4-5.0)
[2020-06-23 11:03] LABS: BILIRUBIN,TOTAL 0.8 mg/dL (0.2-1); TOT PROT 7.1 g/dl (6.4-8.2)
[2020-06-23] MEDS ORDERED: CIPROFLOXACIN 500 MG TABLET (RESTRICTED TO ID) PO SCH (12:15)
[2020-06-23 14:21] VITALS: BP 127/72; PULSE 75
== END 2020-06-23 14:00 ==
LOC: JER 01:32 → JERBED 09:54 → J7W 06-23 03:02 → JERBED 06-23 04:44
PROVIDERS: ADMIT Student in an Organized Health Care Education/Training Program; ATTEND Internal Medicine
PROC: 3E033NZ Introduction of Analgesics, Hypnotics, Sedatives into Peripheral Vein, Percutaneous Approach (ICD-10-PCS; principal; 2020-06-22)
DX: S42.302A Unspecified fracture of shaft of humerus, left arm, initial encounter for closed fracture (principal); W18.39XA Other fall on same level, initial encounter; Y93.89 Activity, other specified; Y92.098 Other place in other non-institutional residence as the place of occurrence of the external cause; Z85.038 Personal history of other malignant neoplasm of large intestine; Z87.440 Personal history of urinary (tract) infections; D64.9 Anemia, unspecified; Z86.73 Personal history of transient ischemic attack (TIA), and cerebral infarction without residual deficits; E05.90 Thyrotoxicosis, unspecified without thyrotoxic crisis or storm; R55 Syncope and collapse; E78.00 Pure hypercholesterolemia, unspecified; I10 Essential (primary) hypertension; Z91.013 Allergy to seafood; Z87.891 Personal history of nicotine dependence; G31.83 Neurocognitive disorder with Lewy bodies; F02.80 Dementia in other diseases classified elsewhere, unspecified severity, without behavioral disturbance, psychotic disturbance, mood disturbance, and anxiety
CPT/HCPCS: 36415; 70450-TC; 71045-TC-FY; 72125-TC; 73060-TC-LT-FY; 80053; 81003; 82550; 83880; 84439; 84443; 84484; 85025; 85027; 85610; 87086; 93005; 93010; 96374; 96376; 99285-25; C9803; G0378; J0131; U0003

== ENCOUNTER 2021-06-10 11:12 | Inpatient (IN) | payer OTHER, MEDICARE ==
[2021-06-10] MEDS ORDERED: LIDOCAINE HCL 2% JELLY (30 ML/TUBE) TP ONE (12:02)
[2021-06-10] MEDS ORDERED: LIDOCAINE HCL 2% JELLY (5 ML/TUBE) ONE (12:04)
[2021-06-10 12:45] LABS: CHLORIDE 111 mmol/L (98-107); SODIUM 141 mmol/L (136-145)
[2021-06-10 12:47] LABS: CALCIUM 9.8 mg/dL (8.5-10.1)
[2021-06-10 12:48] LABS: ALBUMIN 3.4 g/dl (3.4-5.0); ANION GAP 4 MMOL/L (8-16); BLOOD UREA NITROGEN 25.6 mg/dL (7-18); CO2 26 mmol/L (21-32); GLUCOSE,RANDOM 99 mg/dL (74-106)
[2021-06-10 12:51] LABS: CREATININE 1.3 mg/dL (0.55-1.3); SGOT/AST 61 U/L (15-37); SGPT/ALT 14 U/L (13-61)
[2021-06-10 12:53] LABS: BILIRUBIN,TOTAL 0.5 mg/dL (0.2-1); TOT PROT 8.3 g/dl (6.4-8.2)
[2021-06-10 12:54] LABS: ALK PHOS 61 U/L (45-117)
[2021-06-10 13:14] LABS: MAGNESIUM 2.7 mg/dL (1.8-2.4)
[2021-06-10 13:18] LABS: PHOSPHOROUS 3.4 mg/dL (2.5-4.9)
[2021-06-10 13:27] LABS: URINE APPEARANCE TURBID; URINE COLOR DK YELLOW
[2021-06-10 13:28] LABS: PH,URINE 6.5 (5.0-8.0); URINE BILIRUBIN NEGATIVE (NEGATIVE); URINE GLUCOSE (UA) NEGATIVE (NEGATIVE); URINE KETONE NEGATIVE (NEGATIVE); URINE LEUK ESTERASE 3+ (NEGATIVE); URINE NITRITE NEGATIVE (NEGATIVE); URINE PROTEIN 1+ (NEGATIVE)
[2021-06-10 13:29] LABS: EPI CELLS 184.9 /uL (0-25.1); HYALINE CASTS 928.33 /uL (0-3.1); URINE RBC 658.2 /uL (0-23.9); URINE WBC 25026.7 /uL (0-25.8); YEAST NON SEEN (NEGATIVE)
[2021-06-10 14:17] LABS: BASO % 0.8 % (0-2.0); EOS % 1.4 % (0-4.5); HEMATOCRIT 32.5 % (32.4-45.2); HEMOGLOBIN 10.6 GM/dL (10.7-15.3); LYMPH % 27.2 % (8-40); MCHC 32.7 g/dl (32.0-36.0); MEAN CELL VOLUME 91.9 fl (80-96); MEAN PLT VOLUME 9.5 fl (7.5-11.1); MONO % 9.9 % (3.8-10.2); NEUT % 60.7 % (42.8-82.8); PLATELET COUNT 169 10^3/uL (134-434); RBC 3.53 M/mm3 (3.60-5.2); RDW 17.4 % (11.6-15.6); WHITE BLOOD COUNT 4.2 K/mm3 (4.0-10.0)
[2021-06-10 14:22] LABS: INR 2.19 (0.83-1.09); PROTHROMBIN TIME (PATIENT) 24.7 SEC (9.7-13.0)
[2021-06-10 14:25] LABS: ACTIVATED PTT 31.2 SECONDS (25.2-36.5)
[2021-06-10] MEDS ORDERED: CEFTRIAXONE 1 GM in DEXTROSE 5%-WATER - 50 ML IVPB ONE (14:27)
[2021-06-10] MEDS ORDERED: CEFTRIAXONE 1 GM/50 ML BAG ONE (14:39)
[2021-06-10 14:47] LABS: CALCIUM 9.9 mg/dL (8.5-10.1)
[2021-06-10 14:48] LABS: ALBUMIN 3.4 g/dl (3.4-5.0); BLOOD UREA NITROGEN 25.5 mg/dL (7-18)
[2021-06-10 14:51] LABS: CREATININE 1.2 mg/dL (0.55-1.3)
[2021-06-10 14:52] LABS: BILIRUBIN,TOTAL 0.5 mg/dL (0.2-1); TOT PROT 7.4 g/dl (6.4-8.2)
[2021-06-10] MEDS ORDERED: SODIUM CHLORIDE 0.9% 500 ML INFUS.BAG IV ONE (15:42)
[2021-06-10] MEDS ORDERED: ACETAMINOPHEN 325 MG TABLET (FP) PO PRN (18:20)
[2021-06-10] MEDS: ATORVASTATIN CA 20 MG TABLET (FP) PO SCH (23:48)
[2021-06-10] MEDS: CARBIDOPA/LEVODOPA 25/100 TABLET (FP) PO SCH (23:48)
[2021-06-10] MEDS: METOPROLOL TARTRATE 25 MG TABLET (FP) PO SCH (23:48)
[2021-06-10] MEDS: BETHANECHOL CHLORIDE 25 MG TABLET PO SCH (23:48)
[2021-06-10] MEDS: GABAPENTIN 100 MG CAPSULE PO SCH (23:49)
[2021-06-11 03:18] VITALS: BMI 20.7
[2021-06-11] MEDS: BETHANECHOL CHLORIDE 25 MG TABLET PO SCH ×3 (05:33→22:17)
[2021-06-11] MEDS: CARBIDOPA/LEVODOPA 25/100 TABLET (FP) PO SCH ×3 (05:33→22:17)
[2021-06-11] MEDS ORDERED: cefTRIAXone SODIUM 1 GM VIAL ONE (09:55)
[2021-06-11] MEDS ORDERED: DEXTROSE 5%-WATER - 50 ML IVPB ONE (09:56)
[2021-06-11] MEDS ORDERED: PATIENT'S OWN MEDICATION (NON-FORMULARY) (Multivitamin [Multivitamin] 1 EACH Tablet) PO SCH (10:00)
[2021-06-11 10:18] LABS: BASO % 0.9 % (0-2.0); EOS % 1.9 % (0-4.5); HEMATOCRIT 28.4 % (32.4-45.2); HEMOGLOBIN 9.6 GM/dL (10.7-15.3); LYMPH % 19.2 % (8-40); MCH 30.3 pg (25.7-33.7); MCHC 33.8 g/dl (32.0-36.0); MEAN CELL VOLUME 89.7 fl (80-96); MEAN PLT VOLUME 9.1 fl (7.5-11.1); PLATELET COUNT 167 10^3/uL (134-434); RBC 3.16 M/mm3 (3.60-5.2); RDW 16.8 % (11.6-15.6); WHITE BLOOD COUNT 3.7 K/mm3 (4.0-10.0)
[2021-06-11 10:19] LABS: INR 1.92 (0.83-1.09); PROTHROMBIN TIME (PATIENT) 22.6 SEC (9.7-13.0)
[2021-06-11] MEDS: FOLIC ACID 1 MG TABLET (FP) PO SCH (10:40)
[2021-06-11] MEDS: DOCUSATE SODIUM 100 MG CAPSULE (FP) PO SCH (10:40)
[2021-06-11] MEDS: TAMSULOSIN HCL 0.4 MG CAP PO SCH (10:40)
[2021-06-11] MEDS: FUROSEMIDE 20 MG TABLET (FP) PO SCH (10:40)
[2021-06-11] MEDS: METOPROLOL TARTRATE 25 MG TABLET (FP) PO SCH ×2 (10:40→22:17)
[2021-06-11] MEDS: METHIMAZOLE 10 MG TABLET PO SCH (10:41)
[2021-06-11] MEDS: GABAPENTIN 100 MG CAPSULE PO SCH ×2 (10:41→22:17)
[2021-06-11] MEDS: CALCIUM 500MG/VIT-D 200 UNITS COMBO TABLET (FP) PO SCH (10:41)
[2021-06-11] MEDS: amLODIPine BESYLATE 10 MG TABLET (FP) PO SCH (10:41)
[2021-06-11] MEDS: MULTIVITAMINS THER W-MINERALS COMBO TABLET (FP) PO SCH (10:41)
[2021-06-11] MEDS: CEFTRIAXONE 1 GM in DEXTROSE 5%-WATER - 50 ML IVPB SCH (10:41)
[2021-06-11 10:47] LABS: CALCIUM 9.3 mg/dL (8.5-10.1)
[2021-06-11 10:48] LABS: ALBUMIN 2.9 g/dl (3.4-5.0)
[2021-06-11 10:49] LABS: BLOOD UREA NITROGEN 21.1 mg/dL (7-18)
[2021-06-11 10:51] LABS: BILIRUBIN,TOTAL 0.6 mg/dL (0.2-1); TOT PROT 7.1 g/dl (6.4-8.2)
[2021-06-11 10:52] LABS: CREATININE 1.1 mg/dL (0.55-1.3)
[2021-06-11] MEDS: APIXABAN 2.5 MG TABLET PO SCH ×2 (13:01→22:17)
[2021-06-11] MEDS: ATORVASTATIN CA 20 MG TABLET (FP) PO SCH (22:16)
[2021-06-11] MEDS ORDERED: PT OWN MED DRAWER 7, Y5N ONE (22:56)
[2021-06-12] MEDS ORDERED: PT OWN MED DRAWER 7, Y5N ONE ×3 (06:19→23:45)
[2021-06-12] MEDS ORDERED: DEXTROSE 5%-WATER - 50 ML IVPB ONE (10:35)
[2021-06-12] MEDS ORDERED: cefTRIAXone SODIUM 1 GM VIAL ONE (10:35)
[2021-06-12] MEDS: CEFTRIAXONE 1 GM in DEXTROSE 5%-WATER - 50 ML IVPB SCH (11:01)
[2021-06-12] MEDS: DOCUSATE SODIUM 100 MG CAPSULE (FP) PO SCH (11:02)
[2021-06-12] MEDS: METOPROLOL TARTRATE 25 MG TABLET (FP) PO SCH ×2 (11:02→23:00)
[2021-06-12] MEDS: TAMSULOSIN HCL 0.4 MG CAP PO SCH (11:02)
[2021-06-12] MEDS: amLODIPine BESYLATE 10 MG TABLET (FP) PO SCH (11:02)
[2021-06-12] MEDS: FUROSEMIDE 20 MG TABLET (FP) PO SCH (11:02)
[2021-06-12] MEDS: FOLIC ACID 1 MG TABLET (FP) PO SCH (11:02)
[2021-06-12] MEDS: GABAPENTIN 100 MG CAPSULE PO SCH ×2 (11:03→23:00)
[2021-06-12] MEDS: MULTIVITAMINS THER W-MINERALS COMBO TABLET (FP) PO SCH (11:03)
[2021-06-12] MEDS: APIXABAN 2.5 MG TABLET PO SCH ×2 (11:03→23:00)
[2021-06-12] MEDS: METHIMAZOLE 10 MG TABLET PO SCH (11:03)
[2021-06-12] MEDS: CALCIUM 500MG/VIT-D 200 UNITS COMBO TABLET (FP) PO SCH (11:04)
[2021-06-12] MEDS: BETHANECHOL CHLORIDE 25 MG TABLET PO SCH ×4 (11:04→23:00)
[2021-06-12] MEDS: CARBIDOPA/LEVODOPA 25/100 TABLET (FP) PO SCH ×4 (11:06→23:00)
[2021-06-12] MEDS: ATORVASTATIN CA 20 MG TABLET (FP) PO SCH (23:00)
[2021-06-13] MEDS ORDERED: PT OWN MED DRAWER 7, Y5N ONE ×3 (06:01→21:04)
[2021-06-13] MEDS: CARBIDOPA/LEVODOPA 25/100 TABLET (FP) PO SCH ×4 (06:15→21:35)
[2021-06-13] MEDS: BETHANECHOL CHLORIDE 25 MG TABLET PO SCH ×4 (06:16→21:36)
[2021-06-13] MEDS: PATIENT'S OWN MEDICATION (NON-FORMULARY) (Pimavanserin Tartrate [Nuplazid] 34 MG Capsule) PO SCH (09:00)
[2021-06-13] MEDS: amLODIPine BESYLATE 10 MG TABLET (FP) PO SCH (11:15)
[2021-06-13] MEDS: GABAPENTIN 100 MG CAPSULE PO SCH ×2 (11:15→21:33)
[2021-06-13] MEDS: DOCUSATE SODIUM 100 MG CAPSULE (FP) PO SCH (11:15)
[2021-06-13] MEDS: APIXABAN 2.5 MG TABLET PO SCH ×2 (11:15→21:35)
[2021-06-13] MEDS: TAMSULOSIN HCL 0.4 MG CAP PO SCH (11:15)
[2021-06-13] MEDS: FUROSEMIDE 20 MG TABLET (FP) PO SCH (11:15)
[2021-06-13] MEDS: METOPROLOL TARTRATE 25 MG TABLET (FP) PO SCH ×2 (11:16→21:36)
[2021-06-13] MEDS: FOLIC ACID 1 MG TABLET (FP) PO SCH (11:16)
[2021-06-13] MEDS: CALCIUM 500MG/VIT-D 200 UNITS COMBO TABLET (FP) PO SCH (11:20)
[2021-06-13] MEDS: MULTIVITAMINS THER W-MINERALS COMBO TABLET (FP) PO SCH (11:21)
[2021-06-13] MEDS: METHIMAZOLE 10 MG TABLET PO SCH (11:23)
[2021-06-13] MEDS: ATORVASTATIN CA 20 MG TABLET (FP) PO SCH (21:35)
[2021-06-14] MEDS: BETHANECHOL CHLORIDE 25 MG TABLET PO SCH ×2 (06:06→13:02)
[2021-06-14] MEDS: CARBIDOPA/LEVODOPA 25/100 TABLET (FP) PO SCH ×2 (06:06→13:02)
[2021-06-14] MEDS: FUROSEMIDE 20 MG TABLET (FP) PO SCH (11:26)
[2021-06-14] MEDS: MULTIVITAMINS THER W-MINERALS COMBO TABLET (FP) PO SCH (11:26)
[2021-06-14] MEDS: DOCUSATE SODIUM 100 MG CAPSULE (FP) PO SCH (11:26)
[2021-06-14] MEDS: APIXABAN 2.5 MG TABLET PO SCH (11:26)
[2021-06-14] MEDS: TAMSULOSIN HCL 0.4 MG CAP PO SCH (11:26)
[2021-06-14] MEDS: FOLIC ACID 1 MG TABLET (FP) PO SCH (11:26)
[2021-06-14] MEDS: CALCIUM 500MG/VIT-D 200 UNITS COMBO TABLET (FP) PO SCH (11:27)
[2021-06-14] MEDS: amLODIPine BESYLATE 10 MG TABLET (FP) PO SCH (11:27)
[2021-06-14] MEDS: GABAPENTIN 100 MG CAPSULE PO SCH (11:27)
[2021-06-14] MEDS: METOPROLOL TARTRATE 25 MG TABLET (FP) PO SCH (11:27)
[2021-06-14] MEDS: METHIMAZOLE 10 MG TABLET PO SCH (11:28)
[2021-06-14 15:28] VITALS: BP 103/69; PULSE 66; TEMP 97.8
== END 2021-06-14 17:48 | DRG 689 ==
LOC: JER 11:12 → JERBED 15:02 → INTOOBSV 15:02 → UNDOADMOB 15:02 → JERBED 18:22 → J5S 23:12 → JERBED 23:12 → J5S 23:12 → OBSVTOIN 06-12 08:14
PROVIDERS: ADMIT Internal Medicine; ATTEND Internal Medicine
DX: N39.0 Urinary tract infection, site not specified (principal); G93.41 Metabolic encephalopathy; F03.90 Unspecified dementia, unspecified severity, without behavioral disturbance, psychotic disturbance, mood disturbance, and anxiety; G20 Parkinson's disease; I50.9 Heart failure, unspecified; I11.0 Hypertensive heart disease with heart failure; E78.5 Hyperlipidemia, unspecified
CPT/HCPCS: 36415; 71045-TC-FY; 71275-TC; 75635-TC; 76705-TC; 80053; 81003; 82550; 82553; 82962; 83735; 84100; 84443; 84484; 85025; 85610; 85730; 87086; 87186; 93005; 93010; 97116-GP; 97161-GP; 99285-25; C9803; G0378; Q9967; U0003; U0005

== ENCOUNTER 2021-12-19 11:36 | Inpatient (IN) | payer OTHER, MEDICARE ==
[2021-12-19 11:55] VITALS: BMI 18.3
[2021-12-19] MEDS ORDERED: ERTAPENEM SODIUM 1 GM in SODIUM CHLORIDE 50 ML IVPB ONE (13:11)
[2021-12-19] MEDS ORDERED: ERTAPENEM SODIUM 1 GM VIAL ONE (13:43)
[2021-12-19 13:51] LABS: BASO % 1.1 % (0-2.0); EOS % 1.9 % (0-4.5); HEMATOCRIT 31.7 % (32.4-45.2); HEMOGLOBIN 10.6 GM/dL (10.7-15.3); LYMPH % 36.8 % (8-40); MCH 29.3 pg (25.7-33.7); MCHC 33.5 g/dl (32.0-36.0); MEAN CELL VOLUME 87.4 fl (80-96); MEAN PLT VOLUME 8.4 fl (7.5-11.1); MONO % 9.9 % (3.8-10.2); NEUT % 50.3 % (42.8-82.8); PLATELET COUNT 158 10^3/uL (134-434); RBC 3.63 M/mm3 (3.60-5.2); RDW 16.2 % (11.6-15.6); WHITE BLOOD COUNT 4.1 K/mm3 (4.0-10.0)
[2021-12-19 13:57] LABS: EPI CELLS >36 /uL (0-25.1); HYALINE CASTS 8 /uL (0-3.1); URINE APPEARANCE TURBID; URINE BACTERIA >9,000 /uL (0-1359); URINE BILIRUBIN NEGATIVE (NEGATIVE); URINE COLOR YELLOW; URINE GLUCOSE (UA) NEGATIVE (NEGATIVE); URINE KETONE NEGATIVE (NEGATIVE); URINE LEUK ESTERASE 3+ (NEGATIVE); URINE NITRITE NEGATIVE (NEGATIVE); URINE PROTEIN 1+ (NEGATIVE); URINE UROBILINOGEN 0.2 mg/dL (0.2-1.0); URINE WBC 2445 /uL (0-25.8)
[2021-12-19 14:08] LABS: CHLORIDE 111 mmol/L (98-107); SODIUM 141 mmol/L (136-145)
[2021-12-19 14:09] LABS: CALCIUM 9.2 mg/dL (8.5-10.1)
[2021-12-19 14:10] LABS: ALBUMIN 3.2 g/dl (3.4-5.0); ANION GAP 7 MMOL/L (8-16); CO2 23 mmol/L (21-32); GLUCOSE,RANDOM 88 mg/dL (74-106)
[2021-12-19 14:13] LABS: SGOT/AST 9 U/L (15-37)
[2021-12-19 14:15] LABS: BILIRUBIN,TOTAL 0.6 mg/dL (0.2-1)
[2021-12-19 14:16] LABS: ALK PHOS 56 U/L (45-117)
[2021-12-19 14:24] LABS: SGPT/ALT < 6 U/L (13-61)
[2021-12-19 14:41] LABS: URINE RBC 1178.7 /uL (0-23.9); YEAST NONE SEEN (NEGATIVE)
[2021-12-19] MEDS ORDERED: ACETAMINOPHEN 325 MG TABLET (FP) PO PRN (16:23)
[2021-12-19] MEDS ORDERED: METOPROLOL TARTRATE 25 MG TABLET (FP) ONE (22:30)
[2021-12-19] MEDS ORDERED: APIXABAN 2.5 MG TABLET ONE (22:30)
[2021-12-19] MEDS ORDERED: CARBIDOPA/LEVODOPA 25/100 TABLET (FP) ONE (22:30)
[2021-12-19] MEDS ORDERED: GABAPENTIN 100 MG CAPSULE ONE (22:30)
[2021-12-19] MEDS: METOPROLOL TARTRATE 25 MG TABLET (FP) PO SCH (22:37)
[2021-12-19] MEDS: APIXABAN 2.5 MG TABLET PO SCH (22:37)
[2021-12-19] MEDS: CARBIDOPA/LEVODOPA 25/100 TABLET (FP) PO SCH (22:38)
[2021-12-19] MEDS: GABAPENTIN 100 MG CAPSULE PO SCH (22:38)
[2021-12-20] MEDS ORDERED: CARBIDOPA/LEVODOPA 25/100 TABLET (FP) ONE (06:42)
[2021-12-20] MEDS: CARBIDOPA/LEVODOPA 25/100 TABLET (FP) PO SCH ×3 (06:50→22:01)
[2021-12-20 07:22] LABS: EOS % 2.3 % (0-4.5); HEMATOCRIT 33.4 % (32.4-45.2); HEMOGLOBIN 11.1 GM/dL (10.7-15.3); LYMPH % 35.7 % (8-40); MCH 29.2 pg (25.7-33.7); MEAN CELL VOLUME 88.5 fl (80-96); MONO % 9.2 % (3.8-10.2); NEUT % 51.8 % (42.8-82.8); PLATELET COUNT 150 10^3/uL (134-434); RBC 3.78 M/mm3 (3.60-5.2); RDW 16.5 % (11.6-15.6); WHITE BLOOD COUNT 3.9 K/mm3 (4.0-10.0)
[2021-12-20 08:13] LABS: ALBUMIN 3.3 g/dl (3.4-5.0); ALK PHOS 58 U/L (45-117); ANION GAP 6 MMOL/L (8-16); BILIRUBIN,TOTAL 0.5 mg/dL (0.2-1); BLOOD UREA NITROGEN 24.4 mg/dL (7-18); CALCIUM 9.3 mg/dL (8.5-10.1); CHLORIDE 111 mmol/L (98-107); CO2 26 mmol/L (21-32); CREATININE 0.9 mg/dL (0.55-1.3); GLUCOSE,RANDOM 85 mg/dL (74-106); SGOT/AST 8 U/L (15-37); SGPT/ALT < 6 U/L (13-61); SODIUM 144 mmol/L (136-145)
[2021-12-20] MEDS ORDERED: PATIENT'S OWN MEDICATION (NON-FORMULARY) (Pimavanserin Tartrate [Nuplazid] 34 MG Capsule) PO SCH (10:00)
[2021-12-20] MEDS ORDERED: ERTAPENEM SODIUM 1 GM in SODIUM CHLORIDE 50 ML IVPB SCH (11:30)
[2021-12-20] MEDS: ATORVASTATIN CA 20 MG TABLET (FP) PO SCH (11:53)
[2021-12-20] MEDS: FUROSEMIDE 20 MG TABLET (FP) PO SCH (11:54)
[2021-12-20] MEDS: amLODIPine BESYLATE 10 MG TABLET (FP) PO SCH (11:54)
[2021-12-20] MEDS: GABAPENTIN 100 MG CAPSULE PO SCH ×2 (11:54→22:01)
[2021-12-20] MEDS: DOCUSATE SODIUM 100 MG CAPSULE (FP) PO SCH (11:54)
[2021-12-20] MEDS: METOPROLOL TARTRATE 25 MG TABLET (FP) PO SCH ×2 (11:54→22:01)
[2021-12-20] MEDS: APIXABAN 2.5 MG TABLET PO SCH ×2 (11:54→22:01)
[2021-12-20] MEDS: TAMSULOSIN HCL 0.4 MG CAP PO SCH (11:57)
[2021-12-20] MEDS: SODIUM CHLORIDE 0.45% 1,000 ML IV SCH (14:32)
[2021-12-20] MEDS: METHIMAZOLE 10 MG TABLET PO SCH (14:46)
[2021-12-20] MEDS: ERTAPENEM SODIUM 1 GM in SODIUM CHLORIDE 50 ML IVPB SCH (15:10)
[2021-12-21] MEDS: CARBIDOPA/LEVODOPA 25/100 TABLET (FP) PO SCH ×3 (06:22→21:56)
[2021-12-21] MEDS: ERTAPENEM SODIUM 1 GM in SODIUM CHLORIDE 50 ML IVPB SCH (11:26)
[2021-12-21] MEDS: METHIMAZOLE 10 MG TABLET PO SCH (11:27)
[2021-12-21] MEDS: ATORVASTATIN CA 20 MG TABLET (FP) PO SCH (11:27)
[2021-12-21] MEDS: DOCUSATE SODIUM 100 MG CAPSULE (FP) PO SCH (11:27)
[2021-12-21] MEDS: GABAPENTIN 100 MG CAPSULE PO SCH ×2 (11:27→21:56)
[2021-12-21] MEDS: FUROSEMIDE 20 MG TABLET (FP) PO SCH (11:27)
[2021-12-21] MEDS: TAMSULOSIN HCL 0.4 MG CAP PO SCH (11:27)
[2021-12-21] MEDS: APIXABAN 2.5 MG TABLET PO SCH ×2 (11:28→21:56)
[2021-12-21] MEDS: METOPROLOL TARTRATE 25 MG TABLET (FP) PO SCH ×2 (11:28→21:56)
[2021-12-21] MEDS: amLODIPine BESYLATE 10 MG TABLET (FP) PO SCH (11:28)
[2021-12-21] MEDS: SODIUM CHLORIDE 0.45% 1,000 ML IV SCH (14:10)
[2021-12-22] MEDS: CARBIDOPA/LEVODOPA 25/100 TABLET (FP) PO SCH ×3 (05:53→21:17)
[2021-12-22] MEDS: METOPROLOL TARTRATE 25 MG TABLET (FP) PO SCH ×2 (11:33→21:17)
[2021-12-22] MEDS: TAMSULOSIN HCL 0.4 MG CAP PO SCH (11:33)
[2021-12-22] MEDS: APIXABAN 2.5 MG TABLET PO SCH ×2 (11:33→21:17)
[2021-12-22] MEDS: amLODIPine BESYLATE 10 MG TABLET (FP) PO SCH (11:33)
[2021-12-22] MEDS: DOCUSATE SODIUM 100 MG CAPSULE (FP) PO SCH (11:33)
[2021-12-22] MEDS: GABAPENTIN 100 MG CAPSULE PO SCH ×2 (11:33→21:17)
[2021-12-22] MEDS: ATORVASTATIN CA 20 MG TABLET (FP) PO SCH (11:34)
[2021-12-22] MEDS: ERTAPENEM SODIUM 1 GM in SODIUM CHLORIDE 50 ML IVPB SCH (11:34)
[2021-12-22] MEDS: FUROSEMIDE 20 MG TABLET (FP) PO SCH (11:34)
[2021-12-22] MEDS: METHIMAZOLE 10 MG TABLET PO SCH (11:34)
[2021-12-22] MEDS: SODIUM CHLORIDE 0.45% 1,000 ML IV SCH ×2 (11:43→12:30)
[2021-12-22 13:11] LABS: BASO % 0.8 % (0-2.0); EOS % 2.4 % (0-4.5); HEMATOCRIT 31.8 % (32.4-45.2); HEMOGLOBIN 10.7 GM/dL (10.7-15.3); LYMPH % 36.4 % (8-40); MCH 29.7 pg (25.7-33.7); MCHC 33.7 g/dl (32.0-36.0); MEAN CELL VOLUME 88.1 fl (80-96); MEAN PLT VOLUME 8.9 fl (7.5-11.1); MONO % 10.2 % (3.8-10.2); NEUT % 50.2 % (42.8-82.8); PLATELET COUNT 169 10^3/uL (134-434); RDW 16.2 % (11.6-15.6); WHITE BLOOD COUNT 4.5 K/mm3 (4.0-10.0)
[2021-12-23] MEDS: CARBIDOPA/LEVODOPA 25/100 TABLET (FP) PO SCH ×3 (05:20→21:18)
[2021-12-23] MEDS: METOPROLOL TARTRATE 25 MG TABLET (FP) PO SCH ×3 (07:58→21:18)
[2021-12-23] MEDS: ATORVASTATIN CA 20 MG TABLET (FP) PO SCH (09:03)
[2021-12-23] MEDS: amLODIPine BESYLATE 10 MG TABLET (FP) PO SCH (09:03)
[2021-12-23] MEDS: TAMSULOSIN HCL 0.4 MG CAP PO SCH (09:03)
[2021-12-23] MEDS: DOCUSATE SODIUM 100 MG CAPSULE (FP) PO SCH (09:03)
[2021-12-23] MEDS: GABAPENTIN 100 MG CAPSULE PO SCH ×2 (09:03→21:18)
[2021-12-23] MEDS: APIXABAN 2.5 MG TABLET PO SCH ×2 (09:03→21:18)
[2021-12-23] MEDS: FUROSEMIDE 20 MG TABLET (FP) PO SCH (09:03)
[2021-12-23] MEDS: ERTAPENEM SODIUM 1 GM in SODIUM CHLORIDE 50 ML IVPB SCH (09:03)
[2021-12-23] MEDS: METHIMAZOLE 10 MG TABLET PO SCH (09:04)
[2021-12-23] MEDS: SODIUM CHLORIDE 0.45% 1,000 ML IV SCH (15:05)
[2021-12-24] MEDS: CARBIDOPA/LEVODOPA 25/100 TABLET (FP) PO SCH ×3 (05:17→23:53)
[2021-12-24] MEDS: amLODIPine BESYLATE 10 MG TABLET (FP) PO SCH (11:29)
[2021-12-24] MEDS: GABAPENTIN 100 MG CAPSULE PO SCH ×2 (11:29→23:53)
[2021-12-24] MEDS: ERTAPENEM SODIUM 1 GM in SODIUM CHLORIDE 50 ML IVPB SCH (11:29)
[2021-12-24] MEDS: TAMSULOSIN HCL 0.4 MG CAP PO SCH (11:30)
[2021-12-24] MEDS: ATORVASTATIN CA 20 MG TABLET (FP) PO SCH (11:30)
[2021-12-24] MEDS: APIXABAN 2.5 MG TABLET PO SCH ×2 (11:30→23:53)
[2021-12-24] MEDS: DOCUSATE SODIUM 100 MG CAPSULE (FP) PO SCH (11:30)
[2021-12-24] MEDS: FUROSEMIDE 20 MG TABLET (FP) PO SCH (11:31)
[2021-12-24] MEDS: METOPROLOL TARTRATE 25 MG TABLET (FP) PO SCH ×2 (11:31→23:53)
[2021-12-24] MEDS: METHIMAZOLE 10 MG TABLET PO SCH (11:34)
[2021-12-25] MEDS: CARBIDOPA/LEVODOPA 25/100 TABLET (FP) PO SCH ×3 (05:52→22:41)
[2021-12-25] MEDS: TAMSULOSIN HCL 0.4 MG CAP PO SCH (08:39)
[2021-12-25] MEDS: APIXABAN 2.5 MG TABLET PO SCH ×2 (10:53→22:41)
[2021-12-25] MEDS: DOCUSATE SODIUM 100 MG CAPSULE (FP) PO SCH (10:53)
[2021-12-25] MEDS: FUROSEMIDE 20 MG TABLET (FP) PO SCH (10:54)
[2021-12-25] MEDS: METOPROLOL TARTRATE 25 MG TABLET (FP) PO SCH ×2 (10:54→22:41)
[2021-12-25] MEDS: ATORVASTATIN CA 20 MG TABLET (FP) PO SCH (10:54)
[2021-12-25] MEDS: amLODIPine BESYLATE 10 MG TABLET (FP) PO SCH (10:55)
[2021-12-25] MEDS: GABAPENTIN 100 MG CAPSULE PO SCH ×2 (10:55→22:41)
[2021-12-25] MEDS: METHIMAZOLE 5 MG TABLET PO SCH (10:55)
[2021-12-25] MEDS: ERTAPENEM SODIUM 1 GM in SODIUM CHLORIDE 50 ML IVPB SCH (10:56)
[2021-12-26] MEDS: CARBIDOPA/LEVODOPA 25/100 TABLET (FP) PO SCH (06:13)
[2021-12-26 10:49] VITALS: BP 104/63; PULSE 70; TEMP 98.2
[2021-12-26] MEDS: DOCUSATE SODIUM 100 MG CAPSULE (FP) PO SCH (10:50)
[2021-12-26] MEDS: ERTAPENEM SODIUM 1 GM in SODIUM CHLORIDE 50 ML IVPB SCH (10:50)
[2021-12-26] MEDS: ATORVASTATIN CA 20 MG TABLET (FP) PO SCH (10:50)
[2021-12-26] MEDS: METOPROLOL TARTRATE 25 MG TABLET (FP) PO SCH (10:50)
[2021-12-26] MEDS: amLODIPine BESYLATE 10 MG TABLET (FP) PO SCH (10:50)
[2021-12-26] MEDS: GABAPENTIN 100 MG CAPSULE PO SCH (10:50)
[2021-12-26] MEDS: FUROSEMIDE 20 MG TABLET (FP) PO SCH (10:50)
[2021-12-26] MEDS: APIXABAN 2.5 MG TABLET PO SCH (10:50)
[2021-12-26] MEDS: METHIMAZOLE 5 MG TABLET PO SCH (10:50)
[2021-12-26] MEDS: TAMSULOSIN HCL 0.4 MG CAP PO SCH (10:50)
[2021-12-26 11:25] LABS: BASO % 0.9 % (0-2.0); EOS % 2.1 % (0-4.5); HEMATOCRIT 34.6 % (32.4-45.2); HEMOGLOBIN 11.2 GM/dL (10.7-15.3); LYMPH % 22.7 % (8-40); MCH 28.8 pg (25.7-33.7); MCHC 32.4 g/dl (32.0-36.0); MEAN CELL VOLUME 88.8 fl (80-96); MEAN PLT VOLUME 9.1 fl (7.5-11.1); MONO % 4.9 % (3.8-10.2); NEUT % 69.4 % (42.8-82.8); PLATELET COUNT 176 10^3/uL (134-434); RDW 16.4 % (11.6-15.6); WHITE BLOOD COUNT 4.9 K/mm3 (4.0-10.0)
[2021-12-26 12:02] LABS: CALCIUM 9.5 mg/dL (8.5-10.1)
[2021-12-26 12:03] LABS: BLOOD UREA NITROGEN 18.4 mg/dL (7-18)
[2021-12-26 12:05] LABS: CREATININE 0.9 mg/dL (0.55-1.3)
== END 2021-12-26 15:14 | disposition home or self-care (01) | DRG 689 ==
LOC: JER 11:36 → JERBED 14:24 → J5S 12-20 08:24
PROVIDERS: ADMIT Internal Medicine; ATTEND Internal Medicine
DX: N39.0 Urinary tract infection, site not specified (principal); E43 Unspecified severe protein-calorie malnutrition; Z68.1 Body mass index [BMI] 19.9 or less, adult; Z16.12 Extended spectrum beta lactamase (ESBL) resistance; B96.20 Unspecified Escherichia coli [E. coli] as the cause of diseases classified elsewhere; F03.90 Unspecified dementia, unspecified severity, without behavioral disturbance, psychotic disturbance, mood disturbance, and anxiety; I10 Essential (primary) hypertension; E78.5 Hyperlipidemia, unspecified; B95.2 Enterococcus as the cause of diseases classified elsewhere; E05.80 Other thyrotoxicosis without thyrotoxic crisis or storm; G20 Parkinson's disease; R53.1 Weakness; I44.0 Atrioventricular block, first degree; R26.2 Difficulty in walking, not elsewhere classified; D72.819 Decreased white blood cell count, unspecified; Z85.038 Personal history of other malignant neoplasm of large intestine; Z86.718 Personal history of other venous thrombosis and embolism
CPT/HCPCS: 0241U-QW; 36415; 74176-TC; 76856-TC; 80048; 80053; 81003; 85025; 87040; 87086; 87186; 93005; 93010; 97116-GP; 97161-GP; 99285-25

== ENCOUNTER 2021-12-30 06:49 | Inpatient (IN) | payer OTHER, MEDICARE ==
[2021-12-30 08:32] LABS: EPI CELLS >36 /uL (0-25.1); HYALINE CASTS 2 /uL (0-3.1); URINE APPEARANCE CLOUDY; URINE BACTERIA 124 /uL (0-1359); URINE BILIRUBIN NEGATIVE (NEGATIVE); URINE COLOR YELLOW; URINE GLUCOSE (UA) NEGATIVE (NEGATIVE); URINE KETONE NEGATIVE (NEGATIVE); URINE LEUK ESTERASE 2+ (NEGATIVE); URINE NITRITE NEGATIVE (NEGATIVE); URINE PROTEIN NEGATIVE (NEGATIVE); URINE WBC 177 /uL (0-25.8)
[2021-12-30] MEDS ORDERED: LIDOCAINE 2.5%/PRILOCAINE 2.5% (5 Gram/TUBE) TP ONE (09:11)
[2021-12-30 10:08] LABS: URINE RBC 406.1 /uL (0-23.9)
[2021-12-30 11:57] LABS: BASO % 1.2 % (0-2.0); EOS % 3.9 % (0-4.5); HEMATOCRIT 37.2 % (32.4-45.2); HEMOGLOBIN 12.2 GM/dL (10.7-15.3); LYMPH % 33.2 % (8-40); MCHC 32.8 g/dl (32.0-36.0); MEAN CELL VOLUME 88.5 fl (80-96); MEAN PLT VOLUME 8.3 fl (7.5-11.1); MONO % 6.3 % (3.8-10.2); NEUT % 55.4 % (42.8-82.8); PLATELET COUNT 191 10^3/uL (134-434); RDW 15.8 % (11.6-15.6); WHITE BLOOD COUNT 3.9 K/mm3 (4.0-10.0)
[2021-12-30 12:23] LABS: CALCIUM 10.3 mg/dL (8.5-10.1)
[2021-12-30 12:24] LABS: ALBUMIN 3.8 g/dl (3.4-5.0); BLOOD UREA NITROGEN 15.6 mg/dL (7-18)
[2021-12-30 12:27] LABS: CREATININE 0.9 mg/dL (0.55-1.3)
[2021-12-30 12:28] LABS: TOT PROT 8.3 g/dl (6.4-8.2)
[2021-12-30 12:29] LABS: BILIRUBIN,TOTAL 0.9 mg/dL (0.2-1)
[2021-12-30] MEDS ORDERED: ACETAMINOPHEN 325 MG TABLET (FP) PO PRN (16:20)
[2021-12-30] MEDS ORDERED: METOPROLOL TARTRATE 25 MG TABLET (FP) ONE (21:06)
[2021-12-30] MEDS ORDERED: CARBIDOPA/LEVODOPA 25/100 TABLET (FP) ONE (21:06)
[2021-12-30] MEDS ORDERED: APIXABAN 2.5 MG TABLET ONE (21:06)
[2021-12-30] MEDS: CARBIDOPA/LEVODOPA 25/100 TABLET (FP) PO SCH (21:18)
[2021-12-30] MEDS: METOPROLOL TARTRATE 25 MG TABLET (FP) PO SCH (21:18)
[2021-12-30] MEDS: APIXABAN 2.5 MG TABLET PO SCH (21:18)
[2021-12-31] MEDS ORDERED: CARBIDOPA/LEVODOPA 25/100 TABLET (FP) ONE (07:53)
[2021-12-31] MEDS ORDERED: TAMSULOSIN HCL 0.4 MG CAP ONE (07:56)
[2021-12-31] MEDS: TAMSULOSIN HCL 0.4 MG CAP PO SCH (08:00)
[2021-12-31] MEDS: CARBIDOPA/LEVODOPA 25/100 TABLET (FP) PO SCH ×2 (08:00→13:32)
[2021-12-31] MEDS ORDERED: APIXABAN 2.5 MG TABLET ONE (09:46)
[2021-12-31] MEDS ORDERED: amLODIPine BESYLATE 10 MG TABLET (FP) ONE (09:46)
[2021-12-31] MEDS ORDERED: ATORVASTATIN CA 20 MG TABLET (FP) ONE (09:46)
[2021-12-31] MEDS ORDERED: METOPROLOL TARTRATE 25 MG TABLET (FP) ONE (09:46)
[2021-12-31] MEDS ORDERED: DOCUSATE SODIUM 100 MG CAPSULE (FP) PO ONE (09:47)
[2021-12-31] MEDS ORDERED: PATIENT'S OWN MEDICATION (NON-FORMULARY) (Pimavanserin Tartrate [Nuplazid] 34 MG Capsule) PO SCH (10:00)
[2021-12-31] MEDS: METHIMAZOLE 10 MG TABLET PO SCH (10:09)
[2021-12-31] MEDS: ATORVASTATIN CA 20 MG TABLET (FP) PO SCH (10:09)
[2021-12-31] MEDS: APIXABAN 2.5 MG TABLET PO SCH ×2 (10:09→23:03)
[2021-12-31] MEDS: DOCUSATE SODIUM 100 MG CAPSULE (FP) PO SCH (10:09)
[2021-12-31] MEDS: METOPROLOL TARTRATE 25 MG TABLET (FP) PO SCH ×2 (10:09→23:03)
[2021-12-31] MEDS: amLODIPine BESYLATE 10 MG TABLET (FP) PO SCH (10:09)
[2022-01-01] MEDS: CARBIDOPA/LEVODOPA 25/100 TABLET (FP) PO SCH ×4 (06:59→17:11)
[2022-01-01] MEDS ORDERED: DEXTROSE 5%-WATER 100 ML IVPB ONE (09:16)
[2022-01-01] MEDS ORDERED: CEFTRIAXONE 2 GM in DEXTROSE 5%-WATER 100 ML IVPB SCH (10:00)
[2022-01-01] MEDS: DOCUSATE SODIUM 100 MG CAPSULE (FP) PO SCH (10:27)
[2022-01-01] MEDS: METOPROLOL TARTRATE 25 MG TABLET (FP) PO SCH ×2 (10:27→21:10)
[2022-01-01] MEDS: TAMSULOSIN HCL 0.4 MG CAP PO SCH (10:27)
[2022-01-01] MEDS: METHIMAZOLE 10 MG TABLET PO SCH (10:28)
[2022-01-01] MEDS: APIXABAN 2.5 MG TABLET PO SCH ×2 (10:28→21:10)
[2022-01-01] MEDS: ATORVASTATIN CA 20 MG TABLET (FP) PO SCH (10:28)
[2022-01-01] MEDS: amLODIPine BESYLATE 10 MG TABLET (FP) PO SCH (10:29)
[2022-01-01 11:47] VITALS: BMI 16.6
[2022-01-01] MEDS: QUEtiapine FUMARATE 25 MG TABLET PO SCH ×2 (14:09→21:10)
[2022-01-02 08:47] LABS: HEMATOCRIT 32.6 % (32.4-45.2); HEMOGLOBIN 10.9 GM/dL (10.7-15.3); LYMPH % 28.1 % (8-40); MCH 29.4 pg (25.7-33.7); MCHC 33.6 g/dl (32.0-36.0); MEAN CELL VOLUME 87.6 fl (80-96); MEAN PLT VOLUME 8.4 fl (7.5-11.1); MONO % 10.1 % (3.8-10.2); NEUT % 56.8 % (42.8-82.8); PLATELET COUNT 167 10^3/uL (134-434); RBC 3.72 M/mm3 (3.60-5.2); RDW 15.6 % (11.6-15.6); WHITE BLOOD COUNT 4.1 K/mm3 (4.0-10.0)
[2022-01-02 09:17] LABS: ALBUMIN 3.1 g/dl (3.4-5.0); CREATININE 0.9 mg/dL (0.55-1.3)
[2022-01-02 09:18] LABS: BLOOD UREA NITROGEN 16.6 mg/dL (7-18); CALCIUM 8.9 mg/dL (8.5-10.1)
[2022-01-02 09:19] LABS: BILIRUBIN,TOTAL 0.6 mg/dL (0.2-1)
[2022-01-02] MEDS: METHIMAZOLE 10 MG TABLET PO SCH (10:34)
[2022-01-02] MEDS: DOXYCYCLINE HYCLATE 100 MG CAPSULE PO SCH ×2 (10:35→17:45)
[2022-01-02] MEDS: TAMSULOSIN HCL 0.4 MG CAP PO SCH (10:35)
[2022-01-02] MEDS: ATORVASTATIN CA 20 MG TABLET (FP) PO SCH (10:36)
[2022-01-02] MEDS: APIXABAN 2.5 MG TABLET PO SCH ×2 (10:36→22:29)
[2022-01-02] MEDS: DOCUSATE SODIUM 100 MG CAPSULE (FP) PO SCH (10:36)
[2022-01-02] MEDS: METOPROLOL TARTRATE 25 MG TABLET (FP) PO SCH ×2 (10:36→22:29)
[2022-01-02] MEDS: amLODIPine BESYLATE 10 MG TABLET (FP) PO SCH (10:36)
[2022-01-02] MEDS: QUEtiapine FUMARATE 25 MG TABLET PO SCH ×2 (10:37→22:29)
[2022-01-02] MEDS: CARBIDOPA/LEVODOPA 25/100 TABLET (FP) PO SCH ×3 (10:40→17:45)
[2022-01-03] MEDS: METHIMAZOLE 10 MG TABLET PO SCH (09:27)
[2022-01-03] MEDS: ATORVASTATIN CA 20 MG TABLET (FP) PO SCH (09:28)
[2022-01-03] MEDS: CARBIDOPA/LEVODOPA 25/100 TABLET (FP) PO SCH ×3 (09:28→18:36)
[2022-01-03] MEDS: QUEtiapine FUMARATE 25 MG TABLET PO SCH ×2 (09:28→22:41)
[2022-01-03] MEDS: APIXABAN 2.5 MG TABLET PO SCH ×2 (09:28→22:42)
[2022-01-03] MEDS: TAMSULOSIN HCL 0.4 MG CAP PO SCH (09:28)
[2022-01-03] MEDS: amLODIPine BESYLATE 10 MG TABLET (FP) PO SCH (09:29)
[2022-01-03] MEDS: METOPROLOL TARTRATE 25 MG TABLET (FP) PO SCH ×2 (09:29→22:42)
[2022-01-03] MEDS: DOXYCYCLINE HYCLATE 100 MG CAPSULE PO SCH ×2 (09:29→18:09)
[2022-01-03] MEDS: DOCUSATE SODIUM 100 MG CAPSULE (FP) PO SCH (09:29)
[2022-01-04] MEDS: DOXYCYCLINE HYCLATE 100 MG CAPSULE PO SCH (11:44)
[2022-01-04] MEDS: APIXABAN 2.5 MG TABLET PO SCH (11:46)
[2022-01-04] MEDS: METOPROLOL TARTRATE 25 MG TABLET (FP) PO SCH (11:46)
[2022-01-04] MEDS: DOCUSATE SODIUM 100 MG CAPSULE (FP) PO SCH (11:46)
[2022-01-04] MEDS: amLODIPine BESYLATE 10 MG TABLET (FP) PO SCH (11:46)
[2022-01-04] MEDS: ATORVASTATIN CA 20 MG TABLET (FP) PO SCH (11:46)
[2022-01-04] MEDS: TAMSULOSIN HCL 0.4 MG CAP PO SCH (11:46)
[2022-01-04] MEDS: QUEtiapine FUMARATE 25 MG TABLET PO SCH (11:47)
[2022-01-04] MEDS: CARBIDOPA/LEVODOPA 25/100 TABLET (FP) PO SCH ×2 (11:50→14:39)
[2022-01-04] MEDS: METHIMAZOLE 10 MG TABLET PO SCH (11:50)
[2022-01-04 13:41] VITALS: TEMP 97.8
[2022-01-04 21:15] VITALS: BP 123/71; PULSE 70
== END 2022-01-04 18:37 | DRG 689 ==
LOC: JER 06:49 → JERBED 16:06 → J7W 12-31 12:16
PROVIDERS: ADMIT Internal Medicine; ATTEND Internal Medicine
DX: N39.0 Urinary tract infection, site not specified (principal); G93.41 Metabolic encephalopathy; G20 Parkinson's disease; I10 Essential (primary) hypertension; G30.9 Alzheimer's disease, unspecified; F02.80 Dementia in other diseases classified elsewhere, unspecified severity, without behavioral disturbance, psychotic disturbance, mood disturbance, and anxiety; E78.5 Hyperlipidemia, unspecified; I44.0 Atrioventricular block, first degree; E05.90 Thyrotoxicosis, unspecified without thyrotoxic crisis or storm; B95.2 Enterococcus as the cause of diseases classified elsewhere; R26.9 Unspecified abnormalities of gait and mobility; D72.819 Decreased white blood cell count, unspecified; D64.9 Anemia, unspecified; I25.10 Atherosclerotic heart disease of native coronary artery without angina pectoris; Z86.718 Personal history of other venous thrombosis and embolism; Z85.038 Personal history of other malignant neoplasm of large intestine; Z86.73 Personal history of transient ischemic attack (TIA), and cerebral infarction without residual deficits
CPT/HCPCS: 0241U-QW; 36415; 70450-TC; 71045-TC-FY; 80053; 81003; 82962; 84439; 84443; 84484; 85025; 87040; 87086; 87186; 93005; 93010; 97116-GP; 97161-GP; 99285-25; C9803-CS; U0003; U0005

== ENCOUNTER 2022-07-01 10:08 | Inpatient (IN) | payer OTHER, MEDICARE ==
[2022-07-01 11:48] LABS: BASO % 0.9 % (0-2.0); EOS % 0.7 % (0-4.5); HEMATOCRIT 36.4 % (32.4-45.2); HEMOGLOBIN 11.5 GM/dL (10.7-15.3); LYMPH % 28.7 % (8-40); MCH 28.9 pg (25.7-33.7); MCHC 31.7 g/dl (32.0-36.0); MEAN CELL VOLUME 91.2 fl (80-96); NEUT % 61.7 % (42.8-82.8); PLATELET COUNT 140 10^3/uL (134-434); RBC 3.99 M/mm3 (3.60-5.2); RDW 17.1 % (11.6-15.6); WHITE BLOOD COUNT 3.2 K/mm3 (4.0-10.0)
[2022-07-01 11:50] LABS: INR 2.32 (0.83-1.09); PROTHROMBIN TIME (PATIENT) 26.9 SEC (9.7-13.0)
[2022-07-01 11:53] LABS: ACTIVATED PTT 32.1 SECONDS (25.2-36.5)
[2022-07-01 12:52] LABS: ALBUMIN 3.5 g/dl (3.4-5.0); CALCIUM 9.8 mg/dL (8.5-10.1)
[2022-07-01 12:53] LABS: BLOOD UREA NITROGEN 23.3 mg/dL (7-18); MAGNESIUM 2.3 mg/dL (1.8-2.4)
[2022-07-01 12:56] LABS: CREATININE 1.1 mg/dL (0.55-1.3)
[2022-07-01 12:57] LABS: BILIRUBIN,TOTAL 0.7 mg/dL (0.2-1); TOT PROT 7.7 g/dl (6.4-8.2)
[2022-07-01 15:32] LABS: EPI CELLS 26 /uL (0-25.1); HYALINE CASTS 6 /uL (0-3.1); PH,URINE 6.5 (5.0-8.0); URINE APPEARANCE CLOUDY; URINE BACTERIA 2859 /uL (0-1359); URINE BILIRUBIN NEGATIVE (NEGATIVE); URINE COLOR DK YELLOW; URINE GLUCOSE (UA) NEGATIVE (NEGATIVE); URINE KETONE NEGATIVE (NEGATIVE); URINE LEUK ESTERASE 3+ (NEGATIVE); URINE NITRITE POSITIVE (NEGATIVE); URINE PROTEIN NEGATIVE (NEGATIVE); URINE RBC 75 /uL (0-23.9); URINE UROBILINOGEN 0.2 mg/dL (0.2-1.0); URINE WBC 724 /uL (0-25.8)
[2022-07-01] MEDS ORDERED: ERTAPENEM SODIUM 1 GM in SODIUM CHLORIDE 50 ML IVPB ONE (15:50)
[2022-07-01] MEDS ORDERED: ERTAPENEM SODIUM 1 GM VIAL ONE (16:07)
[2022-07-01] MEDS ORDERED: ACETAMINOPHEN 325 MG TABLET (FP) PO PRN (16:57)
[2022-07-01] MEDS ORDERED: CARBIDOPA/LEVODOPA 25/100 TABLET (FP) ONE (19:15)
[2022-07-01] MEDS: CARBIDOPA/LEVODOPA 25/100 TABLET (FP) PO SCH (19:17)
[2022-07-01] MEDS ORDERED: QUEtiapine FUMARATE 25 MG TABLET ONE (22:40)
[2022-07-01] MEDS ORDERED: ATORVASTATIN CA 20 MG TABLET (FP) ONE (22:40)
[2022-07-01] MEDS ORDERED: APIXABAN 2.5 MG TABLET ONE (22:40)
[2022-07-01] MEDS ORDERED: METOPROLOL TARTRATE 25 MG TABLET (FP) ONE (22:40)
[2022-07-01] MEDS: APIXABAN 2.5 MG TABLET PO SCH (22:52)
[2022-07-01] MEDS: QUEtiapine FUMARATE 25 MG TABLET PO SCH (22:52)
[2022-07-01] MEDS: ATORVASTATIN CA 20 MG TABLET (FP) PO SCH (22:52)
[2022-07-01] MEDS: METOPROLOL TARTRATE 25 MG TABLET (FP) PO SCH (22:52)
[2022-07-02] MEDS ORDERED: CARBIDOPA/LEVODOPA 25/100 TABLET (FP) ONE ×3 (08:31→19:04)
[2022-07-02] MEDS: CARBIDOPA/LEVODOPA 25/100 TABLET (FP) PO SCH ×3 (08:33→19:07)
[2022-07-02] MEDS ORDERED: FOLIC ACID 1 MG TABLET (FP) ONE (09:02)
[2022-07-02] MEDS ORDERED: amLODIPine BESYLATE 10 MG TABLET (FP) ONE (09:02)
[2022-07-02] MEDS ORDERED: APIXABAN 2.5 MG TABLET ONE ×2 (09:02→22:09)
[2022-07-02] MEDS ORDERED: metoPROLOL SUCCINATE 25 MG TAB.SR.24H (FP) PO ONE (09:03)
[2022-07-02] MEDS ORDERED: FUROSEMIDE 20 MG TABLET (FP) ONE (09:03)
[2022-07-02] MEDS ORDERED: DOCUSATE SODIUM 100 MG CAPSULE (FP) PO ONE (09:03)
[2022-07-02] MEDS ORDERED: MULTIVITAMINS (DAILY MVI) TABLET (FP) ONE (09:04)
[2022-07-02] MEDS: FOLIC ACID 1 MG TABLET (FP) PO SCH (09:58)
[2022-07-02] MEDS: APIXABAN 2.5 MG TABLET PO SCH ×2 (09:58→22:14)
[2022-07-02] MEDS: DOCUSATE SODIUM 100 MG CAPSULE (FP) PO SCH (09:58)
[2022-07-02] MEDS: amLODIPine BESYLATE 10 MG TABLET (FP) PO SCH (09:59)
[2022-07-02] MEDS: QUEtiapine FUMARATE 25 MG TABLET PO SCH ×2 (09:59→22:14)
[2022-07-02] MEDS: FUROSEMIDE 20 MG TABLET (FP) PO SCH (09:59)
[2022-07-02] MEDS: CALCIUM 500MG/VIT-D 200 UNITS COMBO TABLET (FP) PO SCH (09:59)
[2022-07-02] MEDS: METOPROLOL TARTRATE 25 MG TABLET (FP) PO SCH ×2 (09:59→22:14)
[2022-07-02] MEDS: MULTIVITAMINS (DAILY MVI) TABLET (FP) PO SCH (09:59)
[2022-07-02] MEDS ORDERED: METHIMAZOLE 10 MG TABLET PO SCH ×2 (10:00)
[2022-07-02 12:43] LABS: BASO % 0.5 % (0-2.0); EOS % 1.5 % (0-4.5); HEMATOCRIT 33.9 % (32.4-45.2); HEMOGLOBIN 10.7 GM/dL (10.7-15.3); LYMPH % 40.2 % (8-40); MCH 28.6 pg (25.7-33.7); MCHC 31.6 g/dl (32.0-36.0); MEAN CELL VOLUME 90.7 fl (80-96); MEAN PLT VOLUME 9.4 fl (7.5-11.1); NEUT % 48.8 % (42.8-82.8); PLATELET COUNT 139 10^3/uL (134-434); RBC 3.74 M/mm3 (3.60-5.2); WHITE BLOOD COUNT 3.7 K/mm3 (4.0-10.0)
[2022-07-02 13:03] LABS: CALCIUM 8.9 mg/dL (8.5-10.1)
[2022-07-02 13:08] LABS: BILIRUBIN,TOTAL 0.6 mg/dL (0.2-1); TOT PROT 6.6 g/dl (6.4-8.2)
[2022-07-02] MEDS ORDERED: ERTAPENEM SODIUM 1 GM VIAL ONE (14:54)
[2022-07-02] MEDS: ERTAPENEM SODIUM 1 GM in SODIUM CHLORIDE 50 ML IVPB SCH (15:05)
[2022-07-02] MEDS ORDERED: ERTAPENEM SODIUM 1 GM in SODIUM CHLORIDE 50 ML IVPB SCH (16:00)
[2022-07-02] MEDS ORDERED: ATORVASTATIN CA 20 MG TABLET (FP) ONE (22:09)
[2022-07-02] MEDS ORDERED: METOPROLOL TARTRATE 25 MG TABLET (FP) ONE (22:09)
[2022-07-02] MEDS ORDERED: QUEtiapine FUMARATE 25 MG TABLET ONE (22:09)
[2022-07-02] MEDS: ATORVASTATIN CA 20 MG TABLET (FP) PO SCH (22:14)
[2022-07-03] MEDS: FUROSEMIDE 20 MG TABLET (FP) PO SCH (10:41)
[2022-07-03] MEDS: FOLIC ACID 1 MG TABLET (FP) PO SCH (10:41)
[2022-07-03] MEDS: DOCUSATE SODIUM 100 MG CAPSULE (FP) PO SCH (10:41)
[2022-07-03] MEDS: MULTIVITAMINS (DAILY MVI) TABLET (FP) PO SCH (10:41)
[2022-07-03] MEDS: amLODIPine BESYLATE 10 MG TABLET (FP) PO SCH (10:41)
[2022-07-03] MEDS: METOPROLOL TARTRATE 25 MG TABLET (FP) PO SCH ×2 (10:42→22:57)
[2022-07-03] MEDS: APIXABAN 2.5 MG TABLET PO SCH ×2 (10:42→22:56)
[2022-07-03] MEDS: CALCIUM 500MG/VIT-D 200 UNITS COMBO TABLET (FP) PO SCH (10:42)
[2022-07-03] MEDS: QUEtiapine FUMARATE 25 MG TABLET PO SCH ×2 (10:42→22:56)
[2022-07-03] MEDS: CARBIDOPA/LEVODOPA 25/100 TABLET (FP) PO SCH ×3 (11:00→17:45)
[2022-07-03] MEDS ORDERED: PHENAZOPYRIDINE HCL 100 MG TABLET (FP) PO PRN (12:14)
[2022-07-03] MEDS: ERTAPENEM SODIUM 1 GM in SODIUM CHLORIDE 50 ML IVPB SCH (14:56)
[2022-07-03] MEDS: ATORVASTATIN CA 20 MG TABLET (FP) PO SCH (22:57)
[2022-07-03 23:59] VITALS: BMI 19.0
[2022-07-04] MEDS: MULTIVITAMINS (DAILY MVI) TABLET (FP) PO SCH (09:54)
[2022-07-04] MEDS: METOPROLOL TARTRATE 25 MG TABLET (FP) PO SCH ×2 (09:54→22:44)
[2022-07-04] MEDS: APIXABAN 2.5 MG TABLET PO SCH ×2 (09:54→22:43)
[2022-07-04] MEDS: amLODIPine BESYLATE 10 MG TABLET (FP) PO SCH (09:54)
[2022-07-04] MEDS: CALCIUM 500MG/VIT-D 200 UNITS COMBO TABLET (FP) PO SCH (09:54)
[2022-07-04] MEDS: DOCUSATE SODIUM 100 MG CAPSULE (FP) PO SCH (09:54)
[2022-07-04] MEDS: FOLIC ACID 1 MG TABLET (FP) PO SCH (09:54)
[2022-07-04] MEDS: FUROSEMIDE 20 MG TABLET (FP) PO SCH (09:54)
[2022-07-04] MEDS: QUEtiapine FUMARATE 25 MG TABLET PO SCH ×2 (09:55→22:44)
[2022-07-04] MEDS: CARBIDOPA/LEVODOPA 25/100 TABLET (FP) PO SCH ×3 (09:56→17:32)
[2022-07-04] MEDS: METHIMAZOLE 10 MG TABLET PO SCH ×2 (12:25→22:44)
[2022-07-04] MEDS: ERTAPENEM SODIUM 1 GM in SODIUM CHLORIDE 50 ML IVPB SCH (16:26)
[2022-07-04 18:23] VITALS: RESP 18
[2022-07-04] MEDS: ATORVASTATIN CA 20 MG TABLET (FP) PO SCH (22:44)
[2022-07-05] MEDS: CARBIDOPA/LEVODOPA 25/100 TABLET (FP) PO SCH ×3 (08:27→17:35)
[2022-07-05] MEDS: APIXABAN 2.5 MG TABLET PO SCH (09:07)
[2022-07-05] MEDS: DOCUSATE SODIUM 100 MG CAPSULE (FP) PO SCH (09:07)
[2022-07-05] MEDS: amLODIPine BESYLATE 10 MG TABLET (FP) PO SCH (09:07)
[2022-07-05] MEDS: MULTIVITAMINS (DAILY MVI) TABLET (FP) PO SCH (09:08)
[2022-07-05] MEDS: QUEtiapine FUMARATE 25 MG TABLET PO SCH (09:08)
[2022-07-05] MEDS: FUROSEMIDE 20 MG TABLET (FP) PO SCH (09:08)
[2022-07-05] MEDS: FOLIC ACID 1 MG TABLET (FP) PO SCH (09:08)
[2022-07-05] MEDS: METHIMAZOLE 10 MG TABLET PO SCH (09:09)
[2022-07-05] MEDS: METOPROLOL TARTRATE 25 MG TABLET (FP) PO SCH (09:10)
[2022-07-05] MEDS: CALCIUM 500MG/VIT-D 200 UNITS COMBO TABLET (FP) PO SCH (09:10)
[2022-07-05] MEDS: ERTAPENEM SODIUM 1 GM in SODIUM CHLORIDE 50 ML IVPB SCH (14:16)
[2022-07-05 17:23] VITALS: BP 126/77; PULSE 64; TEMP 98.4
== END 2022-07-05 17:42 | DRG 689 ==
LOC: JER 10:08 → JERBED 14:50 → J7W 07-03 01:54
PROVIDERS: ADMIT Internal Medicine; ATTEND Internal Medicine
DX: N39.0 Urinary tract infection, site not specified (principal); G93.41 Metabolic encephalopathy; N17.9 Acute kidney failure, unspecified; I10 Essential (primary) hypertension; G20 Parkinson's disease; F02.80 Dementia in other diseases classified elsewhere, unspecified severity, without behavioral disturbance, psychotic disturbance, mood disturbance, and anxiety; Z86.718 Personal history of other venous thrombosis and embolism; Z79.01 Long term (current) use of anticoagulants; D72.819 Decreased white blood cell count, unspecified; I44.0 Atrioventricular block, first degree; Z85.038 Personal history of other malignant neoplasm of large intestine
CPT/HCPCS: 0241U-QW; 36415; 70450-TC; 71045-TC-FY; 80053; 81003; 83735; 84443; 84484; 85025; 85610; 85730; 87040; 87086; 87186; 93005; 93010; 97116-GP; 97162-GP; 99285-25

== ENCOUNTER 2022-10-10 22:03 | Inpatient (IN) | payer OTHER, MEDICARE ==
[2022-10-10 22:15] VITALS: BMI 18.8
[2022-10-10] MEDS ORDERED: CEFTRIAXONE 1 GM in DEXTROSE 5%-WATER - 100 ML IVPB ONE (22:40)
[2022-10-10] MEDS ORDERED: CEFTRIAXONE 1 GM/50 ML BAG ONE (22:56)
[2022-10-10 23:22] LABS: HEMATOCRIT 33.4 % (32.4-45.2); MCH 28.3 pg (25.7-33.7); MCHC 32.9 g/dl (32.0-36.0); MEAN PLT VOLUME 10.6 fl (7.5-11.1); PLATELET COUNT 167 10^3/uL (134-434); RBC 3.88 M/mm3 (3.60-5.2); RDW 18.5 % (11.6-15.6); WHITE BLOOD COUNT 4.3 K/mm3 (4.0-10.0)
[2022-10-10 23:39] LABS: EPI CELLS >36 /uL (0-25.1); HYALINE CASTS 26 /uL (0-3.1); PH,URINE 6.5 (5.0-8.0); URINE APPEARANCE TURBID; URINE BACTERIA >9,000 /uL (0-1359); URINE BILIRUBIN 2+ (NEGATIVE); URINE COLOR ORANGE; URINE GLUCOSE (UA) NEGATIVE (NEGATIVE); URINE KETONE NEGATIVE (NEGATIVE); URINE LEUK ESTERASE 3+ (NEGATIVE); URINE NITRITE POSITIVE (NEGATIVE); URINE PROTEIN 2+ (NEGATIVE); URINE WBC 5583 /uL (0-25.8)
[2022-10-10 23:42] LABS: CALCIUM 8.9 mg/dL (8.5-10.1)
[2022-10-10 23:43] LABS: ALBUMIN 3.1 g/dl (3.4-5.0); BLOOD UREA NITROGEN 20.7 mg/dL (7-18)
[2022-10-10 23:46] LABS: CREATININE 1.1 mg/dL (0.55-1.3)
[2022-10-10 23:47] LABS: TOT PROT 7.2 g/dl (6.4-8.2)
[2022-10-10 23:48] LABS: BILIRUBIN,TOTAL 0.5 mg/dL (0.2-1)
[2022-10-10 23:51] LABS: N-TERMINAL BNP 5184.5 pg/ml (5-450)
[2022-10-10 23:52] LABS: ANISOCYTOSIS 2+; MACROCYTOSIS 0; OVALOCYTE 1+
[2022-10-10 23:57] LABS: URINE RBC 7640.4 /uL (0-23.9); YEAST MODERATE (NEGATIVE)
[2022-10-11] MEDS ORDERED: PIPERACILLIN/TAZOB 4.5 GM 4.5 GM in DEXTROSE 5%-WATER 100 ML IVPB ONE (04:17)
[2022-10-11] MEDS ORDERED: DOCUSATE SODIUM 100 MG CAPSULE (FP) PO PRN (04:20)
[2022-10-11] MEDS ORDERED: ACETAMINOPHEN 325 MG TABLET (FP) PO PRN (04:20)
[2022-10-11] MEDS ORDERED: PIPERACILLIN/TAZOB 4.5 GM 4.5 GM/100 ML BAG IVPB ONE (05:09)
[2022-10-11] MEDS ORDERED: GABAPENTIN 100 MG CAPSULE ONE ×2 (09:34→23:02)
[2022-10-11] MEDS ORDERED: MULTIVITAMINS (DAILY MVI) TABLET (FP) ONE (09:34)
[2022-10-11] MEDS ORDERED: CARBIDOPA/LEVODOPA 25/100 TABLET (FP) ONE ×3 (09:34→18:59)
[2022-10-11] MEDS ORDERED: APIXABAN 2.5 MG TABLET ONE ×2 (09:34→23:01)
[2022-10-11] MEDS: GABAPENTIN 100 MG CAPSULE PO SCH ×2 (09:40→23:07)
[2022-10-11] MEDS: APIXABAN 2.5 MG TABLET PO SCH ×2 (09:40→23:07)
[2022-10-11] MEDS: MULTIVITAMINS THER W-MINERALS COMBO TABLET (FP) PO SCH (09:40)
[2022-10-11] MEDS: CARBIDOPA/LEVODOPA 25/100 TABLET (FP) PO SCH ×3 (09:40→19:00)
[2022-10-11] MEDS ORDERED: ERTAPENEM SODIUM 1 GM VIAL ONE (14:48)
[2022-10-11] MEDS: ERTAPENEM SODIUM 1 GM in SODIUM CHLORIDE 50 ML IVPB SCH (15:50)
[2022-10-11] MEDS ORDERED: CARBIDOPA/LEVODOPA 25/250 TABLET (FP) ONE (18:55)
[2022-10-11] MEDS ORDERED: METOPROLOL TARTRATE 25 MG TABLET (FP) ONE (23:01)
[2022-10-11] MEDS ORDERED: QUEtiapine FUMARATE 25 MG TABLET ONE ×2 (23:01→23:04)
[2022-10-11] MEDS ORDERED: ATORVASTATIN CA 20 MG TABLET (FP) ONE (23:01)
[2022-10-11] MEDS: METOPROLOL TARTRATE 25 MG TABLET (FP) PO SCH (23:07)
[2022-10-11] MEDS: QUEtiapine FUMARATE 25 MG TABLET PO SCH (23:07)
[2022-10-11] MEDS: ATORVASTATIN CA 20 MG TABLET (FP) PO SCH (23:07)
[2022-10-12] MEDS: FUROSEMIDE 20 MG TABLET (FP) PO SCH (09:28)
[2022-10-12] MEDS: CALCIUM 500MG/VIT-D 200 UNITS COMBO TABLET (FP) PO SCH (09:28)
[2022-10-12] MEDS: METOPROLOL TARTRATE 25 MG TABLET (FP) PO SCH ×2 (09:28→22:04)
[2022-10-12] MEDS: DOCUSATE SODIUM 100 MG CAPSULE (FP) PO SCH (09:28)
[2022-10-12] MEDS: TAMSULOSIN HCL 0.4 MG CAP PO SCH (09:28)
[2022-10-12] MEDS: QUEtiapine FUMARATE 25 MG TABLET PO SCH ×2 (09:29→22:04)
[2022-10-12] MEDS: CARBIDOPA/LEVODOPA 25/100 TABLET (FP) PO SCH ×3 (09:29→19:52)
[2022-10-12] MEDS: GABAPENTIN 100 MG CAPSULE PO SCH ×2 (09:29→22:04)
[2022-10-12] MEDS: MULTIVITAMINS THER W-MINERALS COMBO TABLET (FP) PO SCH (09:30)
[2022-10-12] MEDS: APIXABAN 2.5 MG TABLET PO SCH ×2 (09:30→22:04)
[2022-10-12] MEDS: METHIMAZOLE 10 MG TABLET PO SCH (09:31)
[2022-10-12 09:38] LABS: BASO % 1.3 % (0-2.0); EOS % 4.2 % (0-4.5); HEMATOCRIT 33.3 % (32.4-45.2); LYMPH % 33.4 % (8-40); MCH 28.3 pg (25.7-33.7); MEAN CELL VOLUME 85.9 fl (80-96); MEAN PLT VOLUME 9.4 fl (7.5-11.1); MONO % 8.3 % (3.8-10.2); NEUT % 52.8 % (42.8-82.8); PLATELET COUNT 159 10^3/uL (134-434); RBC 3.88 M/mm3 (3.60-5.2); RDW 18.6 % (11.6-15.6); WHITE BLOOD COUNT 3.8 K/mm3 (4.0-10.0)
[2022-10-12 09:58] LABS: CALCIUM 9.2 mg/dL (8.5-10.1)
[2022-10-12 09:59] LABS: BLOOD UREA NITROGEN 17.8 mg/dL (7-18); MAGNESIUM 2.3 mg/dL (1.8-2.4)
[2022-10-12] MEDS ORDERED: FOLIC ACID 1 MG TABLET (FP) PO SCH (10:00)
[2022-10-12 10:02] LABS: PHOSPHOROUS 2.6 mg/dL (2.5-4.9)
[2022-10-12] MEDS: ERTAPENEM SODIUM 1 GM in SODIUM CHLORIDE 50 ML IVPB SCH (11:13)
[2022-10-12] MEDS: ATORVASTATIN CA 20 MG TABLET (FP) PO SCH (22:04)
[2022-10-13] MEDS ORDERED: INSULIN (NOVOLOG) ASPART 100 UNITS/ML 10ML VIAL ONE (07:48)
[2022-10-13] MEDS: CARBIDOPA/LEVODOPA 25/100 TABLET (FP) PO SCH ×3 (09:18→17:24)
[2022-10-13] MEDS: METOPROLOL TARTRATE 25 MG TABLET (FP) PO SCH ×2 (10:19→21:15)
[2022-10-13] MEDS: TAMSULOSIN HCL 0.4 MG CAP PO SCH (10:19)
[2022-10-13] MEDS: QUEtiapine FUMARATE 25 MG TABLET PO SCH ×2 (10:19→21:15)
[2022-10-13] MEDS: APIXABAN 2.5 MG TABLET PO SCH ×2 (10:19→21:16)
[2022-10-13] MEDS: METHIMAZOLE 10 MG TABLET PO SCH (10:19)
[2022-10-13] MEDS: MULTIVITAMINS THER W-MINERALS COMBO TABLET (FP) PO SCH (10:19)
[2022-10-13] MEDS: GABAPENTIN 100 MG CAPSULE PO SCH ×2 (10:19→21:15)
[2022-10-13] MEDS: CALCIUM 500MG/VIT-D 200 UNITS COMBO TABLET (FP) PO SCH (10:19)
[2022-10-13] MEDS: FUROSEMIDE 20 MG TABLET (FP) PO SCH (10:19)
[2022-10-13] MEDS: DOCUSATE SODIUM 100 MG CAPSULE (FP) PO SCH (10:19)
[2022-10-13] MEDS: ERTAPENEM SODIUM 1 GM in SODIUM CHLORIDE 50 ML IVPB SCH (10:29)
[2022-10-13] MEDS: ATORVASTATIN CA 20 MG TABLET (FP) PO SCH (21:15)
[2022-10-14] MEDS: CARBIDOPA/LEVODOPA 25/100 TABLET (FP) PO SCH ×3 (08:47→17:10)
[2022-10-14] MEDS: TAMSULOSIN HCL 0.4 MG CAP PO SCH (10:10)
[2022-10-14] MEDS: GABAPENTIN 100 MG CAPSULE PO SCH (10:10)
[2022-10-14] MEDS: CALCIUM 500MG/VIT-D 200 UNITS COMBO TABLET (FP) PO SCH (10:10)
[2022-10-14] MEDS: APIXABAN 2.5 MG TABLET PO SCH (10:10)
[2022-10-14] MEDS: QUEtiapine FUMARATE 25 MG TABLET PO SCH (10:10)
[2022-10-14] MEDS: METOPROLOL TARTRATE 25 MG TABLET (FP) PO SCH (10:10)
[2022-10-14] MEDS: MULTIVITAMINS THER W-MINERALS COMBO TABLET (FP) PO SCH (10:11)
[2022-10-14] MEDS: DOCUSATE SODIUM 100 MG CAPSULE (FP) PO SCH (10:11)
[2022-10-14] MEDS: METHIMAZOLE 10 MG TABLET PO SCH (10:11)
[2022-10-14] MEDS: FUROSEMIDE 20 MG TABLET (FP) PO SCH (10:11)
[2022-10-14] MEDS: ERTAPENEM SODIUM 1 GM in SODIUM CHLORIDE 50 ML IVPB SCH (10:12)
[2022-10-14 12:09] VITALS: BP 150/79; PULSE 66; RESP 18; TEMP 97.7
== END 2022-10-14 18:55 | disposition home or self-care (01) | DRG 689 ==
LOC: JER 22:03 → JERBED 10-11 04:19 → J6S 10-12 02:04
PROVIDERS: ADMIT Internal Medicine; ATTEND Internal Medicine
DX: N39.0 Urinary tract infection, site not specified (principal); G93.41 Metabolic encephalopathy; I10 Essential (primary) hypertension; E05.90 Thyrotoxicosis, unspecified without thyrotoxic crisis or storm; I71.21 Aneurysm of the ascending aorta, without rupture; G20 Parkinson's disease; F02.80 Dementia in other diseases classified elsewhere, unspecified severity, without behavioral disturbance, psychotic disturbance, mood disturbance, and anxiety; Z85.038 Personal history of other malignant neoplasm of large intestine; E78.5 Hyperlipidemia, unspecified; Z86.718 Personal history of other venous thrombosis and embolism; Z79.01 Long term (current) use of anticoagulants
CPT/HCPCS: 0241U-QW; 36415; 70450-TC; 71045-TC-FY; 71275-TC; 80048; 80053; 81003; 82962; 83605; 83735; 83880; 84100; 84443; 84484; 85025; 85379; 85610; 85730; 87086; 87186; 93005; 93010; 99284-25